=== PATIENT | female | born 1945 | race Caucasian/White ===

== ENCOUNTER → 2018-02-03 09:50 | Outpatient (CLI) | payer MEDICARE, SELFPAY ==
--- NOTE | 2018-02-04 16:28 | UEAS_ITS ---
Arterial Study - Arterial Study Arterial Study: This is a 72-year-old female with a history of hyperlipidemia and prediabetes. Suspecting an arterial occlusive process in the upper extremity, the patient was brought to the noninvasive vascular laboratory at this time for the purpose of bilateral noninvasive upper extremity arterial assessment. Doppler signal assessment was used to evaluate the pulses at the wrist level bilaterally. The radial and ulnar pulses were triphasic bilaterally. Segmental limb pressures were obtained in the upper extremities bilaterally. The right brachial pressure was measured at 169 mmHg. The right wrist pressure , as determined by radial artery pulse, was measured at 215 mmHg. The right wrist pressure, as determined by ulnar artery pulse, was measured at 270 mmHg. The left brachial pressure was measured at 168 mmHg. The left wrist pressure, as determined by radial artery pulse, was measured at 182 mmHg. The left wrist pressure, as determined by ulnar artery pulse, was measured at 208 mmHg. Pulse-volume recordings were obtained bilaterally and segmentally. Waveform amplitudes appeared to be satisfactory at all levels bilaterally, including upper arm, forearm, wrist, and digital levels bilaterally. Wrist-brachial indices were calculated bilaterally. The right wrist-brachial index was calculated to be 1.27. The left wrist-brachial index was calculated to be 1.23. Impression: Based upon the findings of this noninvasive upper extremity arterial study, there is no evidence of significant arterial occlusive disease in the upper extremities bilaterally. Triphasic waveforms were noted at wrist level bilaterally. Arterial pressures appear to be relatively unremarkable at all levels in the upper extremities bilaterally, with no suggestion of an occlusive process in the arterial tree of the upper extremities bilaterally.
--- NOTE | 2018-02-04 16:31 | LEAS ---
Arterial Study - Arterial Study Arterial Study: This is a 72-year-old female with a history of hyperlipidemia and prediabetes. Suspecting the presence of atherosclerotic peripheral arterial occlusive disease, the patient was brought to the noninvasive vascular laboratory at this time for the purpose of bilateral noninvasive lower extremity arterial assessment. Doppler signal assessment was used to evaluate the pulses at ankle level bilaterally. The posterior tibial and dorsalis pedis pulses were triphasic bilaterally. Segmental limb pressures were obtained bilaterally. The right ankle pressure, as determined by posterior tibial pulse, was measured at 221 mmHg. The right ankle pressure, as determined by dorsalis pedis pulse, was measured at 210 mmHg. The right digital pressure was measured at 167 mmHg. The left ankle pressure, as determined by posterior tibial pulse, was measured at 233 mmHg. The left ankle pressure, as determined by dorsalis pedis pulse, was measured at 209 mmHg. The left digital pressure was measured at 166 mmHg. Pulse-volume recordings were obtained bilaterally and segmentally. Waveform amplitudes appeared to be satisfactory at all levels bilaterally, including low thigh, calf, ankle, and digital levels. Resting ankle-brachial indices were calculated bilaterally. The resting right ankle-brachial index was calculated to be 1.31. The resting left ankle-brachial index was calculated to be 1.38. Digital-brachial indices were calculated bilaterally. The right digital-brachial index was calculated to be 0.99. The left digital-brachial index was calculated to be 0.98. Impression: Based upon the findings of this resting noninvasive lower extremity arterial study, there is no evidence of significant atherosclerotic peripheral arterial occlusive disease in the lower extremities bilaterally. Triphasic waveforms were noted at ankle level bilaterally. Resting ankle-brachial indices were bilaterally normal. Digital-brachial indices were also normal bilaterally. In summary, this represents a normal resting noninvasive lower extremity arterial study bilaterally.
--- NOTE | 2018-02-04 16:37 | LEAS_ITS ---
Arterial Study - Arterial Study Arterial Study: This is a 72-year-old female with a history of hyperlipidemia and prediabetes. Suspecting the presence of atherosclerotic peripheral arterial occlusive disease , the patient was brought to the noninvasive vascular laboratory at this time for the purpose of bilateral noninvasive lower extremity arterial assessment. Doppler signal assessment was used to evaluate the pulses at ankle level bilaterally. The posterior tibial and dorsalis pedis pulses were triphasic bilaterally. Segmental limb pressures were obtained bilaterally. The right ankle pressure, as determined by posterior tibial pulse, was measured at 221 mmHg. The right ankle pressure, as determined by dorsalis pedis pulse, was measured at 210 mmHg. The right digital pressure was measured at 167 mmHg. The left ankle pressure, as determined by posterior tibial pulse, was measured at 233 mmHg. The left ankle pressure, as determined by dorsalis pedis pulse, was measured at 209 mmHg. The left digital pressure was measured at 166 mmHg. Pulse-volume recordings were obtained bilaterally and segmentally. Waveform amplitudes appeared to be satisfactory at all levels bilaterally, including low thigh, calf, ankle, and digital levels. Resting ankle-brachial indices were calculated bilaterally. The resting right ankle-brachial index was calculated to be 1.31. The resting left ankle- brachial index was calculated to be 1.38. Digital-brachial indices were calculated bilaterally. The right digital- brachial index was calculated to be 0.99. The left digital-brachial index was calculated to be 0.98. Impression: Based upon the findings of this resting noninvasive lower extremity arterial study, there is no evidence of significant atherosclerotic peripheral arterial occlusive disease in the lower extremities bilaterally. Triphasic waveforms were noted at ankle level bilaterally. Resting ankle-brachial indices were bilaterally normal. Digital-brachial indices were also normal bilaterally. In summary, this represents a normal resting noninvasive lower extremity arterial study bilaterally.
== END ==
PROVIDERS: Family Provider Family Medicine; PCP Family Medicine; Visit Provider Orthopaedic Surgery
DX: I73.9 Peripheral vascular disease, unspecified (principal); M17.12 Unilateral primary osteoarthritis, left knee
CPT/HCPCS: 93923

== ENCOUNTER → 2019-07-13 14:22 | Outpatient (CLI) | payer MEDICARE, SELFPAY ==
--- NOTE | 2019-07-13 14:28 | BI_ITS ---
MAMMOGRAPHY - BILATERAL SCREENING REASON FOR EXAM: Female, 74 years old. Routine annual screening examination. PERTINENT HISTORY: Non-contributory. TECHNIQUE: Digital bilateral breast loraine (3D mammographic acquisition) in the CC and MLO projections. 2-D mediolateral oblique (MLO) and craniocaudad (CC) views of both breasts were obtained. CAD: Full Field Digital Mammography with Computer Added Detection was performed. COMPARISON: Comparison is made with prior examination dated May 04, 2017. FINDINGS: Breast Composition: There are scattered areas of fibroglandular density. There are no dominant masses or suspicious calcifications. Stable benign-appearing fat-containing axillary lymph nodes. No other significant abnormalities are identified. There has been no significant change since the prior study. BI/SCREEN MAMM (CAD) W/LORAINE BILAT IMPRESSION: Stable bilateral screening mammogram. Yearly follow-up mammogram recommended. (A) ASSESSMENT CATEGORY: BIRADS Category 2: Benign. A letter regarding these results will be sent to the patient by the facility within 30 days. Approximately 10% of breast cancers are not detected by mammography. A normal mammogram should not delay biopsy of a clinically suspicious abnormality. [id number] Electronically Signed: Hipolito Diego, at 13:37 EST , Service support ,
== END ==
PROVIDERS: Family Provider Family Medicine; PCP Family Medicine
DX: Z12.31 Encounter for screening mammogram for malignant neoplasm of breast (principal)
CPT/HCPCS: 77063; 77067

== ENCOUNTER 2020-10-11 15:46 | Outpatient (RCR) | payer MEDICARE, SELFPAY ==
[2020-10-11] MEDS: COVID-19 VACC, MRNA(PFIZER)/PF 30 MCG/0.3 ML SYRINGE IM (10:49)
[2020-11-01] MEDS: COVID-19 VACC, MRNA(PFIZER)/PF 30 MCG/0.3 ML SYRINGE IM (10:26)
== END 2020-10-11 23:59 ==
LOC: IMMUN 15:46
PROVIDERS: PCP Family Medicine; Visit Provider Family Medicine
DX: Z23 Encounter for immunization (principal)
CPT/HCPCS: 0001A; 0002A

== ENCOUNTER 2021-10-15 14:05 | Outpatient (CLI) | payer MEDICARE, SELFPAY ==
--- NOTE | 2021-10-15 14:09 | BI_ITS ---
MAMMOGRAPHY - BILATERAL SCREENING REASON FOR EXAM: Female, 76 years old. Routine annual screening examination. PERTINENT HISTORY: Non-contributory. TECHNIQUE: Digital bilateral breast loraine (3D mammographic acquisition) in the CC and MLO projections. 2-D mediolateral oblique (MLO) and craniocaudad (CC) views of both breasts were obtained. CAD: Full Field Digital Mammography with Computer Added Detection was performed. COMPARISON: Comparison is made with prior study dated 07/13/2019. FINDINGS: Breast Composition: There are scattered areas of fibroglandular density. There are no dominant masses or suspicious calcifications. Stable benign-appearing fat-containing bilateral axillary lymph. No other significant abnormalities are identified. There has been no significant change since the prior study. BI/SCRN MAMM (CAD)W/LORAINE BILAT IMPRESSION: Stable bilateral screening mammogram. Yearly follow-up mammogram recommended. (A) ASSESSMENT CATEGORY: BIRADS Category 2: Benign. A letter regarding these results will be sent to the patient by the facility within 30 days. Approximately 10% of breast cancers are not detected by mammography. A normal mammogram should not delay biopsy of a clinically suspicious abnormality. [id number] Electronically Signed: Hipolito Diego MD at 14:58 EST ,
== END 2021-10-15 23:59 | disposition home or self-care (01) ==
LOC: OPBI 14:06
PROVIDERS: PCP Family Medicine; Visit Provider Family Medicine
DX: Z12.31 Encounter for screening mammogram for malignant neoplasm of breast (principal)
CPT/HCPCS: 77063; 77067

== ENCOUNTER → 2025-02-06 | Outpatient (CLI) | payer MEDICARE, SELFPAY ==
[2025-02-06 11:13] LABS: Hematocrit 42.9 % (37-47); Hemoglobin 13.8 g/dL (12.0-15.0)
--- OUTSIDE RECORDS SUMMARY | 2025-02-06 22:51 | XMS RPT_ITS | CCD ---
Author Organization [facility] Care Team Providers Care [employer] Manager Name Role Phone BHANU SHRESTHA MD Primary Care Physician DR KASEY GARCIA MD Attending Unavailable BHANU SHRESTHA MD Primary Care Unavailable BHANU SHRESTHA MD Attending Unavailable BHANU SHRESTHA MD Primary Care Unavailable BHANU SHRESTHA MD Attending Unavailable BHANU SHRESTHA MD Primary Care Unavailable BHANU SHRESTHA MD Primary Care Unavailable TAVO VAZQUEZ MD Attending Unavailable TAVO VAZQUEZ MD Attending Unavailable BHANU SHRESTHA MD Primary Care Unavailable BHANU SHRESTHA MD Primary Care Unavailable TAVO VAZQUEZ MD Attending Unavailable BHANU SHRESTHA MD Primary Care Unavailable BHANU SHRESTHA MD Attending Unavailable BHANU SHRESTHA MD Primary Care Unavailable BHANU SHRESTHA MD Attending Unavailable BHANU SHRESTHA MD Primary Care Unavailable BHANU SHRESTHA MD Attending Unavailable TAVO VAZQUEZ MD Attending Unavailable BHANU SHRESTHA MD Primary Care Unavailable BHANU SHRESTHA MD Primary Care Unavailable BHANU SHRESTHA MD Attending Unavailable HBANU SHRESTHA MD Attending Unavailable BHANU SHRESTHA MD Primary Care Unavailable BHANU SHRESTHA MD Attending Unavailable BHANU SHRESTHA MD Primary Care Unavailable Dr. Bhanu Shrestha MD Primary Care Provider Dr. Bhanu Shrestha MD Referring Provider Graciela Jacobson Attending Provider Graciela Zuleta Attending Unavailable Bhanu Shrestha Referring Unavailable Bhanu Shrestha Primary Care Unavailable Allergies Allergy Classification Reported Allergen(s) Allergy Type Date of Onset Reaction(s) Facility (11 sources) Adhesive bandage Allergy to substance Unknown (qualifier value) [facility] (11 sources) bacitracin / neomycin / polymyxin b; Translations: [bacitracin/conor mycin/polymyxin B topical] Drug Allergy Unknown (qualifier value) [facility] (11 sources) nabumetone; Translations: [nabumetone] Drug Allergy headache [facility] (11 sources) Penicillin; Translations: [penicillin] Drug Allergy Unknown (qualifier value) [facility] (1 source) Bacitracin Drug Allergy 5 NEEDS FOLLOW-UP [facility] (1 source) Neomycin Drug Allergy 5 NEEDS FOLLOW-UP [facility] (1 source) Penicillins Allergy to substance 5 NEEDS FOLLOW-UP [facility] (1 source) Polymyxin B Drug Allergy 5 NEEDS FOLLOW-UP [facility] (1 source) Bacitracin Drug Allergy 5 [facility] (1 source) Neomycin Drug Allergy 5 [facility] (1 source) Penicillins Drug allergy (disorder) 5 [facility] (1 source) polymyxin B Drug allergy (disorder) 5 [facility] Medications Current Medications Medication Drug Class(es) Dates Sig (Normalized) Sig (Original) 8 hr acetaminophen 650 mg extended release oral tablet (5 sources) Start: 06-07-2024 Tylenol 8 HR Arthritis Pain 650 mg oral tablet, extended release Dose : 1,300 mg = 2 tab(s), Oral, q8h, PRN as needed for pain, # 24 tab(s), 0 Refill(s) Start Date: 06/07/24 Status: Ordered Quantity: 24.0 Unit: tab(s) Repeat number: 1 Albuterol (Eqv-ProAir HFA) 90 mcg/inh inhalation aerosol (3 sources) Start: 12-20-2024 take 1 dose by inhalation every four hours as needed for wheezing Albuterol (Eqv-ProAir HFA) 90 mcg/inh inhalation aerosol Dose = 1 puff(s), Inhalation, q4h, PRN as needed for shortness of breath or wheezing, # 6.7 gram(s), 0 Refill(s) Start Date: 12/20/24 Status: Ordered Quantity: 6.7 Unit: g Repeat number: 1 amLODIPine 5 mg oral tablet (3 sources) Dihydropyridine Calcium Channel Anais Start: 12-20-2024 amLODIPine 5 mg oral tablet Dose : 5 mg = 1 tab(s), Oral, qDay, # 90 tab(s), 3 Refill(s), Pharmacy: [facility], 180, cm, 12/20/24 15:35:00 EDT, Height, kg, 12/20/24 15:35:00 EDT, Dosing Weight Start Date: 12/20/24 Status: Ordered Quantity: 90.0 Unit: tab(s) Repeat number: 4 azithromycin 500 mg oral tablet (3 sources) Macrolide Antimicrobial Start: 12-20-2024 azithromycin 500 mg oral tablet take 1 tablet by mouth 1 hour before PROCEDURE Start Date: 12/20/24 Status: Ordered Repeat number: 1 Calcium, Magnesium and Zinc oral tablet (4 sources) Start: 01-31-2020 take 1 tablet by mouth once daily Calcium, Magnesium and Zinc oral tablet tab(s), Oral, qDay, 0 Refill(s) Start Date: 01/31/20 Status: Ordered diclofenac sodium 0.01 mg/mg topical gel (6 sources) Nonsteroidal Anti-inflammatory Drug Start: 12-20-2024 diclofenac 1% topical gel 2 = gram(s), Topical, QID, volteran gel, # 1 EA, 0 Refill(s), Gel, 166 Start Date: 12/20/24 Status: Ordered Quantity: 1.0 Unit: EA Repeat number: 1 Start: 01-31-2020 diclofenac sod ium 75 mg oral delayed release tablet Dose : 75 mg = 1 tab(s), Oral, BID, # 60 tab(s), 0 Refill(s) Start Date: 01/31/20 Status: Ordered diclofenac sodium 75 mg oral delayed release tablet (1 source) Start: 01-31-2020 diclofenac sod ium 75 mg oral delayed release tablet Dose : 75 mg = 1 tab(s), Oral, BID, # 60 tab(s), 0 Refill(s) Start Date: 01/31/20 Status: Ordered DME MISCellaneous (3 sources) Start: 06-23-2024 DME MISCellane ous See Instructions, Home Blood pressure monitor and cuff Check bp once daily as directed. Dx: Elevated bp, # 1 EA, 0 Refill(s), Pharmacy: [facility] #[facility], Elevated blood pressure reading, 180, cm, 06/07/24 13:23:00 EDT, Height, 106.8, kg, 06/07/24 13:23:00 EDT, Dosing Weight Start Date: 06/23/24 Status: Ordered Quantity: 1.0 Unit: EA Repeat number: 1 Indications: Elevated blood-pressure reading, without diagnosis of hypertension; Fluocinonide (10 sources) Corticosteroid Start: 06-07-2024 fluocinonide 0 .05% topical cream See Instructions, to affected area daily, # 30 gram(s), 1 Refill(s), Pharmacy: [facility], Cream, 180, cm, 06/07/24 13:23:00 EDT, Height, 106.8, kg, 06/07/24 13:23:00 EDT, Dosing Weight Start Date: 06/07/24 Status: Ordered Quantity: 30.0 Unit: g Repeat number: 2 Start: 06-07-2024 fluocinonide 0 .05% topical cream See Instructions, to affected area daily, # 30 gram(s), 1 Refill(s), Pharmacy: [facility], Cream, 180, cm, 06/07/24 13:23:00 EDT, Height, 106.8, kg, 06/07/24 13:23:00 EDT, Dosing Weight Start Date: 06/07/24 Status: Ordered Start: 02-05-2024 fluocinonide 0 .05% topical cream See Instructions, to affected area daily, # 30 gram(s), 1 Refill(s), Pharmacy: [facility], Cream, 180, cm, 05/13/23 13:26:00 EDT, Height, 105.8, kg, 05/13/23 13:26:00 EDT, Dosing Weight Start Date: 02/05/24 Status: Ordered Start: 03-11-2022 fluocinonide 0 .05% topical cream See Instructions, to affected area daily, # 60 gram(s), 0 Refill(s), Pharmacy: [facility] #[id number], Cream, 177, cm, 06/03/21 10:25:00 EDT, Height, 103 Start Date: 03/11/22 Status: Ordered fluticasone propionate 0.05 mg/actuat metered dose nasal spray (9 sources) Corticosteroid Start: 06-07-2024 take 50 ug nasal route once daily in the morning Flonase 50 mcg/inh nasal spray 50 mcg Dose = 1 spray(s), Nostril, each, qAM, 0 Refill(s) Start Date: 06/07/24 Status: Ordered Repeat number: 1 Start: 03-17-2022 take 1 dose nasal ro [place] twice daily Flonase 50 mcg/inh nasal spray Dose = 1 spray(s), Nostril, each, BID, 0 Refill(s) Start Date: 03/17/22 Status: Ordered ketotifen 0.25 mg/ml ophthalmic solution (5 sources) Histamine-1 Receptor Inhibitor Start: 06-07-2024 take 1 drop(s) into the eye(s) every eight hours ketotifen 0.025% ophthalmic solution See Instructions, drop(s) q8h, 0 Refill(s) Start Date: 06/07/24 Status: Ordered Repeat number: 1 levothyroxine sodium 0.088 mg oral tablet (11 sources) l-Thyroxine Start: 06-07-2024 End: 06-02-2025 Synthroid 88 mcg (0.088 mg) oral tablet Dose : 88 mcg = 1 tab(s), Oral, qDay, # 90 tab(s), 3 Refill(s), Pharmacy: [facility], 180, cm, 06/07/24 13:23:00 EDT, Height, kg, 06/07/24 13:23:00 EDT, Dosing Weight Start Date: 06/07/24 Stop Date: 06/02/25 Status: Ordered Quantity: 90.0 Unit: tab(s) Repeat number: 4 Start: 05-13-2023 End: 05-07-2024 Synthroid 88 mcg (0.088 mg) oral tablet Dose : 88 mcg = 1 tab(s), Oral, qDay, # 90 tab(s), 3 Refill(s), Pharmacy: [facility], 180, cm, 05/13/23 13:26:00 EDT, Height, kg, 05/13/23 13:26:00 EDT, Dosing Weight Start Date: 05/13/23 Stop Date: 05/07/24 Status: Ordered Start: 06-03-2021 End: 05-01-2023 Synthroid 88 mcg (0.088 mg) oral tablet Dose : 88 mcg = 1 tab(s), Oral, qDay, # 90 tab(s), 3 Refill(s), Pharmacy: [facility], 177, cm, 04/25/22 10:10:00 EDT, Height, kg, 04/25/22 10:10:00 EDT, Dosing Weight Start Date: 05/06/22 Stop Date: 05/01/23 Status: Ordered meloxicam 15 mg oral tablet (4 sources) Nonsteroidal Anti-inflammatory Drug Start: 04-17-2022 take 1 tablet by mouth once daily at mealtime for pain meloxicam 15 mg oral tablet take 1 tablet by mouth once daily WITH MEALS FOR PAIN. DO NOT JOHN... (REFER TO PRESCRIPTION NOTES). Start Date: 04/17/22 Status: Ordered Multivitamin preparation (11 sources) Start: 01-31-2020 take 1 tablet by mouth once daily Multivitamin Dose = 1 tab(s), Oral, Daily, 0 Refill(s) Start Date: 01/31/20 Status: Ordered Repeat number: 1 Start: 01-31-2020 take 1 tablet by becki th once daily Multivitamin Dose = 1 tab(s), Oral, Daily, 0 Refill(s) Start Date: 01/31/20 Status: Ordered mupirocin 0.02 mg/mg topical ointment (6 sources) RNA Synthetase Inhibitor Antibacterial Start: 05-13-2023 mupirocin 2% topical ointment Topical, TID, 0 Refill(s), 103.9 Start Date: 05/13/23 Status: Ordered Repeat number: 1 omega-3 polyunsaturated fatty acids 200 mg oral capsule (4 sources) Start: 01-31-2020 omega-3 polyunsaturated fatty acids 200 mg oral capsule Dose : 200 mg = 1 cap(s), Oral, qDay, # 30 cap(s), 0 Refill(s) Start Date: 01/31/20 Status: Ordered potassium bitartrate (1 source) Start: 01-31-2020 potassium bitartrate 0 Refill(s) Start Date: 01/31/20 Status: Ordered sulfamethoxazole 800 mg / trimethoprim 160 mg oral tablet (2 sources) Dihydrofolate Reductase Inhibitor Antibacterial, Sulfonamide Antimicrobial Start: 01-06-2025 End: 01-16-2025 take 1 tablet by mouth twice daily Bactrim DS 800 mg-160 mg oral tablet Dose = 1 tab(s), Oral, BID, X 10 day(s), # 20 tab(s), 0 Refill(s), Pharmacy: [facility] #[id number], 180, cm, 01/03/25 14:57:00 EDT, Height, 108.2, kg, 01/03/25 14:57:00 EDT, Dosing Weight Start Date: 01/06/25 Stop Date: 01/16/25 Status: Ordered Quantity: 20.0 Unit: tab(s) Repeat number: 1 24 hr tolterodine tartrate 4 mg extended release oral capsule (11 sources) Cholinergic Muscarinic Antagonist Start: 12-06-2024 tolterodine 4 mg oral capsule, extended release Dose : 4 mg = 1 cap(s), Oral, Daily, # 90 cap(s), 3 Refill(s), Pharmacy: [facility], 180, cm, 06/28/24 14:52:00 EST, Height, kg, 06/28/24 14:52:00 EST, Dosing Weight Start Date: 12/06/24 Status: Ordered Quantity: 90.0 Unit: cap(s) Repeat number: 4 Start: 06-07-2024 tolterodine 4 mg oral capsule, extended release Dose : 4 mg = 1 cap(s), Oral, Daily, 0 Refill(s) Start Date: 06/07/24 Status: Ordered Start: 05-13-2023 Detrol LA 4 mg oral capsule, extended release Dose : 4 mg = 1 cap(s), Oral, Daily, # 90 cap(s), 3 Refill(s), Pharmacy: [facility], 180, cm, 05/13/23 13:26:00 EDT, Height, kg, 05/13/23 13:26:00 EDT, Dosing Weight Start Date: 05/13/23 Status: Ordered Start: 10-31-2022 Detrol LA 4 mg oral capsule, extended release Dose : 4 mg = 1 cap(s), Oral, Daily, # 90 cap(s), 1 Refill(s), Pharmacy: [facility], 177, cm, 04/25/22 10:10:00 EDT, Height, kg, 04/25/22 10:10:00 EDT, Dosing Weight Start Date: 10/31/22 Status: Ordered Start: 10-08-2021 Detrol LA 4 mg oral capsule, extended release Dose : 4 mg = 1 cap(s), Oral, Daily, # 90 cap(s), 3 Refill(s), Pharmacy: [facility], 177, cm, 06/03/21 10:25:00 EDT, Height, kg, 06/03/21 10:25:00 EDT, Dosing Weight Start Date: 10/08/21 Status: Ordered Start: 04-05-2021 End: 07-04-2021 Detrol LA 4 mg oral capsule, extended release Dose : 4 mg = 1 cap(s), Oral, Daily, # 90 cap(s), 0 Refill(s), Pharmacy: [facility], 177, cm, 02/14/20 9:03:00 EDT, Height, kg, 02/14/20 9:06:00 EDT, Dosing Weight Start Date: 04/05/21 Stop Date: 07/04/21 Status: Ordered triamcinolone acetonide 1 mg/ml topical lotion (6 sources) Corticosteroid Start: 06-07-2024 triamcinolone 0.1% topical lotion See Instructions, Topical qDay, # 60 mL, 5 Refill(s), Pharmacy: [facility], 180, cm, 06/07/24 13:23:00 EDT, Height, 106.8, kg, 06/07/24 13:23:00 EDT, Dosing Weight Start Date: 06/07/24 Status: Ordered Quantity: 60.0 Unit: mL Repeat number: 6 Indications: Dermatitis, unspecified; Start: 05-13-2023 triamcinolone 0.1% topical lotion See Instructions, Topical qDay, # 60 mL, 5 Refill(s), Pharmacy: [facility], 180, cm, 05/13/23 13:26:00 EDT, Height, 105.8, kg, 05/13/23 13:26:00 EDT, Dosing Weight Start Date: 05/13/23 Status: Ordered Vitamin D3 (1 source) Start: 01-31-2020 Vitamin D3 qDa y, 0 Refill(s) Start Date: 01/31/20 Status: Ordered Completed/Discontinued Medications Medication Drug Class(es) Dates Sig (Normalized) Sig (Original) silver sulfADIAZINE 10 mg/ml topical cream (5 sources) Sulfonamide Antibacterial Start: 12-20-2024 End: 01-03-2025 SSD 1% topical cream Apply 1 deondre, Topical, BID, # 50 gram(s), 0 Refill(s), Pharmacy: [facility], Cream, 180, cm, 12/20/24 15:35:00 EDT, Height, 108, kg, 12/20/24 15:35:00 EDT, Dosing Weight Start Date: 12/20/24 Stop Date: 01/03/25 Status: Ordered Quantity: 50.0 Unit: g Repeat number: 1 Start: 06-07-2024 End: 06-21-2024 SSD 1% topical cream Apply 1 deondre, Topical, BID, # 50 gram(s), 0 Refill(s), Pharmacy: [facility], Cream, 180, cm, 06/07/24 13:23:00 EDT, Height, 106.8, kg, 06/07/24 13:23:00 EDT, Dosing Weight Start Date: 06/07/24 Stop Date: 06/21/24 Status: Ordered Problems Problem Classification Problem Date Documented Da te Episodic/Chronic Acute bronchitis (1 source) Acute bronchitis 11-26-2022 Episodic Allergic reactions (6 sources) Chronic dermatitis 05-13-2023 Episodic Coma; stupor; and brain damage (5 sources) Daytime somnolence 06-07-2024 Episodic Disorders of lipid metabolism (15 sources) Mixed hyperlipidemia; Translations: [Mixed hyperlipidemia] Onset: 3 02-14-2020 Chronic Esophageal disorders (5 sources) Gastroesophageal reflux disease 06-07-2024 Chronic Essential hypertension (16 sources) Benign essential hypertension; Translations: [Essential (primary) hypertension] Onset: 3 02-14-2020 Chronic Gastrointestinal hemorrhage (4 sources) Rectal hemorrhage; Translations: [Hemorrhage of anus and rectum] Onset: 5 01-31-2025 Episodic Nutritional deficiencies (8 sources) Vitamin D deficiency; Translations: [Vitamin D deficiency, unspecified] Onset: 5 05-13-2023 Chronic Osteoarthritis (5 sources) Bilateral osteoarthritis of knees 02-14-2020 Chronic Other connective tissue disease (1 source) Presence of left artificial knee joint; Translations: [Presence of left artificial knee joint] Onset: 5 Chronic Other diseases of bladder and urethra (11 sources) 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 Other diseases of bladder and urethra (2 sources) Overactive bladder; Translations: [Overactive bladder] Onset: 3 Chronic Other inflammatory condition of skin (5 sources) Seborrheic dermatitis of scalp 06-07-2024 Episodic Other non-traumatic joint disorders (6 sources) Knee pain 05-13-2023 Episodic Other non-traumatic joint disorders (2 sources) Pain in right knee; Translations: [Pain in right knee] Onset: 4 Episodic Other skin disorders (5 sources) Excessive sweating 06-07-2024 Episodic Other upper respiratory disease (3 sources) Lesion of nose 01-03-2025 Episodic Other upper respiratory infections (5 sources) Chronic sinusitis; Translations: [Chronic sinusitis, unspecified] Onset: 5 12-20-2024 Chronic Thyroid disorders (15 sources) Hypothyroidism; Translations: [Hypothyroidism, unspecified] Onset: 3 02-14-2020 Chronic Unclassified (5 sources) Pain of knee region 06-07-2024 Unclassified (1 source) Low back pain, unspecified; Translations: [Low back pain, unspecified] Onset: 5 Unclassified (1 source) Juvenal-Danlos syndrome, unspecified; 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, unspecified] Onset: 5 Results Test Name Value Interpretation Reference Range Facility Gastroenterology Visit Repor ton 01-31-2025 Gastroenterology Visit Report [facility] [address] [place] [address] OFFICE VISIT Date of Service: 01/31/25 MR#: [id number] Acct: [id number] Name: CLEVE CHANDLER Rep #: [id number] : 1945 Provider: SALOMÓN ortega Age/Sex: 79/F Location: [facility] Status: Signed Intake Vital Signs 01/31/25 14:23 Height 5 ft 9.5 in Weight: 234 lb BMI 34.0 BP 170/81 H Position Sitting Pulse 72 Pulse Source Monitor Pulse Oximetry (%) 91 Oxygen Delivery Method room air Intake Visit Reasons: Rectal bleeding Allergies bacitracin (From Neosporin ([id number])) Allergy (Verified 01/31/25 14:49) NEEDS FOLLOW-UP neomycin (From Neosporin ([id number])) Allergy (Verified 01/31/25 14:49) NEEDS FOLLOW-UP Penicillins Allergy (Verified 01/31/25 14:49) NEEDS FOLLOW-UP polymyxin B (From Neosporin ([id number])) Allergy (Verified 01/31/25 14:49) NEEDS FOLLOW-UP Have you fallen in the past year?: Yes Nurse's Note: OV 01/31/25 Pt here to establish care with [facility]. Pt reports abdominal pain, blood in stools and change in bowel habits. Pt says she had a round of ATB and has had rectal bleeding since. HPI HPI Details: CLEVE CHANDLER, is a 79 F who presents to the office today for establishment with [facility] regarding concerns for blood from her rectum. She reports that she had recently completed back to back therapies for a sinus infection I never had and then all of a sudden I noticed blood wrapped around my stools with mucus one day. She denies ever having a colonoscopy, and states I'd rather not start now. She reports a history of constipation, but has a complete BM daily now and she is not seeing any more blood. She states presence of mild abdominal cramping prior to a BM and has noted increased belching 1hr after meals. Her stool is formed and drops to the toilet, she will have shreds of mucus but no more bleeding. She denies knowing what a hemorrhoid feels like, but denies difficulty sitting, pruritus around anus, and rectal pressure. She denies family history of colon cancer but states that her daughter recently had a benign poly removed from her colon. Blood drawn 6.2.25 by PCP: W-5.9, hgb-14.1, hct-42.6, plt-288. ROS Const Constitutional: Positive for fatigue and weight change; No chills or fever(s) Eyes Eyes: No change in vision ENT ENT: No abnormal hearing or difficulty swallowing Resp Respiratory: No cough Cardio Cardiology: Positive for leg pain with exertion; No chest pain at rest or chest pain with exertion Gastro GI: Positive for abdominal pain, change in bowel habits and Blood in stool; No belching, bloating, change in stool character, coffee ground emesis, constipation, cramping, diarrhea, heartburn, difficulty swallowing, feeling full early, excessive flatus, incontinent of stools, Vomiting blood/hematemesis, loose stools, Black,tarry stools, nausea/dyspepsia, pain with swallowing, vomiting or other Musc Musculoskeletal: Positive for joint pain, back pain, Arthritis, restless legs, leg pain at night and leg pain with exertion Skin Skin: Positive for dry skin and itchy eyes; No yellowing of the eye Neuro Neurology: Positive for restless legs; No abnormal hearing Psych Psychiatric: Positive for anxiety Endo Endocrine: Positive for fatigue and weight change Aller/Imm Allergy/Immunologic: Positive for itchy eyes Efe/Lymp Hematologic/Lymphati c: Positive for easy bleeding and easy bruising Exam Const General: cooperative, healthy appearing, comfortable, no acute distress and well groomed Nutritional Appearance: overweight Orientation: alert and oriented x3 HENMT Head: normal to inspection Ears: hearing grossly normal bilaterally Eyes General: appearance normal, both eyes and all related structures Sclera: sclerae normal Neck Neck: normal visual inspection and full ROM Chest Chest palpation inspection: normal inspection of the chest Resp Effort Inspection: normal respiratory effort, able to speak in complete sentences and symmetric chest movement GI Inspection: normal to inspection Rectal Exam: deferred Skin General: no rashes or lesions noted Neuro General: patient alert, patient oriented x3 and moves all extremities Cognition: normal cognition Speech: speech normal Gait: normal gait Extrem General: full ROM Psych Appearance: well kempt Mental Status: mental status grossly normal Mood: congruent mood Judgment: judgment good Assessment and Plan Assessment and Plan (1) Bleeding per rectum: Status: Acute Orders: Orders HH, Hemoglobin Hematocrit 01/31/25 K62.5 - Hemorrhage of anus and rectum Plan KATYA CHANDLER, is a 79 F who presents to the office today for establishment with I regarding concerns for blood from her rectum. Despite strong encouragement (more content not included)... Normal [facility] .Auto Diffon 01-09-2025 Basophil, Absolute 0.1 10 3/mcL Normal 0.0-0.3 [facility] Comment on above: Performed By: #### F T4, GFR, CMP, ANEU, TSH, VIDH, FERR, ADIFF, LIPID, CBC #### [address] [id number] Basophils/100 WBC (Bld) 1.0 % Normal 0.0-2.5 [facility] Comment on above: Performed By: #### F T4, GFR, CMP, ANEU, TSH, VIDH, FERR, ADIFF, LIPID, CBC #### [address] [address] Eosinophil, Absolute 0.3 10 3/mcL Normal 0.0-0.7 [facility] Comment on above: Performed By: #### F T4, GFR, CMP, ANEU, TSH, VIDH, FERR, ADIFF, LIPID, CBC #### [address] [address] Eosinophils/100 WBC (Bld) 4.7 % Normal 0.0-6.0 [facility] Comment on above: Performed By: #### F T4, GFR, CMP, ANEU, TSH, VIDH, FERR, ADIFF, LIPID, CBC #### [address] [address] Lymphocyte, Absolute 1.5 10 3/mcL Normal 0.9-4.3 [facility] Comment on above: Performed By: #### F T4, GFR, CMP, ANEU, TSH, VIDH, FERR, ADIFF, LIPID, CBC #### [address] [address] Lymphocytes/100 WBC (Bld) 26.0 % Normal 20.0-40.0 [facility] Comment on above: Performed By: #### F T4, GFR, CMP, ANEU, TSH, VIDH, FERR, ADIFF, LIPID, CBC #### [address] [address] Monocyte, Absolute 0.6 10 3/mcL Normal 0.1-1.4 [facility] Comment on above: Performed By: #### F T4, GFR, CMP, ANEU, TSH, VIDH, FERR, ADIFF, LIPID, CBC #### [address] [address] Monocytes/100 WBC (Bld) 10.0 % Normal 2.0-13.0 [facility] Comment on above: Performed By: #### F T4, GFR, CMP, ANEU, TSH, VIDH, FERR, ADIFF, LIPID, CBC #### [address] [address] Neutrophils/100 WBC (Bld) 58.3 % Normal 50.0-75.0 [facility] Comment on above: Performed By: #### F T4, GFR, CMP, ANEU, TSH, VIDH, FERR, ADIFF, LIPID, CBC #### [address] [address] .GFRon 01-09-2025 Estimated Glomerular Filtration Rate 66 ml/min/1.73sqm Normal [facility] Comment on above: Result Comment: Stages of Chronic Kidney Disease (CKD) Stage Description eGFR(ml/min/1.73 sq.m.) CKD 1 Normal kidney function or >=90 normal kindney function with possible kidney damage (ex. Proteinuria) CKD 2 Kidney damage with mild loss 60-89 of kidney function CKD 3a Mild to moderate loss of kidney 45-59 function CKD 3b Moderate to severe loss of 30-44 of kindey function CKD 4 Severe loss of kidney function 15-29 CKD 5 Kidney failure <15 Note: (go live 2024) the eGFR calculation was updated to the 2020 CKD-EPI creatinine equation without a race factor to calculate the eGFR results. Performed By: #### F T4, GFR, CMP, ANEU, TSH, VIDH, FERR, ADIFF, LIPID, CBC #### [place] [address] .NEUABSon 01-09-2025 Neutrophil, Absolute 3.4 10 3/mcL Normal 2.3-8.1 [facility] Comment on above: Performed By: #### F T4, GFR, CMP, ANEU, TSH, VIDH, FERR, ADIFF, LIPID, CBC #### [place] [address] CBCon 01-09-2025 Erythrocyte distribution width (RBC) [Ratio] 13.6 % Normal 11.5-15.5 [facility] Comment on above: Performed By: #### F T4, GFR, CMP, ANEU, TSH, VIDH, FERR, ADIFF, LIPID, CBC #### [place] [address] Hematocrit (Bld) [Volume fraction] 42.6 % Normal 34.0-46.0 [facility] Comment on above: Performed By: #### F T4, GFR, CMP, ANEU, TSH, VIDH, FERR, ADIFF, LIPID, CBC #### [place] [address] Hgb 14.1 G/dL Normal 12.0-16.0 [facility] Comment on above: Performed By: #### F T4, GFR, CMP, ANEU, TSH, VIDH, FERR, ADIFF, LIPID, CBC #### [place] [address] MCH (RBC) [Entitic mass] 29.5 pg Normal 27.0-33.0 [facility] Comment on above: Performed By: #### F T4, GFR, CMP, ANEU, TSH, VIDH, FERR, ADIFF, LIPID, CBC #### [place] [address] MCHC 33.2 G/dL Normal 32.0-36.0 [facility] Comment on above: Performed By: #### F T4, GFR, CMP, ANEU, TSH, VIDH, FERR, ADIFF, LIPID, CBC #### [address] [address] MCV (RBC) [Entitic vol] 88.8 fL Normal 80.0-99.0 [facility] Comment on above: Performed By: #### F T4, GFR, CMP, ANEU, TSH, VIDH, FERR, ADIFF, LIPID, CBC #### [address] [address] Platelet 288 10 3/mcL Normal 150-450 [facility] Comment on above: Performed By: #### F T4, GFR, CMP, ANEU, TSH, VIDH, FERR, ADIFF, LIPID, CBC #### [address] [address] Platelet mean volume (Bld) [Entitic vol] 9.0 fL Normal 6.6-10.5 [facility] Comment on above: Performed By: #### F T4, GFR, CMP, ANEU, TSH, VIDH, FERR, ADIFF, LIPID, CBC #### [address] [address] RBC 4.79 10 6/mcL Normal 4.10-5.30 [facility] Comment on above: Performed By: #### F T4, GFR, CMP, ANEU, TSH, VIDH, FERR, ADIFF, LIPID, CBC #### [address] [address] WBC 5.9 10 3/mcL Normal 4.5-10.8 [facility] Comment on above: Performed By: #### F T4, GFR, CMP, ANEU, TSH, VIDH, FERR, ADIFF, LIPID, CBC #### [address] [address] CMPon 01-09-2025 Albumin Level 3.6 G/dL Normal 3.4-4.8 [facility] Comment on above: Performed By: #### F T4, GFR, CMP, ANEU, TSH, VIDH, FERR, ADIFF, LIPID, CBC #### [address] [address] Albumin/Globulin [Mass ratio] 1.0 {ratio} Low 1.1-2.5 [facility] Comment on above: Performed By: #### F T4, GFR, CMP, ANEU, TSH, VIDH, FERR, ADIFF, LIPID, CBC #### [address] [address] ALP [Catalytic activity/Vol] 91 U/L Normal 40-135 [facility] Comment on above: Performed By: #### F T4, GFR, CMP, ANEU, TSH, VIDH, FERR, ADIFF, LIPID, CBC #### [address] [address] ALT [Catalytic activity/Vol] 28 U/L Normal 14-59 [facility] Comment on above: Performed By: #### F T4, GFR, CMP, ANEU, TSH, VIDH, FERR, ADIFF, LIPID, CBC #### [address] [address] AST [Catalytic activity/Vol] 22 U/L Normal 10-40 [facility] Comment on above: Performed By: #### F T4, GFR, CMP, ANEU, TSH, VIDH, FERR, ADIFF, LIPID, CBC #### [address] [address] Bili Total 0.4 mg/dL Normal 0.2-1.0 [facility] Comment on above: Result Comment: Use of this assay is not recommended for patients undergoing treatment with eltrombopag due to the potential for falsely elevated results. Performed By: #### F T4, GFR, CMP, ANEU, TSH, VIDH, FERR, ADIFF, LIPID, CBC #### [address] [address] BUN/Creatinine Ratio 16 ratio Normal 7-27 [facility] Comment on above: Performed By: #### F T4, GFR, CMP, ANEU, TSH, VIDH, FERR, ADIFF, LIPID, CBC #### [address] [address] Calcium [Mass/Vol] 9.4 mg/dL Normal 8.4-10.2 [facility] Comment on above: Performed By: #### F T4, GFR, CMP, ANEU, TSH, VIDH, FERR, ADIFF, LIPID, CBC #### [address] [address] Chloride [Moles/Vol] 105 mmol/L Normal 98-107 [facility] Comment on above: Performed By: #### F T4, GFR, CMP, ANEU, TSH, VIDH, FERR, ADIFF, LIPID, CBC #### [place] [id number] CO2 [Moles/Vol] 27 mmol/L Normal 23-31 [facility] Comment on above: Performed By: #### F T4, GFR, CMP, ANEU, TSH, VIDH, FERR, ADIFF, LIPID, CBC #### [place] [address] Creatinine [Mass/Vol] 0.90 mg/dL Normal 0.51-0.95 [facility] Comment on above: Performed By: #### F T4, GFR, CMP, ANEU, TSH, VIDH, FERR, ADIFF, LIPID, CBC #### [address] [address] Electrolyte Balance 6.0 mEq/L Normal 4.0-15.0 [facility] Comment on above: Performed By: #### F T4, GFR, CMP, ANEU, TSH, VIDH, FERR, ADIFF, LIPID, CBC #### [place] [address] Globulin 3.5 G/dL Normal 2.7-4.4 [facility] Comment on above: Performed By: #### F T4, GFR, CMP, ANEU, TSH, VIDH, FERR, ADIFF, LIPID, CBC #### [place] [address] Glucose [Mass/Vol] 96 mg/dL Normal 83-110 [facility] Comment on above: Performed By: #### F T4, GFR, CMP, ANEU, TSH, VIDH, FERR, ADIFF, LIPID, CBC #### [place] [id number] Potassium [Moles/Vol] 4.3 mmol/L Normal 3.5-5.1 [facility] Comment on above: Performed By: #### F T4, GFR, CMP, ANEU, TSH, VIDH, FERR, ADIFF, LIPID, CBC #### [address] [address] Sodium [Moles/Vol] 138 mmol/L Normal 136-145 [facility] Comment on above: Performed By: #### F T4, GFR, CMP, ANEU, TSH, VIDH, FERR, ADIFF, LIPID, CBC #### [place] [address] Total Protein 7.1 G/dL Normal 6.4-8.2 [facility] Comment on above: Performed By: #### F T4, GFR, CMP, ANEU, TSH, VIDH, FERR, ADIFF, LIPID, CBC #### [place] [address] Urea nitrogen [Mass/Vol] 14 mg/dL Normal 7-18 [facility] Comment on above: Performed By: #### F T4, GFR, CMP, ANEU, TSH, VIDH, FERR, ADIFF, LIPID, CBC #### [address] [address] FT3on 01-09-2025 Free T3 [Mass/Vol] 2.20 pg/mL Low 2.30-4.00 [facility] Comment on above: Performed By: #### F T4, GFR, CMP, ANEU, TSH, VIDH, FERR, ADIFF, LIPID, CBC #### [address] [address] FT4on 01-09-2025 Free T4 [Mass/Vol] 1.05 ng/dL Normal 0.76-1.46 [facility] Comment on above: Performed By: #### F T4, GFR, CMP, ANEU, TSH, VIDH, FERR, ADIFF, LIPID, CBC #### [place] [id number] LABORATORYOrdered By: SYSTEM SYSTEM on 01-09-2025 25-hydroxyvitamin D3 [Mass/Vol] 26.1 ng/mL Invalid Interpretation Code AO ADM SS Comment on above: Interpretive Data: I nterpretive Values Based on Total 25(OH) Vitamin D: Deficient <20 ng/mL Insufficient 20 - <30 ng/mL Sufficient 30-100 ng/mL Albumin BCP dye [Mass/Vol] 3.6 G/dL Normal 3.4 - 4.8 G/dL AO ADM SS Albumin/Globulin [Mass ratio] 1.0 {ratio} Low 1.1 - 2.5 ratio AO ADM SS ALP [Catalytic activity/Vol] 91 U/L Normal 40 - 135 U/L AO ADM SS ALT With P-5'-P [Catalytic activity/Vol] 28 U/L Normal 14 - 59 U/L AO ADM SS AST With P-5'-P [Catalytic activity/Vol] 22 U/L Normal 10 - 40 U/L AO ADM SS Basophils (Bld) [#/Vol] 0.1 103/mcL Normal 0.0 - 0.3 10^3/mcL AO Workflow SS Basophils/100 WBC (Bld) 1.0 % Normal 0.0 - 2.5 % AO Workflow SS Bilirubin [Mass/Vol] 0.4 mg/dL Normal 0.2 - 1 .0 mg/dL AO ADM SS Comment on above: Interpretive Data: U se of this assay is not recommended for patients undergoing treatment with eltrombopag due to the potential for falsely elevated results. Calcium [Mass/Vol] 9.4 mg/dL Normal 8.4 - 10. 2 mg/dL AO ADM SS Chloride [Moles/Vol] 105 mmol/L Normal 98 - 10 7 mmol/L AO ADM SS CO2 [Moles/Vol] 27 mmol/L Normal 23 - 31 mmol/L AO ADM SS Creatinine [Mass/Vol] 0.90 mg/dL Normal 0.51 - 0.95 mg/dL AO ADM SS Electrolyte Balance 6.0 mEq/L Normal 4.0 - 15 .0 mEq/L AO ADM SS Eosinophil, Absolute 0.3 103/mcL Normal 0.0 - 0 .7 10^3/mcL AO Workflow SS Eosinophils/100 WBC (Bld) 4.7 % Normal 0.0 - 6.0 % AO Workflow SS Erythrocyte distribution width (RBC) [Ratio] 13.6 % Normal 11.5 - 15.5 % AO Workflow SS Estimated Glomerular Filtration Rate 66 ml/min/1.73sqm Invalid Interpretation Code AO Chemistry S Comment on above: Interpretive Data: Stages of Chronic Kidney Disease (CKD) Stage Description eGFR(ml/min/1.73 sq.m.) CKD 1 Normal kidney function or >=90 normal kindney function with possible kidney damage (ex. Proteinuria) CKD 2 Kidney damage with mild loss 60-89 of kidney function CKD 3a Mild to moderate loss of kidney 45-59 function CKD 3b Moderate to severe loss of 30-44 of kindey function CKD 4 Severe loss of kidney function 15-29 CKD 5 Kidney failure <15 Note: (go live 2024) the eGFR calculation was updated to the 2020 CKD-EPI creatinine equation without a race factor to calculate the eGFR results. Free T3 [Mass/Vol] 2.20 pg/mL Low 2.30 - 4. 00 pg/mL AO ADM SS Free T4 [Mass/Vol] 1.05 ng/dL Normal 0.76 - 1. 46 ng/dL AO ADM SS Globulin 3.5 G/dL Normal 2.7 - 4.4 G/dL AO ADM SS Glucose [Mass/Vol] 96 mg/dL Normal 83 - 110 mg/dL AO ADM SS Hematocrit (Bld) [Volume fraction] 42.6 % Normal 34.0 - 46.0 % AO Workflow SS Hemoglobin (Bld) [Mass/Vol] 14.1 G/dL Normal 12.0 - 16.0 G/dL AO Workflow SS Lymphocytes (Bld) [#/Vol] 1.5 103/mcL Normal 0.9 - 4.3 10^3/mcL AO Workflow SS Lymphocytes/100 WBC (Bld) 26.0 % Normal 20.0 - 40.0 % AO Workflow SS MCH (RBC) [Entitic mass] 29.5 pg Normal 27.0 - 33.0 pg AO Workflow SS MCHC 33.2 G/dL Normal 32.0 - 36.0 G/dL AO Workflow SS MCV (RBC) [Entitic vol] 88.8 fL Normal 80.0 - 99.0 fL AO Workflow SS Monocytes (Bld) [#/Vol] 0.6 103/mcL Normal 0.1 - 1.4 10^3/mcL AO Workflow SS Monocytes/100 WBC (Bld) 10.0 % Normal 2.0 - 13.0 % AO Workflow SS Natriuretic peptide.B prohormone N-Terminal [Mass/Vol] 246 pg/mL Normal 0 - 450 pg/mL AO ADM SS Comment on above: Interpretive Data: N T-proBNP results of less than 300 pg/mL effectively rules out acute congestive heart failure with 99% negative predictive value. Neutrophils (Bld) [#/Vol] 3.4 103/mcL Normal 2.3 - 8.1 10^3/mcL AO Workflow SS Neutrophils/100 WBC (Bld) 58.3 % Normal 50.0 - 75.0 % AO Workflow SS Platelet mean volume (Bld) [Entitic vol] 9.0 fL Normal 6.6 - 10.5 fL AO Workflow SS Platelets (Bld) [#/Vol] 288 103/mcL Normal 150 - 450 10^3/mcL AO Workflow SS Potassium [Moles/Vol] 4.3 mmol/L Normal 3.5 - 5.1 mmol/L AO ADM SS Protein [Mass/Vol] 7.1 G/dL Normal 6.4 - 8.2 G/dL AO ADM SS RBC (Bld) [#/Vol] 4.79 106/mcL Normal 4.10 - 5.3 0 10^6/mcL AO Workflow SS Sodium [Moles/Vol] 138 mmol/L Normal 136 - 145 mmol/L AO ADM SS TSH Qn 2.84 m[IU]/L Normal 0.36 - 3.74 mcIU/mL AO ADM SS Urea nitrogen [Mass/Vol] 14 mg/dL Normal 7 - 18 mg/dL AO ADM SS Urea nitrogen/Creatinine [Mass ratio] 16 ratio Normal 7 - 27 ratio AO ADM SS WBC (Bld) [#/Vol] 5.9 103/mcL Normal 4.5 - 10.8 10^3/mcL AO Workflow SS LABORATORYOrdered By: Zenaida De La Cruz on 01-09-2025 Cholesterol [Mass/Vol] 194 mg/dL Normal 0 - 2 00 mg/dL AO ADM SS Comment on above: Interpretive Data: C holesterol Reference Interval: Less than 200 Desirable 200-239 Borderline high risk 240 and above High risk Cholesterol in HDL [Mass/Vol] 38 mg/dL Low 40 - 60 mg/dL AO ADM SS Cholesterol in LDL [Mass/Vol] 126 mg/dL Normal 0 - 130 mg/dL AO ADM SS Triglyceride [Mass/Vol] 149 mg/dL Normal 0 - 150 mg/dL AO ADM SS Comment on above: Interpretive Data: T riglyceride Reference Interval: Less than 150 Normal 150-199 Borderline high risk 200-499 High risk 500 or higher Very high risk LIPIDon 01-09-2025 Cholesterol [Mass/Vol] 194 mg/dL Normal 0-200 [facility] Comment on above: Result Comment: Chol esterol Reference Interval: Less than 200 Desirable 200-239 Borderline high risk 240 and above High risk Performed By: #### F T4, GFR, CMP, ANEU, TSH, VIDH, FERR, ADIFF, LIPID, CBC #### [address] [address] Cholesterol in HDL [Mass/Vol] 38 mg/dL Low 40-60 [facility] Comment on above: Performed By: #### F T4, GFR, CMP, ANEU, TSH, VIDH, FERR, ADIFF, LIPID, CBC #### [address] [address] Cholesterol in LDL [Mass/Vol] 126 mg/dL Normal 0-130 [facility] Comment on above: Performed By: #### F T4, GFR, CMP, ANEU, TSH, VIDH, FERR, ADIFF, LIPID, CBC #### [address] [address] Triglyceride [Mass/Vol] 149 mg/dL Normal 0-150 [facility] Comment on above: Result Comment: Trig lyceride Reference Interval: Less than 150 Normal 150-199 Borderline high risk 200-499 High risk 500 or higher Very high risk Performed By: #### F T4, GFR, CMP, ANEU, TSH, VIDH, FERR, ADIFF, LIPID, CBC #### [address] [address] PBNPon 01-09-2025 Natriuretic peptide B (Bld) [Mass/Vol] 246 pg/mL Normal 0-450 [facility] Comment on above: Result Comment: NT-p roBNP results of less than 300 pg/mL effectively rules out acute congestive heart failure with 99% negative predictive value. Performed By: #### F T4, GFR, CMP, ANEU, TSH, VIDH, FERR, ADIFF, LIPID, CBC #### [place] [address] [place], [place] [address] TSHon 01-09-2025 TSH Qn 2.84 m[IU]/L Normal 0.36-3.74 [facility] Comment on above: Performed By: #### F T4, GFR, CMP, ANEU, TSH, VIDH, FERR, ADIFF, LIPID, CBC #### [place] [address] [place], [place] [address] VIDHon 01-09-2025 Vit. D 25-Hydroxy 26.1 ng/mL Normal [facility] Comment on above: Result Comment: Inte rpretive Values Based on Total 25(OH) Vitamin D: Deficient <20 ng/mL Insufficient 20 - <30 ng/mL Sufficient 30-100 ng/mL Performed By: #### F T4, GFR, CMP, ANEU, TSH, VIDH, FERR, ADIFF, LIPID, CBC #### [address] [address] No Panel Informationon 01-03 Culture Wound Aerobe Rare normal skin amy present. Sensitivity testing not indicated. [facility] No organisms seen. [facility] SYNCTon 07-21-2024 Cells Counted (synovial) 100 Normal [facility] Comment on above: Result Comment: Cell differential is approximate due to debris, degenerated cells, and/or cell clumps seen. Performed By: #### S YMARYT #### [address] [address] Lymphocytes/100 WBC (Bld) 19 % Normal [facility] Comment on above: Performed By: #### S AmyNCT #### [address] [address] Mononuclear Cell % (synovial) 32 % Normal [facility] Comment on above: Performed By: #### S SELVINT #### [address] [address] Synovial Lining Cell (synovial) 49 % Normal [facility] Comment on above: Performed By: #### S YNCT #### [facility] [address] [place] [address] Clarity (U) Cloudy Normal [facility] Comment on above: Performed By: #### S YNCT #### [facility] [address] [place] [phone] Color (U) Sl. [place] Normal [facility] Comment on above: Performed By: #### S YNCT #### [facility] [address] [place] [address] White Blood Cells (synovial) 120 /mm3 Normal 0-199 [facility] Comment on above: Result Comment: Cell count and differential are approximate due to debris and/or cell clumps seen, as well as cellular degeneration. Performed By: #### S YNCT #### [facility] [address] [place] [address] NM BONE THREE PHASE STUDY SC AN 06-14-2024 NM BONE THREE PHASE STUDY SCAN 1 ORIGINAL EXAMINATION: THREE PHASE BONE SCAN WITH SPECT 06/13/2024 2:32 pm TECHNIQUE: The patient was injected intravenously with 25.2 mCi of 99 mTc MDP. Initial blood flow and pool images of the knees were acquired. After 3 hours, delayed bone images were acquired. COMPARISON: Patient did not have previous imaging studies for comparison. HISTORY: Reason for Exam: Pain in RT KNEE pain rt knee post knee replacement FINDINGS: Flow and blood pool images demonstrate no hyperemia. Delayed images show photopenia at the right knee arthroplasty. Mild focal uptake is present at the right patella. There is also significant arthritic uptake at the left knee. No significant periprosthetic uptake is identified. IMPRESSION: No scintigraphic evidence of hardware loosening. Interpreted by: Janina Mulligan MD Preliminary Report By: Janina Mulligan MD Electronically signed By Janina Mulligan MD Dictated Date: 06/14/2024 4:09:05 PM Prelim Date: 06/14/2024 4:16:11 PM Sign Date: 06/14/2024 4:16:11 PM Ordering Provider: TAVO VAZQUEZ [facility] .Auto Diffon 06-01-2024 Basophil, Absolute 0.0 10 3/mcL Normal 0.0-0.2 [facility] Comment on above: Performed By: #### F T4, GFR, CMP, ANEU, TSH, VIDH, FERR, ADIFF, LIPID, CBC #### [address] [address] Basophils/100 WBC (Bld) 0.8 % Normal 0.0-2.5 [facility] Comment on above: Performed By: #### F T4, GFR, CMP, ANEU, TSH, VIDH, FERR, ADIFF, LIPID, CBC #### [address] [address] Eosinophil, Absolute 0.1 10 3/mcL Normal 0.0-0.7 [facility] Comment on above: Performed By: #### F T4, GFR, CMP, ANEU, TSH, VIDH, FERR, ADIFF, LIPID, CBC #### [address] [address] Eosinophils/100 WBC (Bld) 2.3 % Normal 0.0-7.0 [facility] Comment on above: Performed By: #### F T4, GFR, CMP, ANEU, TSH, VIDH, FERR, ADIFF, LIPID, CBC #### [address] [address] Lymphocyte, Absolute 1.8 10 3/mcL Normal 0.9-4.3 [facility] Comment on above: Performed By: #### F T4, GFR, CMP, ANEU, TSH, VIDH, FERR, ADIFF, LIPID, CBC #### [address] [address] Lymphocytes/100 WBC (Bld) 29.4 % Normal 20.0-40.0 [facility] Comment on above: Performed By: #### F T4, GFR, CMP, ANEU, TSH, VIDH, FERR, ADIFF, LIPID, CBC #### [address] [address] Monocyte, Absolute 0.6 10 3/mcL Normal 0.1-1.4 [facility] Comment on above: Performed By: #### F T4, GFR, CMP, ANEU, TSH, VIDH, FERR, ADIFF, LIPID, CBC #### [address] [address] Monocytes/100 WBC (Bld) 10.1 % Normal 2.0-13.0 [facility] Comment on above: Performed By: #### F T4, GFR, CMP, ANEU, TSH, VIDH, FERR, ADIFF, LIPID, CBC #### [address] [address] Neutrophils/100 WBC (Bld) 57.4 % Normal 50.0-75.0 [facility] Comment on above: Performed By: #### F T4, GFR, CMP, ANEU, TSH, VIDH, FERR, ADIFF, LIPID, CBC #### [address] [address] .GFRon 06-01-2024 GFR 86 ml/min/1.73sqm [facility] Comment on above: Result Comment: GFR Population mean for , Non- Americans Ages 20-29 = 116 mL/min/1.73 sq.m. Ages 30-39 = 107 mL/min/1.73 sq.m. Ages 40-49 = 99 mL/min/1.73 sq.m. Ages 50-59 = 93 mL/min/1.73 sq.m. Ages 60-69 = 85 mL/min/1.73 sq.m. Ages 70+ = 75 mL/min/1.73 sq.m. Chronic Kidney Disease: Less than 60 mL/min/1.73 square meters End Stage Renal Disease: Less than 15 mL/min/1.73 square meters Performed By: #### F T4, GFR, CMP, ANEU, TSH, VIDH, FERR, ADIFF, LIPID, CBC #### [address] [address] GFR Non- 71 ml/min/1.73sqm Normal [facility] Comment on above: Result Comment: GFR Population mean for , Non- Americans Ages 20-29 = 116 mL/min/1.73 sq.m. Ages 30-39 = 107 mL/min/1.73 sq.m. Ages 40-49 = 99 mL/min/1.73 sq.m. Ages 50-59 = 93 mL/min/1.73 sq.m. Ages 60-69 = 85 mL/min/1.73 sq.m. Ages 70+ = 75 mL/min/1.73 sq.m. Chronic Kidney Disease: Less than 60 mL/min/1.73 square meters End Stage Renal Disease: Less than 15 mL/min/1.73 square meters Performed By: #### F T4, GFR, CMP, ANEU, TSH, VIDH, FERR, ADIFF, LIPID, CBC #### [place] [id number] .NEUABSon 06-01-2024 Neutrophil, Absolute 3.5 10 3/mcL Normal 2.3-8.1 [facility] Comment on above: Performed By: #### F T4, GFR, CMP, ANEU, TSH, VIDH, FERR, ADIFF, LIPID, CBC #### [place] [phone] CBCon 06-01-2024 Erythrocyte distribution width (RBC) [Ratio] 14.0 % Normal 11.5-15.5 [facility] Comment on above: Performed By: #### F T4, GFR, CMP, ANEU, TSH, VIDH, FERR, ADIFF, LIPID, CBC #### [place] [id number] Hematocrit (Bld) [Volume fraction] 43.4 % Normal 34.0-46.0 [facility] Comment on above: Performed By: #### F T4, GFR, CMP, ANEU, TSH, VIDH, FERR, ADIFF, LIPID, CBC #### [place] [id number] Hgb 14.4 G/dL Normal 12.0-16.0 [facility] Comment on above: Performed By: #### F T4, GFR, CMP, ANEU, TSH, VIDH, FERR, ADIFF, LIPID, CBC #### [place] [id number] MCH (RBC) [Entitic mass] 29.9 pg Normal 27.0-33.0 [facility] Comment on above: Performed By: #### F T4, GFR, CMP, ANEU, TSH, VIDH, FERR, ADIFF, LIPID, CBC #### [address] [address] MCHC 33.1 G/dL Normal 32.0-36.0 [facility] Comment on above: Performed By: #### F T4, GFR, CMP, ANEU, TSH, VIDH, FERR, ADIFF, LIPID, CBC #### [address] [address] MCV (RBC) [Entitic vol] 90.5 fL Normal 80.0-99.0 [facility] Comment on above: Performed By: #### F T4, GFR, CMP, ANEU, TSH, VIDH, FERR, ADIFF, LIPID, CBC #### [place] [address] Platelet 248 10 3/mcL Normal 150-450 [facility] Comment on above: Performed By: #### F T4, GFR, CMP, ANEU, TSH, VIDH, FERR, ADIFF, LIPID, CBC #### [address] [address] Platelet mean volume (Bld) [Entitic vol] 9.3 fL Normal 6.6-10.5 [facility] Comment on above: Performed By: #### F T4, GFR, CMP, ANEU, TSH, VIDH, FERR, ADIFF, LIPID, CBC #### [address] [address] RBC 4.80 10 6/mcL Normal 4.10-5.30 [facility] Comment on above: Performed By: #### F T4, GFR, CMP, ANEU, TSH, VIDH, FERR, ADIFF, LIPID, CBC #### [address] [address] WBC 6.0 10 3/mcL Normal 4.5-10.8 [facility] Comment on above: Performed By: #### F T4, GFR, CMP, ANEU, TSH, VIDH, FERR, ADIFF, LIPID, CBC #### [address] [address] CMPon 06-01-2024 Albumin Level 3.6 G/dL Normal 3.4-4.8 [facility] Comment on above: Performed By: #### F T4, GFR, CMP, ANEU, TSH, VIDH, FERR, ADIFF, LIPID, CBC #### [address] [id number] Albumin/Globulin [Mass ratio] 1.2 {ratio} Normal 1.1-2.5 [facility] Comment on above: Performed By: #### F T4, GFR, CMP, ANEU, TSH, VIDH, FERR, ADIFF, LIPID, CBC #### [address] [address] ALP [Catalytic activity/Vol] 84 U/L Normal 40-135 [facility] Comment on above: Performed By: #### F T4, GFR, CMP, ANEU, TSH, VIDH, FERR, ADIFF, LIPID, CBC #### [address] [address] ALT [Catalytic activity/Vol] 29 U/L Normal 14-59 [facility] Comment on above: Performed By: #### F T4, GFR, CMP, ANEU, TSH, VIDH, FERR, ADIFF, LIPID, CBC #### [address] [address] AST [Catalytic activity/Vol] 16 U/L Normal 10-40 [facility] Comment on above: Performed By: #### F T4, GFR, CMP, ANEU, TSH, VIDH, FERR, ADIFF, LIPID, CBC #### [address] [address] Bili Total 0.4 mg/dL Normal 0.2-1.0 [facility] Comment on above: Result Comment: Use of this assay is not recommended for patients undergoing treatment with eltrombopag due to the potential for falsely elevated results. Performed By: #### F T4, GFR, CMP, ANEU, TSH, VIDH, FERR, ADIFF, LIPID, CBC #### [address] [address] BUN/Creatinine Ratio 24 ratio Normal 7-27 [facility] Comment on above: Performed By: #### F T4, GFR, CMP, ANEU, TSH, VIDH, FERR, ADIFF, LIPID, CBC #### [address] [address] Calcium [Mass/Vol] 9.6 mg/dL Normal 8.4-10.2 [facility] Comment on above: Performed By: #### F T4, GFR, CMP, ANEU, TSH, VIDH, FERR, ADIFF, LIPID, CBC #### [address] [address] Chloride [Moles/Vol] 104 mmol/L Normal 98-107 [facility] Comment on above: Performed By: #### F T4, GFR, CMP, ANEU, TSH, VIDH, FERR, ADIFF, LIPID, CBC #### [address] [address] CO2 [Moles/Vol] 29 mmol/L Normal 23-31 [facility] [facility] Comment on above: Performed By: #### F T4, GFR, CMP, ANEU, TSH, VIDH, FERR, ADIFF, LIPID, CBC #### [address] [address] Creatinine [Mass/Vol] 0.79 mg/dL Normal 0.55-1.02 [facility] Comment on above: Result Comment: Test ing performed on Siemens Dimension EXL analyzer using a modified kinetic Antonio technique. Performed By: #### F T4, GFR, CMP, ANEU, TSH, VIDH, FERR, ADIFF, LIPID, CBC #### [address] [address] Electrolyte Balance 6.0 mEq/L Normal 4.0-15.0 [facility] Comment on above: Performed By: #### F T4, GFR, CMP, ANEU, TSH, VIDH, FERR, ADIFF, LIPID, CBC #### [address] [address] Globulin 2.9 G/dL Normal [facility] Comment on above: Performed By: #### F T4, GFR, CMP, ANEU, TSH, VIDH, FERR, ADIFF, LIPID, CBC #### [address] [address] Glucose [Mass/Vol] 95 mg/dL Normal 83-110 [facility] Comment on above: Performed By: #### F T4, GFR, CMP, ANEU, TSH, VIDH, FERR, ADIFF, LIPID, CBC #### [address] [address] Potassium [Moles/Vol] 4.3 mmol/L Normal 3.5-5.1 [facility] Comment on above: Performed By: #### F T4, GFR, CMP, ANEU, TSH, VIDH, FERR, ADIFF, LIPID, CBC #### [address] [address] Sodium [Moles/Vol] 139 mmol/L Normal 136-145 [facility] Comment on above: Performed By: #### F T4, GFR, CMP, ANEU, TSH, VIDH, FERR, ADIFF, LIPID, CBC #### [address] [address] Total Protein 6.5 G/dL Normal 6.4-8.2 [facility] Comment on above: Performed By: #### F T4, GFR, CMP, ANEU, TSH, VIDH, FERR, ADIFF, LIPID, CBC #### [address] [address] Urea nitrogen [Mass/Vol] 19 mg/dL High 7-18 [facility] Comment on above: Performed By: #### F T4, GFR, CMP, ANEU, TSH, VIDH, FERR, ADIFF, LIPID, CBC #### [address] [address] Nik 06-01-2024 Ferritin [Mass/Vol] 308.0 ng/mL High 8.0-252.0 [facility] Comment on above: Performed By: #### F T4, GFR, CMP, ANEU, TSH, VIDH, FERR, ADIFF, LIPID, CBC #### [address] [place], [place] [address] FT4on 06-01-2024 Free T4 [Mass/Vol] 0.82 ng/dL Normal 0.76-1.46 [facility] Comment on above: Performed By: #### F T4, GFR, CMP, ANEU, TSH, VIDH, FERR, ADIFF, LIPID, CBC #### [address] [place], [place] [address] LABORATORYOrdered By: SYSTEM SYSTEM on 06-01-2024 25-hydroxyvitamin D3 [Mass/Vol] 27.4 ng/mL Invalid Interpretation Code AO ADM SS Comment on above: Interpretive Data: I nterpretive Values Based on Total 25(OH) Vitamin D: Deficient <20 ng/mL Insufficient 20 - <30 ng/mL Sufficient 30-100 ng/mL Albumin BCP dye [Mass/Vol] 3.6 G/dL Normal 3.4 - 4.8 G/dL AO ADM SS Albumin/Globulin [Mass ratio] 1.2 {ratio} Normal 1.1 - 2.5 ratio AO ADM SS ALP [Catalytic activity/Vol] 84 U/L Normal 40 - 135 U/L AO ADM SS ALT With P-5'-P [Catalytic activity/Vol] 29 U/L Normal 14 - 59 U/L AO ADM SS AST With P-5'-P [Catalytic activity/Vol] 16 U/L Normal 10 - 40 U/L AO ADM SS Basophils (Bld) [#/Vol] 0.0 103/mcL Normal 0.0 - 0.2 10^3/mcL AO Workflow SS Basophils/100 WBC (Bld) 0.8 % Normal 0.0 - 2.5 % AO Workflow SS Bilirubin [Mass/Vol] 0.4 mg/dL Normal 0.2 - 1 .0 mg/dL AO ADM SS Comment on above: Interpretive Data: U se of this assay is not recommended for patients undergoing treatment with eltrombopag due to the potential for falsely elevated results. Calcium [Mass/Vol] 9.6 mg/dL Normal 8.4 - 10. 2 mg/dL AO ADM SS Chloride [Moles/Vol] 104 mmol/L Normal 98 - 10 7 mmol/L AO ADM SS CO2 [Moles/Vol] 29 mmol/L Normal 23 - 31 mmol/L AO ADM SS Creatinine [Mass/Vol] 0.79 mg/dL Normal 0.55 - 1.02 mg/dL AO ADM SS Comment on above: Interpretive Data: T esting performed on Siemens Dimension EXL analyzer using a modified kinetic Antonio technique. Electrolyte Balance 6.0 mEq/L Normal 4.0 - 15 .0 mEq/L AO ADM SS Eosinophil, Absolute 0.1 103/mcL Normal 0.0 - 0 .7 10^3/mcL AO Workflow SS Eosinophils/100 WBC (Bld) 2.3 % Normal 0.0 - 7.0 % AO Workflow SS Erythrocyte distribution width (RBC) [Ratio] 14.0 % Normal 11.5 - 15.5 % AO Workflow SS Ferritin [Mass/Vol] 308.0 ng/mL High 8.0 - 25 2.0 ng/mL AO ADM SS Free T4 [Mass/Vol] 0.82 ng/dL Normal 0.76 - 1. 46 ng/dL AO ADM SS GFR/1.73 sq M.predicted among blacks MDRD (S/P/Bld) [Vol rate/Area] 86 ml/min/1.73sqm Invalid Interpretation Code AO Chemistry S Comment on above: Interpretive Data: GFR Population mean for , Non- Americans Ages 20-29 = 116 mL/min/1.73 sq.m. Ages 30-39 = 107 mL/min/1.73 sq.m. Ages 40-49 = 99 mL/min/1.73 sq.m. Ages 50-59 = 93 mL/min/1.73 sq.m. Ages 60-69 = 85 mL/min/1.73 sq.m. Ages 70+ = 75 mL/min/1.73 sq.m. Chronic Kidney Disease: Less than 60 mL/min/1.73 square meters End Stage Renal Disease: Less than 15 mL/min/1.73 square meters GFR/1.73 sq M.predicted among non-blacks MDRD (S/P/Bld) [Vol rate/Area] 71 ml/min/1.73sqm Invalid Interpretation Code AO Chemistry S Comment on above: Interpretive Data: GFR Population mean for , Non- Americans Ages 20-29 = 116 mL/min/1.73 sq.m. Ages 30-39 = 107 mL/min/1.73 sq.m. Ages 40-49 = 99 mL/min/1.73 sq.m. Ages 50-59 = 93 mL/min/1.73 sq.m. Ages 60-69 = 85 mL/min/1.73 sq.m. Ages 70+ = 75 mL/min/1.73 sq.m. Chronic Kidney Disease: Less than 60 mL/min/1.73 square meters End Stage Renal Disease: Less than 15 mL/min/1.73 square meters Globulin 2.9 G/dL Invalid Interpretation Code AO ADM SS Glucose [Mass/Vol] 95 mg/dL Normal 83 - 110 mg/dL AO ADM SS Hematocrit (Bld) [Volume fraction] 43.4 % Normal 34.0 - 46.0 % AO Workflow SS Hemoglobin (Bld) [Mass/Vol] 14.4 G/dL Normal 12.0 - 16.0 G/dL AO Workflow SS Lymphocytes (Bld) [#/Vol] 1.8 103/mcL Normal 0.9 - 4.3 10^3/mcL AO Workflow SS Lymphocytes/100 WBC (Bld) 29.4 % Normal 20.0 - 40.0 % AO Workflow SS MCH (RBC) [Entitic mass] 29.9 pg Normal 27.0 - 33.0 pg AO Workflow SS MCHC 33.1 G/dL Normal 32.0 - 36.0 G/dL AO Workflow SS MCV (RBC) [Entitic vol] 90.5 fL Normal 80.0 - 99.0 fL AO Workflow SS Monocytes (Bld) [#/Vol] 0.6 103/mcL Normal 0.1 - 1.4 10^3/mcL AO Workflow SS Monocytes/100 WBC (Bld) 10.1 % Normal 2.0 - 13.0 % AO Workflow SS Neutrophils (Bld) [#/Vol] 3.5 103/mcL Normal 2.3 - 8.1 10^3/mcL AO Workflow SS Neutrophils/100 WBC (Bld) 57.4 % Normal 50.0 - 75.0 % AO Workflow SS Platelet mean volume (Bld) [Entitic vol] 9.3 fL Normal 6.6 - 10.5 fL AO Workflow SS Platelets (Bld) [#/Vol] 248 103/mcL Normal 150 - 450 10^3/mcL AO Workflow SS Potassium [Moles/Vol] 4.3 mmol/L Normal 3.5 - 5.1 mmol/L AO ADM SS Protein [Mass/Vol] 6.5 G/dL Normal 6.4 - 8.2 G/dL AO ADM SS RBC (Bld) [#/Vol] 4.80 106/mcL Normal 4.10 - 5.3 0 10^6/mcL AO Workflow SS Sodium [Moles/Vol] 139 mmol/L Normal 136 - 145 mmol/L AO ADM SS TSH Qn 2.06 m[IU]/L Normal 0.36 - 3.74 mcIU/mL AO ADM SS Urea nitrogen [Mass/Vol] 19 mg/dL High 7 - 18 mg/dL AO ADM SS Urea nitrogen/Creatinine [Mass ratio] 24 ratio Normal 7 - 27 ratio AO ADM SS WBC (Bld) [#/Vol] 6.0 103/mcL Normal 4.5 - 10.8 10^3/mcL AO Workflow SS LABORATORYOrdered By: Zenaida De La Cruz on 06-01-2024 Cholesterol [Mass/Vol] 219 mg/dL High 0 - 2 00 mg/dL AO ADM SS Comment on above: Interpretive Data: C holesterol Reference Interval: Less than 200 Desirable 200-239 Borderline high risk 240 and above High risk Cholesterol in HDL [Mass/Vol] 45 mg/dL Normal 40 - 60 mg/dL AO ADM SS Cholesterol in LDL [Mass/Vol] 141 mg/dL High 0 - 130 mg/dL AO ADM SS Triglyceride [Mass/Vol] 165 mg/dL High 0 - 150 mg/dL AO ADM SS Comment on above: Interpretive Data: T riglyceride Reference Interval: Less than 150 Normal 150-199 Borderline high risk 200-499 High risk 500 or higher Very high risk LIPIDon 06-01-2024 Cholesterol [Mass/Vol] 219 mg/dL High 0-200 [facility] Comment on above: Result Comment: Chol esterol Reference Interval: Less than 200 Desirable 200-239 Borderline high risk 240 and above High risk Performed By: #### F T4, GFR, CMP, ANEU, TSH, VIDH, FERR, ADIFF, LIPID, CBC #### [address] [address] Cholesterol in HDL [Mass/Vol] 45 mg/dL Normal 40-60 [facility] Comment on above: Performed By: #### F T4, GFR, CMP, ANEU, TSH, VIDH, FERR, ADIFF, LIPID, CBC #### [address] [address] Cholesterol in LDL [Mass/Vol] 141 mg/dL High 0-130 [facility] Comment on above: Performed By: #### F T4, GFR, CMP, ANEU, TSH, VIDH, FERR, ADIFF, LIPID, CBC #### [address] [address] Triglyceride [Mass/Vol] 165 mg/dL High 0-150 [facility] Comment on above: Result Comment: Trig lyceride Reference Interval: Less than 150 Normal 150-199 Borderline high risk 200-499 High risk 500 or higher Very high risk Performed By: #### F T4, GFR, CMP, ANEU, TSH, VIDH, FERR, ADIFF, LIPID, CBC #### [address] [address] TSHon 06-01-2024 TSH Qn 2.06 m[IU]/L Normal 0.36-3.74 [facility] Comment on above: Performed By: #### F T4, GFR, CMP, ANEU, TSH, VIDH, FERR, ADIFF, LIPID, CBC #### [address] [address] VIDHon 06-01-2024 Vit. D 25-Hydroxy 27.4 ng/mL Normal [facility] Comment on above: Result Comment: Inte rpretive Values Based on Total 25(OH) Vitamin D: Deficient <20 ng/mL Insufficient 20 - <30 ng/mL Sufficient 30-100 ng/mL Performed By: #### F T4, GFR, CMP, ANEU, TSH, VIDH, FERR, ADIFF, LIPID, CBC #### [address] [address] CRPon 05-16-2024 CRP [Mass/Vol] mg/L Normal 0.0-1.0 [facility] Comment on above: Result Comment: No te - New Reference Range in effect 20 Performed By: #### E SR, CRP #### [address] [address] ESRon 05-16-2024 Erythrocyte Sed Rate 3 mm/hr Normal 0-30 [facility] Comment on above: Performed By: #### E SR, CRP #### [address] [address] .GFRon 05-06-2023 GFR 95 ml/min/1.73sqm Normal [facility] ([place]) Comment on above: Result Comment: GFR Population mean for , Non- Americans Ages 20-29 = 116 mL/min/1.73 sq.m. Ages 30-39 = 107 mL/min/1.73 sq.m. Ages 40-49 = 99 mL/min/1.73 sq.m. Ages 50-59 = 93 mL/min/1.73 sq.m. Ages 60-69 = 85 mL/min/1.73 sq.m. Ages 70+ = 75 mL/min/1.73 sq.m. Chronic Kidney Disease: Less than 60 mL/min/1.73 square meters End Stage Renal Disease: Less than 15 mL/min/1.73 square meters Performed By: #### L IPID, VIDH, TSH, FT4, CMP, GFR #### [address] [address] GFR Non- 79 ml/min/1.73sqm Normal [facility] ([place]) Comment on above: Result Comment: GFR Population mean for , Non- Americans Ages 20-29 = 116 mL/min/1.73 sq.m. Ages 30-39 = 107 mL/min/1.73 sq.m. Ages 40-49 = 99 mL/min/1.73 sq.m. Ages 50-59 = 93 mL/min/1.73 sq.m. Ages 60-69 = 85 mL/min/1.73 sq.m. Ages 70+ = 75 mL/min/1.73 sq.m. Chronic Kidney Disease: Less than 60 mL/min/1.73 square meters End Stage Renal Disease: Less than 15 mL/min/1.73 square meters Performed By: #### L IPID, VIDH, TSH, FT4, CMP, GFR #### [address] [address] CMPon 05-06-2023 Albumin Level 3.8 G/dL Normal 3.4-4.8 [facility] ([place]) Comment on above: Performed By: #### L IPID, VIDH, TSH, FT4, CMP, GFR #### [address] [address] Albumin/Globulin [Mass ratio] 1.2 {ratio} Normal 1.1-2.5 [facility] ([place]) Comment on above: Performed By: #### L IPID, VIDH, TSH, FT4, CMP, GFR #### [address] [address] ALP [Catalytic activity/Vol] 72 U/L Normal 40-135 [facility] ([place]) Comment on above: Performed By: #### L IPID, VIDH, TSH, FT4, CMP, GFR #### [address] [address] ALT [Catalytic activity/Vol] 25 U/L Normal 14-59 [facility] ([place]) Comment on above: Performed By: #### L IPID, VIDH, TSH, FT4, CMP, GFR #### [address] [address] AST [Catalytic activity/Vol] 20 U/L Normal 10-40 [facility] ([place]) Comment on above: Performed By: #### L IPID, VIDH, TSH, FT4, CMP, GFR #### [address] [address] Bili Total 0.5 mg/dL Normal 0.2-1.0 [facility] ([place]) Comment on above: Result Comment: Use of this assay is not recommended for patients undergoing treatment with eltrombopag due to the potential for falsely elevated results. Performed By: #### L IPID, VIDH, TSH, FT4, CMP, GFR #### [address] [address] BUN/Creatinine Ratio 22 ratio Normal 7-27 [facility] ([place]) Comment on above: Performed By: #### L IPID, VIDH, TSH, FT4, CMP, GFR #### [address] [address] Calcium [Mass/Vol] 9.3 mg/dL Normal 8.4-10.2 [facility] ([place]) Comment on above: Performed By: #### L IPID, VIDH, TSH, FT4, CMP, GFR #### [address] [address] Chloride [Moles/Vol] 103 mmol/L Normal 98-107 [facility] ([place]) Comment on above: Performed By: #### L IPID, VIDH, TSH, FT4, CMP, GFR #### [place] [address] CO2 [Moles/Vol] 28 mmol/L Normal 23-31 [facility] ([place]) Comment on above: Performed By: #### L IPID, VIDH, TSH, FT4, CMP, GFR #### [address] [address] Creatinine [Mass/Vol] 0.72 mg/dL Normal 0.55-1.02 [facility] ([place]) Comment on above: Performed By: #### L IPID, VIDH, TSH, FT4, CMP, GFR #### [address] [address] Electrolyte Balance 7.0 mEq/L Normal 4.0-15.0 [facility] ([place]) Comment on above: Performed By: #### L IPID, VIDH, TSH, FT4, CMP, GFR #### [address] [address] Globulin 3.1 G/dL Normal [facility] ([place]) Comment on above: Performed By: #### L IPID, VIDH, TSH, FT4, CMP, GFR #### [address] [address] Glucose [Mass/Vol] 95 mg/dL Normal 83-110 [facility] ([place]) Comment on above: Performed By: #### L IPID, VIDH, TSH, FT4, CMP, GFR #### [address] [address] Potassium [Moles/Vol] 4.5 mmol/L Normal 3.5-5.1 [facility] ([place]) Comment on above: Performed By: #### L IPID, VIDH, TSH, FT4, CMP, GFR #### [address] [address] Sodium [Moles/Vol] 138 mmol/L Normal 136-145 [facility] ([place]) Comment on above: Performed By: #### L IPID, VIDH, TSH, FT4, CMP, GFR #### [address] [address] Total Protein 6.9 G/dL Normal 6.4-8.2 [facility] ([place]) Comment on above: Performed By: #### L IPID, VIDH, TSH, FT4, CMP, GFR #### [address] [address] Urea nitrogen [Mass/Vol] 16 mg/dL Normal 7-18 [facility] ([place]) Comment on above: Performed By: #### L IPID, VIDH, TSH, FT4, CMP, GFR #### [address] [address] FT4on 05-06-2023 Free T4 [Mass/Vol] 0.99 ng/dL Normal 0.76-1.46 [facility] ([place]) Comment on above: Performed By: #### L IPID, VIDH, TSH, FT4, CMP, GFR #### [address] [address] LABORATORYOrdered By: SYSTEM SYSTEM on 05-06-2023 25-hydroxyvitamin D3 [Mass/Vol] 25.6 ng/mL Invalid Interpretation Code AO ADM SS Comment on above: Interpretive Data: I nterpretive Values Based on Total 25(OH) Vitamin D: Deficient <20 ng/mL Insufficient 20 - <30 ng/mL Sufficient 30-100 ng/mL Albumin BCP dye [Mass/Vol] 3.8 G/dL Invalid Interpretation Code 3.4 - 4.8 G/dL AO ADM SS Albumin/Globulin [Mass ratio] 1.2 {ratio} Invalid Interpretation Code 1.1 - 2.5 ratio AO ADM SS ALP [Catalytic activity/Vol] 72 U/L Invalid Interpretation Code 40 - 135 U/L AO ADM SS ALT With P-5'-P [Catalytic activity/Vol] 25 U/L Invalid Interpretation Code 14 - 59 U/L AO ADM SS AST With P-5'-P [Catalytic activity/Vol] 20 U/L Invalid Interpretation Code 10 - 40 U/L AO ADM SS Bilirubin [Mass/Vol] 0.5 mg/dL Invalid Interpretation Code 0.2 - 1.0 mg/dL AO ADM SS Comment on above: Interpretive Data: U se of this assay is not recommended for patients undergoing treatment with eltrombopag due to the potential for falsely elevated results. Calcium [Mass/Vol] 9.3 mg/dL Invalid Interpretation Code 8.4 - 10.2 mg/dL AO ADM SS Chloride [Moles/Vol] 103 mmol/L Invalid Interpretation Code 98 - 107 mmol/L AO ADM SS CO2 [Moles/Vol] 28 mmol/L Invalid Interpretation Code 23 - 31 mmol/L AO ADM SS Creatinine [Mass/Vol] 0.72 mg/dL Invalid Interpretation Code 0.55 - 1.02 mg/dL AO ADM SS Electrolyte Balance 7.0 mEq/L Invalid Interpretation Code 4.0 - 15.0 mEq/L AO ADM SS Free T4 [Mass/Vol] 0.99 ng/dL Invalid Interpretation Code 0.76 - 1.46 ng/dL AO ADM SS GFR/1.73 sq M.predicted among blacks MDRD (S/P/Bld) [Vol rate/Area] 95 ml/min/1.73sqm Invalid Interpretation Code AO Chemistry S Comment on above: Interpretive Data: GFR Population mean for , Non- Americans Ages 20-29 = 116 mL/min/1.73 sq.m. Ages 30-39 = 107 mL/min/1.73 sq.m. Ages 40-49 = 99 mL/min/1.73 sq.m. Ages 50-59 = 93 mL/min/1.73 sq.m. Ages 60-69 = 85 mL/min/1.73 sq.m. Ages 70+ = 75 mL/min/1.73 sq.m. Chronic Kidney Disease: Less than 60 mL/min/1.73 square meters End Stage Renal Disease: Less than 15 mL/min/1.73 square meters GFR/1.73 sq M.predicted among non-blacks MDRD (S/P/Bld) [Vol rate/Area] 79 ml/min/1.73sqm Invalid Interpretation Code AO Chemistry S Comment on above: Interpretive Data: GFR Population mean for , Non- Americans Ages 20-29 = 116 mL/min/1.73 sq.m. Ages 30-39 = 107 mL/min/1.73 sq.m. Ages 40-49 = 99 mL/min/1.73 sq.m. Ages 50-59 = 93 mL/min/1.73 sq.m. Ages 60-69 = 85 mL/min/1.73 sq.m. Ages 70+ = 75 mL/min/1.73 sq.m. Chronic Kidney Disease: Less than 60 mL/min/1.73 square meters End Stage Renal Disease: Less than 15 mL/min/1.73 square meters Globulin 3.1 G/dL Invalid Interpretation Code AO ADM SS Glucose [Mass/Vol] 95 mg/dL Invalid Interpretation Code 83 - 110 mg/dL AO ADM SS Potassium [Moles/Vol] 4.5 mmol/L Invalid Interpretation Code 3.5 - 5.1 mmol/L AO ADM SS Protein [Mass/Vol] 6.9 G/dL Invalid Interpretation Code 6.4 - 8.2 G/dL AO ADM SS Sodium [Moles/Vol] 138 mmol/L Invalid Interpretation Code 136 - 145 mmol/L AO ADM SS TSH Qn 1.44 m[IU]/L Invalid Interpretation Code 0.36 - 3.74 mcIU/mL AO ADM SS Urea nitrogen [Mass/Vol] 16 mg/dL Invalid Interpretation Code 7 - 18 mg/dL AO ADM SS Urea nitrogen/Creatinine [Mass ratio] 22 ratio Invalid Interpretation Code ratio AO ADM SS LABORATORYOrdered By: Trinidad Hardy on 05-06-2023 Cholesterol [Mass/Vol] 232 mg/dL Invalid Interpretation Code 0 - 200 mg/dL AO ADM SS Comment on above: Interpretive Data: C holesterol Reference Interval: Less than 200 Desirable 200-239 Borderline high risk 240 and above High risk Cholesterol in HDL [Mass/Vol] 38 mg/dL Invalid Interpretation Code 40 - 60 mg/dL AO ADM SS Cholesterol in LDL [Mass/Vol] 148 mg/dL Invalid Interpretation Code 0 - 130 mg/dL AO ADM SS Triglyceride [Mass/Vol] 231 mg/dL Invalid Interpretation Code 0 - 150 mg/dL AO ADM SS Comment on above: Interpretive Data: T riglyceride Reference Interval: Less than 150 Normal 150-199 Borderline high risk 200-499 High risk 500 or higher Very high risk LIPIDon 05-06-2023 Cholesterol [Mass/Vol] 232 mg/dL High 0-200 [facility] ([place]) Comment on above: Result Comment: Chol esterol Reference Interval: Less than 200 Desirable 200-239 Borderline high risk 240 and above High risk Performed By: #### L IPID, VIDH, TSH, FT4, CMP, GFR #### [address] [address] Cholesterol in HDL [Mass/Vol] 38 mg/dL Low 40-60 [facility] ([place]) Comment on above: Performed By: #### L IPID, VIDH, TSH, FT4, CMP, GFR #### [address] [address] Cholesterol in LDL [Mass/Vol] 148 mg/dL High 0-130 [facility] ([place]) Comment on above: Performed By: #### L IPID, VIDH, TSH, FT4, CMP, GFR #### [address] [address] Triglyceride [Mass/Vol] 231 mg/dL High 0-150 [facility] ([place]) Comment on above: Result Comment: Trig lyceride Reference Interval: Less than 150 Normal 150-199 Borderline high risk 200-499 High risk 500 or higher Very high risk Performed By: #### L IPID, VIDH, TSH, FT4, CMP, GFR #### Daryl [address] [address] TSHon 05-06-2023 TSH Qn 1.44 m[IU]/L Normal 0.36-3.74 [facility] ([place]) Comment on above: Performed By: #### L IPID, VIDH, TSH, FT4, CMP, GFR #### [address] [address] VIDHon 05-06-2023 Vit. D 25-Hydroxy 25.6 ng/mL Normal [facility] ([place]) Comment on above: Result Comment: Inte rpretive Values Based on Total 25(OH) Vitamin D: Deficient <20 ng/mL Insufficient 20 - <30 ng/mL Sufficient 30-100 ng/mL Performed By: #### L IPID, VIDH, TSH, FT4, CMP, GFR #### [address] [address] LABORATORYOrdered By: Irina Nation on 04-23-2022 HbA1c (Bld) [Mass fraction] 5.6 % Invalid Interpretation Code 4.3 - 6.4 % AO ADM SS Basophil, Absolute 0.0 103/mcL Invalid Interpretation Code 0.0 - 0.2 10^3/mcL AO Workflow SS Basophils/100 WBC (Bld) 0.5 % Invalid Interpretation Code 0.0 - 2.5 % AO Workflow SS Bili Indirect Unable to Calculate Invalid Interpretation Code AO Chemistry S Comment on above: Result Comment: Unab le to calculate this test result accurately. Results used to calculate this test are outside the reportable range. Bilirubin.direct [Mass/Vol] mg/dL Invalid Interpretation Code 0.0 - 0.2 mg/dL AO ADM SS Calcium [Mass/Vol] 9.5 mg/dL Invalid Interpretation Code 8.4 - 10.2 mg/dL AO ADM SS Chloride [Moles/Vol] 105 mmol/L Invalid Interpretation Code 98 - 107 mmol/L AO ADM SS Cholesterol [Mass/Vol] 234 mg/dL Invalid Interpretation Code 0 - 200 mg/dL AO ADM SS Cholesterol in HDL [Mass/Vol] 40 mg/dL Invalid Interpretation Code 40 - 60 mg/dL AO ADM SS Cholesterol in LDL [Mass/Vol] 161 mg/dL Invalid Interpretation Code 0 - 130 mg/dL AO ADM SS CO2 [Moles/Vol] 26 mmol/L Invalid Interpretation Code 23 - 31 mmol/L AO ADM SS Creatinine [Mass/Vol] 0.69 mg/dL Invalid Interpretation Code 0.55 - 1.02 mg/dL AO ADM SS CRP [Mass/Vol] mg/dL Invalid Interpretation Code 0.0 - 0.9 mg/dL AO ADM SS Electrolyte Balance 10.0 mEq/L Invalid Interpretation Code 4.0 - 15.0 mEq/L AO ADM SS Eosinophil, Absolute 0.1 103/mcL Invalid Interpretation Code 0.0 - 0.4 10^3/mcL AO Workflow SS Eosinophils/100 WBC (Bld) 1.4 % Invalid Interpretation Code 0.0 - 7.0 % AO Workflow SS Erythrocyte distribution width (RBC) [Ratio] 13.8 % Invalid Interpretation Code 11.5 - 14.5 % AO Workflow SS ESR 15 minute reading (Bld) [Velocity] 6 mm/hr Invalid Interpretation Code 0 - 30 mm/hr AO Man Heme SS Free T4 [Mass/Vol] 1.19 ng/dL Invalid Interpretation Code 0.76 - 1.46 ng/dL AO ADM SS Glucose [Mass/Vol] 97 mg/dL Invalid Interpretation Code 83 - 110 mg/dL AO ADM SS Hematocrit (Bld) [Volume fraction] 41.4 % Invalid Interpretation Code 37.0 - 47.0 % AO Workflow SS Hemoglobin (Bld) [Mass/Vol] 14.0 G/dL Invalid Interpretation Code 12.0 - 16.0 G/dL AO Workflow SS Lymphocyte, Absolute 1.3 103/mcL Invalid Interpretation Code 0.8 - 3.9 10^3/mcL AO Workflow SS Lymphocytes/100 WBC (Bld) 19.4 % Invalid Interpretation Code 10.0 - 50.0 % AO Workflow SS MCH (RBC) [Entitic mass] 29.4 pg Invalid Interpretation Code 27.0 - 31.2 pg AO Workflow SS MCHC 33.8 G/dL Invalid Interpretation Code 33.0 - 37.0 G/dL AO Workflow SS MCV (RBC) [Entitic vol] 87.1 fL Invalid Interpretation Code 80.0 - 94.0 fL AO Workflow SS Monocyte, Absolute 0.8 103/mcL Invalid Interpretation Code 0.2 - 1.0 10^3/mcL AO Workflow SS Monocytes/100 WBC (Bld) 11.5 % Invalid Interpretation Code 1.7 - 13.0 % AO Workflow SS Neutrophil, Absolute 4.4 103/mcL Invalid Interpretation Code 2.9 - 6.2 10^3/mcL AO Workflow SS Neutrophils/100 WBC (Bld) 67.2 % Invalid Interpretation Code 37.0 - 80.0 % AO Workflow SS Platelet mean volume (Bld) [Entitic vol] 8.5 fL Invalid Interpretation Code 7.4 - 10.4 fL AO Workflow SS Platelets (Bld) [#/Vol] 269 103/mcL Invalid Interpretation Code 130 - 400 10^3/mcL AO Workflow SS Potassium [Moles/Vol] 4.6 mmol/L Invalid Interpretation Code 3.5 - 5.1 mmol/L AO ADM SS RBC (Bld) [#/Vol] 4.75 106/mcL Invalid Interpretation Code 4.20 - 5.40 10^6/mcL AO Workflow SS Sodium [Moles/Vol] 141 mmol/L Invalid Interpretation Code 136 - 145 mmol/L AO ADM SS Triglyceride [Mass/Vol] 166 mg/dL Invalid Interpretation Code 0 - 150 mg/dL AO ADM SS TSH Qn 0.88 m[IU]/L Invalid Interpretation Code 0.36 - 3.74 mcIU/mL AO ADM SS Urea nitrogen [Mass/Vol] 19 mg/dL Invalid Interpretation Code 7 - 18 mg/dL AO ADM SS Urea nitrogen/Creatinine [Mass ratio] 28 ratio Invalid Interpretation Code 7 - 27 ratio AO ADM SS WBC (Bld) [#/Vol] 6.6 103/mcL Invalid Interpretation Code 4.6 - 10.8 10^3/mcL AO Workflow SS LABORATORYOrdered By: SYSTEM SYSTEM on 04-23-2022 Cobalamin (Vitamin B12) [Mass/Vol] 495 pg/mL Invalid Interpretation Code 211 - 911 pg/mL AH ADM SS GFR 101 ml/min/1.73sqm Invalid Interpretation Code AO Chemistry S GFR Non- 83 ml/min/1.73sqm Invalid Interpretation Code AO Chemistry S Laboratory - Chemistry and C hemistry - challengeOrdered By: Elenita Nation on 04-23-2022 Albumin BCP dye [Mass/Vol] 3.7 G/dL Invalid Interpretation Code 3.4 - 4.8 G/dL AO ADM SS Albumin/Globulin [Mass ratio] 1.2 {ratio} Invalid Interpretation Code 1.1 - 2.5 ratio AO ADM SS ALP [Catalytic activity/Vol] 66 U/L Invalid Interpretation Code 40 - 135 U/L AO ADM SS ALT With P-5'-P [Catalytic activity/Vol] 30 U/L Invalid Interpretation Code 14 - 59 U/L AO ADM SS AST With P-5'-P [Catalytic activity/Vol] 18 U/L Invalid Interpretation Code 10 - 40 U/L AO ADM SS Bilirubin [Mass/Vol] 0.5 mg/dL Invalid Interpretation Code 0.2 - 1.0 mg/dL AO ADM SS Protein [Mass/Vol] 6.7 G/dL Invalid Interpretation Code 6.4 - 8.2 G/dL AO ADM SS No Panel InformationOrdered By: Elenita Nation on 04-23-2022 Globulin 3.0 G/dL Invalid Interpretation Code AO ADM SS LABORATORYOrdered By: Riana Ya on 05-30-2021 Albumin BCP dye [Mass/Vol] 3.9 G/dL Invalid Interpretation Code 3.4 - 4.8 G/dL AO ADM SS Albumin/Globulin [Mass ratio] 1.3 {ratio} Invalid Interpretation Code 1.1 - 2.5 ratio AO ADM SS ALP [Catalytic activity/Vol] 83 U/L Invalid Interpretation Code 40 - 135 U/L AO ADM SS ALT With P-5'-P [Catalytic activity/Vol] 47 U/L Invalid Interpretation Code 14 - 59 U/L AO ADM SS AST With P-5'-P [Catalytic activity/Vol] 24 U/L Invalid Interpretation Code 10 - 40 U/L AO ADM SS Bilirubin [Mass/Vol] 0.4 mg/dL Invalid Interpretation Code 0.2 - 1.0 mg/dL AO ADM SS Calcium [Mass/Vol] 9.4 mg/dL Invalid Interpretation Code 8.4 - 10.2 mg/dL AO ADM SS Chloride [Moles/Vol] 105 mmol/L Invalid Interpretation Code 98 - 107 mmol/L AO ADM SS Cholesterol [Mass/Vol] 250 mg/dL Invalid Interpretation Code 0 - 200 mg/dL AO ADM SS Cholesterol in HDL [Mass/Vol] 37 mg/dL Invalid Interpretation Code 40 - 60 mg/dL AO ADM SS Cholesterol in LDL [Mass/Vol] 169 mg/dL Invalid Interpretation Code 0 - 130 mg/dL AO ADM SS CO2 [Moles/Vol] 27 mmol/L Invalid Interpretation Code 23 - 31 mmol/L AO ADM SS Creatinine [Mass/Vol] 0.76 mg/dL Invalid Interpretation Code 0.55 - 1.02 mg/dL AO ADM SS Electrolyte Balance 9.0 mEq/L Invalid Interpretation Code AO ADM SS Free T4 [Mass/Vol] 1.15 ng/dL Invalid Interpretation Code 0.76 - 1.46 ng/dL AO ADM SS Globulin 3.1 G/dL Invalid Interpretation Code AO ADM SS Glucose [Mass/Vol] 97 mg/dL Invalid Interpretation Code 83 - 110 mg/dL AO ADM SS HbA1c (Bld) [Mass fraction] 5.7 % Invalid Interpretation Code 4.3 - 6.4 % AO ADM SS Potassium [Moles/Vol] 4.9 mmol/L Invalid Interpretation Code 3.5 - 5.1 mmol/L AO ADM SS Protein [Mass/Vol] 7.0 G/dL Invalid Interpretation Code 6.4 - 8.2 G/dL AO ADM SS Sodium [Moles/Vol] 141 mmol/L Invalid Interpretation Code 136 - 145 mmol/L AO ADM SS Triglyceride [Mass/Vol] 220 mg/dL Invalid Interpretation Code 0 - 150 mg/dL AO ADM SS TSH Qn 1.62 m[IU]/L Invalid Interpretation Code 0.36 - 3.74 mcIU/mL AO ADM SS Urea nitrogen [Mass/Vol] 16 mg/dL Invalid Interpretation Code 7 - 18 mg/dL AO ADM SS Urea nitrogen/Creatinine [Mass ratio] 21 ratio Invalid Interpretation Code 7 - 27 ratio AO ADM SS LABORATORYOrdered By: Mayra Billingsley on 05-30-2021 Basophil, Absolute 0.00 103/mcL Invalid Interpretation Code 0.00 - 0.19 10^3/mcL AO Auto Heme SS Basophils/100 WBC (Bld) 0.7 % Invalid Interpretation Code 0.0 - 2.5 % AO Auto Heme SS Eosinophil, Absolute 0.20 103/mcL Invalid Interpretation Code 0.00 - 0.40 10^3/mcL AO Auto Heme SS Eosinophils/100 WBC (Bld) 2.5 % Invalid Interpretation Code 0.0 - 7.0 % AO Auto Heme SS Erythrocyte distribution width (RBC) [Ratio] 13.6 % Invalid Interpretation Code 11.5 - 14.5 % AO Auto Heme SS Hematocrit (Bld) [Volume fraction] 44.5 % Invalid Interpretation Code 37.0 - 47.0 % AO Auto Heme SS Hemoglobin (Bld) [Mass/Vol] 14.5 G/dL Invalid Interpretation Code 12.0 - 16.0 G/dL AO Auto Heme SS Lymphocyte, Absolute 2.10 103/mcL Invalid Interpretation Code 0.77 - 3.85 10^3/mcL AO Auto Heme SS Lymphocytes/100 WBC (Bld) 30.8 % Invalid Interpretation Code 10.0 - 50.0 % AO Auto Heme SS MCH (RBC) [Entitic mass] 29.8 pg Invalid Interpretation Code 27.0 - 31.2 pg AO Auto Heme SS MCHC (RBC) [Mass/Vol] 32.6 G/dL Invalid Interpretation Code 33.0 - 37.0 G/dL AO Auto Heme SS MCV (RBC) [Entitic vol] 91.7 fL Invalid Interpretation Code 80.0 - 94.0 fL AO Auto Heme SS Monocyte, Absolute 0.70 103/mcL Invalid Interpretation Code 0.15 - 1.00 10^3/mcL AO Auto Heme SS Monocytes/100 WBC (Bld) 9.6 % Invalid Interpretation Code 1.7 - 13.0 % AO Auto Heme SS Neutrophil, Absolute 3.80 103/mcL Invalid Interpretation Code 2.85 - 6.16 10^3/mcL AO Auto Heme SS Neutrophils/100 WBC (Bld) 56.4 % Invalid Interpretation Code 37.0 - 80.0 % AO Auto Heme SS Platelet mean volume (Bld) [Entitic vol] 9.6 fL Invalid Interpretation Code 7.4 - 10.4 fL AO Auto Heme SS Platelets (Bld) [#/Vol] 287 103/mcL Invalid Interpretation Code 130 - 400 10^3/mcL AO Auto Heme SS RBC (Bld) [#/Vol] 4.85 106/mcL Invalid Interpretation Code 4.20 - 5.40 10^6/mcL AO Auto Heme SS WBC (Bld) [#/Vol] 6.80 103/mcL Invalid Interpretation Code 4.60 - 10.80 10^3/mcL AO Auto Heme SS LABORATORYOrdered By: SYSTEM SYSTEM on 05-30-2021 GFR 90 ml/min/1.73sqm Invalid Interpretation Code AO Chemistry S GFR Non- 74 ml/min/1.73sqm Invalid Interpretation Code AO Chemistry S Vital Signs Date Time Vital Sign Value Performing Clinician Faci [facility] 01-31-2025 14:23-0400 Body height 176.[address] Bhanu Shrestha MD Work Phone: [facility] 01-31-2025 14:23-0400 Body mass index (BMI) [Ratio] 34 kg/m2 Dr. Bhanu Shrestha MD Work Phone: [facility] 01-31-2025 14:23-0400 Body weight 106.[address] Bhanu Shrestha MD Work Phone: [facility] 01-31-2025 14:23-0400 Diastolic blood pressure 81 mm[Hg] Dr. Bhanu Shrestha MD Work Phone: [facility] 01-31-2025 14:23-0400 Heart rate 72 /min Dr. Bhanu Shrestha MD Work Phone: [facility] 01-31-2025 14:23-0400 SaO2% (BldA) [Mass fraction] 91 % Dr. Bhanu Shrestha MD Work Phone: [facility] 01-31-2025 14:23-0400 Systolic blood pressure 170 mm[Hg] Dr. Bhanu Shrestha MD Work Phone: [facility] Encounters Encounter Date Encounter Type Care Provider Facility Start: 01-31-2025 End: 01-31-2025 Patient encounter procedure Graciela LORENZANA -[facility] Work Phone: Start: 01-31-2025 End: 01-31-[address] Bhanu Shrestha MD Work Phone: [facility] Work Phone: Start: 01-18-2025 End: 01-18-2025 ambulatory BHANU SHRESTHA MD Facility:[facility] Start: 01-18-2025 End: 01-18-2025 Patient encounter procedure BHANU SHRESTHA MD [facility] Start: 01-09-2025 End: 01-13-2025 ambulatory BHANU SHRESTHA MD Facility:[facility] Start: 01-09-2025 End: 01-13-2025 Outreach Lab BHANU SHRESTHA MD [facility] Start: 01-03-2025 End: 01-07-2025 ambulatory BHANU SHRESTHA MD Facility[facility] Start: 01-03-2025 End: 01-07-2025 Outreach Lab BHANU SHRESTHA MD [facility] Start: 10-19-2024 End: 11-17-2024 ambulatory BHANU SHRESTHA MD Facility:A Start: 08-16-2024 ambulatory BHANU SHRESTHA MD [facility]i [facility]ity[facility] Start: 07-21-2024 End: 07-25-2024 ambulatory BHANU SHRESTHA MD Facility:A Start: 06-22-2024 End: 06-22-2024 ambulatory BHANU SHRESTHA MD Facility[facility] Start: 06-22-2024 End: 06-22-2024 Patient encounter procedure BHANU SHRESTHA MD [facility] Start: 06-13-2024 End: 06-13-2024 ambulatory TAVO VAZQUEZ MD Facility:[facility] Start: 06-13-2024 End: 06-13-2024 Patient encounter procedure TAVO VAZQUEZ MD [facility] Start: 06-01-2024 End: 06-05-2024 ambulatory BHANU SHRESTHA MD Facility[facility] Start: 06-01-2024 End: 06-05-2024 Encounter for general adult medical examination without abnormal findings BHANU SHRESTHA MD Facility:[facility] Start: 06-01-2024 End: 06-05-2024 Outreach Lab BHANU SHRESTHA MD [facility] Start: 05-16-2024 End: 05-16-2024 ambulatory TAVO VAZQUEZ MD Facility:A Start: 05-06-2023 End: 05-11-2023 ambulatory BHANU SHRESTHA MD Facility:[facility] Start: 05-06-2023 End: 05-10-2023 Outreach Lab BHANU SHRESTHA MD [facility] Start: 05-21-2022 End: 07-02-[address] KASEY GARCIA MD Facility:A Start: 04-24-2022 End: 04-24-[address] KASEY GARCIA MD [facility] Start: 04-23-2022 End: 04-23-2022 Patient encounter procedure BHANU SHRESTHA MD [facility] Start: 05-30-2021 End: 06-03-2021 Outreach Lab BHANU SHRESTHA MD [facility] Procedures Date Procedure Procedure Detail Performing Clinician Start: 12-06-2020 Lipoma (disorder) CHAPARRITA SHRESTHA MD Comment on above: removed from back Plan of Treatment Date Care Activity Detail Author [facility] Immunizations Immunization Date Immunization Notes Care Provider [facility] 05-25-2024 influenza virus vacc ine, unspecified formulation BHANU SHRESTHA MD [facility] 06-23-2023 SARS-CoV-2 (COVID-19 ) [id number] BHANU SHRESTHA MD [facility] 06-15-2023 influenza virus vacc ine, unspecified formulation BHANU SHRESTHA MD [facility] 06-18-2022 influenza virus vacc ine, unspecified formulation BHANU SHRESTHA MD [facility] 12-19-2021 SARS-CoV-2 mRNA (ksnnchkvwmf-bmmm-ncrife e) vaccine [facility] 06-24-2021 influenza virus vacc ine, unspecified formulation BHANU SHRESTHA MD [facility] 05-23-2021 SARS-CoV-2 mRNA (tozinameran) vaccine BHANU SHRESTHA MD [facility] 11-01-2020 SARS-CoV-2 mRNA (tozinameran) vaccine BHANU SHRESTHA MD [facility] 10-11-2020 SARS-CoV-2 mRNA (tozinameran) vaccine BHANU SHRESTHA MD [facility] Comment on above: Result Comment: 2020: [id number] 05-23-2020 influenza virus vacc ine, unspecified formulation BHANU SHRESTHA MD [facility] 05-11-2019 influenza virus vacc ine, unspecified formulation BHANU SHRESTHA MD [facility] 05-31-2018 influenza virus vacc ine, unspecified formulation BHANU SHRESTHA MD [facility] 05-25-2017 influenza virus vacc ine, unspecified formulation BHANU SHRESTHA MD [facility] 05-12-2016 influenza virus vacc ine, unspecified formulation BHANU SHRESTHA MD [facility] 05-15-2015 influenza virus vacc ine, unspecified formulation BHANU SHRESTHA MD [facility] 05-20-2013 influenza virus vacc ine, unspecified formulation BHANU SHRESTHA MD [facility] 05-15-2012 influenza virus vacc ine, unspecified formulation BHANU SHRESTHA MD [facility] 12-29-2011 pneumococcal polysaccharide vaccine, 23 valent BHANU SHRESTHA MD [facility] 12-10-2011 tetanus toxoid, redu china diphtheria toxoid, and acellular pertussis vaccine, adsorbed BHANU SHRESTHA MD [facility] Payers Date Payer Category Payer Self-pay 2023 Private Health Insurance [id number] 2022 Private Health Insurance [id number] 1945 Unknown [id number] 1945 Unknown [id number] 1945 Unknown [id number] ..[id number] 1945 Unknown [id number] ..[id number] 1945 Unknown [id number] 2..[id number] 1945 Unknown [id number] ..[id number] 1945 Unknown [id number] [id number] 1945 Unknown [id number] [id number] 1945 Unknown [id number] [id number] 1945 Unknown [id number] 1945 Unknown [id number] [id number] 1945 Unknown [id number] 1945 Unknown [id number] Medicare MEDICARE PART A B [id number] Unknown [id number] Social History Date Type Detail Facility Start: 01-31-2020 End: 01-03-2025 Never smoked tobacco (finding) [facility] Start: 1945 Sex Assigned At Female A [facility] Sexual Orientation [facility] Start: 02-02-2019 Sex Female (finding) [facility] Tobacco smoking stat [facility] Unknown if ever smoked [facility] Work Phone: Clinical Notes 05-28-2021 to 01-06-2025 LaboratoryRadiologyLaboratoryRadiologyLaboratoryRadiologyLaboratory Note Date & Type Note Facility 01-06-2025 Note . MICRO - Microbiology PROCEDURE: Culture Wound Aerobic with Gram Stain [*1] SOURCE: Drainage BODY SITE: Nares COLLECTED DATE/TIME: 01/03/2025 15:42 EDT RECEIVED DATE/TIME: 01/04/2025 18:47 EDT START DATE/TIME: 01/04/2025 18:47 EDT FREE TEXT SOURCE: FINAL REPORTS Final Report [] Verified Date/Time/Personnel: 01/06/2025 09:45 EDT Rare normal skin amy present. Sensitivity testing not indicated. PRELIMINARY REPORTS Preliminary Report [] Verified Date/Time/Personnel: 01/05/2025 10:22 EDT Culture results pending. STAINS GS [] Verified Date/Time/Personnel: 01/04/2025 19:21 EDT No organisms seen. Performing Locations *1: This test was performed at: [address], [facility]- , [facility] 07-28-2024 Note . MICRO - Microbiology PROCEDURE: Culture Body Fluid with Gram Stain [*1] SOURCE: Body Fluid, BODY SITE: Knee L Miscellaneous COLLECTED DATE/TIME: 07/21/2024 16:50 EST RECEIVED DATE/TIME: 07/21/2024 20:55 EST START DATE/TIME: 07/21/2024 21:03 EST FREE TEXT SOURCE: Left Knee Synovial FINAL REPORTS Final Report [] Verified Date/Time/Personnel: 07/28/2024 07:16 EST No aerobes or anaerobes isolated at 7 days. PRELIMINARY REPORTS Preliminary Report [] Verified Date/Time/Personnel: 07/22/2024 12:12 EST No growth to date Preliminary Report [] Verified Date/Time/Personnel: 07/21/2024 21:59 EST Culture has been received in lab and is no growth to date. Routine cultures are held for 5 days. STAINS GS [] Verified Date/Time/Personnel: 07/21/2024 22:11 EST Unsedimented No organisms seen. Performing Locations *1: This test was performed at: [address], [facility] , [facility] 04-24-2022 Note ORIGINAL EXAMINATION: CT OF THE RIGHT KNEE WITHOUT CONTRAST 04/24/2022 1:30 pm TECHNIQUE: CT of the right knee was performed without the administration of intravenous contrast. Multiplanar reformatted images are provided for review. Automated exposure control, iterative reconstruction, and/or weight based adjustment of the mA/kV was utilized to reduce the radiation dose to as low as reasonably achievable. COMPARISON: None. HISTORY ORDERING SYSTEM PROVIDED HISTORY: Reason for Exam: Pain in right knee FINDINGS: No acute fracture or dislocation is evident. Osseous mineralization is mildly decreased. No visible aggressive osseous lesion. There is moderate medial femorotibial and mild to moderate lateral femorotibial compartment joint space narrowing. Marginal osteophytes are demonstrated in addition. Mild patellofemoral compartment joint space narrowing with marginal osteophytes. Small volume effusion. Infrapatellar intracapsular osteochondral bodies are noted measuring up to 1.3 cm AP dimension. Trace volume Barnes's cyst. Visible tendons appear grossly intact given CT modality limitations. Ligaments are poorly evaluated on this exam. No severe muscle atrophy. Provided images of the right hip and right hemipelvis exhibit no acute osseous abnormalities or aggressive osseous lesions. Colonic diverticulosis is present without evidence of acute diverticulitis. Provided images of the ankle exhibit no acute osseous abnormalities or aggressive osseous lesions. IMPRESSION: 1. No acute osseous abnormalities or aggressive osseous lesions. 2. 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 Small volume effusion. Multiple intracapsular osteochondral bodies of infrapatellar recess. Interpreted by: Moustapha Harper DO Preliminary Report By: Moustapha Harper DO Electronically signed By Moustapha Harper DO Dictated Date: 04/24/2022 1:52:36 PM Prelim Date: 04/24/2022 1:57:00 PM Sign Date: 04/24/2022 1:57:00 PM Ordering Provider: KASEY GARCIA [facility] 04-24-2022 Note ORIGINAL EXAMINATION: CT OF THE RIGHT KNEE WITHOUT CONTRAST 04/24/2022 1:30 pm TECHNIQUE: CT of the right knee was performed without the administration of intravenous contrast. Multiplanar reformatted images are provided for review. Automated exposure control, iterative reconstruction, and/or weight based adjustment of the mA/kV was utilized to reduce the radiation dose to as low as reasonably achievable. COMPARISON: None. HISTORY ORDERING SYSTEM PROVIDED HISTORY: Reason for Exam: Pain in right knee FINDINGS: No acute fracture or dislocation is evident. Osseous mineralization is mildly decreased. No visible aggressive osseous lesion. There is moderate medial femorotibial and mild to moderate lateral femorotibial compartment joint space narrowing. Marginal osteophytes are demonstrated in addition. Mild patellofemoral compartment joint space narrowing with marginal osteophytes. Small volume effusion. Infrapatellar intracapsular osteochondral bodies are noted measuring up to 1.3 cm AP dimension. Trace volume Barnes's cyst. Visible tendons appear grossly intact given CT modality limitations. Ligaments are poorly evaluated on this exam. No severe muscle atrophy. Provided images of the right hip and right hemipelvis exhibit no acute osseous abnormalities or aggressive osseous lesions. Colonic diverticulosis is present without evidence of acute diverticulitis. Provided images of the ankle exhibit no acute osseous abnormalities or aggressive osseous lesions. IMPRESSION: 1. No acute osseous abnormalities or aggressive osseous lesions. 2. 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 Small volume effusion. Multiple intracapsular osteochondral bodies of infrapatellar recess. Interpreted by: Moustapha Harper DO Preliminary Report By: Moustapha Harper DO Electronically signed By Moustapha Harper DO Dictated Date: 04/24/2022 1:52:36 PM Prelim Date: 04/24/2022 1:57:00 PM Sign Date: 04/24/2022 1:57:00 PM Ordering Provider: KASEY GARCIA [facility] 05-28-2021 Evaluation + Plan note Future Scheduled TestsComplete Metabolic Panel 05/28/21MA Mammo Screening Bilateral w/ Torey 06/03/21 [facility] Evaluation + Plan note Future Appointments Appointment Date:04/24/2022 01:15:00 PM Scheduled Provider: Location:[facility] Appointment Type:CT Knee w/o Contrast Right Appointment Date:04/25/2022 10:00:00 AM Scheduled Provider:BHANU SHRESTHA MD Location:[facility] Appointment Type:PC OV Appointment Date:04/30/2022 11:30:00 AM Scheduled Provider: Location:[facility] Appointment Type:PT [facility] Appointment Date:05/02/2022 03:15:00 PM Scheduled Provider: Location:[facility] Appointment Type:PT [facility] Appointment Date:05/05/2022 03:15:00 PM Scheduled Provider: Location:[facility] Appointment Type:PT [facility] Appointment Date:05/07/2022 03:45:00 PM Scheduled Provider: Location:[facility] Appointment Type:[facility] Future Scheduled TestsComplete Metabolic Panel 05/28/21CT Knee w/o Contrast Right 04/24/22 [facility] Evaluation + Plan note Future Appointments Appointment Date:04/25/2022 10:00:00 AM Scheduled Provider:BHANU SHRESTHA MD Location:[facility] Appointment Type:PC OV Appointment Date:04/30/2022 11:30:00 AM Scheduled Provider: Location:[facility] Appointment Type:PT Treatment - [place] Appointment Date:05/02/2022 03:15:00 PM Scheduled Provider: Location:[facility] Appointment Type:PT Treatment - [place] Appointment Date:05/05/2022 03:15:00 PM Scheduled Provider: Location:[facility] Appointment Type:PT Treatment - [place] Appointment Date:05/07/2022 03:45:00 PM Scheduled Provider: Location:[facility] Appointment Type:PT Treatment - [place] Appointment Date:10/15/2022 09:45:00 AM Scheduled Provider: Location:[facility] Appointment Type:PC Nurse Lab Appointment Date:10/24/2022 10:15:00 AM Scheduled Provider:BHANU SHRESTHA MD Location:[facility] Appointment Type:PC OV Future Scheduled TestsComplete Metabolic Panel 05/28/21 [facility] Evaluation + Plan note Future Appointments Appointment Date:05/13/2023 01:30:00 PM Scheduled Provider:BHANU SHRESTHA MD Location:[facility] Appointment Type:PC OV [facility] Evaluation + Plan note Future Appointments Appointment Date:06/07/2024 01:30:00 PM Scheduled Provider:BHANU SHRESTHA MD Location:[facility] Appointment Type:PC OV Appointment Date:06/13/2024 10:00:00 AM Scheduled Provider: Location:[facility] Appointment Type:yyNM Inj Bone Three Phase Study Scan Appointment Date:06/13/2024 01:00:00 PM Scheduled Provider: Location:[facility] Appointment Type:yyNM Bone Three Phase Study Scan 2 Future Scheduled TestsNM Bone Three Phase Study (Scan 1) 06/13/24 [facility] Evaluation + Plan note Future Appointments Appointment Date:06/22/2024 07:00:00 PM Scheduled Provider: Location:[facility] Appointment Type: Home Studies Appointment Date:06/28/2024 03:00:00 PM Scheduled Provider:BHANU SHRESTHA MD Location:[facility] Appointment Type:PC OV Follow Up [facility] Evaluation + Plan note Future Appointments Appointment Date:06/28/2024 03:00:00 PM Scheduled Provider:BHANU SHRESTHA MD Location:[facility] Appointment Type:PC OV Follow Up [facility] Evaluation + Plan note Future Appointments Appointment Date:01/09/2025 09:00:00 AM Scheduled Provider: Location:[facility] Appointment Type:PC Nurse Lab Appointment Date:01/18/2025 07:00:00 PM Scheduled Provider: Location:[facility] Appointment Type: Home Studies Future Scheduled TestsThyroid Stimulating Hormone 01/03/25Fr T4 01/03/25Complete Blood Count 01/03/25Free T3 01/03/25Lipid Profile 01/03/25Vitamin D Level 01/03/25Complete Metabolic Panel 01/03/25N-Terminal proBNP 01/03/25 [facility] Evaluation + Plan note Future Appointments Appointment Date:01/18/2025 07:00:00 PM Scheduled Provider: Location:[facility] Appointment Type:[facility] Studies [facility] Evaluation note Diagnosis Onset Date Resolution Bleeding per rectum acute January 31, 2025 2:01pm Rectal hemorrhage noneactive January 312024 2:01pm [facility] Work Phone: Hospital course Narrative No data available for this section [facility] Discharge instructions No data available for this section [facility] Progress note No data available for this section [facility] Reason for referral (narrative)No reason for referral information [facility] Work Phone: Summary Purpose Family History No Family History Records Found Advance Directives No Advanced Directives Records FoundNo Advanced Directives Records FoundNo Advanced Directives Records FoundNo Advanced Directives Records FoundNo Advanced Directives Records Found Chief Complaint and Reason for Visit Chief Complaint Admit Date Rectal bleeding January 31, 2025 2:01 pm Reason for Visit Admit Date Bleeding per rectum January 31, 2025 2:01 pm Rectal hemorrhage January 31, 2025 2:01 pm Additional Source Comments Care Team (unrecognized sect ion and content) Care Team Personnel Name: BHANU SHRESTHA MD Position: P4 Physician - Primary Care Med Service: Active Provider Member Role: Primary Care Physician Address: Address: [address] [place] [address] Care Team Related Persons Name: PATITO CHANDLER Address: [address] Care Team Personnel Name: BHANU SHRESTHA MD Position: P4 Physician - Primary Care Med Service: Active Provider Member Role: Primary Care Physician Address: Address: [address] [place] [address] Care Team Related Persons Name: PATITO CHANDLER Address: Home [id number] [place], [place] [id number] [place] [address] Care Team Personnel Name: BHANU SHRESTHA MD Position: P4 Physician - Primary Care Med Service: Active Provider Member Role: Primary Care Physician Address: Address: [address] [place] [address] Care Team Related Persons Name: PATITO CHANDLER Address: Home [address] [place], [place] [id number] [place] [address] Patient Care team informatio n (unrecognized section and content) Team Status: Active Member Role Status Dates Dr. Bhanu Shrestha MD Family Provider Active Dr. Bhanu Shrestha MD Primary Care Provider Active Team Status: Inactive Member Role Status Dates Dr. Bhanu Shrestha MD Primary Care Provider Active Start: January 31, 2025 End: January 31, 2025 Dr. Bhanu Shrestha MD Referring Provider Active Start: January 31, 2025 End: January 31, 2025 Graciela Zuleta , [employer]-C Attending Provider Active S tart: January 31, 2025 End: January 31, 2025 INFORMATION SOURCE (unrecogn ized section and content) DATE CREATED AUTHOR 05/15/2023 [facility] ([place]) DATE CREATED AUTHOR AUTHOR'S ORGANIZ ATION 08/04/2024 [facility] DATE CREATED AUTHOR AUTHOR'S ORGANIZ ATION 11/19/2024 [facility] DATE CREATED AUTHOR AUTHOR'S ORGANIZ ATION 01/29/2025 [facility] DATE CREATED AUTHOR AUTHOR'S ORGANIZ ATION 02/02/2025 [facility] Goals (unrecognized section and content) Goals may be documented in a n alternate section FOR RECORDS PERTAINING TO PATIENTS WHO ARE OR HAVE BEEN ENROLLED IN A CHEMICAL DEPENDENCY/SUBSTANCEABUSE PROGRAM, SOME INFORMATION MAY BE OMITTED. This clinical summary was aggregated from multiple sources. Caution should be exercised in using it in the provision of clinical care. This summary normalizes information from multiple sources, and as a consequence, information in this document may materially change the coding, format and clinical context of patient data. In addition, data may be omitted in some cases. CLINICAL DECISIONS SHOULD BE BASED ON THE PRIMARY CLINICAL RECORDS. [facility]. provides no warranty or guarantee of the accuracy or completeness of information in this document.
== END | disposition home or self-care (01) ==
LOC: LAB 10:58
PROVIDERS: PCP Family Medicine
DX: K62.5 Hemorrhage of anus and rectum (principal)
CPT/HCPCS: 36415; 85014; 85018

== ENCOUNTER → 2025-02-09 | Outpatient (CLI) | payer MEDICARE, SELFPAY | END | disposition home or self-care (01) | LOC: RAD 14:46 | PROVIDERS: PCP Family Medicine | DX: K62.5 Hemorrhage of anus and rectum (principal); R10.9 Unspecified abdominal pain; R14.3 Flatulence | CPT/HCPCS: 74018 ==

== ENCOUNTER → 2025-02-11 | Outpatient (CLI) | payer MEDICARE, SELFPAY ==
[2025-02-15 08:08] LABS: Calprotectin, Stool 487 ug/g (0-120)
== END | disposition home or self-care (01) ==
LOC: LAB 11:23
PROVIDERS: PCP Family Medicine
DX: K62.5 Hemorrhage of anus and rectum (principal); R14.3 Flatulence; R10.84 Generalized abdominal pain
CPT/HCPCS: 82274; 83993

== ENCOUNTER 2025-03-09 08:02 | Day surgery (SDC) | payer MEDICARE, SELFPAY ==
[2025-03-09] VITALS (8 sets, daily range): BP systolic 86–147; BP diastolic 62–90; PULSE 64–74; RESP 16–18; TEMP 36.4–36.8; O2SAT 94–97; BMI 33.6
--- NOTE | 2025-03-09 08:23 | PCM.HP.STD ---
[facility] - General General Date of Admission: 03/09/25 Date of Service: 03/09/25 Chief Complaint: GI bleed HPI Narrative CLEVE CHANDLER, is a 80 F who presents regarding concerns for blood from her rectum. She reports that she had recently completed back to back therapies for a sinus infection I never had and then all of a sudden I noticed blood wrapped around my stools with mucus one day. She denies ever having a colonoscopy, and states I'd rather not start now. She reports a history of constipation, but has a complete BM daily now and she is not seeing any more blood. She states presence of mild abdominal cramping prior to a BM and has noted increased belching 1hr after meals. Her stool is formed and drops to the toilet, she will have shreds of mucus but no more bleeding. She denies knowing what a hemorrhoid feels like, but denies difficulty sitting, pruritus around anus, and rectal pressure. She denies family history of colon cancer but states that her daughter recently had a benign poly removed from her colon. Blood drawn 6.2.25 by PCP: W-5.9, hgb-14.1, hct-42.6, plt-288. [facility] Medical History Wears glasses Post-menopausal Anxiety Open wound History of steroid therapy Thyroid disease Arthritis Excessive bleeding Back pain Difficulty swallowing History of GI bleed Non-smoker Leg cramps History of pain when walking History of edema Hypertension Hx of lipoma Home Medications ?Medication ?Instructions ?Recorded ?Last Taken ?Type albuterol 90 mcg/actuation aerosol 90 mcg inhalation PRN PRN SOB 02/09/25 Unknown History inhaler albuterol sulfate 2.5 mg/3 mL 2.5 mg inhalation Q4-6H PRN 02/09/25 Unknown History (0.083 %) solution for nebulization shortness of breath or wheezing amlodipine 5 mg tablet (Norvasc) 5 mg PO QDAY 02/09/25 Unknown History cephalexin 500 mg capsule 500 mg PO .2xyr for teeth 02/09/25 Unknown History fluticasone propionate 50 1 spray intranasal QDAY PRN 02/09/25 Unknown History mcg/actuation nasal allergy symptoms spray,suspension ketotifin eye solution 1 drp EACH EYE PRN PRN EYE 02/09/25 Unknown History ITCHYNESS levothyroxine 88 mcg tablet 88 mcg PO QDAY 02/09/25 Unknown History multivitamin with minerals 1 cap PO QDAY 02/09/25 03/02/25 History mupirocin 2 % topical ointment 1 applic topical TID 02/09/25 Unknown History (Centany) tolterodine 4 mg capsule,extended 4 mg PO QDAY 02/09/25 Unknown History release 24 hr (Detrol LA) triamcinolone acetonide 0.1 % 1 applic topical QDAY PRN 02/09/25 Unknown History lotion DERMATITIS acetaminophen 650 mg 1,300 mg PO Q12H PRN pain 03/07/25 Unknown History tablet,extended release (8 Hour Pain Reliever) diclofenac sodium 1 % topical gel 1 ea topical PRN 03/07/25 Unknown History (Arthritis Pain (diclofenac)) fluocinonide 0.05 % topical cream 1 applic topical DAILY PRN CRACKED 03/07/25 Unknown History FINGERS Allergy/AdvReac Type Severity Reaction Status Date / Time sulfamethoxazole (From Allergy Severe Other Verified 03/07/25 10:33 Bactrim) trimethoprim (From Bactrim) Allergy Severe Other Verified 03/07/25 10:33 bacitracin (From Neosporin Allergy NEEDS Verified 03/07/25 10:33 ([id number])) FOLLOW-UP neomycin (From Neosporin Allergy NEEDS Verified 03/07/25 10:33 ([id number])) FOLLOW-UP Penicillins Allergy NEEDS Verified 03/07/25 10:33 FOLLOW-UP polymyxin B (From Neosporin Allergy NEEDS Verified 03/07/25 10:33 ([id number])) FOLLOW-UP adhesive (adhesives) AdvReac Intermediate Rash Verified 03/07/25 10:33 nabumetone (From Relafen) AdvReac Intermediate unknown Verified 03/07/25 10:33 Surgical History History of total knee replacement (TKR) History of carpal tunnel surgery of left wrist Hx of toe surgery Hx of hysterectomy Social History Smoking Status: Never smoker ROS Constitutional Constitutional: Denies fatigue, fever(s), poor appetite, weight gain or weight loss Gastrointestinal Gastrointestinal: Denies belching, bloating, change in bowel habits, change in stool character, chewing difficulty, coffee ground emesis, constipation, cramping, diarrhea, dyspepsia, dysphagia, early satiety, excessive flatus, fecal incontinence, heartburn, hematemesis, hematochezia, hemorrhoids, loose stools, melena, nausea, odynophagia, rectal bleeding, tenesmus, vomiting or weight changes Physical Exam Const alert, oriented x3, no apparent distress and healthy appearing General Appearance: cooperative GI normal to inspection, nondistended, normoactive bowel sounds, soft to palpation, non-tender and non-distended Percussion: normal to percussion Rectal Exam: deferred Assessment & Plan Assessment/Plan (1) Abdominal pain: QUALIFIERS: Abdominal location: generalized Qualified Code(s): R10.84 - Generalized abdominal pain (2) Bleeding per rectum: PLAN: Assessment and Plan Assessment and Plan (1) Bleeding per rectum: Status: Acute Orders: Orders HH, Hemoglobin & Hematocrit 01/31/25 K62.5 - Hemorrhage of anus and rectum Plan KATYA CHANDLER, is a 79 F who presents to the office today for establishment with [facility] regarding concerns for blood from her rectum. Despite strong encouragement to have a colonoscopy, she is adamant to wait because there's no more blood or bleeding. She is agreeable to having her hgb checked here at [facility] to verify no further blood loss. blood for H/H increased dietary fiber, reviewed good sources increased fluids discouraged prolonged sitting, including limiting time on toilet to reduce rectal pressure office FU
[2025-03-09] MEDS: Lactated Ringers 1,000 ML 15 ML IV (09:10)
--- NOTE | 2025-03-09 09:15 | COLBX_PTH ---
PATIENT: CLEVE CHANDLER LOC: EN U#:[id number] AGE/SX: 80/F ROOM: RE03/09/[address]: Dr. Arsalan Orellana DO : 1945 BED: DIS: 03/09/2025 SPEC #: [id number] RECD: 03/09/25 10:19 STATUS: [place] RE[place] #: [id number] FERDIN[place]: 03/09/25 09:[address]: Arsalan Orellana DEPT: SURGICAL PATHOLOGY RECD BY: Steve Mitchell ENTERED: 03/09/25 11:44 SP TYPE: COLON BX OT DR: Dr. Bhanu Bates MD Tissues: A - COLON BIOPSY B - Rectum, NOS Procedures: Surgery Specimen Level IV HEADER OPERATION: Colonoscopy PRE-OP DIAGNOSIS: Bleeding per rectum TISSUE SUBMITTED: A- Left sided colon biopsy, B- Rectal biopsy MICROSCOPIC DIAGNOSIS A. Colon, left side, biopsy: - Acute colitis with crypt architectural distortion - see Comment. - No granulomas or dysplasia seen. B. Rectum, biopsy: - Acute inflammation with basal lymphoplasmacytosis - see Comment. - No granulomas or dysplasia seen. COMMENT: The histologic differential diagnosis includes infection, medication injury, diverticular disease-associated colitis and inflammatory bowel disease. Recommend correlation with clinical, endoscopic, and imaging findings. MICROSCOPIC DESCRIPTION Slides are reviewed. GROSS DESCRIPTION A. Received in fixative is one container labeled with the patient's name and designated Left sided colon biopsy. The specimen consists of four irregular fragments of light oneill soft tissue that in aggregate measure 0.1 to 0.6 cm. The specimen is totally submitted in one cassette. B. Received in fixative is one container labeled with the patient's name and designated Rectal biopsy. The specimen consists of two irregular fragments of light oneill soft tissue, each measuring 0.2 cm. The specimen is totally submitted in one cassette. ID 03/09/2025 CPT:[id number]
--- NOTE | 2025-03-09 09:26 | PCM.PRE.AN2 ---
ASA Classification* ASA Classification ASA Classification: 2 Assessment & Plan Anesthesia* Anesthesia Assessment Anesthesia Assessment: Discussed sedation and/or anesthesia options, risks, benefits, and alternatives with patient/parents/legal guardian/POA. Questions invited. The patient/parents/legal guardian/POA seems to understand and agrees to proceed with anesthesia plan. Reviewed the physical assessment, medical history, allergy history and patient home medications list prior to surgery/procedure/anesthetic and documented any changes. Performed airway and anesthesia risk assessments. Anesthesia Type Anesthesia Type: MAC History Source History Obtained from:: Patient and Chart Anesthesia Focused Assessment* Temperature: 97.8 F Pulse Rate: 74 Blood Pressure: 147/73 Respiratory Rate: 16 Pulse Ox: 94 Oxygen Delivery Method: Room Air Airway Assessment Mouth opens: >3 cm Mallampati Score: II Teeth Condition: Intact Neck Range of motion (ROM): Full ROM Labs Anesthesia Preop lab: CBC Hgb 13.8 g/dL (12.0-15.0) 02/06/25 11:02 02/06/25 Hct 42.9 % (37-47) 02/06/25 11:02 02/06/25 CHEMISTRY COAG Pre-Assessment Diagnosis/Proposed Procedure Planned Operative Procedure(s): COLONOSCOPY Anesthesia History Anesthesia History - food counter attendant: Anesthesia History - food counter attendant Hx Hospitalization No 03/07/25 10:53 Any Problems With Anesthesia Yes: N&V 03/07/25 10:53 Cholinesterase deficiency No 03/07/25 10:53 You/Your Family Experience No 03/07/25 10:53 fever (hyperthermia) with Relationship Recent Exposure to Contagious No 03/09/25 08:36 Disease Does patient have nerve No 03/07/25 10:53 stimulator Patient instructed to have device shut off --Does patient have Pacemaker No 03/09/25 08:36 or ICD? When Was Last Pacemaker Check QUESTION #4 FULL TEXT: You/Your Family Experience fever (hyperthermia) with Anesthesia Last Oral Intake Last Oral intake: Last Oral Intake NPO since 05:00 03/09/25 08:36 Meds taken in AM with sips of Yes 03/09/25 08:36 water? Meds patient instructed to norvasc 03/09/25 08:36 take am of surgery synthroid PONV PONV - food counter attendant: PONV - food counter attendant Female Yes 03/07/25 10:53 HX of Motion Sickness No 03/07/25 10:53 HX of N/V After Surgery No 03/07/25 10:53 Non-Smoker Yes 03/07/25 10:53 Duration of Surgery greater No 03/07/25 10:53 than 60 minutes Number of Risk Factors 2 03/07/25 10:53 PONV Score Moderate Risk 03/07/25 10:53 Height & Weight Height & Weight: Anesthesia: Height & Weight Height 5 ft 9.5 in 03/09/25 08:36 Weight: 104.8 kg 03/09/25 08:36 Body Mass Index (BMI) 33.6 03/09/25 08:36 Respiratory Assessment Respiratory Assessment - food counter attendant: Respiratory Tract Infection Hx - food counter attendant Hx Respiratory Tract Infection No 03/07/25 10:53 STOP Sleep Apnea STOP Sleep Apnea - food counter attendant: STOP Sleep Apnea - food counter attendant Hx Hypertension Yes: CONTROLLED ON MED 03/07/25 10:53 Hx Sleep Apnea No 03/07/25 10:53 CPAP BIPAP Do you snore loudly (louder No 03/07/25 10:53 than talking or can be heard Do you often feel tired/ No 03/07/25 10:53 fatigued/ sleepy during daytime? Has anyone observed you stop No 03/07/25 10:53 breathing during sleep? STOP Results Negative 03/07/25 10:53 QUESTION #5 FULL TEXT : Do you snore loudly (louder than talking or can be heard through closed doors)? 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 Specify any problems Hx of Preganancy in last 3 No 03/07/25 10:53 Months Nurse Filling Out Transfusion VCHRISTIN 03/07/25 10:53 & Questions: Date: 03/07/25 03/07/25 10:53 Time: 10:54 03/07/25 10:53 Patient unable to answer at this time (ie. confused, unrespo /Reproduction History /Reproductive History - food counter attendant: /Reproductive Hx- food counter attendant Hx Now No 03/07/25 10:53 Gestational Age (in weeks): EDC: Hx Hx Para Hx Section SAB No 03/07/25 10:53 Active Medications Active Medications: Current Medications Generic Name Dose Route Start Last Admin Trade Name Freq PRN Reason Stop Dose Admin Lactated Ringer's 1,000 mls @ 15 mls/hr 03/09/25 08:15 03/09/25 09:10 IV 15 mls/hr .Q48H TEODORA Administration PFSH Medical History Wears glasses Post-menopausal Anxiety Open wound History of steroid therapy Thyroid disease Arthritis Excessive bleeding Back pain Difficulty swallowing History of GI bleed Non-smoker Leg cramps History of pain when walking History of edema Hypertension Hx of lipoma Home Medications ?Medication ?Instructions ?Recorded ?Last Taken ?Type albuterol 90 mcg/actuation aerosol 90 mcg inhalation PRN PRN SOB 02/09/25 Unknown History inhaler albuterol sulfate 2.5 mg/3 mL 2.5 mg inhalation Q4-6H PRN 02/09/25 Unknown History (0.083 %) solution for nebulization shortness of breath or wheezing amlodipine 5 mg tablet (Norvasc) 5 mg PO QDAY 02/09/25 03/09/25 06:30 History cephalexin 500 mg capsule 500 mg PO .2xyr for teeth 02/09/25 Unknown History fluticasone propionate 50 1 spray intranasal QDAY PRN 02/09/25 Unknown History mcg/actuation nasal allergy symptoms spray,suspension ketotifin eye solution 1 drp EACH EYE PRN PRN EYE 02/09/25 Unknown History ITCHYNESS levothyroxine 88 mcg tablet 88 mcg PO QDAY 02/09/25 03/09/25 05:00 History multivitamin with minerals 1 cap PO QDAY 02/09/25 03/02/25 History mupirocin 2 % topical ointment 1 applic topical TID 02/09/25 Unknown History (Centany) tolterodine 4 mg capsule,extended 4 mg PO QDAY 02/09/25 Unknown History release 24 hr (Detrol LA) triamcinolone acetonide 0.1 % 1 applic topical QDAY PRN 02/09/25 Unknown History lotion DERMATITIS acetaminophen 650 mg 1,300 mg PO Q12H PRN pain 03/07/25 Unknown History tablet,extended release (8 Hour Pain Reliever) diclofenac sodium 1 % topical gel 1 ea topical PRN 03/07/25 Unknown History (Arthritis Pain (diclofenac)) fluocinonide 0.05 % topical cream 1 applic topical DAILY PRN CRACKED 03/07/25 Unknown History FINGERS Allergy/AdvReac Type Severity Reaction Status Date / Time sulfamethoxazole (From Allergy Severe Other Verified 03/07/25 10:33 Bactrim) trimethoprim (From Bactrim) Allergy Severe Other Verified 03/07/25 10:33 bacitracin (From Neosporin Allergy NEEDS Verified 03/07/25 10:33 ([id number])) FOLLOW-UP neomycin (From Neosporin Allergy NEEDS Verified 03/07/25 10:33 ([id number])) FOLLOW-UP Penicillins Allergy NEEDS Verified 03/07/25 10:33 FOLLOW-UP polymyxin B (From Neosporin Allergy NEEDS Verified 03/07/25 10:33 ([id number])) FOLLOW-UP adhesive (adhesives) AdvReac Intermediate Rash Verified 03/07/25 10:33 nabumetone (From Relafen) AdvReac Intermediate unknown Verified 03/07/25 10:33 Surgical History History of total knee replacement (TKR) History of carpal tunnel surgery of left wrist Hx of toe surgery Hx of hysterectomy Social History Smoking Status: Never smoker Review of Systems (Anesthesia) ROS Narrative System reviewed and no additional complaints, except as documented.
--- NOTE | 2025-03-09 10:15 | OP.PROVAT_ITS ---
03/09/2025 Bhanu Bates Re : Colonoscopy procedure for Nta Cahrlesr Paulo This procedure was performed on February. My impressions and recommendations are as follows: Impressions : - Preparation of the colon was fair. - Left-sided ulcerative colitis and left-sided colitis. Inflammation was found from the anus to the splenic flexure. This was graded as Boykin Score 3 (severe disease), new compared to previous examinations. Biopsied. - Stool in the recto-sigmoid colon, in the descending colon, in the transverse colon, at the hepatic flexure, in the ascending colon and in the cecum. Fluid aspiration performed. Recommendations : - Discharge patient to home. - Resume previous diet. - Continue present medications. - Await pathology results. -Mesalamine 3 times a day . *Await stool culture - No repeat colonoscopy due to age. My findings are described in the full procedure note, which is enclosed. If I can be of further assistance, please feel free to contact me at . Sincerely, Arsalan Orellana, 03/09/2025 10:14:21 AM This report has been signed electronically.
--- NOTE | 2025-03-09 10:15 | OP.COLON_ITS ---
Patient Name: Nat Fox Procedure Date: 03/09/2025 9:24 AM Date of : 1945 Age: 80 Procedure: Colonoscopy Indications: Abdominal pain in the left lower quadrant, Clinically significant diarrhea of unexplained origin, Hematochezia Providers: Arsalan Orellana DO Referring MD: Bhanu Bates Medicines: Monitored Anesthesia Care Patient Profile: This is a 80 year old female. Refer to note in patient chart for documentation of history and physical. Last Colonoscopy: several years ago. Complications: No immediate complications. Procedure: Pre-Anesthesia Assessment: - Prior to the procedure, a History and Physical was performed, and patient medications and allergies were reviewed. The patient is competent. The risks and benefits of the procedure and the sedation options and risks were discussed with the patient. All questions were answered and informed consent was obtained. Patient identification and proposed procedure were verified by the physician in the pre-procedure area. Mental Status Examination: alert and oriented. Airway Examination: normal oropharyngeal airway and neck mobility. Respiratory Examination: clear to auscultation. CV Examination: normal. Prophylactic Antibiotics: The patient does not require prophylactic antibiotics. Prior Anticoagulants: The patient has taken no anticoagulant or antiplatelet agents except for NSAID medication. ASA Grade Assessment: II - A patient with mild systemic disease. After reviewing the risks and benefits, the patient was deemed in satisfactory condition to undergo the procedure. The anesthesia plan was to use monitored anesthesia care (MAC). Immediately prior to administration of medications, the patient was re-assessed for adequacy to receive sedatives. The heart rate, respiratory rate, oxygen saturations, blood pressure, adequacy of pulmonary ventilation, and response to care were monitored throughout the procedure. The physical status of the patient was re-assessed after the procedure. After I obtained informed consent, the scope was passed under direct vision. Throughout the procedure, the patient's blood pressure, pulse, and oxygen saturations were monitored continuously. The pediatric colonoscope was introduced through the anus and advanced to the cecum, identified by appendiceal orifice and ileocecal valve. The colonoscopy was performed without difficulty. The patient tolerated the procedure well. The quality of the bowel preparation was fair. The ileocecal valve, appendiceal orifice, and rectum were photographed. Moderate Sedation: Moderate (conscious) sedation was personally administered by an anesthesia professional. The following parameters were monitored: oxygen saturation, heart rate, blood pressure, respiratory rate, EKG, adequacy of pulmonary ventilation, and response to care. Scope In: 9:46:47 AM Scope Withdrawal Time 0 hours 12 minutes 13 seconds Scope Out: 10:03:55 AM Total Procedure Duration Time 0 hours 17 minutes 8 seconds Findings: The perianal and digital rectal examinations were normal. Inflammation characterized by congestion (edema), erosions, erythema, friability and granularity was found in a continuous and circumferential pattern from the anus to the splenic flexure. The transverse colon, the hepatic flexure, the ascending colon and the cecum were spared. The inflammation was graded as Boykin Score 3 (severe, with spontaneous bleeding, ulcerations), and when compared to previous examinations, the findings are new. Biopsies were taken with a cold forceps for histology. Verification of patient identification for the specimen was done. Estimated blood loss was minimal. Stool was found in the recto-sigmoid colon, in the descending colon, in the transverse colon, at the hepatic flexure, in the ascending colon and in the cecum. Fluid aspiration for bacterial cultures and Clostridium difficile was performed. Verification of patient identification for the specimen was done. Estimated blood loss was minimal. Multiple small and large-mouthed diverticula were found in the recto-sigmoid colon, sigmoid colon and descending colon. Impression: - Preparation of the colon was fair. - Left-sided ulcerative colitis and left-sided colitis. Inflammation was found from the anus to the splenic flexure. This was graded as Boykin Score 3 (severe disease), new compared to previous examinations. Biopsied. - Stool in the recto-sigmoid colon, in the descending colon, in the transverse colon, at the hepatic flexure, in the ascending colon and in the cecum. Fluid aspiration performed. Recommendation: - Discharge patient to home. - Resume previous diet. - Continue present medications. - Await pathology results. -Mesalamine 3 times a day . *Await stool culture - No repeat colonoscopy due to age. Procedure Code(s): --- Professional --- 73479, Colonoscopy, flexible; with biopsy, single or multiple CPT copyright 2021 [employer] [place] [employer]. All rights reserved. The codes documented in this report are preliminary and upon engineering scientist review may be revised to meet current compliance requirements. Arsalan Orellana DO 03/09/2025 10:14:21 AM This report has been signed electronically. Number of Addenda: 0 Note Initiated On: 03/09/2025 9:24 AM
--- NOTE | 2025-03-09 10:16 | PCM.POST.ANE ---
Anesthesia: Postop Eval I Current Vital Signs Temperature: 98.2 F Pulse Rate: 65 Blood Pressure: 103/62 Respiratory Rate: 18 Pulse Ox: 94 Assessment Airway patent: Yes Spontaneous unlabored respirations: Yes nausea: No Vomiting: No Anesthesia Complication: No Fluid Hydration Crystalloid volume administer (ml): 600 Total IV fluid infused: 600 Progress Note Anesthesia document: Postop Eval 1 completed: Yes
--- NOTE | 2025-03-09 12:41 | POSTOPAN2_ITS ---
Anesthesia Postop Eval I Sum Postop Eval Completion status Anesthesia document: Postop Eval 1 completed: Yes Anesthesia Postop Eval I Summary Anesthesia Postop Eval I Summary: Anesthesia Postop Eval I: Assessment Summary Airway patent Yes 03/09/25 10:16 [email or web address] Spontaneous unlabored Yes 03/09/25 10:16 [email or web address] [email or web address] respirations Mental status nausea No 03/09/25 10:16 [email or web address] [email or web address] Vomiting No 03/09/25 10:16 [email or web address] Anesthesia Postop Eval I: Fluid Summary Crystalloid volume administer 600 03/09/25 10:16 [email or web address] (ml) Colloids volume administered ( ml) Blood Product volume administered (ml) Total IV fluid infused 600 03/09/25 10:16 [email or web address] Anesthesia Postop Eval I: Summary Notes Anesthesia Complication No 03/09/25 10:16 [email or web address] Anesthesia Complication Comment: Post-operative progress note Anesthesia: Postop Eval II Evaluation Mental status: Awake and Calm Pain Level: 1 nausea: No Vomiting: No Complications Anesthesia Complication: No
--- NOTE | 2025-03-09 12:41 | PCM.POSTANE2 ---
Anesthesia Postop Eval I Sum Postop Eval Completion status Anesthesia document: Postop Eval 1 completed: Yes Anesthesia Postop Eval I Summary Anesthesia Postop Eval I Summary: Anesthesia Postop Eval I: Assessment Summary Airway patent Yes 03/09/25 10:16 [email or web address] Spontaneous unlabored Yes 03/09/25 10:16 [email or web address] respirations Mental status nausea No 03/09/25 10:16 [email or web address] Vomiting No 03/09/25 10:16 [email or web address] Anesthesia Postop Eval I: Fluid Summary Crystalloid volume administer 600 03/09/25 10:16 [email or web address] (ml) Colloids volume administered ( ml) Blood Product volume administered (ml) Total IV fluid infused 600 03/09/25 10:16 [email or web address] Anesthesia Postop Eval I: Summary Notes Anesthesia Complication No 03/09/25 10:16 [email or web address] Anesthesia Complication Comment: Post-operative progress note Anesthesia: Postop Eval II Evaluation Mental status: Awake and Calm Pain Level: 1 nausea: No Vomiting: No Complications Anesthesia Complication: No
== END 2025-03-09 11:03 | disposition home or self-care (01) ==
LOC: EN 08:02 → AC 08:03
PROVIDERS: PCP Family Medicine; Referring Provider Family Medicine; Visit Provider Internal Medicine Gastroenterology
PROC: 0DJD8ZZ Inspection of Lower Intestinal Tract, Via Natural or Artificial Opening Endoscopic (ICD-10-PCS; CPT 45378; principal; 2025-03-09 09:10)
DX: K51.511 Left sided colitis with rectal bleeding (principal); K62.5 Hemorrhage of anus and rectum; K57.30 Diverticulosis of large intestine without perforation or abscess without bleeding; I10 Essential (primary) hypertension; Z79.899 Other long term (current) drug therapy
CPT/HCPCS: 45380; 87493; 87506; 88305

== ENCOUNTER → 2025-03-23 | Outpatient (CLI) | payer MEDICARE, SELFPAY ==
[2025-03-23 15:14] LABS: Hematocrit 42.7 % (37-47); Hemoglobin 13.8 g/dL (12.0-15.0); Immature Granulocytes Count 0.020 X10^3/uL (0.0-0.0); Mean Corp Hgb Conc 32.3 g/dL (32-36); Mean Corpuscular Volume 89.5 fL (81-99); Mean Platelet Vol. 10.5 fl (6.2-12.0); NRBC Flagged by Analyzer 0 % (0-5); Platelet Count 301 K/mm3 (150-450); RBC Distribution Width CV 13.4 % (11.6-14.6); RBC Distribution Width SD 43.9 fl (35.1-43.9); Red Blood Count 4.77 M/mm3 (4.2-5.4); White Blood Count 7.0 K/mm3 (4.4-11.0)
[2025-03-23 15:57] LABS: AST(SGOT) 20 U/L (<=31); Alanine Aminotransfer ALT/SGPT 15 U/L (<=34); Albumin, Serum 4.1 g/dL (3.4-4.8); Alkaline Phosphatase 83 U/L (35-104); Anion Gap 10 (5-15); BUN 18 mg/dL (4-19); BUN/Creat Ratio 22.7 RATIO (10-20); Calcium,Total 10.1 mg/dL (7.6-11.0); Carbon Dioxide 24.8 mmol/L (21.0-32.0); Chloride 104 mmol/L (98-108); Globulin 2.9 g/dL (2.2-4.2); Glucose 100 mg/dL (70-99); Potassium 4.8 mmol/L (3.3-5.1)
[2025-03-23 16:38] LABS: CRP 4.00 mg/L (0.0-3.0); LDH 170 U/L (84-246)
[2025-03-25 12:08] LABS: QNTFERON TB Mitogen Value > 10.00 IU/mL (.); QNTFERON TB Nil Value 0.02 IU/mL (.); QNTFERON TB1+ Ag Value 0.02 IU/mL (.); QNTFERON TB2+ Ag Value 0.01 IU/mL (.); QNTIFERON TB Positive Criteria Negative (Negative)
== END | disposition home or self-care (01) ==
LOC: LAB 14:39
PROVIDERS: PCP Family Medicine
DX: K51.911 Ulcerative colitis, unspecified with rectal bleeding (principal); R10.84 Generalized abdominal pain; K62.5 Hemorrhage of anus and rectum
CPT/HCPCS: 36415; 80053; 83615; 85025; 85652; 86140; 86480

== ENCOUNTER → 2025-04-04 | Outpatient (CLI) | payer MEDICARE, SELFPAY ==
--- NOTE | 2025-04-04 12:29 | EKG12_ITS ---
Test Reason : PREOP Blood Pressure : */* mmHG Vent. Rate : 69 BPM Atrial Rate : 69 BPM P-R Int : 182 ms QRS Dur : 80 ms QT Int : 406 ms P-R-T Axes : 24 9 113 degrees QTcB Int : 435 ms Normal sinus rhythm Left ventricular hypertrophy with repolarization abnormality Abnormal ECG Confirmed by DENIS DOYLE, ELYSIA ([id number]), production editor CHERI JORGE ([id number]) on 04/05/2025 6:17:41 AM Referred By: Graciela Zuleta Confirmed By: ELYSIA BARRIOS MD
== END | disposition home or self-care (01) ==
LOC: PSN 12:26
PROVIDERS: PCP Family Medicine
DX: K51.911 Ulcerative colitis, unspecified with rectal bleeding (principal)
CPT/HCPCS: 93005

== ENCOUNTER → 2025-06-06 | Outpatient (CLI) | payer MEDICARE, SELFPAY ==
[2025-06-06 13:52] LABS: Hematocrit 42.1 % (37-47); Hemoglobin 13.8 g/dL (12.0-15.0); Immature Granulocytes Count 0.020 X10^3/uL (0.0-0.0); Mean Corp Hgb Conc 32.8 g/dL (32-36); Mean Corpuscular Volume 88.6 fL (81-99); Mean Platelet Vol. 10.0 fl (6.2-12.0); NRBC Flagged by Analyzer 0 % (0-5); Platelet Count 243 K/mm3 (150-450); RBC Distribution Width CV 12.9 % (11.6-14.6); RBC Distribution Width SD 41.8 fl (35.1-43.9); Red Blood Count 4.75 M/mm3 (4.2-5.4); White Blood Count 6.0 K/mm3 (4.4-11.0)
[2025-06-06 14:23] LABS: AST(SGOT) 24 U/L (<=31); Alanine Aminotransfer ALT/SGPT 17 U/L (<=34); Albumin, Serum 4.0 g/dL (3.4-4.8); Alkaline Phosphatase 70 U/L (35-104); Anion Gap 8 (5-15); BUN 15 mg/dL (4-19); BUN/Creat Ratio 21.5 RATIO (10-20); CRP 5.51 mg/L (0.0-3.0); Calcium,Total 10.1 mg/dL (7.6-11.0); Carbon Dioxide 26.0 mmol/L (21.0-32.0); Chloride 103 mmol/L (98-108); Globulin 2.9 g/dL (2.2-4.2); Glucose 102 mg/dL (70-99); Potassium 4.3 mmol/L (3.3-5.1)
[2025-06-10 02:07] LABS: Calprotectin, Stool 68 ug/g (0-120)
== END | disposition home or self-care (01) ==
LOC: LAB 13:28
PROVIDERS: PCP Family Medicine; Referring Provider Internal Medicine Cardiovascular Disease; Visit Provider Nurse Practitioner Acute Care
DX: K51.911 Ulcerative colitis, unspecified with rectal bleeding (principal); K51.311 Ulcerative (chronic) rectosigmoiditis with rectal bleeding
CPT/HCPCS: 36415; 80053; 83993; 85025; 86140

== ENCOUNTER → 2025-06-19 | Outpatient (CLI) | payer MEDICARE, SELFPAY ==
--- NOTE | 2025-06-19 13:51 | ECHOD_ITS ---
Reason For Study Reason For Study: HYPERTENSION Procedure This was a 2D Doppler, Color Flow transthoracic echocardiogram. Exam performed in department. Left Ventricle Normal LV size. Mild concentric left ventricular hypertrophy. The left ventricular ejection fraction is 65 %. Stage 1 diastolic dysfunction. Right Ventricle Normal right ventricle. Atria The left and right atria are normal. Bubble contrast study is negative for PFO/ASD. Mitral Valve Mild mitral annular calcification. Trivial mitral valve insufficiency. Tricuspid Valve Trivial tricuspid valve insufficiency. Normal pulmonary artery pressure. Aortic Valve Aortic sclerosis, no stenosis. Mild (1+) aortic valve insufficiency. Pulmonic Valve The pulmonic valve is not well visualized. Trivial pulmonic valve insufficiency. Great Vessels Normal sized aortic root. Pericardium/Pleural No pericardial effusion. Medication 22 gauge I.V. with prn adaptor inserted into right arm. Performed a rapid injection of agitated mix of 9 cc saline and 1cc air to assess for atrial septal defect. MMode/2D Measurements & Calculations LVIDd: 4.6 cm IVSd: 1.2 cm Ao root diam: 3.1 cm LVIDs: 2.8 cm LVPWd: 1.1 cm RVDd: 4.0 cm FS: 39.6 % LAV(MOD-bp): 65.5 ml LVAd ap4: 30.0 cm2 LVAd ap2: 25.3 cm2 LAV(MOD-bp) Indexed: 29.7 ml/m2 LVLd ap4: 8.3 cm LVLd ap2: 8.3 cm LAV(MOD-sp2): 61.7 ml EDV(MOD-sp4): 88.8 ml EDV(MOD-sp2): 66.1 ml LAV(MOD-sp4): 61.7 ml EDV(sp4-el): 91.8 ml EDV(sp2-el): 65.8 ml LVAs ap4: 16.1 cm2 LVAs ap2: 13.0 cm2 LVLs ap4: 7.1 cm LVLs ap2: 6.5 cm ESV(MOD-sp4): 33.0 ml ESV(MOD-sp2): 23.5 ml ESV(sp4-el): 31.0 ml ESV(sp2-el): 21.9 ml EF(MOD-sp4): 62.8 % EF(MOD-sp2): 64.5 % EF(sp4-el): 66.3 % SV(MOD-sp4): 55.8 ml SV(MOD-sp2): 42.7 ml SV(sp4-el): 60.9 ml SI(MOD-sp4): 25.3 ml/m2 SI(MOD-sp2): 19.4 ml/m2 LA A4 area: 20.7 cm2 LA dimension(2D): 4.0 cm RA A4 area: 13.3 cm2 TAPSE: 1.9 cm Time Measurements MV dec time: 0.33 sec Doppler Measurements & Calculations MV E max joshua: 47.2 cm/sec Lat Peak E' Joshua: 6.5 cm/sec Med Peak E' Joshua: 4.2 cm/sec MV A max joshua: 81.0 cm/sec E/E' lat: 7.2 E/E' med: 11.3 MV E/A: 0.58 MV dec slope: 142.6 cm/sec2 Ao V2 max: 134.0 cm/sec LV V1 max: 108.4 cm/sec Ao max P.2 mmHg LV V1 max P.7 mmHg Ao V2 mean: 92.5 cm/sec LV V1 mean P.4 mmHg Ao mean P.8 mmHg LV V1 mean: 74.4 cm/sec Ao V2 VTI: 25.6 cm LV V1 VTI: 20.2 cm AV (velocity ratio): 0.79 PA V2 max: 84.3 cm/sec TR max joshua: 268.1 cm/sec TR max P.8 mmHg ECHO/Echo Complete Interpretation Summary Mild concentric left ventricular hypertrophy. The left ventricular ejection fraction is 65 %. Stage 1 diastolic dysfunction. Bubble contrast study is negative for PFO/ASD. Mild mitral annular calcification. Aortic sclerosis, no stenosis. Mild (1+) aortic valve insufficiency. Ordering Physician: Samuel Wheat Referring Physician: Bhanu Bates Performed By: Patricia Cesar RDCS
== END | disposition home or self-care (01) ==
LOC: CVS 13:50
PROVIDERS: PCP Family Medicine; Referring Provider Internal Medicine Cardiovascular Disease; Visit Provider Internal Medicine Cardiovascular Disease
DX: R94.31 Abnormal electrocardiogram [ECG] [EKG] (principal); I10 Essential (primary) hypertension
CPT/HCPCS: 93306; A4216

== ENCOUNTER → 2025-06-28 | Outpatient (CLI) | payer MEDICARE, SELFPAY ==
[2025-06-28 16:39] LABS: Free T3 2.5 pg/mL (2.18-3.98)
--- OUTSIDE RECORDS SUMMARY | 2025-06-28 17:12 | XMS RPT_ITS | CCD ---
Author Organization [facility] Care Team Providers Care Water Resources Program Director Name Role Phone JIMMY SHRESTHA MD Primary Care Physician DR KASEY GARCIA MD Attending Unavailable JIMMY SHRESTHA MD Primary Care Unavailable JIMMY SHRESTHA MD Attending Unavailable JIMMY SHRESTHA MD Primary Care Unavailable JIMMY SHRESTHA MD Attending Unavailable JIMMY SHRESTHA MD Primary Care Unavailable JIMMY SHRESTHA MD Primary Care Unavailable TAVO VAZQUEZ MD Attending Unavailable TAVO VAZQUEZ MD Attending Unavailable JIMMY SHRESTHA MD Primary Care Unavailable JIMMY SHRESTHA MD Primary Care Unavailable TAVO VAZQUEZ MD Attending Unavailable JIMMY SHRESTHA MD Primary Care Unavailable JIMMY SHRESTHA MD Attending Unavailable JIMMY SHRESTHA MD Primary Care Unavailable JIMMY SHRESTHA MD Attending Unavailable JIMMY SHRESTHA MD Primary Care Unavailable JIMMY SHRESTHA MD Attending Unavailable TAVO VAZQUEZ MD Attending Unavailable JIMMY SHRESTHA MD Primary Care Unavailable JIMMY SHRESTHA MD Primary Care Unavailable JIMMY SHRESTHA MD Attending Unavailable JIMMY SHRESTHA MD Attending Unavailable JIMMY SHRESTHA MD Primary Care Unavailable JIMMY SHRESTHA MD Attending Unavailable JIMMY SHRESTHA MD Primary Care Unavailable Dr. Jimmy Shrestha MD Primary Care Provider Dr. Jimmy Shrestha MD Referring Provider Graciela Jacobson Attending Provider [phone] Graciela Jacobson Referring Provider Dr. Arsalan Orellana DO Attending Provider Dr. Arsalan Orellana DO Other Provider Malissa Pitts Attending Provider Dr. Jimmy Shrestha MD Primary Care Physician Song MANAGER SIGN-CGraciela Attending Physician Paulo DOYLE, Dr. Drummond Referring Provider Esteban ERAZO, Dr. Arriaza Attending Physician Dr. Arsalan Orellana DO Nurse Practitioner Moise DOYLE, Dr. Govea Attending Physician Malissa Pitts Attending Physician Dr. Mendoza Wheat MD Attending Physician Malissa De La Paz Attending Unavailable Shrestha, Jimmy Primary Care Unavailable Mendoza Wheat Referring Unavailable Shrestha, Jimmy Primary Care Unavailable Song, Graciela Attending Unavailable Zuleta, Graciela Referring Unavailable Shrestha, Jimmy Primary Care Unavailable Riki Benavides Attending Unavailable Shrestha, Jimmy Primary Care Unavailable Zuleta, Graciela Referring Unavailable Jeferson Phipps Attending Unavailable Shrestha, Jimmy Primary Care Unavailable Shrestha, Jimmy Referring Unavailable Arsalan Orellana Attending Unavailable Arsalan Orellana Consulting Unavailable Shrestha, Jimmy Primary Care Unavailable Shrestha, Jimmy Referring Unavailable FriendArsalan Attending Unavailable Shrestha, Jimmy Primary Care Unavailable Shrestha, Jimmy Referring Unavailable Zuleta, Graciela Attending Unavailable Shrestha, Jimmy Primary Care Unavailable Shrestha, Jimmy Referring Unavailable Zuleta, Graciela Attending Unavailable Shrestha, Jimmy Primary Care Unavailable Shrestha, Jimmy Referring Unavailable Zuleta, Graciela Attending Unavailable Malissa De La Paz Attending Unavailable Shrestha, Jimmy Primary Care Unavailable Shrestha, Jimmy Referring Unavailable Shrestha, Jimmy Referring Unavailable Shrestha, Jimmy Primary Care Unavailable Mendoza Wheat Attending Unavailable Shrestha, Jimmy Primary Care Unavailable Zuleta, Graciela Attending Unavailable Zuleta, Graciela Referring Unavailable Shrestha, Jimmy Primary Care Unavailable Zuleta, Graciela Attending Unavailable Zuleta, Graciela Referring Unavailable Shrestha, Jimmy Primary Care Unavailable Mendoza Wheat Referring Unavailable Mendoza Wheat Attending Unavailable Shrestha, Jimmy Primary Care Unavailable Zuleta, Graciela Attending Unavailable Zuleta, Graciela Referring Unavailable Shrestha, Jimmy Primary Care Unavailable Zuleta, Graciela Attending Unavailable Zuleta, Graciela Referring Unavailable Shrestha, Jimmy Primary Care Unavailable Shrestha, Jimmy Referring Unavailable FriendArsalan Attending Unavailable Allergies Allergy Classification Reported Allergen(s) Allergy Type Date of Onset Reaction(s) Facility (11 sources) Adhesive bandage Allergy to substance Unknown (qualifier value) [facility] (11 sources) bacitracin / neomycin / polymyxin b; Translations: [bacitracin/neomyci n/polymyxin B topical] Drug Allergy Unknown (qualifier value) [facility] (20 sources) nabumetone; Translations: [nabumetone] Drug Allergy 02-10-20 headache, unknown [facility] (11 sources) Penicillin; Translations: [penicillin] Drug Allergy Unknown (qualifier value) [facility] (11 sources) Bacitracin Drug Allergy 02-01-20 NEEDS FOLLOW-UP [facility] (11 sources) Neomycin Drug Allergy 02-01-20 NEEDS FOLLOW-UP [facility] (11 sources) Penicillins Allergy to substance 02-01-20 NEEDS FOLLOW-UP [facility] (11 sources) Polymyxin B Drug Allergy 02-01-20 NEEDS FOLLOW-UP [facility] (10 sources) Adhesive agent; Translations: [adhesive] Propensity to adverse reactions 02-10-20 Rash [facility] (6 sources) Sulfamethoxazole Drug Allergy 03-07-20 Other [facility] (6 sources) Trimethoprim Drug Allergy 03-07-20 Other [facility] (1 source) Bacitracin Drug Allergy 06-12-20 [facility] (1 source) nabumetone Drug Allergy 06-12-20 [facility] (1 source) Neomycin Drug Allergy 06-12-20 [facility] (1 source) Penicillins Drug allergy (disorder) 06-12-20 [facility] (1 source) Sulfamethoxazole Drug Allergy 06-12-20 [facility] (1 source) Trimethoprim Drug Allergy 06-12-20 [facility] (1 source) polymyxin B Drug allergy (disorder) 06-12-20 [facility] Medications Current Medications Medication Drug Class(es) Dates Sig (Normalized) Sig (Original) 8 hr acetaminophen 650 mg extended release oral tablet (20 sources) Start: 03-07-2025 Start: 02-09-2025 End: 03-07-2025 take 2 tablets by mouth at bedtime Acetaminophen 500 mg tablet Discontinued 1000 mg PO AT BEDTIME February 09, 2025 12:00am March 07, 2025 10:38am Start: 06-07-2024 Tylenol 8 HR A rthritis Pain 650 mg oral tablet, extended release Dose : 1,300 mg = 2 tab(s), Oral, q8h, PRN as needed for pain, # 24 tab(s), 0 Refill(s) Start Date: 06/07/24 Status: Ordered Quantity: 24.0 Unit: tab(s) Repeat number: 1 albuterol 0.83 mg/ml inhalation solution (9 sources) beta2-Adrenergic Agonist Start: 02-09-2025 take 2.5 mg by inhalation every four to six hours as needed for wheezing Albuterol (Eqv-ProAir [...] Quantity: 6.7 Unit: g Repeat number: 1 Albuterol 90 mcg/actuation aerosol (9 sources) Start: 02-09-2025 Start: 02-09-2025 Albuterol 90 m cg/actuation aerosol Active 90 ug INHALATION NEEDED as needed for SOB February 09, 2025 12:00am Start: 02-09-2025 Albuterol 90 m cg/actuation aerosol Active ug INHALATION as needed February 09, 2025 12:00am amLODIPine 5 mg oral tablet (12 sources) Dihydropyridine Calcium Channel Anais Start: 02-09-2025 take 1 tablet by mouth once daily Start: 12-20-2024 amLODIPine 5 m g oral tablet Dose : 5 mg = 1 tab(s), Oral, qDay, # 90 tab(s), 3 Refill(s), Pharmacy: [facility], 180, cm, 05/13/25 15:35:00 EDT, Height, kg, 12/20/24 15:35:00 EDT, Dosing Weight Start Date: 12/20/24 Status: Ordered Quantity: 90.0 Unit: tab(s) Repeat number: 4 azithromycin 500 mg oral tab let (4 sources) Macrolide Antimicrobial Start: 05-24-2025 Start: 12-20-2024 azithromycin 5 00 mg oral tablet take 1 tablet by mouth 1 hour before PROCEDURE Start Date: 12/20/24 Status: Ordered Repeat number: 1 Calcium, Magnesium and Zinc oral tablet (4 sources) Start: 01-31-2020 take 1 tablet by mouth once daily Calcium, Magnesium and Zinc oral tablet tab(s), Oral, qDay, 0 Refill(s) Start Date: 01/31/20 Status: Ordered diclofenac sodium 0.01 mg/mg topical gel (20 sources) Nonsteroidal Anti-inflammatory Drug Start: 03-07-2025 Start: 02-09-2025 End: 03-07-2025 apply 2 g topically once Diclofenac Sodium 1 % gel Di scontinued 2 g TOPICAL ONCE February 09, 2025 12:00am March 07, 2025 10:37am apply to single elbow, wrist or hand; for hand includes palm/fingers/back of hand Start: 12-20-2024 diclofenac 1% topical gel 2 [...] bp, # 1 EA, 0 Refill(s), Pharmacy: [id number], Elevated blood pressure reading, 180, cm, 06/07/24 13:23:00 EDT, Height, 106.8, kg, 06/07/24 13:23:00 EDT, Dosing Weight Start Date: 06/23/24 Status: Ordered Quantity: 1.0 Unit: EA Repeat number: 1 Indications: Elevated blood-pressure reading, without diagnosis of hypertension; [place] 6-Kvr-Eht-Fish Oil (1 source) Start: 05-24-2025 fluocinonide 0.5 mg/ml topical cream (16 sources) Corticosteroid Start: 03-07-2025 Start: 06-07-2024 fluocinonide 0 .05% topical cream See Instructions, to affected area daily, # 30 gram(s), 1 Refill(s), Pharmacy: [facility], Cream, 180, cm, 06/07/24 13:23:00 EDT, Height, 106.8, kg, 06/07/24 13:23:00 EDT, Dosing Weight Start Date: 06/07/24 Status: Ordered Quantity: 30.0 Unit: g Repeat number: 2 Start: 06-07-2024 fluocinonide 0 .05% topical cream See Instructions, to affected area daily, # 30 gram(s), 1 Refill(s), Pharmacy: [facility], Cream, 180, cm, 06/07/24 13:23:00 EDT, Height, 106.8, kg, 06/07/24 13:23:00 EDT, Dosing Weight Start Date: 06/07/24 Status: Ordered Start: 02-05-2024 fluocinonide 0 .05% topical cream See Instructions, to affected area daily, # 30 gram(s), 1 Refill(s), Pharmacy: [facility], Cream, 180, cm, 05/13/23 13:26:00 EDT, Height, 105.8, kg, 05/13/23 13:26:00 EDT, Dosing Weight Start Date: 02/05/24 Status: Ordered Start: 03-11-2022 fluocinonide 0 .05% topical cream See Instructions, to affected area daily, # 60 gram(s), 0 Refill(s), Pharmacy: [facility] #[id number], Cream, 177, cm, 06/03/21 10:25:00 EDT, Height, 103 Start Date: 03/11/22 Status: Ordered fluticasone propionate 0.05 mg/actuat metered dose nasal spray (18 sources) Corticosteroid Start: 02-09-2025 Start: 06-07-2024 take 50 ug nasal rou te once daily in the morning Flonase 50 mcg/inh nasal spray 50 mcg Dose = 1 spray(s), Nostril, each, qAM, 0 Refill(s) Start Date: 06/07/24 Status: Ordered Repeat number: 1 Start: 03-17-2022 take 1 dose nasal ro kelly twice daily Flonase 50 mcg/inh nasal spray Dose = 1 spray(s), Nostril, each, BID, 0 Refill(s) Start Date: 03/17/22 Status: Ordered hydroCHLOROthiazide 25 mg oral tablet (1 source) Thiazide Diuretic Start: 05-24-2025 take 1 tablet by mouth once daily in the morning ketotifen 0.25 mg/ml ophthalmic solution (5 sources) Histamine-1 Receptor Inhibitor Start: 06-07-2024 take 1 drop(s) into the eye(s) every eight hours ketotifen 0.025% ophthalmic solution See Instructions, drop(s) q8h, 0 Refill(s) Start Date: 06/07/24 Status: Ordered Repeat number: 1 ketotifin eye solution (9 sources) Start: 02-09-2025 Start: 02-09-2025 ketotifin eye solution Active 1 NMA EACH EYE NEEDED as needed for EYE ITCHYNESS February 09, 2025 12:00am Start: 02-09-2025 ketotifin eye solution Active EACH EYE as needed February 09, 2025 12:00am Lactobacillus Combination No.9 (Adult 50 Plus Probiotic) 4 billion cell capsule (1 source) Start: 05-24-2025 take 4 capsules by m outh once daily levothyroxine sodium 0.088 m g oral tablet (20 sources) l-Thyroxine Start: 02-09-2025 take 1 tablet by becki th once daily Start: 06-07-2024 End: 06-02-2025 Synthroid 88 mcg (0.088 mg) oral tablet Dose : 88 mcg = 1 tab(s), Oral, qDay, # 90 tab(s), 3 Refill(s), Pharmacy: [facility], 180, cm, 06/07/24 13:23:00 EDT, Height, kg, 06/07/24 13:23:00 EDT, Dosing Weight Start Date: 06/07/24 Stop Date: 06/02/25 Status: Ordered Quantity: 90.0 Unit: tab(s) Repeat number: 4 Start: 05-13-2023 End: 05-07-2024 Synthroid 88 mcg (0.088 mg) oral tablet Dose : 88 mcg = 1 tab(s), Oral, qDay, # 90 tab(s), 3 Refill(s), Pharmacy: [facility], 180, cm, 05/13/23 13:26:00 EDT, Height, kg, 05/13/23 13:26:00 EDT, Dosing Weight Start Date: 05/13/23 Stop Date: 05/07/24 Status: Ordered Start: 06-03-2021 End: 05-01-2023 Synthroid 88 mcg (0.088 mg) oral tablet Dose : 88 mcg = 1 tab(s), Oral, qDay, # 90 tab(s), 3 Refill(s), Pharmacy: [facility], 177, cm, 04/25/22 10:10:00 EDT, [...] PRESCRIPTION NOTES). Start Date: 04/17/22 Status: Ordered mesalamine 800 mg delayed release oral tablet (9 sources) Aminosalicylate Start: 03-09-2025 End: 05-04-2025 take 1 tablet by mouth three times daily Multivitamin preparation (11 sources) Start: 01-31-2020 take 1 tablet by mouth once daily Multivitamin Dose = 1 tab(s), Oral, Daily, 0 Refill(s) Start Date: 01/31/20 Status: Ordered Repeat number: 1 Start: 01-31-2020 take 1 tablet by becki th once daily Multivitamin Dose = 1 tab(s), Oral, Daily, 0 Refill(s) Start Date: 01/31/20 Status: Ordered Multivitamin With Minerals c apsule (9 sources) Start: 02-09-2025 Start: 02-09-2025 Multivitamin W ith Minerals capsule Active 1 NMA PO daily February 09, 2025 12:00am mupirocin 0.02 mg/mg topical ointment (15 sources) RNA Synthetase Inhibitor Antibacterial Start: 02-09-2025 Start: 05-13-2023 mupirocin 2% t opical ointment Topical, TID, 0 Refill(s), 103.9 Start [...] 0 Refill(s) Start Date: 01/31/20 Status: Ordered psyllium 3400 mg powder for oral suspension (1 source) Start: 05-24-2025 sulfamethoxazole 800 mg / trimethoprim 160 mg oral tablet (2 sources) Dihydrofolate Reductase Inhibitor Antibacterial, Sulfonamide Antimicrobial Start: 01-06-2025 End: 01-16-2025 take 1 tablet by mouth twice daily Bactrim DS 800 mg-160 mg oral tablet Dose = 1 tab(s), Oral, BID, X 10 day(s), # 20 tab(s), 0 Refill(s), Pharmacy: [facility] #[id number], 180, cm, 01/03/25 14:57:00 EDT, Height, 108.2, kg, 01/03/25 14:57:00 EDT, Dosing Weight Start Date: 01/06/25 Stop Date: 01/16/25 Status: Ordered Quantity: 20.0 Unit: tab(s) Repeat number: 1 24 hr tolterodine tartrate 4 mg extended release oral capsule (20 sources) Cholinergic Muscarinic Antagonist Start: 02-09-2025 take 1 capsule by mouth once daily Start: 12-06-2024 tolterodine 4 mg oral capsule, extended release Dose : 4 mg = 1 cap(s), Oral, Daily, # 90 cap(s), 3 Refill(s), Pharmacy: [facility], 180, cm, 06/28/24 14:52:00 EST, Height, [...] Daily, # 90 cap(s), 3 Refill(s), Pharmacy: [facility], 180, cm, 05/13/23 13:26:00 EDT, Height, kg, 05/13/23 13:26:00 EDT, Dosing Weight Start Date: 05/13/23 Status: Ordered Start: 10-31-2022 Detrol LA 4 mg oral capsule, extended release Dose : 4 mg = 1 cap(s), Oral, Daily, # 90 cap(s), 1 Refill(s), Pharmacy: [facility], 177, cm, 04/25/22 10:10:00 EDT, Height, kg, 04/25/22 10:10:00 EDT, Dosing Weight Start Date: 10/31/22 Status: Ordered Start: 10-08-2021 Detrol LA 4 mg oral capsule, extended release Dose : 4 mg = 1 cap(s), Oral, Daily, # 90 cap(s), 3 Refill(s), Pharmacy: [facility], 177, cm, 06/03/21 10:25:00 EDT, Height, kg, 06/03/21 10:25:00 EDT, Dosing Weight Start Date: 10/08/21 Status: Ordered Start: 04-05-2021 End: 07-04-2021 Detrol LA 4 mg oral capsule, extended release Dose : 4 mg = 1 cap(s), Oral, Daily, # 90 cap(s), 0 Refill(s), Pharmacy: [facility], 177, cm, 02/14/20 9:03:00 EDT, Height, kg, 02/14/20 9:06:00 EDT, Dosing Weight Start Date: 04/05/21 Stop Date: 07/04/21 Status: Ordered triamcinolone acetonide 1 mg /ml topical lotion (15 sources) Corticosteroid Start: 02-09-2025 Start: 06-07-2024 triamcinolone 0.1% topical lotion See Instructions, Topical qDay, # 60 mL, 5 Refill(s), Pharmacy: [facility], 180, cm, 06/07/24 13:23:00 EDT, Height, 106.8, kg, 06/07/24 13:23:00 EDT, Dosing Weight Start Date: 06/07/24 Status: Ordered Quantity: 60.0 Unit: mL Repeat number: 6 Indications: Dermatitis, unspecified; Start: 05-13-2023 triamcinolone 0.1% topical lotion See Instructions, Topical qDay, # 60 mL, 5 Refill(s), Pharmacy: [facility], 180, cm, 05/13/23 13:26:00 EDT, Height, 105.8, kg, 05/13/23 13:26:00 EDT, Dosing Weight Start Date: 05/13/23 Status: Ordered Vitamin D3 (1 source) Start: 01-31-2020 Vitamin D3 qDa y, 0 Refill(s) Start Date: 01/31/20 Status: Ordered Completed/Discontinued Medications Medication Drug Class(es) Dates Sig (Normalized) Sig (Original) cephalexin 500 mg oral capsule (9 sources) Cephalosporin Antibacterial Start: 02-09-2025 End: 04-17-2025 Cephalexin 500 mg capsule Discontinued 500 mg PO .2xyr February 09, 2025 12:00am April 17, 2025 1:36pm for teeth silver sulfADIAZINE 10 mg/ml topical cream (14 sources) Sulfonamide Antibacterial Start: 02-09-2025 End: 03-07-2025 Silver Sulfadiazine 1 % cream Discontinued 1 NMA TOPICAL ONCE as needed February 09, 2025 12:00am March 07, 2025 10:40am apply a 1.5 mm thickness Start: 12-20-2024 End: 01-03-2025 SSD 1% topical cream Apply 1 kenton, Topical, BID, # 50 gram(s), 0 Refill(s), Pharmacy: [facility], Cream, 180, cm, 12/20/24 15:35:00 EDT, Height, 108, kg, 12/20/24 15:35:00 EDT, Dosing Weight Start Date: 12/20/24 Stop Date: 01/03/25 Status: Ordered Quantity: 50.0 Unit: g Repeat number: 1 Start: 06-07-2024 End: 06-21-2024 SSD 1% topical cream Apply 1 kenton, Topical, BID, # 50 gram(s), 0 Refill(s), Pharmacy: [facility], Cream, 180, cm, 06/07/24 13:23:00 EDT, Height, 106.8, kg, 06/07/24 13:23:00 EDT, Dosing Weight Start Date: 06/07/24 Stop Date: 06/21/24 Status: Ordered Problems Active Problems Problem Classification Problem Date Documented Da te Episodic/Chronic Abdominal pain (20 sources) Abdominal pain; Translations: [Unspecified abdominal pain] Onset: 5 02-09-2025 Episodic Acute bronchitis (1 source) Acute bronchitis 11-26-2022 Episodic Allergic reactions (6 sources) Chronic dermatitis 05-13-2023 Episodic Coma; stupor; and brain damage (5 sources) Daytime somnolence 06-07-2024 Episodic Disorders of lipid metabolism (18 sources) Mixed hyperlipidemia; Translations: [Mixed hyperlipidemia] Onset: 3 02-14-2020 Chronic Esophageal disorders (5 sources) Gastroesophageal reflux disease 06-07-2024 Chronic Essential hypertension (20 sources) Benign essential hypertension; Translations: [Essential (primary) hypertension] Onset: 3 02-14-2020 Chronic Gastrointestinal hemorrhage (20 sources) Rectal hemorrhage; Translations: [Hemorrhage of anus [...] Translations: [Overactive bladder] Onset: 3 Chronic Other gastrointestinal disorders (18 sources) Excessive flatus; Translations: [Flatulence] 02-09-2025 Episodic Other inflammatory condition of skin (5 sources) Seborrheic dermatitis of scalp 06-07-2024 Episodic Other non-traumatic joint disorders (6 sources) Knee pain 05-13-2023 Episodic Other non-traumatic joint disorders (2 sources) Pain in right knee; Translations: [Pain in right knee] Onset: 4 Episodic Other screening for suspected conditions (not mental disorders or infectious disease) (4 sources) Electrocardiogram abnormal; Translations: [Abnormal electrocardiogram [ECG] [EKG]] Onset: 5 05-24-2025 Episodic Other skin disorders (5 sources) Excessive sweating 06-07-2024 Episodic Other upper respiratory disease (3 sources) Lesion of nose 01-03-2025 Episodic Other upper respiratory infections (5 sources) Chronic sinusitis; Translations: [Chronic sinusitis, unspecified] Onset: 5 12-20-2024 Chronic Regional enteritis and ulcerative colitis (16 sources) Ulcerative colitis; Translations: [Ulcerative colitis, unspecified with rectal bleeding] Onset: 5 03-23-2025 Chronic Residual codes; unclassified (1 source) Obstructive sleep apnea syndrome; Translations: [Obstructive sleep apnea (adult) (pediatric)] 05-03-2025 Chronic Thyroid disorders (16 sources) Hypothyroidism; Translations: [Hypothyroidism, unspecified] Onset: 3 02-14-2020 Chronic Unclassified (5 sources) Pain of knee region 06-07-2024 Unclassified (1 source) Low back pain, unspecified; Translations: [Low back pain, unspecified] Onset: 5 Unclassified (1 source) Juvenal-Danlos syndrome, unspecified; 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 [address] Echo Complete 06/19/25 1356 MR#: [id number] Acct: [id number] Name: NAT FOX Rep #: [id number] : 1945 80 From: Riki Benavides MD Attending Dr: Dr. Mendoza Wheat MD Status: G CLI Ordering Dr: Mendoza Wheat MD Date: 06/19/25 Location: [facility] Sex: F C Admitted: Reason For Study Reason For Study: HYPERTENSION Procedure This was a 2D Doppler, Color Flow transthoracic echocardiogram. Exam performed in department. Left Ventricle Normal LV size. Mild concentric left ventricular hypertrophy. The left ventricular ejection fraction is 65 %. Stage 1 diastolic dysfunction. Right Ventricle Normal right ventricle. Atria The left and right atria are normal. Bubble contrast study is negative for PFO/ASD. Mitral Valve Mild mitral annular calcification. Trivial mitral valve insufficiency. Tricuspid Valve Trivial tricuspid valve insufficiency. Normal pulmonary artery pressure. Aortic Valve Aortic sclerosis, no stenosis. Mild (1+) aortic valve insufficiency. Pulmonic Valve The pulmonic valve is not well visualized. Trivial pulmonic valve insufficiency. Great Vessels Normal sized aortic root. Pericardium/Pleural No pericardial effusion. Medication 22 gauge I.V. with prn adaptor inserted into right arm. Performed a rapid injection of agitated mix of 9 cc saline and 1cc air to assess for atrial septal defect. MMode/2D Measurements Calculations LVIDd: 4.6 cm IVSd: 1.2 cm Ao root diam: 3.1 cm LVIDs: 2.8 cm LVPWd: 1.1 cm RVDd: 4.0 cm FS: 39.6 % LAV(MOD-bp): 65.5 ml LVAd ap4: 30.0 cm2 LVAd ap2: 25.3 cm2 LAV(MOD-bp) Indexed: 29.7 ml/m2 LVLd ap4: 8.3 cm LVLd ap2: 8.3 cm LAV(MOD-sp2): 61.7 ml EDV(MOD-sp4): 88.8 ml EDV(MOD-sp2): 66.1 ml LAV(MOD-sp4): 61.7 ml EDV(sp4-el): 91.8 ml EDV(sp2-el): 65.8 ml LVAs ap4: 16.1 cm2 LVAs ap2: 13.0 cm2 LVLs ap4: 7.1 cm LVLs ap2: 6.5 cm ESV(MOD-sp4): 33.0 ml ESV(MOD-sp2): 23.5 ml ESV(sp4-el): 31.0 ml ESV(sp2-el): 21.9 ml EF(MOD-sp4): 62.8 % EF(MOD-sp2): 64.5 % EF(sp4-el): 66.3 % SV(MOD-sp4): 55.8 ml SV(MOD-sp2): 42.7 ml SV(sp4-el): 60.9 ml SI(MOD-sp4): 25.3 ml/m2 SI(MOD-sp2): 19.4 ml/m2 LA A4 area: 20.7 cm2 LA dimension(2D): 4.0 cm RA A4 area: 13.3 cm2 TAPSE: 1.9 cm Time Measurements MV dec time: 0.33 sec Doppler Measurements Calculations MV E max vasile: 47.2 cm/sec Lat Peak E' Vasile: 6.5 cm/sec Med Peak E' Vasile: 4.2 cm/sec MV A max vasile: 81.0 cm/sec E/E' lat: 7.2 E/E' med: 11.3 MV E/A: 0.58 MV dec slope: 142.6 cm/sec2 Ao V2 max: 134.0 cm/sec LV V1 max: 108.4 cm/sec Ao max P.2 mmHg LV V1 max P.7 mmHg Ao V2 mean: 92.5 cm/sec LV V1 mean P.4 mmHg Ao mean P.8 mmHg LV V1 mean: 74.4 cm/sec Ao V2 VTI: 25.6 cm LV V1 VTI: 20.2 cm AV (velocity ratio): 0.79 PA V2 max: 84.3 cm/sec TR max vasile: 268.1 cm/sec TR max P.8 mmHg ECHO/Echo Complete Interpretation Summary Mild concentric left ventricular hypertrophy. The left ventricular ejection fraction is 65 %. Stage 1 diastolic dysfunction. Bubble contrast study is negative for PFO/ASD. Mild mitral annular calcification. Aortic sclerosis, no stenosis. Mild (1+) aortic valve insufficiency. Ordering Physician: Mendoza Wheat Referring Physician: Jimmy Shrestha Performed By: Patricia Cesar RDCS 06/20/25937 Date Riki Benavides MD CC: Dr. Mendoza Wheat MD; Dr. Jimmy Shrestha MD Date Dictated: 06/19/25 1356 Date Transcribed: 06/20/25937 Regulatory Intern: Signed Normal [facility] Gastroenterology Visit Repor ton 06-12-2025 Gastroenterology Visit Report [facility] [address] [place] [address] OFFICE VISIT Date of Service: 06/12/25 MR#: [id number] Acct: [id number] Name: NAT FOX Rep #: [id number] : 1945 Provider: Arsalan Orellana DO Age/Sex: 80/F Location: [facility] [facility] Status: Signed Intake Vital Signs 03/09/25 08:36 04/07/25 10:34 05/24/25 14:00 Height 5 ft 9.5 in 5 ft 9.5 in 5 ft 9.5 in Intake Visit Reasons: FU Chief Complaint: follow-up Allergies sulfamethoxazole (From Bactrim) Allergy (Severe, Verified 06/12/25 14:29) Other trimethoprim (From Bactrim) Allergy (Severe, Verified 06/12/25 14:29) Other bacitracin (From Neosporin (kwm-nqj-gfsgv)) Allergy (Verified 06/12/25 14:29) NEEDS FOLLOW-UP neomycin (From Neosporin (dur-mst-zqheg)) Allergy (Verified 06/12/25 14:29) NEEDS FOLLOW-UP Penicillins Allergy (Verified 06/12/25 14:29) NEEDS FOLLOW-UP polymyxin B (From Neosporin (elm-ajx-rlrkz)) Allergy (Verified 06/12/25 14:29) NEEDS FOLLOW-UP adhesive (adhesives) Adverse Reaction (Intermediate, Verified 06/12/25 14:29) Rash nabumetone (From Relafen) Adverse Reaction (Intermediate, Verified 06/12/25 14:29) unknown Medications ???Medication ???Instructions ???Recorded ???Confirmed ???Type albuterol 90 mcg/actuation aerosol 90 mcg inhalation PRN PRN SOB 06/12/25 History inhaler albuterol sulfate 2.5 mg/3 mL 2.5 mg inhalation Q4-6H PRN 06/12/25 History (0.083 %) solution for nebulization shortness of breath or wheezing fluticasone propionate 50 1 spray intranasal QDAY PRN 06/12/25 History mcg/actuation nasal allergy symptoms spray,suspension ketotifin eye solution 1 drp EACH EYE PRN PRN EYE 5 06/12/25 History ITCHYNESS levothyroxine 88 mcg tablet 88 mcg PO QDAY 02/09/25 06/12/25 H istory multivitamin with minerals 1 cap PO QDAY 02/09/25 06/12/25 Hi story mupirocin 2 % topical ointment 1 applic topical TID 02/09/25 11/11/01 History (Centany) tolterodine 4 mg capsule,extended 4 mg PO QDAY 02/09/25 06/12/25 Hi story release 24 hr (Detrol LA) triamcinolone acetonide 0.1 % 1 applic topical QDAY PRN 02/09/25 06/12/25 History lotion DERMATITIS acetaminophen 650 mg 1,300 mg PO Q12H PRN pain 03/07/25 06/12/25 History tablet,extended release (8 Hour Pain Reliever) diclofenac sodium 1 % topical gel 1 ea topical PRN 03/07/25 5 History (Arthritis Pain (diclofenac)) fluocinonide 0.05 % topical cream 1 applic topical DAILY PRN CRACKE D 03/07/25 06/12/25 History FINGERS mesalamine 800 mg tablet,delayed 1,600 mg (2 x 800 mg) PO TID 3 06/12/25 Rx release months #540 tabs azithromycin 500 mg tablet 500 mg PO 05/24/25 06/12/25 Histor y hydrochlorothiazide 25 mg tablet 25 mg PO QAM #30 tabs 05/24/2511/01 Rx lactobacillus combination no.9 4 4,000 mmu cells PO QDAY 05/24/25 1 08/12/24 History billion cell capsule (Adult 50 Plus Probiotic) omega 2-ovn-zxk-fish oil 300 1 cap PO QWEEK 05/24/25 06/12/25 H istory mg-1,000 mg capsule (Fish Oil) psyllium husk 3.4 gram/5.4 gram 1 tbsp PO QDAY 05/24/25 06/12/25 H istory oral powder (Metamucil) amlodipine 10 mg tablet 10 mg PO QDAY #90 tabs 06/08/25 Rx Lactobac no.2-Bifidobac no.1-S. 1 cap PO BID #60 caps 06/12/2511/01 Rx thermo 112.5 billion cell capsule (VSL#3) Have you fallen in the past year?: No PFSH Medical History ANN (obstructive sleep apnea) Hyperlipidemia Hypothyroidism Ulcerative colitis with rectal bleeding Wears glasses Post-menopausal Anxiety Open wound History of steroid therapy Thyroid disease Arthritis Excessive bleeding Back pain Difficulty swallowing History of GI bleed Non-smoker Leg cramps History of pain when walking History of edema Hypertension Hx of lipoma Surgical History History of total knee replacement (TKR) History of carpal tunnel surgery of left wrist Hx of toe surgery Hx of hysterectomy Social History Smoking Status: Never smoker HPI HPI Chief Complaint: follow-up Details: NAT FOX, is a 80 F who presents to the office today for follow up. BGI established 6.25.25 for BRBPR, mucus, abdominal pain OV 7.3.25- 7OV hgb 13.8 at recheck. She has only been taking 1tsp Metamucil, carton direction advises 1tbsp daily. She's feeling really full of gas, can't pass gas without leaking mucus. She feels like she's having diarrhea instead of being constipated. Reports that she's been seeing blood while wiping. Denies blood on stool or in toilet water. Colon 7.31.25- Left sided- ulcerative (more content not included)... Normal [facility] Calprotectin, Stoolon [address] 68 ug/g Normal 0-120 [facility] Comment on above: Result Comment: Conc entration Interpretation Follow-Up < 5 - 50 ug/g Normal None >50 -120 ug/g Borderline Re-evaluate in 4-6 weeks >120 ug/g Abnormal Repeat as clinically indicated Performed at: - [facility] [address] [id number] Manual Qa Tester: Karina Diaz MD, Phone: [phone] Performed By: #### L 0546.2120 #### [facility] [address] [place], [address] Basic Metabolic Profile (BMP )on 06-06-2025 BUN Normal 4-19 [facility] Comment on above: Result Comment: DUPL ICATE ORDER Performed By: #### L 500.2500 #### [facility] [address] [place], [address] BUN/CRE Normal 10-20 [facility] Comment on above: Result Comment: DUPL ICATE ORDER Performed By: #### L 500.2500 #### [facility] [address] [place], [address] Calcium Normal 7.6-11.0 [facility] Comment on above: Result Comment: DUPL ICATE ORDER Performed By: #### L 500.2500 #### [facility] [address] [place], [address] CL Normal 98-108 [facility] Comment on above: Result Comment: DUPL ICATE ORDER Performed By: #### L 500.2500 #### [facility] [address] [place], [address] CO2 Normal 21.0-32.0 [facility] Comment on above: Result Comment: DUPL ICATE ORDER Performed By: #### L 500.2500 #### [facility] [address] [place], [address] CREAT,SERUM Normal 0.70-1.20 [facility] Comment on above: Result Comment: DUPL ICATE ORDER Performed By: #### L 500.2500 #### [facility] [address] [place], [address] eGFR Normal >60 [facility] Comment on above: Result Comment: DUPL ICATE ORDER Performed By: #### L 500.2500 #### [facility] [address] [place], [address] GAP Normal 5-15 [facility] Comment on above: Result Comment: DUPL ICATE ORDER Performed By: #### L 500.2500 #### [facility] [address] [place], [address] GLU Normal 70-99 [facility] Comment on above: Result Comment: DUPL ICATE ORDER Performed By: #### L 500.2500 #### [facility] [address] [place], [address] Potassium Normal 3.3-5.1 [facility] Comment on above: Result Comment: DUPL ICATE ORDER Performed By: #### L 500.2500 #### [facility] [address] [place], [address] Basic Metabolic Profile (BMP) Normal 133-145 [facility] Comment on above: Result Comment: DUPL ICATE ORDER Performed By: #### L 500.2500 #### [facility] [address] [place], [address] CBC W/Diff, Automatedon 10-2 8-2024 Absolute Lymph 1.08 X10 3/uL Normal 0.83-4.51 [facility] Comment on above: Performed By: #### L 100.0100, L501.6710, L500.4050 #### [facility] [address] [place], [address] Absolute Neut 3.9 X10 3/uL Normal 2.0-7.7 [facility] Comment on above: Performed By: #### L 100.0100, L501.6710, L500.4050 #### [facility] [address] [place], [address] Basophils/100 WBC (Bld) 1.0 % Normal 0-1 [facility] Comment on above: Performed By: #### L 100.0100, L501.6710, L500.4050 #### [facility] [address] [place], [address] Eosinophils/100 WBC (Bld) 3.2 % Normal 0-5 [facility] Comment on above: Performed By: #### L 100.0100, L501.6710, L500.4050 #### [facility] [address] [place], [address] Erythrocyte distribution width (RBC) [Ratio] 12.9 % Normal 11.6-14.6 [facility] Comment on above: Performed By: #### L 100.0100, L501.6710, L500.4050 #### [facility] [address] [place], [address] Hematocrit (Bld) [Volume fraction] 42.1 % Normal 37-47 [facility] Comment on above: Performed By: #### L 100.0100, L501.6710, L500.4050 #### [facility] [address] [place], [address] Hemoglobin (Bld) [Mass/Vol] 13.8 g/dL Normal 12.0-15.0 [facility] Comment on above: Performed By: #### L 100.0100, L501.6710, L500.4050 #### [facility] [address] [place], [address] IG% 0.300 Normal 0.0-0.9 [facility] Comment on above: Result Comment: IG% - Immature Granulocytes (promyelocytes, myelocytes and metamyelocytes) > 1% indicates that a LEFT SHIFT is Present. Performed By: #### L 100.0100, L501.6710, L500.4050 #### [facility] [address] [place], [address] Lymphocytes/100 WBC (Bld) 18.2 % Low 19-41 [facility] Comment on above: Performed By: #### L 100.0100, L501.6710, L500.4050 #### [facility] [address] [place], [address] MCH (RBC) [Entitic mass] 29.1 pg Normal 27.0-32.0 [facility] Comment on above: Performed By: #### L 100.0100, L501.6710, L500.4050 #### [facility] [address] [place], [address] MCHC (RBC) [Mass/Vol] 32.8 g/dL Normal 32-[address] [facility] Comment on above: Performed By: #### L 100.0100, L501.6710, L500.4050 #### [facility] [address] [place], [address] MCV (RBC) [Entitic vol] 88.6 fL Normal 81-99 [facility] Comment on above: Performed By: #### L 100.0100, L501.6710, L500.4050 #### [facility] [address] [place], [address] Monocytes/100 WBC (Bld) 12.4 % High 0-10 [facility] Comment on above: Performed By: #### L 100.0100, L501.6710, L500.4050 #### [facility] [address] [place], [address] Neutrophils/100 WBC (Bld) 64.9 % Normal 47-70 [facility] Comment on above: Performed By: #### L 100.0100, L501.6710, L500.4050 #### [facility] [address] [place], [address] Nucleated RBC (Bld) [#/Vol] 0 10*3/uL Normal 0-5 [facility] Comment on above: Performed By: #### L 100.0100, L501.6710, L500.4050 #### [facility] [address] [place], [address] Platelet mean volume (Bld) [Entitic vol] 10.0 fL Normal 6.2-12.0 [facility] Comment on above: Performed By: #### L 100.0100, L501.6710, L500.4050 #### [facility] [address] [place], [address] Platelets (Bld) [#/Vol] 243 10*3/uL Normal 150-450 [facility] Comment on above: Performed By: #### L 100.0100, L501.6710, L500.4050 #### [facility] [address] [place], [address] RBC (Bld) [#/Vol] 4.75 10*6/uL Normal 4.2-5.4 [facility] Comment on above: Performed By: #### L 100.0100, L501.6710, L500.4050 #### [facility] [address] [place], [address] RDW SD 41.8 fl Normal 35.1-43.9 [facility] Comment on above: Performed By: #### L 100.0100, L501.6710, L500.4050 #### [facility] [address] [place], [address] WBC (Bld) [#/Vol] 6.0 10*3/uL Normal 4.4-11.[address] [facility] Comment on above: Performed By: #### L 100.0100, L501.6710, L500.4050 #### [facility] [address] [place], [address] CRPon 06-06-2025 C-REACTIVE PROT 5.51 mg/L High 0.0-3.0 [facility] Comment on above: Order Comment: SHARE CMP RESULTS WITH DOCTOR MENDOZA WHEAT Performed By: #### L 100.0100, L501.6710, L500.4050 ####[facility] [id number] [place], [address] Comprehensive Metabolic Prof ilon 06-06-2025 Albumin [Mass/Vol] 4.0 g/dL Normal 3.4-4.[address] [facility] Comment on above: Order Comment: SHARE CMP RESULTS WITH DOCTOR MENDOZA WHEAT Performed By: #### L 100.0100, L501.6710, L500.4050 #### [facility] [address] [place], [address] Albumin/Globulin [Mass ratio] 1.4 {ratio} Normal 0.9-2.4 [facility] Comment on above: Order Comment: SHARE CMP RESULTS WITH DOCTOR MENDOZA WHEAT Performed By: #### L 100.0100, L501.6710, L500.4050 #### [facility] [address] [place], [address] ALK PHOS 70 U/L Normal 35-104 [facility] Comment on above: Order Comment: SHARE CMP RESULTS WITH DOCTOR MENDOZA WHEAT Performed By: #### L 100.0100, L501.6710, L500.4050 #### [facility] [address] [place], [address] ALT [Catalytic activity/Vol] 17 U/L Normal <=34 [facility] Comment on above: Order Comment: SHARE CMP RESULTS WITH DOCTOR MENDOZA WHEAT Performed By: #### L 100.0100, L501.6710, L500.4050 #### [facility] [address] [place], [address] AST [Catalytic activity/Vol] 24 U/L Normal <=31 [facility] Comment on above: Order Comment: SHARE CMP RESULTS WITH DOCTOR MENDOZA WHEAT Performed By: #### L 100.0100, L501.6710, L500.4050 #### [facility] [address] [place], [address] Bilirubin [Mass/Vol] 0.28 mg/dL Normal 0.00-1.30 [facility] Comment on above: Order Comment: SHARE CMP RESULTS WITH DOCTOR MENDOZA WHEAT Performed By: #### L 100.0100, L501.6710, L500.4050 #### [facility] [address] [place], [address] BUN/CRE 21.5 RATIO High 10-20 [facility] Comment on above: Order Comment: SHARE CMP RESULTS WITH DOCTOR MENDOZA WHEAT Performed By: #### L 100.0100, L501.6710, L500.4050 #### [facility] [address] [place], [address] Calcium [Mass/Vol] 10.1 mg/dL Normal 7.6-11.[address] [facility] Comment on above: Order Comment: SHARE CMP RESULTS WITH DOCTOR MENDOZA WHEAT Performed By: #### L 100.0100, L501.6710, L500.4050 #### [facility] [address] [place], [address] Chloride [Moles/Vol] 103 mmol/L Normal 98-108 [facility] Comment on above: Order Comment: SHARE CMP RESULTS WITH DOCTOR MENDOZA WHEAT Performed By: #### L 100.0100, L501.6710, L500.4050 #### [facility] [address] [place], [address] CO2 [Moles/Vol] 26.0 mmol/L Normal 21.0-32.0 [facility] Comment on above: Order Comment: SHARE CMP RESULTS WITH DOCTOR MENDOZA WHEAT Performed By: #### L 100.0100, L501.6710, L500.4050 #### [facility] [address] [place], [address] Creatinine [Mass/Vol] 0.68 mg/dL Low 0.70-1.[address] [facility] Comment on above: Order Comment: SHARE CMP RESULTS WITH DOCTOR MENDOZA WHEAT Performed By: #### L 100.0100, L501.6710, L500.4050 #### [facility] [address] [place], [address] GAP 8 Normal 5-15 [facility] Comment on above: Order Comment: SHARE CMP RESULTS WITH DOCTOR MENDOZA WHAET Performed By: #### L 100.0100, L501.6710, L500.4050 #### [facility] [address] [place], [address] GFR/1.73 sq M.predicted among non-blacks MDRD (S/P/Bld) [Vol rate/Area] 89 mL/min/{1.73_m2} Normal >60 [facility] Comment on above: Order Comment: SHARE CMP RESULTS WITH DOCTOR MENDOZA WHEAT Result Comment: mL/m in/1.73m2 CKD-EPI Creatinine Equation (2020) Performed By: #### L 100.0100, L501.6710, L500.4050 #### [facility] [address] [place], [address] Globulin (S) [Mass/Vol] 2.9 g/dL Normal 2.2-4.2 [facility] Comment on above: Order Comment: SHARE CMP RESULTS WITH DOCTOR MENDOZA WHEAT Performed By: #### L 100.0100, L501.6710, L500.4050 #### [facility] [address] [place], [address] Glucose [Mass/Vol] 102 mg/dL High 70-[address] [facility] Comment on above: Order Comment: SHARE CMP RESULTS WITH DOCTOR MENDOZA WHEAT Performed By: #### L 100.0100, L501.6710, L500.4050 #### [facility] [address] [place], [address] Potassium [Moles/Vol] 4.3 mmol/L Normal 3.3-5.[address] [facility] Comment on above: Order Comment: SHARE CMP RESULTS WITH DOCTOR MENDOZA WHEAT Performed By: #### L 100.0100, L501.6710, L500.4050 #### [facility] [address] [place], [address] Sodium [Moles/Vol] 137 mmol/L Normal 133-[address] [facility] Comment on above: Order Comment: SHARE CMP RESULTS WITH DOCTOR MENDOZA WHEAT Performed By: #### L 100.0100, L501.6710, L500.4050 #### [facility] [address] [place], [address] T PROT 6.9 g/dL Normal 5.9-8.4 [facility] Comment on above: Order Comment: SHARE CMP RESULTS WITH DOCTOR MENDOZA WHEAT Performed By: #### L 100.0100, L501.6710, L500.4050 #### [facility] [address] [place], [address] Urea nitrogen [Mass/Vol] 15 mg/dL Normal 4-19 [facility] Comment on above: Order Comment: SHARE CMP RESULTS WITH DOCTOR MENDOZA WHEAT Performed By: #### L 100.0100, L501.6710, L500.4050 #### [facility] [address] [place], [address] Cardiology Visit Reporton Cardiology Visit Report [facility] [address] [place] [address] OFFICE VISIT Date of Service: 05/24/25 MR#: [id number] Acct: [id number] Name: NAT FOX Rep #: [id number] : 1945 Provider: Dr. Mendoza srivastava MD Age/Sex: 80/F Location: [facility] Status: Signed HPI HPI History of Present Illness Details: Patient is a pleasant 80-year-old white female referred from Dr. Orellana for abnormal ECG. She is here with her for a new patient visit. Patient reports that she was being evaluated for special type of medication for ulcerative colitis and required an ECG to be done. On April 04, 2025 her ECG was read as normal sinus rhythm with LVH with repolarization abnormality and abnormal. The patient has significant voltage criteria with ST- T wave changes consistent with LVH in leads I, aVL and V4 through V6. Patient has no prior cardiac history that she is aware of. She does have a fairly longstanding history of hypertension blood pressure in office today is 160/74 when she was in the GI office recently it was 179/73 when she was saw orthopedics it was 170/90. She is on amlodipine 5 mg daily she had been on 10 mg a day but this had to be dropped back to 5 mg due to side effects she believes it was lower extremity edema. She has been on no other antihypertensive. The patient does not have a history of chest pain she denies any PND orthopnea denies any significant lower extremity edema. She does have some edema in trace distal to her knee replacements. She is limited wearing a knee brace on her right knee. She is not very active. The patient does not have a family history of coronary disease she does have a longstanding history of hypertension he is hyperlipidemic LDL cholesterol 126 in January 2025 she does not have known atherosclerotic disease she is not diabetic and she does not smoke. Patient does have a history of hypothyroidism on replacement she has a history of GI bleeding related to her ulcerative colitis and she was evaluated for obstructive sleep apnea and did not meet criteria by her report. Intake Vital Signs 04/07/25 10:34 04/17/25 13:43 05/24/25 14:00 Height 5 ft 9.5 in 5 ft 9.5 in 5 ft 9.5 in Weight: 232 lb 4 oz 230 lb BMI 33.7 33.5 BP 139/73 H 160/74 H Blood Pressure Location Lt brachial Position Sitting Respiration 16 18 Pulse 66 79 Pulse Source Monitor Temp 97.3 F L Pulse Oximetry (%) 91 91 Oxygen Delivery Method room air room air Intake Visit Reasons: ABN EKG (FRIEND) Crop And Soil Technician Required: No Accompanied by: Self Is patient in pain?: No Allergies sulfamethoxazole (From Bactrim) Allergy (Severe, Verified 05/24/25 14:01) Other trimethoprim (From Bactrim) Allergy (Severe, Verified 05/24/25 14:01) Other bacitracin (From Neosporin (hem-spl-deufn)) Allergy (Verified 05/24/25 14:01) NEEDS FOLLOW-UP neomycin (From Neosporin (dwz-urt-lntza)) Allergy (Verified 05/24/25 14:01) NEEDS FOLLOW-UP Penicillins Allergy (Verified 05/24/25 14:01) NEEDS FOLLOW-UP polymyxin B (From Neosporin ([id number]-gzr-ddrju)) Allergy (Verified 05/24/25 14:01) NEEDS FOLLOW-UP adhesive (adhesives) Adverse Reaction (Intermediate, Verified 05/24/25 14:01) Rash nabumetone (From Relafen) Adverse Reaction (Intermediate, Verified 05/24/25 14:01) unknown Medications ???Medication ???Instructions ???Recorded ???Confirmed ???Type albuterol 90 mcg/actuation aerosol 90 mcg inhalation PRN PRN SOB 05/24/25 History inhaler albuterol sulfate 2.5 mg/3 mL 2.5 mg inhalation Q4-6H PRN 05/24/25 History (0.083 %) solution for nebulization shortness of breath or wheezing amlodipine 5 mg tablet (Norvasc) 5 mg PO QDAY 02/09/25 05/24/25 His tory fluticasone propionate 50 1 spray intranasal QDAY PRN 05/24/25 History mcg/actuation nasal allergy symptoms spray,suspension ketotifin eye solution 1 drp EACH EYE PRN PRN EYE 5 05/24/25 History ITCHYNESS levothyroxine 88 mcg tablet 88 mcg PO QDAY 02/09/25 05/24/25 H istory multivitamin with minerals 1 cap PO QDAY 02/09/25 05/24/25 Hi story mupirocin 2 % topical ointment 1 applic topical TID 02/09/2505/10 History (Centany) tolterodine 4 mg capsule,extended 4 mg PO QDAY 02/09/25 05/24/25 Hi story release 24 hr (Detrol LA) triamcinolone acetonide 0.1 % 1 applic topical QDAY PRN 02/09/25 05/24/25 History lotion DERMATITIS acetaminophen 650 mg 1,300 mg PO Q12H PRN pain 03/07/25 05/24/25 History tablet,extended release (8 Hour Pain Reliever) diclofenac sodium 1 % topical gel 1 ea topical PRN 03/07/25 5 History (Arthritis Pain (diclofenac)) fluocinonide 0.05 % topical cream 1 applic topical DAILY PRN CRACKE D 03/07/25 05/24/25 History FINGERS mesalamine 800 (more content not included)... Normal [facility] Gastroenterology Visit Repor ton 04-17-2025 Gastroenterology Visit Report [facility] [address] [place] [address] OFFICE VISIT Date of Service: 04/17/25 MR#: [id number] Acct: [id number] Name: NAT FOX Rep #: [id number] : 1945 Provider: SALOMÓN ballard Age/Sex: 80/F Location: [facility] Status: Signed Intake Vital Signs 03/09/25 08:36 04/07/25 10:34 04/17/25 13:43 Height 5 ft 9.5 in 5 ft 9.5 in 5 ft 9.5 in Weight: 232 lb 4 oz BMI 33.7 BP 139/73 H Respiration 16 Pulse 66 Temp 97.3 F L Temp Source Temporal Pulse Oximetry (%) 91 Oxygen Delivery Method room air Intake Visit Reasons: BLOODY MUCUS Chief Complaint: follow-up Crop And Soil Technician Required: No Accompanied by: Is patient in pain?: No Allergies sulfamethoxazole (From Bactrim) Allergy (Severe, Verified 04/17/25 13:41) Other trimethoprim (From Bactrim) Allergy (Severe, Verified 04/17/25 13:41) Other bacitracin (From Neosporin (tpm-xrt-wvfsq)) Allergy (Verified 04/17/25 13:41) NEEDS FOLLOW-UP neomycin (From Neosporin (khp-unt-noitj)) Allergy (Verified 04/17/25 13:41) NEEDS FOLLOW-UP Penicillins Allergy (Verified 04/17/25 13:41) NEEDS FOLLOW-UP polymyxin B (From Neosporin (lft-pqd-dlhns)) Allergy (Verified 04/17/25 13:41) NEEDS FOLLOW-UP adhesive (adhesives) Adverse Reaction (Intermediate, Verified 04/17/25 13:41) Rash nabumetone (From Relafen) Adverse Reaction (Intermediate, Verified 04/17/25 13:41) unknown Medications ???Medication ???Instructions ???Recorded ???Confirmed ???Type albuterol 90 mcg/actuation aerosol 90 mcg inhalation PRN PRN SOB 04/17/25 History inhaler albuterol sulfate 2.5 mg/3 mL 2.5 mg inhalation Q4-6H PRN 04/17/25 History (0.083 %) solution for nebulization shortness of breath or wheezing amlodipine 5 mg tablet (Norvasc) 5 mg PO QDAY 02/09/25 04/17/25 His tory fluticasone propionate 50 1 spray intranasal QDAY PRN 04/17/25 History mcg/actuation nasal allergy symptoms spray,suspension ketotifin eye solution 1 drp EACH EYE PRN PRN EYE 5 04/17/25 History ITCHYNESS levothyroxine 88 mcg tablet 88 mcg PO QDAY 02/09/25 04/17/25 H istory multivitamin with minerals 1 cap PO QDAY 02/09/25 04/17/25 Hi story mupirocin 2 % topical ointment 1 applic topical TID 02/09/2504/03 History (Centany) tolterodine 4 mg capsule,extended 4 mg PO QDAY 02/09/25 04/17/25 Hi story release 24 hr (Detrol LA) triamcinolone acetonide 0.1 % 1 applic topical QDAY PRN 02/09/25 04/17/25 History lotion DERMATITIS acetaminophen 650 mg 1,300 mg PO Q12H PRN pain 03/07/25 04/17/25 History tablet,extended release (8 Hour Pain Reliever) diclofenac sodium 1 % topical gel 1 ea topical PRN 03/07/25 5 History (Arthritis Pain (diclofenac)) fluocinonide 0.05 % topical cream 1 applic topical DAILY PRN CRACKE D 03/07/25 04/17/25 History FINGERS mesalamine 800 mg tablet,delayed 1,600 mg (2 x 800 mg) PO TID 3 04/0304/17/25 Rx release months #540 tabs Have you fallen in the past year?: Yes PFSH Medical History Wears glasses Post-menopausal Anxiety Open wound History of steroid therapy Thyroid disease Arthritis Excessive bleeding Back pain Difficulty swallowing History of GI bleed Non-smoker Leg cramps History of pain when walking History of edema Hypertension Hx of lipoma Surgical History History of total knee replacement (TKR) History of carpal tunnel surgery of left wrist Hx of toe surgery Hx of hysterectomy Social History Smoking Status: Never smoker HPI HPI Chief Complaint: follow-up Details: MICHELLE hale/ Graciela Zuleta 03/23/2025 GERALDINE, is a 80 F who presents to the office today for FU. Discussed care plan with her and her present for exam. Discussed diagnosis of ulcerative colitis at length, including pharmacological management with immune modulating medications. With opportunity for questioning she was insistent about the duration of pharmacological treatment of ulcerative colitis. She was especially unhappy with receiving recommendation for repeating colonoscopy to verify healing of ulcerative areas in her colon. Her attempted to provide emotional support, but she became very irritable and wanted to end the appointment. Made aware of required lab work and testing to have baseline information prior to use of a biologic medication. * CBC, CMP, CRP, ESR, LDH, Quantiferon TB, hepatitis B core ab total, hepatitis B surface ag, hepatitis B surface ab * Baseline 12-lead EKG * Consider Entyvio with IV induction and subcu maintenance * Consider Vasile (more content not included)... Normal [facility] Electrocardiogram reportOrde red By: Jeferson Phipps on 04-05-2025 EKG study [facility] Cardi[facility] Services [address] [place] [address] 12 Lead EKG 04/04/25 1238 MR#: [id number] Acct: [id number] Name: NAT FOX Rep #:[id number] : 1945 80 From: Jeferson Phipps MD Attending Dr: SUMMER PadgettC S tatus: REG CLI Ordering Dr: Graciela ZuletaC Date: 04/04/25 Location: PSN Sex: F C Admitted: Test Reason : PREOP Blood Pressure : */* mmHG Vent. Rate : 69 BPM Atrial Rate : 69 BPM P-R Int : 182 ms QRS Dur : 80 ms QT Int : 406 ms P-R-T Axes : 24 9 113 degrees QTcB Int : 435 ms Normal sinus rhythm Left ventricular hypertrophy with repolarization abnormality Abnormal ECG Confirmed by JEFERSON PHIPPS MD ([id number]), news editor CHERI JORGE ([id number]) on 56:17:41 AM Referred By: Graciela Zuleta Confirmed By: JEFERSON PHIPPS MD 04/05/25 0617 Date _ Jeferson Phipps MD CC: MANAGER SIGN-C Graciela Zuleta; Dr. Jimmy Shrestha MD ~ Signed [facility] Other Phone: 12 Lead EKGon 04-04-2025 12 Lead EKG [facility] Cardiovascular Services [address] [place] [address] 12 Lead EKG 04/04/25 1238 MR#: [id number] Acct: [id number] Name: NAT FOX Rep #: [id number] : 1945 80 From: Jeferson Phipps MD Attending Dr: SALOMÓN Padgett Status: REG C LI Ordering Dr: Graciela Zuleta MANAGER SIGNAmandeepC Date: 04/04/25 Location: N Sex: F C Admitted: Test Reason : PREOP Blood Pressure : */* mmHG Vent. Rate : 69 BPM Atrial Rate : 69 BPM P-R Int : 182 ms QRS Dur : 80 ms QT Int : 406 ms P-R-T Axes : 24 9 113 degrees QTcB Int : 435 ms Normal sinus rhythm Left ventricular hypertrophy with repolarization abnormality Abnormal ECG Confirmed by JEFERSON PHIPPS MD ([id number]), news editor CHERI JORGE ([id number]) on 04/05/2025 6:17:41 AM Referred By: Graciela Zuleta Confirmed By: JEFERSON PHIPPS MD 04/05/25 0617 Date Jeferson Phipps MD CC: SALOMÓN Zuleta; Dr. Jimmy Shrestha MD Signed Normal [facility] Quantiferon TB-Gold+on 03-25 QFT MITOGEN JENNIFER > 10.00 Normal . [facility] Comment on above: Performed By: #### L 501.6710, L504.2610, L101.9900, L100.0100, L500.4050, L3400.8000 ####[facility] [address] [place], [address] QFT NIL VALUE 0.02 IU/mL Normal . [facility] Comment on above: Performed By: #### L 501.6710, L504.2610, L101.9900, L100.0100, L500.4050, L3400.8000 ####[facility] [address] [place], [address] QFT TB GOLD+ Comment Normal . [facility] Comment on above: Result Comment: Harry tiFERON-TB Gold Plus is a qualitative indirect test for M tuberculosis infection (including disease) and is intended for use in conjunction with risk assessment, radiography, and other medical and diagnostic evaluations. The QuantiFERON-TB Gold Plus result is determined by subtracting the Nil value from either TB antigen (Ag) value. The Mitogen tube serves as a control for the test. Performed By: #### L 501.6710, L504.2610, L101.9900, L100.0100, L500.4050, L3400.8000 ####[facility] [address] [place], [address] QFT TB POS CRIT Negative Normal Negative [facility] Comment on above: Result Comment: No r esponse to M tuberculosis antigens detected. Infection with M tuberculosis is unlikely, but high risk individuals should be considered for additional testing (ATS/IDSA/CDC Clinical Practice Guidelines, 2017). The reference range is an Antigen minus Nil result of <0.35 IU/mL. The specimen received for QuantiFERON testing was incubated by the ordering institution. Specific procedures outlined in our Directory of Services and in the package insert for the QuantiFERON Gold (In Tube) test must be followed to enable for proper stimulation of cells for the production of interferon gamma. Chemiluminescence immunoassay methodology Performed at: [address] [id number] Manual Qa Tester: Joni Pimentel PhD, Phone: [phone] Performed By: #### L 501.6710, L504.2610, L101.9900, L100.0100, L500.4050, L3400.8000 ####[facility] [address] [facility] [place], [place], [id number]) QFT TB1+ AG JENNIFER 0.02 IU/mL Normal . [facility] Comment on above: Performed By: #### L 501.6710, L504.2610, L101.9900, L100.0100, L500.4050, L3400.8000 ####[facility] [address] [place], [place], [id number] QFT TB2+ AG JENNIFER 0.01 IU/mL Normal . [facility] Comment on above: Performed By: #### L 501.6710, L504.2610, L101.9900, L100.0100, L500.4050, L3400.8000 ####[facility] [address] [place], [place], [address] Absolute lymphocyte countOrd ered By: Graciela Zuleta on 03-23-2025 Lymphocytes Auto (Unsp spec) [#/Vol] 1.49 10*3/uL 0.83-4.51 [facility] Absolute neutrophil countOrd ered By: Graciela Zuleta on 03-23-2025 Neutrophils (Bld) [#/Vol] 4.2 10*3/uL 2.0-7.7 [facility] Anion gap in Serum or Plasma Ordered By: Graciela Zuleta on 03-23-2025 Anion gap [Moles/Vol] 10 mmol/L 5-[address] [facility] Automated lymphocyte count a s percentage of total leukocytesOrdered By: Graciela Zuleta on 03-23-2025 Lymphocytes/100 WBC Auto (Unsp spec) 21.2 % 19- [facility] BUN/creatinine ratioOrdered By: Graciela Zuleta on 03-23-2025 Urea nitrogen/Creatinine [Mass ratio] 22.7 mg/mg High 10-20 [facility] Basophil percentageOrdered B y: Graciela Zuleta on 03-23-2025 Basophils/100 WBC (Bld) 1.0 % 0-1 [facility] Bilirubin, totalOrdered By: Graciela Zuleta on 03-23-2025 Bilirubin [Mass/Vol] 0.28 mg/dL 0.00-1.30 [facility] CBC W/Diff, Automatedon 03-10 Absolute Lymph 1.49 X10 3/uL Normal 0.83-4.51 [facility] Comment on above: Performed By: #### L 501.6710, L504.2610, L101.9900, L100.0100, L500.4050, L3400.8000 ####[facility] [address] [place], [address] Absolute Neut 4.2 X10 3/uL Normal 2.0-7.7 [facility] Comment on above: Performed By: #### L 501.6710, L504.2610, L101.9900, L100.0100, L500.4050, L3400.8000 ####[facility] [address] [place], [address] Basophils/100 WBC (Bld) 1.0 % Normal 0-1 [facility] Comment on above: Performed By: #### L 501.6710, L504.2610, L101.9900, L100.0100, L500.4050, L3400.8000 ####[facility] [address] [place], [address] Eosinophils/100 WBC (Bld) 4.8 % Normal 0-5 [facility] Comment on above: Performed By: #### L 501.6710, L504.2610, L101.9900, L100.0100, L500.4050, L3400.8000 ####[facility] [address] [place], [address] Erythrocyte distribution width (RBC) [Ratio] 13.4 % Normal 11.6-14.6 [facility] Comment on above: Performed By: #### L 501.6710, L504.2610, L101.9900, L100.0100, L500.4050, L3400.8000 ####[facility] [address] [place], [address] Hematocrit (Bld) [Volume fraction] 42.7 % Normal 37-47 [facility] Comment on above: Performed By: #### L 501.6710, L504.2610, L101.9900, L100.0100, L500.4050, L3400.8000 ####[facility] [address] [place], [address] Hemoglobin (Bld) [Mass/Vol] 13.8 g/dL Normal 12.0-15.0 [facility] Comment on above: Performed By: #### L 501.6710, L504.2610, L101.9900, L100.0100, L500.4050, L3400.8000 ####[facility] [address] [place], [address] IG% 0.300 Normal 0.0-0.9 [facility] Comment on above: Result Comment: IG% - Immature Granulocytes (promyelocytes, myelocytes and metamyelocytes) > 1% indicates that a LEFT SHIFT is Present. Performed By: #### L 501.6710, L504.2610, L101.9900, L100.0100, L500.4050, L3400.8000 ####[facility] [address] [place], [address] Lymphocytes/100 WBC (Bld) 21.2 % Normal 19-41 [facility] Comment on above: Performed By: #### L 501.6710, L504.2610, L101.9900, L100.0100, L500.4050, L3400.8000 ####[facility] [address] [place], [address] MCH (RBC) [Entitic mass] 28.9 pg Normal 27.0-32.0 [facility] Comment on above: Performed By: #### L 501.6710, L504.2610, L101.9900, L100.0100, L500.4050, L3400.8000 ####[facility] [address] [place], [address] MCHC (RBC) [Mass/Vol] 32.3 g/dL Normal 32-[address] [facility] Comment on above: Performed By: #### L 501.6710, L504.2610, L101.9900, L100.0100, L500.4050, L3400.8000 ####[facility] [address] [place], [address] MCV (RBC) [Entitic vol] 89.5 fL Normal 81-99 [facility] Comment on above: Performed By: #### L 501.6710, L504.2610, L101.9900, L100.0100, L500.4050, L3400.8000 ####[facility] [address] [place], [address] Monocytes/100 WBC (Bld) 13.0 % High 0-10 [facility] Comment on above: Performed By: #### L 501.6710, L504.2610, L101.9900, L100.0100, L500.4050, L3400.8000 ####[facility] [address] [place], [address] Neutrophils/100 WBC (Bld) 59.7 % Normal 47-70 [facility] Comment on above: Performed By: #### L 501.6710, L504.2610, L101.9900, L100.0100, L500.4050, L3400.8000 ####[facility] [address] [place], [address] Nucleated RBC (Bld) [#/Vol] 0 10*3/uL Normal 0-5 [facility] Comment on above: Performed By: #### L 501.6710, L504.2610, L101.9900, L100.0100, L500.4050, L3400.8000 ####[facility] [address] [place], [address] Platelet mean volume (Bld) [Entitic vol] 10.5 fL Normal 6.2-12.0 [facility] Comment on above: Performed By: #### L 501.6710, L504.2610, L101.9900, L100.0100, L500.4050, L3400.8000 ####[facility] [address] [place], [address] Platelets (Bld) [#/Vol] 301 10*3/uL Normal 150-450 [facility] Comment on above: Performed By: #### L 501.6710, L504.2610, L101.9900, L100.0100, L500.4050, L3400.8000 ####[facility] [address] [place], [address] RBC (Bld) [#/Vol] 4.77 10*6/uL Normal 4.2-5.4 [facility] Comment on above: Performed By: #### L 501.6710, L504.2610, L101.9900, L100.0100, L500.4050, L3400.8000 ####[facility] [address] [place], [address] RDW SD 43.9 fl Normal 35.1-43.9 [facility] Comment on above: Performed By: #### L 501.6710, L504.2610, L101.9900, L100.0100, L500.4050, L3400.8000 ####[facility] [address] [place], [address] WBC (Bld) [#/Vol] 7.0 10*3/uL Normal 4.4-11.[address] [facility] Comment on above: Performed By: #### L 501.6710, L504.2610, L101.9900, L100.0100, L500.4050, L3400.8000 ####[facility] [address] [place], [address] CRPon 03-23-2025 C-REACTIVE PROT 4.00 mg/L High 0.0-3.0 [facility] Comment on above: Performed By: #### L 501.6710, L504.2610, L101.9900, L100.0100, L500.4050, L3400.8000 ####[facility] [address] [place], [address] Carbon dioxide, total [Moles /volume] in Central venous bloodOrdered By: Graciela Zuleta on 03-23-2025 CO2 [Moles/Vol] 24.8 mmol/L 21.0-32.0 [facility] Chloride assayOrdered By: Brad Zuleta on 03-23-2025 Chloride [Moles/Vol] 104 mmol/L 98-108 [facility] Comprehensive Metabolic Prof ilon 03-23-2025 Albumin [Mass/Vol] 4.1 g/dL Normal 3.4-4.[address] [facility] Comment on above: Performed By: #### L 501.6710, L504.2610, L101.9900, L100.0100, L500.4050, L3400.8000 ####[facility] [address] [place], [address] Albumin/Globulin [Mass ratio] 1.4 {ratio} Normal 0.9-2.4 [facility] Comment on above: Performed By: #### L 501.6710, L504.2610, L101.9900, L100.0100, L500.4050, L3400.8000 ####[facility] [address] [place], [address] ALK PHOS 83 U/L Normal 35-104 [facility] Comment on above: Performed By: #### L 501.6710, L504.2610, L101.9900, L100.0100, L500.4050, L3400.8000 ####[facility] [address] [place], [address] ALT [Catalytic activity/Vol] 15 U/L Normal <=34 [facility] Comment on above: Performed By: #### L 501.6710, L504.2610, L101.9900, L100.0100, L500.4050, L3400.8000 ####[facility] [address] [place], [address] AST [Catalytic activity/Vol] 20 U/L Normal <=31 [facility] Comment on above: Performed By: #### L 501.6710, L504.2610, L101.9900, L100.0100, L500.4050, L3400.8000 ####[facility] [address] [place], [address] Bilirubin [Mass/Vol] 0.28 mg/dL Normal 0.00-1.30 [facility] Comment on above: Performed By: #### L 501.6710, L504.2610, L101.9900, L100.0100, L500.4050, L3400.8000 ####[facility] [address] [place], [address] BUN/CRE 22.7 RATIO High 10-20 [facility] Comment on above: Performed By: #### L 501.6710, L504.2610, L101.9900, L100.0100, L500.4050, L3400.8000 ####[facility] [address] [place], [address] Calcium [Mass/Vol] 10.1 mg/dL Normal 7.6-11.[address] [facility] Comment on above: Performed By: #### L 501.6710, L504.2610, L101.9900, L100.0100, L500.4050, L3400.8000 ####[facility] [address] [place], [address] Chloride [Moles/Vol] 104 mmol/L Normal 98-108 [facility] Comment on above: Performed By: #### L 501.6710, L504.2610, L101.9900, L100.0100, L500.4050, L3400.8000 ####[facility] [address] [place], [address] CO2 [Moles/Vol] 24.8 mmol/L Normal 21.0-32.0 [facility] Comment on above: Performed By: #### L 501.6710, L504.2610, L101.9900, L100.0100, L500.4050, L3400.8000 ####[facility] [address] [place], [address] Creatinine [Mass/Vol] 0.78 mg/dL Normal 0.70-1.[address] [facility] Comment on above: Performed By: #### L 501.6710, L504.2610, L101.9900, L100.0100, L500.4050, L3400.8000 ####[facility] [address] [place], [address] GAP 10 Normal 5-15 [facility] Comment on above: Performed By: #### L 501.6710, L504.2610, L101.9900, L100.0100, L500.4050, L3400.8000 ####[facility] [address] [place], [address] GFR/1.73 sq M.predicted among non-blacks MDRD (S/P/Bld) [Vol rate/Area] 77 mL/min/{1.73_m2} Normal >60 [facility] Comment on above: Result Comment: mL/m in/1.73m2 CKD-EPI Creatinine Equation (2020) Performed By: #### L 501.6710, L504.2610, L101.9900, L100.0100, L500.4050, L3400.8000 ####[facility] [address] [place], [address] Globulin (S) [Mass/Vol] 2.9 g/dL Normal 2.2-4.2 [facility] Comment on above: Performed By: #### L 501.6710, L504.2610, L101.9900, L100.0100, L500.4050, L3400.8000 ####[facility] [address] [place], [address] Glucose [Mass/Vol] 100 mg/dL High 70-[address] [facility] Comment on above: Performed By: #### L 501.6710, L504.2610, L101.9900, L100.0100, L500.4050, L3400.8000 ####[facility] [address] [place], [address] Potassium [Moles/Vol] 4.8 mmol/L Normal 3.3-5.[address] [facility] Comment on above: Performed By: #### L 501.6710, L504.2610, L101.9900, L100.0100, L500.4050, L3400.8000 ####[facility] [address] [place], [address] Sodium [Moles/Vol] 139 mmol/L Normal 133-[address] [facility] Comment on above: Performed By: #### L 501.6710, L504.2610, L101.9900, L100.0100, L500.4050, L3400.8000 ####[facility] [address] [place], [address] T PROT 7.0 g/dL Normal 5.9-8.4 [facility] Comment on above: Performed By: #### L 501.6710, L504.2610, L101.9900, L100.0100, L500.4050, L3400.8000 ####[facility] [address] [place], [place], [address] Urea nitrogen [Mass/Vol] 18 mg/dL Normal 4-19 [facility] Comment on above: Performed By: #### L 501.6710, L504.2610, L101.9900, L100.0100, L500.4050, L3400.8000 ####[facility] [address] [place], [address] Eosinophil percentageOrdered By: Graciela Zuleta on 03-23-2025 Eosinophils/100 WBC (Bld) 4.8 % 0-5 [facility] Erythrocyte Sed Rateon 03-23 SED RATE 11 mm/hr Normal 0-30 [facility] Comment on above: Performed By: #### L 501.6710, L504.2610, L101.9900, L100.0100, L500.4050, L3400.8000 ####[facility] [address] [place], [address] Erythrocyte distribution wid th ratioOrdered By: Graciela Zuleta on 03-23-2025 Erythrocyte distribution width (RBC) [Ratio] 13.4 % 11.6-14.6 [facility] Erythrocyte distribution wid th standard deviationOrdered By: Graciela Zuleta on 03-23-2025 Erythrocyte distribution width (RBC) [Ratio] 43.9 fl 35.1-43.9 [facility] Erythrocyte sedimentation ra teOrdered By: Graciela Zuleta on 03-23-2025 ESR (Bld) [Velocity] 11 mm/h 0-30 [facility] Gastroenterology Visit Repor ton 03-23-2025 Gastroenterology Visit Report [facility] [address] [place] [address] OFFICE VISIT Date of Service: 03/23/25 MR#: [id number] Acct: [id number] Name: NAT FOX Rep #: [id number] : 1945 Provider: SALOMÓN ortega Age/Sex: 80/F Location: [facility] Status: Signed Intake Vital Signs 01/31/25 14:23 03/09/25 08:36 Height 5 ft 9.5 in 5 ft 9.5 in Intake Visit Reasons: Test Result Allergies sulfamethoxazole (From Bactrim) Allergy (Severe, Verified 03/23/25 13:50) Other trimethoprim (From Bactrim) Allergy (Severe, Verified 03/23/25 13:50) Other bacitracin (From Neosporin (yog-yje-ujwfe)) Allergy (Verified 03/23/25 13:50) NEEDS FOLLOW-UP neomycin (From Neosporin (oxa-qnc-ghhvr)) Allergy (Verified 03/23/25 13:50) NEEDS FOLLOW-UP Penicillins Allergy (Verified 03/23/25 13:50) NEEDS FOLLOW-UP polymyxin B (From Neosporin (cnc-wen-uzegp)) Allergy (Verified 03/23/25 13:50) NEEDS FOLLOW-UP adhesive (adhesives) Adverse Reaction (Intermediate, Verified 03/23/25 13:50) Rash nabumetone (From Relafen) Adverse Reaction (Intermediate, Verified 03/23/25 13:50) unknown Medications ???Medication ???Instructions ???Recorded ???Confirmed ???Type albuterol 90 mcg/actuation aerosol 90 mcg inhalation PRN PRN SOB 03/23/25 History inhaler albuterol sulfate 2.5 mg/3 mL 2.5 mg inhalation Q4-6H PRN 03/23/25 History (0.083 %) solution for nebulization shortness of breath or wheezing amlodipine 5 mg tablet (Norvasc) 5 mg PO QDAY 02/09/25 03/23/25 His tory cephalexin 500 mg capsule 500 mg PO .2xyr for teeth 02/09/25 03/23/25 History fluticasone propionate 50 1 spray intranasal QDAY PRN 03/23/25 History mcg/actuation nasal allergy symptoms spray,suspension ketotifin eye solution 1 drp EACH EYE PRN PRN EYE 5 03/23/25 History ITCHYNESS levothyroxine 88 mcg tablet 88 mcg PO QDAY 02/09/25 03/23/25 H istory multivitamin with minerals 1 cap PO QDAY 02/09/25 03/23/25 Hi story mupirocin 2 % topical ointment 1 applic topical TID 02/09/2503/10 History (Centany) tolterodine 4 mg capsule,extended 4 mg PO QDAY 02/09/25 03/23/25 Hi story release 24 hr (Detrol LA) triamcinolone acetonide 0.1 % 1 applic topical QDAY PRN 02/09/25 03/23/25 History lotion DERMATITIS acetaminophen 650 mg 1,300 mg PO Q12H PRN pain 03/07/25 03/23/25 History tablet,extended release (8 Hour Pain Reliever) diclofenac sodium 1 % topical gel 1 ea topical PRN 03/07/25 5 History (Arthritis Pain (diclofenac)) fluocinonide 0.05 % topical cream 1 applic topical DAILY PRN CRACKE D 03/07/25 03/23/25 History FINGERS mesalamine 800 mg tablet,delayed 1,600 mg (2 x 800 mg) PO TID 1 03/23/25 Rx release month #180 tabs Have you fallen in the past year?: No PFSH Medical History Wears glasses Post-menopausal Anxiety Open wound History of steroid therapy Thyroid disease Arthritis Excessive bleeding Back pain Difficulty swallowing History of GI bleed Non-smoker Leg cramps History of pain when walking History of edema Hypertension Hx of lipoma Surgical History History of total knee replacement (TKR) History of carpal tunnel surgery of left wrist Hx of toe surgery Hx of hysterectomy Social History Smoking Status: Never smoker HPI HPI Details: NAT FOX, is a 80 F who presents to the office today for FU. 02.01.25 OV establishment with [facility] regarding concerns for blood from her rectum. [...] poly removed from her colon. Blood drawn .25 by PCP: W-5.9, hgb-14.1, hct-42.6, plt-288. 7.3.25 OV hgb 13.8 at recheck. She has only been taking 1tsp Metamucil, carton direction advises 1tbsp daily. She's feeling really full of gas, can't pass gas without leaking mucus. She feels like she's having diarrhea (more content not included)... Normal [facility] Glomerular filtration rate ( GFR) estimation/1.73 sq m using serum, plasma, or whole bOrdered By: Graciela Zuleta on 03-23-2025 GFR/1.73 sq M.predicted among non-blacks MDRD (S/P/Bld) [Vol rate/Area] 77 mL/min/{1.73_m2} >60 [facility] Comment on above: mL/min/1.73m2 CKD-EP I Creatinine Equation (2020) Hematocrit Auto (Bld) [Volum e fraction]Ordered By: Graciela Zuleta on 03-23-2025 Hematocrit (Bld) [Volume fraction] 42.7 % 37-47 [facility] Hemoglobin measurementOrdere d By: Graciela Zuleta on 03-23-2025 Hemoglobin (Bld) [Mass/Vol] 13.8 g/dL 12.0-15.0 [facility] Immature granulocytes/100 WB C Auto (Bld)Ordered By: Graciela Zuleta on 03-23-2025 Immature granulocytes/100 WBC (Bld) 0.300 % 0.0-0.9 [facility] Comment on above: IG% - Immature Granu locytes (promyelocytes, myelocytes and metamyelocytes) > 1% indicates that a LEFT SHIFT is Present. LDHon 03-23-2025 LDH 170 U/L Normal 84-246 [facility] Comment on above: Order Comment: 1 Performed By: #### L 501.6710, L504.2610, L101.9900, L100.0100, L500.4050, L3400.8000 ####[facility] [id number] [place], [place], [id number] Laboratory - Chemistry and C hemistry - challengeOrdered By: Graciela Zuleta on 03-23-2025 AST [Catalytic activity/Vol] 20 U/L <32 [facility] Lactate dehydrogenase (LDH) measurementOrdered By: Graicela Zuleta on 03-23-2025 LDH [Catalytic activity/Vol] 170 U/L 84-246 [facility] MCV (mean corpuscular volume ) determinationOrdered By: Graciela Zuleta on 03-23-2025 MCV (RBC) [Entitic vol] 89.5 fL 81-99 [facility] Mean corpuscular hemoglobin (MCH) determinationOrdered By: Graciela Zuleta on 03-23-2025 MCH (RBC) [Entitic mass] 28.9 pg 27.0-32.0 [facility] Mean corpuscular hemoglobin concentration (MCHC) determinationOrdered By: Graciela Zuleta on 03-23-2025 MCHC (RBC) [Mass/Vol] 32.3 g/dL 32-[address] [facility] Mean platelet volume determi nationOrdered By: Graciela Zuleta on 03-23-2025 Platelet mean volume (Bld) [Entitic vol] 10.5 fL 6.2-12.0 [facility] Monocyte percentageOrdered B y: Graciela Zuleta on 03-23-2025 Monocytes/100 WBC (Bld) 13.0 % High 0-10 [facility] Neutrophil percentageOrdered By: Graciela Zuleta on 03-23-2025 Neutrophils/100 WBC (Bld) 59.7 % 47-70 [facility] Nucleated red blood cell per centageOrdered By: Graciela Zuleta on 03-23-2025 Nucleated RBC/100 WBC (Bld) [Ratio] 0 % 0-5 [facility] Platelet countOrdered By: Brad Zuleta on 03-23-2025 Platelets (Bld) [#/Vol] 301 10*3/uL 150-450 [facility] Potassium measurement (mass/ volume)Ordered By: Graciela Zuleta on 03-23-2025 Potassium (Unsp spec) [Mass/Vol] 4.8 mmol/L 3.3-5.1 [facility] Qualitative QuantiFERON-TB g old in tube testOrdered By: Graciela Zuleta on 03-23-2025 M. tuberculosis tuberculin stim IFN-g Ql (Bld) 0.02 IU/mL . [facility] RBC Auto (Bld) [#/Vol]Ordere d By: Graciela Zuleta on 03-23-2025 RBC (Bld) [#/Vol] 4.77 10*6/uL 4.2-5.4 [facility] Serum creatinine measurement (mass/volume)Ordered By: Graciela Zuleta on 03-23-2025 Creatinine [Mass/Vol] 0.78 mg/dL 0.70-1.[address] [facility] Serum globulin measurementOr dered By: Graciela Zuleta on 03-23-2025 Globulin (S) [Mass/Vol] 2.9 g/dL 2.2-4.2 [facility] Serum glucose measurement (m ass/volume)Ordered By: Graciela Zuleta on 03-23-2025 Glucose [Mass/Vol] 100 mg/dL High 70-[address] [facility] Serum or plasma C reactive p rotein measurement (mass/volume)Ordered By: Graciela Zuleta on 03-23-2025 CRP [Mass/Vol] 4.00 mg/L High 0.0-3.0 [facility] Serum or plasma alanine loya otransferase (ALT) measurementOrdered By: Graciela Zuleta on 03-23-2025 ALT [Catalytic activity/Vol] 15 U/L <35 [facility] Serum or plasma albumin elliot urement (mass/volume)Ordered By: Graciela Zuleta on 03-23-2025 Albumin [Mass/Vol] 4.1 g/dL 3.4-4.[address] [facility] Serum or plasma albumin/glob ulin mass ratioOrdered By: Graciela Zuleta on 03-23-2025 Albumin/Globulin [Mass ratio] 1.4 {ratio} 0.9-2.4 [facility] Serum or plasma alkaline roberta sphatase measurementOrdered By: Graciela Zuleta on 03-23-2025 ALP [Catalytic activity/Vol] 83 U/L 35-104 [facility] Serum or plasma calcium elliot urement (mass/volume)Ordered By: Graciela Zuleta on 03-23-2025 Calcium [Mass/Vol] 10.1 mg/dL 7.6-11.[address] [facility] Serum or plasma urea nitroge n measurement (mass/volume)Ordered By: Graciela Zuleta on 03-23-2025 Urea nitrogen [Mass/Vol] 18 mg/dL 4-19 [facility] Sodium levelOrdered By: Enrique Zuleta on 03-23-2025 Sodium [Moles/Vol] 139 mmol/L 133-[address] [facility] Total proteinOrdered By: Jesi Zuleta on 03-23-2025 Protein [Mass/Vol] 7.0 g/dL 5.9-8.[address] [facility] White blood cell (WBC) count Ordered By: Graciela Zuleta on 03-23-2025 WBC (Bld) [#/Vol] 7.0 10*3/uL 4.4-11.[address] [facility] CDIFF (PCR)on 03-09-2025 CDIFF Is the patient receiving laxatives? N Above criteria not met but test indicated Y New/unexplained onset of 3 or more stools in past 24 hrs? N STOOL FOR CULTURE AND C-DIFF FROM COLONOSCOPY Pending 027 027 NAP1-B1 Presumptive Negative *for epidemiolologic???use C. Diff PCR Negative- No toxigenic C. Diff Detected Normal [facility] Comment on above: Performed By: #### M 100.6796 #### [facility] Laboratory [address] [place], [address] Clostridium difficile detect ion by polymerase chain reactionOrdered By: Arsalan Orellana on 03-09-2025 C. difficile DNA MARK+probe Ql (Unsp spec) [facility] Colonoscopy Reporton 025 Colonoscopy Report [facility] Medical Records Department [address] [place] [address] Colonoscopy Report MR#: [id number] Acct: [id number] Name: NAT FOX Rep #: [id number] : 1945 80 From: Arsalan Orellana DO PCP: Dr. Jimmy Shrestha MD Status:[facility] Patient Name: Nat Fox Procedure Date: 03/09/2025 9:24 AM Date of : 1945 Age: 80 Procedure: Colonoscopy Indications: Abdominal pain in the left lower quadrant, Clinically significant diarrhea of unexplained origin, Hematochezia Providers: Arsalan Orellana DO Referring MD: Jimmy Shrestha Medicines: Monitored Anesthesia Care Patient Profile: This is a 80 year old female. Refer to note in patient chart for documentation of history and physical. Last Colonoscopy: several years ago. Complications: No immediate complications. Procedure: Pre-Anesthesia Assessment: - Prior to the procedure, a History and Physical was performed, and patient medications and allergies were reviewed. The patient is competent. The risks and benefits of the procedure and the sedation options and risks were discussed with the patient. All questions were answered and informed consent was obtained. Patient identification and proposed procedure were verified by the physician in the pre-procedure area. Mental Status Examination: alert and oriented. Airway Examination: normal oropharyngeal airway and neck mobility. Respiratory Examination: clear to auscultation. CV Examination: normal. Prophylactic Antibiotics: The patient does not require prophylactic antibiotics. Prior Anticoagulants: The patient has taken no anticoagulant or antiplatelet agents except for NSAID medication. ASA Grade Assessment: II - A patient with mild systemic disease. After reviewing the risks and benefits, the patient was deemed in satisfactory condition to undergo the procedure. The anesthesia plan was to use monitored anesthesia care (MAC). Immediately prior to administration of medications, the patient was re-assessed for adequacy to receive sedatives. The heart rate, respiratory rate, oxygen saturations, blood pressure, adequacy of pulmonary ventilation, and response to care were monitored throughout the procedure. The physical status of the patient was re-assessed after the procedure. After I obtained informed consent, the scope was passed under direct vision. Throughout the procedure, the patient's blood pressure, pulse, and oxygen saturations were monitored continuously. The pediatric colonoscope was introduced through the anus and advanced to the cecum, identified by appendiceal orifice and ileocecal valve. The colonoscopy was performed without difficulty. The patient tolerated the procedure well. The quality of the bowel preparation was fair. The ileocecal valve, appendiceal orifice, and rectum were photographed. Moderate Sedation: Moderate (conscious) sedation was personally administered by an anesthesia professional. The following parameters were monitored: oxygen saturation, heart rate, blood pressure, respiratory rate, EKG, adequacy of pulmonary ventilation, and response to care. Scope In: 9:46:47 AM Scope Withdrawal Time 0 hours 12 minutes 13 seconds Scope Out: 10:03:55 AM Total Procedure Duration Time 0 hours 17 minutes 8 seconds Findings: The perianal and digital rectal examinations were normal. Inflammation characterized by congestion (edema), erosions, erythema, friability and granularity was found in a continuous and circumferential pattern from the anus to the splenic flexure. The transverse colon, the hepatic flexure, the ascending colon and the cecum were spared. The inflammation was graded as Boykin Score 3 (severe, with spontaneous bleeding, ulcerations), and when compared to previous examinations, the findings are new. Biopsies were taken with a cold forceps for histology. Verification of patient identification for the specimen was done. Estimated blood loss was minimal. Stool was found in the recto-sigmoid colon, in the descending colon, in the transverse colon, at the hepatic flexure, in the ascending colon and in the cecum. Fluid aspiration for bacterial cultures and Clostridium difficile was performed. Verification of patient identification for the specimen was done. Estimated blood loss was minimal. Multiple small and large-mouthed diverticula were found in the recto-sigmoid colon, sigmoid colon and descending colon. Impression: - Preparation of the colon was fair. - Left-sided ulcerative colitis and left-sided colitis. Inflammation was found from the anus to the splenic flexure. This was graded as Boykin Score 3 (severe disease), new compared to previous examinations. Biopsied. - Stool in the recto-sigmoid colon, in the descending colon, in the transverse colon, at the hepatic flexure, in the ascendin (more content not included)... Normal [facility] ENTERIC PATHOGEN PANEL STOOL on 03-09-2025 EP PANEL Comments: STOOL FOR CULTURE AND C-DIFF Normal Reference Range = Not Detected Nucleic acid amplification test method Not detected for Campylobacter group, Salmonella species, Shigella species, Vibrio Group, Yersinia enterocolitica, EHEC (Shiga Toxin 1, Shiga Toxin 2), Norovirus Gl/Gll, and Rotavirus A. Other common stool pathogens are not detected on this panel include: Aeromonas/Plesiomonas or parasites. Order testing for these organisms separately if suspected. This is an amplified DNA test which makes it both specific and sensitive. CAMPYLOBACTER Not Detected Norovirus Not Detected Rotavirus Not Detected Salmonella Not Detected Shiga Toxin Not Detected Shigella sp. Not Detected VIBRIO Not Detected Yersinia Not Detected Normal [facility] Comment on above: Performed By: #### M 100.637 #### [facility] Laboratory [address] [facility] [place], [place], [address] MR/OP.PROVATon 03-09-2025 MR/OP.[facility] Medical Records Department [address] [place] [address] Provation Physician Letter MR#: [id number] Acct: [id number] Name: NAT FOX Rep #: [id number] : 1945 80 From: Arsalan Friend DO PCP: Dr. Jimmy Shrestha MD Status:[facility] 03/09/2025 Jimmy Shrestha Re : Colonoscopy procedure for Nat Fox Dear Paulo This procedure was performed on February. My impressions and recommendations are as follows: Impressions : - Preparation of the colon was fair. - Left-sided ulcerative colitis and left-sided colitis. Inflammation was found from the anus to the splenic flexure. This was graded as Boykin Score 3 (severe disease), new compared to previous examinations. Biopsied. - Stool in the recto-sigmoid colon, in the descending colon, in the transverse colon, at the hepatic flexure, in the ascending colon and in the cecum. Fluid aspiration performed. Recommendations : - Discharge patient to home. - Resume previous diet. - Continue present medications. - Await pathology results. -Mesalamine 3 times a day . *Await stool culture - No repeat colonoscopy due to age. My findings are described in the full procedure note, which is enclosed. If I can be of further assistance, please feel free to contact me at . Sincerely, Arsalan Orellana DO 03/09/2025 10:14:21 AM This report has been signed electronically. 03/09/25 1014 Date Arsalan Orellana DO Cosigner Signature: Date (if indicated) CC: Dr. Jimmy Shrestha MD; Arsalan Orellana DO Date Dictated: 03/09/25 0924 Date Transcribed: Regulatory Intern: SABIHA Signed [facility] MR/POSTOP.[facility] 03-09-2025 MR/POSTOP.[facility] Medical Records Department [address] [place] [address] Anesthesia Postop Eval I 03/09/25 1016 MR#: [id number] Acct: [id number] Name: NAT FOX Rep #: [id number] : 1945 80 From: Tai Brown CRNA PCP: Dr. Jimmy Shrestha MD Status:REG SDC Y Race: C Location: [place] [address] Anesthesia: Postop Eval I Current Vital Signs Temperature: 98.2 F Pulse Rate: 65 Blood Pressure: 103/62 Respiratory Rate: 18 Pulse Ox: 94 Assessment Airway patent: Yes Spontaneous unlabored respirations: Yes nausea: No Vomiting: No Anesthesia Complication: No Fluid Hydration Crystalloid volume administer (ml): 600 Total IV fluid infused: 600 Progress Note Anesthesia document: Postop Eval 1 completed: Yes 03/09/25 1016 Date Taitomeka BurgosKevin PROFESSIONAL SECURITY OFFICER Cosigner Signature: Date CC: Signed Normal [facility] MR/[id number] 03-09-2025 [facility] Medical Records Department [address] [place] [address] Anesthesia Postop Eval II 03/09/25 1241 MR#: [id number] Acct: [id number] Name: NAT FOX Rep #: [id number] : 1945 80 From: Ryley Gutierrez MD PCP: Dr. Jimmy Shrestha MD Status:[facility] Y Race: C Location: [place] Anesthesia Postop Eval I Sum Postop Eval Completion status Anesthesia document: Postop Eval 1 completed: Yes Anesthesia Postop Eval I Summary Anesthesia Postop Eval I Summary: Anesthesia Postop Eval I: Assessment Summary Airway patent Yes 03/09/25 10:16 PROFESSIONAL SECURITY OFFICER.TNES Spontaneous unlabored Yes 03/09/25 10:16 PROFESSIONAL SECURITY OFFICER.TNES respirations Mental status nausea No 03/09/25 10:16 PROFESSIONAL SECURITY OFFICER.TNES Vomiting No 03/09/25 10:16 PROFESSIONAL SECURITY OFFICER.TNES Anesthesia Postop Eval I: Fluid Summary Crystalloid volume administer 600 03/09/25 10:16 PROFESSIONAL SECURITY OFFICER.TNES (ml) Colloids volume administered ( ml) Blood Product volume administered (ml) Total IV fluid infused 600 03/09/25 10:16 PROFESSIONAL SECURITY OFFICER.TNES Anesthesia Postop Eval I: Summary Notes Anesthesia Complication No 03/09/25 10:16 PROFESSIONAL SECURITY OFFICER.TNES Anesthesia Complication Comment: Post-operative progress note Anesthesia: Postop Eval II Evaluation Mental status: Awake and Calm Pain Level: 1 nausea: No Vomiting: No Complications Anesthesia Complication: No 03/09/25 1241 Date Ryley Gutierrez MD [facility] Signature: Date CC: Signed Normal [facility] Surgery Specimen Level Mati 03-09-2025 Surgery Specimen Level IV ---- Patient Age/Sex Location Account Attending Physician ---- NAT FOX 80/F EN [id number] Arsalan Orellana, DO ---- Specimen: [id number] Received: 03/09/25-1019 Status: [facility] Pinedo Num: [id number] Spec Type: COLON BX Subm Dr: Arsalan Orellana DO HEADER OPERATION: Colonoscopy PRE-OP DIAGNOSIS: Bleeding per rectum TISSUE SUBMITTED: A- Left sided colon biopsy, B- Rectal biopsy ---- MICROSCOPIC DIAGNOSIS A. Colon, left side, biopsy: - Acute colitis with crypt architectural distortion - see Comment. - No granulomas or dysplasia seen. B. Rectum, biopsy: - Acute inflammation with basal lymphoplasmacytosis - see Comment. - No granulomas or dysplasia seen. COMMENT: The histologic differential diagnosis includes infection, medication injury, diverticular disease-associated colitis and inflammatory bowel disease. Recommend correlation with clinical, endoscopic, and imaging findings. MICROSCOPIC DESCRIPTION Slides are reviewed. GROSS DESCRIPTION A. Received in fixative is one container labeled with the patient's name and designated Left sided colon biopsy. The specimen consists of four irregular fragments of light oneill soft tissue that in aggregate measure 0.1 to 0.6 cm. The specimen is totally submitted in one cassette. B. Received in fixative is one container labeled with the patient's name and designated Rectal biopsy. The specimen consists of two irregular fragments of light oneill soft tissue, each measuring 0.2 cm. The specimen is totally submitted in one cassette. MS 03/09/2025 CPT:39531s4 ---- Patient Age/Sex Location Account Attending Physician ---- GERALDINENAT SOUSAAN 80/F EN [id number] Arsalan DO Esteban ---- Signed (signature on file) Dr. Tamika Sheriff MD 03/13/25 0953 ---- Normal [facility] Comment on above: Performed By: #### Son CARLTON ####[facility] [id number] [place], [address] Calprotectin, Stoolon [address] 487 ug/g Abnormal 0-120 [facility] Comment on above: Result Comment: Conc entration Interpretation Follow-Up < 5 - 50 ug/g Normal None >50 -120 ug/g Borderline Re-evaluate in 4-6 weeks >120 ug/g Abnormal Repeat as clinically indicated Performed at: [address] [id number] Manual Qa Tester: Karina Diaz MD, Phone: [phone] Performed By: #### M 100.7984, L7000.0700 ####[facility] [id number] [place], [address] Calprotectin stoolOrdered By : Graciela Zuleta on 02-11-2025 Calprotectin stool 487 ug/g High 0-[address] [facility] Comment on above: Concentration Interp retation Follow-Up< 5 - 50 ug/g Normal None>50 -120 ug/g Borderline Re-evaluate in 4-6 weeks >120 ug/g Abnormal Repeat as clinically indicatedPerformed at: - [facility] [id number] Director: Karina Diaz MD, Phone: [phone] Stool Occult Blood iFOBon STOB Normal Reference Ran ge = Negative Immunochemical Fecal Occult Blood (iFOBT) method. Hemoccult Stl Ql IA Limitation: Menstrual bleeding, constipation bleeding, bleeding hemorrhoids, and urinary bleeding conditions may interfere with test. Occult Blood A Positive A OCCULT BLOOD POSITIVE Normal [facility] Comment on above: Performed By: #### M 100.7900, L7000.0700 ####[facility] [id number] [facility] [place], [place], [id number] Stool gastrointestinal hemog lobin detection by immunologic methodOrdered By: Graciela Zuleta on 02-11-2025 Lower GI hemoglobin IA Ql (Stl) Positive Abnormal [facility] Abdomen Single Viewon 2024 Abdomen Single View [facility] Imaging Services [address] [place], [place] [address] Abdomen Single View MR#: [id number] Acct: [id number] Name: NAT FOX Rep #: [id number] : 1945 F 79 From: Barrington Lr MD PCP: Dr. Jimmy Shrestha MD Status: REG CLI Study: Abdomen Single View Date of Exam: 02/09/25 Exam# [id number] Ordering Dr: Graciela Zuleta MANAGER SIGN-C PROCEDURE: ABDOMEN SINGLE VIEW 02/09/2025 REASON FOR EXAM: ABDOMINAL PAIN, TENESMUS, BOWEL INCONTINENCE. Right lower quadrant pain TECHNIQUE: ABDOMEN SINGLE VIEW COMPARISON: No FINDINGS: Clear lung bases. No free air. Moderate stool. Nondistended bowel. No concerning calcifications. RAD/Abdomen Single View IMPRESSION: Moderate stool. If there is clinical concern for appendicitis, recommend CT. Reading Location: [place] [address] CC: SALOMÓN Zuleta; Dr. Jimmy Shrestha MD Regulatory Intern: Signed Normal [facility] Gastroenterology Visit Repor ton 02-09-2025 Gastroenterology Visit Report [facility] Gastroenterology [address] [place] [address] OFFICE VISIT Date of Service: 02/09/25 MR#: [id number] Acct: [id number] Name: NAT FOX Rep #: [id number] : 1945 Provider: SALOMÓN ortega Age/Sex: 79/F Location: [facility] Status: Signed Intake Vital Signs 01/31/25 14:23 Height 5 ft 9.5 in Weight: 234 lb BMI 34.0 BP 170/81 H Position Sitting Pulse 72 Pulse Source Monitor Pulse Oximetry (%) 91 Oxygen Delivery Method room air Intake Visit Reasons: Sx getting worse Crop And Soil Technician Required: No Accompanied by: Self Is patient in pain?: Yes (IN KNEES) Allergies bacitracin (From Neosporin ([id number]-ztt-[id number])) Allergy (Verified 02/09/25 14:19) NEEDS FOLLOW-UP neomycin (From Neosporin (oiu-qgk-yrhvo)) Allergy (Verified 02/09/25 14:19) NEEDS FOLLOW-UP Penicillins Allergy (Verified 02/09/25 14:19) NEEDS FOLLOW-UP polymyxin B (From Neosporin (jiq-eju-lekoa)) Allergy (Verified 02/09/25 14:19) NEEDS FOLLOW-UP adhesive (adhesives) Adverse Reaction (Intermediate, Verified 02/09/25 14:19) Rash nabumetone (From Relafen) Adverse Reaction (Intermediate, Verified 02/09/25 14:19) unknown Medications ???Medication ???Instructions ???Recorded ???Confirmed ???Type acetaminophen 500 mg tablet 1,000 mg PO QHS 02/09/25 02/09/25 History albuterol 90 mcg/actuation aerosol mcg inhalation PRN 02/09/2511/01 History inhaler albuterol sulfate 2.5 mg/3 mL 2.5 mg inhalation Q4-6H PRN 02/09/25 History (0.083 %) solution for nebulization amlodipine 5 mg tablet (Norvasc) 5 mg PO QDAY 02/09/25 02/09/25 His tory cephalexin 500 mg capsule 500 mg PO .2xyr for teeth 02/09/25 02/09/25 History diclofenac sodium 1 % topical gel 2 g topical ONCE 02/09/25 5 History fluticasone propionate 50 1 spray intranasal QDAY PRN 02/09/25 History mcg/actuation nasal spray,suspension ketotifin eye solution EACH EYE PRN 02/09/25 History levothyroxine 88 mcg tablet 88 mcg PO QDAY 02/09/25 02/09/25 H istory multivitamin with minerals 1 cap PO QDAY 02/09/25 02/09/25 Hi story mupirocin 2 % topical ointment 1 applic topical TID 02/09/2511/01 History (Centany) silver sulfadiazine 1 % topical 1 applic topical ONCE PRN 02/09/25 02/09/25 History cream tolterodine 4 mg capsule,extended 4 mg PO QDAY 02/09/25 02/09/25 Hi story release 24 hr (Detrol LA) triamcinolone acetonide 0.1 % 1 applic topical QDAY PRN 02/09/25 02/09/25 History lotion Have you fallen in the past year?: Yes Nurse's Note: Burping and passing gas has gotten worse. When she passes gas mucus comes out with it. Stools have become more loose now. Has urgency with bowel movements. Has blood in her stool every time. [facility] Social History Smoking Status: Never smoker HPI HPI Details: NAT FOX, is a 79 F who presents to the office today for FU as all of her symptoms are getting worse. 02.01.25 OV establishment with [facility] regarding concerns for blood from her rectum. [...] poly removed from her colon. Blood drawn 6..25 by PCP: W-5.9, hgb-14.1, hct-42.6, plt-288. 7.3.25 OV hgb 13.8 at recheck. She has only been taking 1tsp Metamucil, carton direction advises 1tbsp daily. She's feeling really full of gas, can't pass gas without leaking mucus. She feels like she's having diarrhea instead of being constipated. Reports that she's been seeing blood while wiping. Denies blood on stool or in toilet water. ROS Const Constitutional: Positive for fatigue; No fever(s) or weight change ENT ENT: No difficulty swallowing Gastro GI: Positive for abdominal pain, change in bowel habits, diarrhea and Blood in stool; No belching, bloating, change in stool character, coffee ground emesis, constipation, cramping, heartburn, difficulty swallowing, feeling full early, excessive flatus, incontinent of stools, Vomiting blood/hematemesis, loose stools, Black,tarry st (more content not included)... Normal [facility] HH, Hemoglobin AND Hematocr iton 02-06-2025 Hematocrit (Bld) [Volume fraction] 42.9 % Normal 37-47 [facility] Comment on above: Performed By: #### L 100.0600 #### [facility] [address] [place], [address] Hemoglobin (Bld) [Mass/Vol] 13.8 g/dL Normal 12.0-15.0 [facility] Comment on above: Performed By: #### L 100.0600 #### [facility] [address] [place], [address] Hematocrit Auto (Bld) [Volum e fraction]Ordered By: Graciela Zuleta on 02-06-2025 Hematocrit (Bld) [Volume fraction] 42.9 % 37-47 [facility] Hemoglobin measurementOrdere d By: Graciela Zuleta on 02-06-2025 Hemoglobin (Bld) [Mass/Vol] 13.8 g/dL 12.0-15.0 [facility] Gastroenterology Visit Repor ton 01-31-2025 Gastroenterology Visit Report [facility] [address] [place] [address] OFFICE VISIT Date of Service: 01/31/25 MR#: [id number] Acct: [id number] Name: NAT FOX Rep #: [id number] : 1945 Provider: SALOMÓN ortega Age/Sex: 79/F Location[place] [facility] Status: Signed Intake Vital Signs 01/31/25 14:23 Height 5 ft 9.5 in Weight: 234 lb BMI 34.0 BP 170/81 H Position Sitting Pulse 72 Pulse Source Monitor Pulse Oximetry (%) 91 Oxygen Delivery Method room air Intake Visit Reasons: Rectal bleeding Allergies bacitracin (From Neosporin ([id number]-ahs-[id number])) Allergy (Verified 01/31/25 14:49) NEEDS FOLLOW-UP neomycin (From Neosporin ([id number]-aep-[id number])) Allergy (Verified 01/31/25 14:49) NEEDS FOLLOW-UP Penicillins Allergy (Verified 01/31/25 14:49) NEEDS FOLLOW-UP polymyxin B (From Neosporin (yss-mdr-eduxb)) Allergy (Verified 01/31/25 14:49) NEEDS FOLLOW-UP Have you fallen in the past year?: Yes Nurse's Note: OV 01/31/25 Pt here to establish care with [facility]. Pt reports abdominal pain, blood in stools and change in bowel habits. Pt says she had a round of ATB and has had rectal bleeding since. HPI HPI Details: NAT FOX, is a 79 F who presents to [...] poly removed from her colon. Blood drawn 01.09.25 by PCP: W-5.9, hgb-14.1, hct-42.6, plt-288. ROS [...] Aller/Imm Allergy/Immunologic: Positive for itchy eyes Efe/Lymp Hematologic/Lymphatic: Positive for easy bleeding and easy bruising [...] Hemorrhage of anus and rectum Plan KATYA FOX, is a 79 F who presents to the office today for establishment with I regarding concerns for blood from her rectum. Despite strong encouragement (more content not included)... Normal [facility] .Auto Diffon 01-09-2025 Basophil, Absolute 0.1 10 3/mcL Normal 0.0-0.3 [facility] Comment on above: Performed By: #### F T4, GFR, CMP, ANEU, TSH, VIDH, FERR, ADIFF, LIPID, CBC #### [address] [address] Basophils/100 WBC (Bld) 1.0 % Normal 0.0-2.5 [facility] Comment on above: Performed By: #### F T4, GFR, CMP, ANEU, TSH, VIDH, FERR, ADIFF, LIPID, CBC #### [address] [address] Eosinophil, Absolute 0.3 10 3/mcL Normal 0.0-0.7 [facility] Comment on above: Performed By: #### F T4, GFR, CMP, ANEU, TSH, VIDH, FERR, ADIFF, LIPID, CBC #### [address] [address] Eosinophils/100 WBC (Bld) 4.7 % Normal 0.0-6.0 [facility] Comment on above: Performed By: #### F T4, GFR, CMP, ANEU, TSH, VIDH, FERR, ADIFF, LIPID, CBC #### [address] [address] Lymphocyte, Absolute 1.5 10 3/mcL Normal 0.9-4.3 [facility] Comment on above: Performed By: #### F T4, GFR, CMP, ANEU, TSH, VIDH, FERR, ADIFF, LIPID, CBC #### [address] [address] Lymphocytes/100 WBC (Bld) 26.0 % Normal 20.0-40.0 [facility] Comment on above: Performed By: #### F T4, GFR, CMP, ANEU, TSH, VIDH, FERR, ADIFF, LIPID, CBC #### [address] [address] Monocyte, Absolute 0.6 10 3/mcL Normal 0.1-1.4 [facility] Comment on above: Performed By: #### F T4, GFR, CMP, ANEU, TSH, VIDH, FERR, ADIFF, LIPID, CBC #### [address] [address] Monocytes/100 WBC (Bld) 10.0 % Normal 2.0-13.0 [facility] Comment on above: Performed By: #### F T4, GFR, CMP, ANEU, TSH, VIDH, FERR, ADIFF, LIPID, CBC #### [address] [address] Neutrophils/100 WBC (Bld) 58.3 % Normal 50.0-75.0 [facility] Comment on above: Performed By: #### F T4, GFR, CMP, ANEU, TSH, VIDH, FERR, ADIFF, LIPID, CBC #### [address] [address] .GFRon 01-09-2025 Estimated Glomerular Filtration Rate 66 ml/min/1.73sqm Normal [facility] Comment on above: Result Comment: Stages of [...] VIDH, FERR, ADIFF, LIPID, CBC #### [address] [address] .NEUABSon 01-09-2025 Neutrophil, Absolute 3.4 10 3/mcL Normal 2.3-8.1 [facility] Comment on above: Performed By: #### F T4, GFR, CMP, ANEU, TSH, VIDH, FERR, ADIFF, LIPID, CBC #### [address] [address] CBCon 01-09-2025 Erythrocyte distribution width (RBC) [Ratio] 13.6 % Normal 11.5-15.5 [facility] Comment on above: Performed By: #### F T4, GFR, CMP, ANEU, TSH, VIDH, FERR, ADIFF, LIPID, CBC #### [place] [address] Hematocrit (Bld) [Volume fraction] 42.6 % Normal 34.0-46.0 [facility] Comment on above: Performed By: #### F T4, GFR, CMP, ANEU, TSH, VIDH, FERR, ADIFF, LIPID, CBC #### [place] [address] Hgb 14.1 G/dL Normal 12.0-16.0 [facility] Comment on above: Performed By: #### F T4, GFR, CMP, ANEU, TSH, VIDH, FERR, ADIFF, LIPID, CBC #### [address] [address] MCH (RBC) [Entitic mass] 29.5 pg Normal 27.0-33.0 [facility] Comment on above: Performed By: #### F T4, GFR, CMP, ANEU, TSH, VIDH, FERR, ADIFF, LIPID, CBC #### [address] [address] MCHC 33.2 G/dL Normal 32.0-36.0 [facility] Comment on above: Performed By: #### F T4, GFR, CMP, ANEU, TSH, VIDH, FERR, ADIFF, LIPID, CBC #### [address] [address] MCV (RBC) [Entitic vol] 88.8 fL Normal 80.0-99.0 [facility] Comment on above: Performed By: #### F T4, GFR, CMP, ANEU, TSH, VIDH, FERR, ADIFF, LIPID, CBC #### [address] [address] Platelet 288 10 3/mcL Normal 150-450 [facility] Comment on above: Performed By: #### F T4, GFR, CMP, ANEU, TSH, VIDH, FERR, ADIFF, LIPID, CBC #### [address] [address] Platelet mean volume (Bld) [Entitic vol] 9.0 fL Normal 6.6-10.5 [facility] Comment on above: Performed By: #### F T4, GFR, CMP, ANEU, TSH, VIDH, FERR, ADIFF, LIPID, CBC #### [address] [address] RBC 4.79 10 6/mcL Normal 4.10-5.30 [facility] Comment on above: Performed By: #### F T4, GFR, CMP, ANEU, TSH, VIDH, FERR, ADIFF, LIPID, CBC #### [address] [address] WBC 5.9 10 3/mcL Normal 4.5-10.8 [facility] Comment on above: Performed By: #### F T4, GFR, CMP, ANEU, TSH, VIDH, FERR, ADIFF, LIPID, CBC #### [address] [address] CMPon 01-09-2025 Albumin Level 3.6 G/dL Normal 3.4-4.8 [facility] Comment on above: Performed By: #### F T4, GFR, CMP, ANEU, TSH, VIDH, FERR, ADIFF, LIPID, CBC #### [address] [address] Albumin/Globulin [Mass ratio] 1.0 {ratio} Low 1.1-2.5 [facility] Comment on above: Performed By: #### F T4, GFR, CMP, ANEU, TSH, VIDH, FERR, ADIFF, LIPID, CBC #### [address] [address] ALP [Catalytic activity/Vol] 91 U/L Normal 40-135 [facility] Comment on above: Performed By: #### F T4, GFR, CMP, ANEU, TSH, VIDH, FERR, ADIFF, LIPID, CBC #### [address] [address] ALT [Catalytic activity/Vol] 28 U/L Normal 14-59 [facility] Comment on above: Performed By: #### F T4, GFR, CMP, ANEU, TSH, VIDH, FERR, ADIFF, LIPID, CBC #### [address] [address] AST [Catalytic activity/Vol] 22 U/L Normal 10-40 [facility] Comment on above: Performed By: #### F T4, GFR, CMP, ANEU, TSH, VIDH, FERR, ADIFF, LIPID, CBC #### [address] [address] Bili Total 0.4 mg/dL Normal 0.2-1.0 [facility] Comment on above: Result Comment: Use of this assay is not recommended for patients undergoing treatment with eltrombopag due to the potential for falsely elevated results. Performed By: #### F T4, GFR, CMP, ANEU, TSH, VIDH, FERR, ADIFF, LIPID, CBC #### [address] [address] BUN/Creatinine Ratio 16 ratio Normal 7-27 [facility] Comment on above: Performed By: #### F T4, GFR, CMP, ANEU, TSH, VIDH, FERR, ADIFF, LIPID, CBC #### [address] [address] Calcium [Mass/Vol] 9.4 mg/dL Normal 8.4-10.2 [facility] Comment on above: Performed By: #### F T4, GFR, CMP, ANEU, TSH, VIDH, FERR, ADIFF, LIPID, CBC #### [address] [address] Chloride [Moles/Vol] 105 mmol/L Normal 98-107 [facility] Comment on above: Performed By: #### F T4, GFR, CMP, ANEU, TSH, VIDH, FERR, ADIFF, LIPID, CBC #### [address] [address] CO2 [Moles/Vol] 27 mmol/L Normal 23-31 [facility] Comment on above: Performed By: #### F T4, GFR, CMP, ANEU, TSH, VIDH, FERR, ADIFF, LIPID, CBC #### [address] [address] Creatinine [Mass/Vol] 0.90 mg/dL Normal 0.51-0.95 [facility] Comment on above: Performed By: #### F T4, GFR, CMP, ANEU, TSH, VIDH, FERR, ADIFF, LIPID, CBC #### [address] [address] Electrolyte Balance 6.0 mEq/L Normal 4.0-15.0 [facility] Comment on above: Performed By: #### F T4, GFR, CMP, ANEU, TSH, VIDH, FERR, ADIFF, LIPID, CBC #### [address] [address] Globulin 3.5 G/dL Normal 2.7-4.4 [facility] Comment on above: Performed By: #### F T4, GFR, CMP, ANEU, TSH, VIDH, FERR, ADIFF, LIPID, CBC #### [address] [address] Glucose [Mass/Vol] 96 mg/dL Normal 83-110 [facility] Comment on above: Performed By: #### F T4, GFR, CMP, ANEU, TSH, VIDH, FERR, ADIFF, LIPID, CBC #### [address] [address] Potassium [Moles/Vol] 4.3 mmol/L Normal 3.5-5.1 [facility] Comment on above: Performed By: #### F T4, GFR, CMP, ANEU, TSH, VIDH, FERR, ADIFF, LIPID, CBC #### [address] [address] Sodium [Moles/Vol] 138 mmol/L Normal 136-145 [facility] Comment on above: Performed By: #### F T4, GFR, CMP, ANEU, TSH, VIDH, FERR, ADIFF, LIPID, CBC #### [address] [address] Total Protein 7.1 G/dL Normal 6.4-8.2 [facility] Comment on above: Performed By: #### F T4, GFR, CMP, ANEU, TSH, VIDH, FERR, ADIFF, LIPID, CBC #### [address] [address] Urea nitrogen [Mass/Vol] 14 mg/dL Normal 7-18 [facility] Comment on above: Performed By: #### F T4, GFR, CMP, ANEU, TSH, VIDH, FERR, ADIFF, LIPID, CBC #### [address] [address] FT3on 01-09-2025 Free T3 [Mass/Vol] 2.20 pg/mL Low 2.30-4.00 [facility] Comment on above: Performed By: #### F T4, GFR, CMP, ANEU, TSH, VIDH, FERR, ADIFF, LIPID, CBC #### [place] [address] [place], [place] [address] FT4on 01-09-2025 Free T4 [Mass/Vol] 1.05 ng/dL Normal 0.76-1.46 [facility] Comment on above: Performed By: #### F T4, GFR, CMP, ANEU, TSH, VIDH, FERR, ADIFF, LIPID, CBC #### [place] [address] [place], [place] [address] LABORATORYOrdered By: SYSTEM SYSTEM on 01-09-2025 25-hydroxyvitamin [...] 01-09-2025 Cholesterol [Mass/Vol] 194 mg/dL Normal 0-200 [facility] Comment on above: Result Comment: Chol esterol Reference Interval: Less than 200 Desirable 200-239 Borderline high risk 240 and above High risk Performed By: #### F T4, GFR, CMP, ANEU, TSH, VIDH, FERR, ADIFF, LIPID, CBC #### [address] [address] Cholesterol in HDL [Mass/Vol] 38 mg/dL Low 40-60 [facility] Comment on above: Performed By: #### F T4, GFR, CMP, ANEU, TSH, VIDH, FERR, ADIFF, LIPID, CBC #### [address] [address] Cholesterol in LDL [Mass/Vol] 126 mg/dL Normal 0-130 [facility] Comment on above: Performed By: #### F T4, GFR, CMP, ANEU, TSH, VIDH, FERR, ADIFF, LIPID, CBC #### [address] [address] Triglyceride [Mass/Vol] 149 mg/dL Normal 0-150 [facility] Comment on above: Result Comment: Trig lyceride Reference Interval: Less than 150 Normal 150-199 Borderline high risk 200-499 High risk 500 or higher Very high risk Performed By: #### F T4, GFR, CMP, ANEU, TSH, VIDH, FERR, ADIFF, LIPID, CBC #### [place] [address] [place], [place] [address] PBNPon 01-09-2025 Natriuretic peptide B (Bld) [Mass/Vol] 246 pg/mL Normal 0-450 [facility] Comment on above: Result Comment: NT-p roBNP results of less than 300 pg/mL effectively rules out acute congestive heart failure with 99% negative predictive value. Performed By: #### F T4, GFR, CMP, ANEU, TSH, VIDH, FERR, ADIFF, LIPID, CBC #### [place] [address] [place], [place] [address] TSHon 01-09-2025 TSH Qn 2.84 m[IU]/L Normal 0.36-3.74 [facility] Comment on above: Performed By: #### F T4, GFR, CMP, ANEU, TSH, VIDH, FERR, ADIFF, LIPID, CBC #### [address] [address] VIDHon 01-09-2025 Vit. D 25-Hydroxy 26.1 ng/mL Normal [facility] Comment on above: Result Comment: Inte rpretive Values Based on Total 25(OH) Vitamin D: Deficient <20 ng/mL Insufficient 20 - <30 ng/mL Sufficient 30-100 ng/mL Performed By: #### F T4, GFR, CMP, ANEU, TSH, VIDH, FERR, ADIFF, LIPID, CBC #### [address] [address] No Panel Informationon 01-03 Culture Wound Aerobe Rare normal skin fl ora present. Sensitivity testing not indicated. [facility] Work Phone: GS No organisms seen. [facility] Work Phone: SYNCTon 12-12-2024 Cells Counted (synovial) 100 Normal [facility] Comment on above: Result Comment: Cell differential is approximate due to debris, degenerated cells, and/or cell clumps seen. Performed By: #### S YNCT #### [address] [address] Lymphocytes/100 WBC (Bld) 19 % [facility] Comment on above: Performed By: #### S YNCT #### [address] [address] Mononuclear Cell % (synovial) 32 % [facility] Comment on above: Performed By: #### S YNCT #### [place] [phone] Synovial Lining Cell (synovial) 49 % [facility] Comment on above: Performed By: #### S YNCT #### [address] [address] Clarity (U) Cloudy [facility] Comment on above: Performed By: #### S YNCT #### [place] [phone] Color (U) Sl. [place] [facility] Comment on above: Performed By: #### S YNCT #### [address] [address] White Blood Cells (synovial) 120 /mm3 Normal 0-199 [facility] Comment on above: Result Comment: Cell count and differential are approximate due to debris and/or cell clumps seen, as well as cellular degeneration. Performed By: #### S YNCT #### [place] [phone] NM BONE THREE PHASE STUDY SC AN [...] Date: 06/14/2024 4:16:11 PM Ordering Provider: TAVO Mo [facility] .Auto Diffon 06-01-2024 Basophil, Absolute 0.0 10 3/mcL Normal 0.0-0.2 [facility] Comment on above: Performed By: #### F T4, GFR, CMP, ANEU, TSH, VIDH, FERR, ADIFF, LIPID, CBC #### [address] [address] Basophils/100 WBC (Bld) 0.8 % Normal 0.0-2.5 [facility] Comment on above: Performed By: #### F T4, GFR, CMP, ANEU, TSH, VIDH, FERR, ADIFF, LIPID, CBC #### [address] [address] Eosinophil, Absolute 0.1 10 3/mcL Normal 0.0-0.7 [facility] Comment on above: Performed By: #### F T4, GFR, CMP, ANEU, TSH, VIDH, FERR, ADIFF, LIPID, CBC #### [address] [address] Eosinophils/100 WBC (Bld) 2.3 % Normal 0.0-7.0 [facility] Comment on above: Performed By: #### F T4, GFR, CMP, ANEU, TSH, VIDH, FERR, ADIFF, LIPID, CBC #### [address] [address] Lymphocyte, Absolute 1.8 10 3/mcL Normal 0.9-4.3 [facility] Comment on above: Performed By: #### F T4, GFR, CMP, ANEU, TSH, VIDH, FERR, ADIFF, LIPID, CBC #### [address] [address] Lymphocytes/100 WBC (Bld) 29.4 % Normal 20.0-40.0 [facility] Comment on above: Performed By: #### F T4, GFR, CMP, ANEU, TSH, VIDH, FERR, ADIFF, LIPID, CBC #### [address] [address] Monocyte, Absolute 0.6 10 3/mcL Normal 0.1-1.4 [facility] Comment on above: Performed By: #### F T4, GFR, CMP, ANEU, TSH, VIDH, FERR, ADIFF, LIPID, CBC #### [address] [address] Monocytes/100 WBC (Bld) 10.1 % Normal 2.0-13.0 [facility] Comment on above: Performed By: #### F T4, GFR, CMP, ANEU, TSH, VIDH, FERR, ADIFF, LIPID, CBC #### [address] [address] Neutrophils/100 WBC (Bld) 57.4 % Normal 50.0-75.0 [facility] Comment on above: Performed By: #### F T4, GFR, CMP, ANEU, TSH, VIDH, FERR, ADIFF, LIPID, CBC #### [address] [address] .GFRon 06-01-2024 GFR 86 ml/min/1.73sqm Normal [facility] Comment on above: Result Comment: GFR Population [...] VIDH, FERR, ADIFF, LIPID, CBC #### [address] [address] GFR Non- 71 ml/min/1.73sqm Normal [facility] Comment on above: Result Comment: GFR Population [...] VIDH, FERR, ADIFF, LIPID, CBC #### [address] [address] .NEUABSon 06-01-2024 Neutrophil, Absolute 3.5 10 3/mcL Normal 2.3-8.1 [facility] Comment on above: Performed By: #### F T4, GFR, CMP, ANEU, TSH, VIDH, FERR, ADIFF, LIPID, CBC #### [address] [address] CBCon 06-01-2024 Erythrocyte distribution width (RBC) [Ratio] 14.0 % Normal 11.5-15.5 [facility] Comment on above: Performed By: #### F T4, GFR, CMP, ANEU, TSH, VIDH, FERR, ADIFF, LIPID, CBC #### [address] [address] Hematocrit (Bld) [Volume fraction] 43.4 % Normal 34.0-46.0 [facility] Comment on above: Performed By: #### F T4, GFR, CMP, ANEU, TSH, VIDH, FERR, ADIFF, LIPID, CBC #### [address] [address] Hgb 14.4 G/dL Normal 12.0-16.0 [facility] Comment on above: Performed By: #### F T4, GFR, CMP, ANEU, TSH, VIDH, FERR, ADIFF, LIPID, CBC #### [address] [address] MCH (RBC) [Entitic mass] 29.9 pg Normal 27.0-33.0 [facility] Comment on above: Performed By: #### F T4, GFR, CMP, ANEU, TSH, VIDH, FERR, ADIFF, LIPID, CBC #### [address] [address] MCHC 33.1 G/dL Normal 32.0-36.0 [facility] Comment on above: Performed By: #### F T4, GFR, CMP, ANEU, TSH, VIDH, FERR, ADIFF, LIPID, CBC #### [address] [address] MCV (RBC) [Entitic vol] 90.5 fL Normal 80.0-99.0 [facility] Comment on above: Performed By: #### F T4, GFR, CMP, ANEU, TSH, VIDH, FERR, ADIFF, LIPID, CBC #### [address] [address] Platelet 248 10 3/mcL Normal 150-450 [facility] Comment on above: Performed By: #### F T4, GFR, CMP, ANEU, TSH, VIDH, FERR, ADIFF, LIPID, CBC #### [address] [address] Platelet mean volume (Bld) [Entitic vol] 9.3 fL Normal 6.6-10.5 [facility] Comment on above: Performed By: #### F T4, GFR, CMP, ANEU, TSH, VIDH, FERR, ADIFF, LIPID, CBC #### [address] [address] RBC 4.80 10 6/mcL Normal 4.10-5.30 [facility] Comment on above: Performed By: #### F T4, GFR, CMP, ANEU, TSH, VIDH, FERR, ADIFF, LIPID, CBC #### [address] [address] WBC 6.0 10 3/mcL Normal 4.5-10.8 [facility] Comment on above: Performed By: #### F T4, GFR, CMP, ANEU, TSH, VIDH, FERR, ADIFF, LIPID, CBC #### [address] [address] CMPon 06-01-2024 Albumin Level 3.6 G/dL Normal 3.4-4.8 [facility] Comment on above: Performed By: #### F T4, GFR, CMP, ANEU, TSH, VIDH, FERR, ADIFF, LIPID, CBC #### [address] [address] Albumin/Globulin [Mass ratio] 1.2 {ratio} Normal 1.1-2.5 [facility] Comment on above: Performed By: #### F T4, GFR, CMP, ANEU, TSH, VIDH, FERR, ADIFF, LIPID, CBC #### [address] [address] ALP [Catalytic activity/Vol] 84 U/L Normal 40-135 [facility] Comment on above: Performed By: #### F T4, GFR, CMP, ANEU, TSH, VIDH, FERR, ADIFF, LIPID, CBC #### [address] [address] ALT [Catalytic activity/Vol] 29 U/L Normal 14-59 [facility] Comment on above: Performed By: #### F T4, GFR, CMP, ANEU, TSH, VIDH, FERR, ADIFF, LIPID, CBC #### [address] [address] AST [Catalytic activity/Vol] 16 U/L Normal 10-40 [facility] Comment on above: Performed By: #### F T4, GFR, CMP, ANEU, TSH, VIDH, FERR, ADIFF, LIPID, CBC #### [address] [address] Bili Total 0.4 mg/dL Normal 0.2-1.0 [facility] Comment on above: Result Comment: Use of this assay is not recommended for patients undergoing treatment with eltrombopag due to the potential for falsely elevated results. Performed By: #### F T4, GFR, CMP, ANEU, TSH, VIDH, FERR, ADIFF, LIPID, CBC #### [address] [address] BUN/Creatinine Ratio 24 ratio Normal 7-27 [facility] Comment on above: Performed By: #### F T4, GFR, CMP, ANEU, TSH, VIDH, FERR, ADIFF, LIPID, CBC #### [address] [address] Calcium [Mass/Vol] 9.6 mg/dL Normal 8.4-10.2 [facility] Comment on above: Performed By: #### F T4, GFR, CMP, ANEU, TSH, VIDH, FERR, ADIFF, LIPID, CBC #### [address] [address] Chloride [Moles/Vol] 104 mmol/L Normal 98-107 [facility] Comment on above: Performed By: #### F T4, GFR, CMP, ANEU, TSH, VIDH, FERR, ADIFF, LIPID, CBC #### [address] [address] CO2 [Moles/Vol] 29 mmol/L Normal 23-31 [facility] Comment on above: Performed By: #### F T4, GFR, CMP, ANEU, TSH, VIDH, FERR, ADIFF, LIPID, CBC #### [address] [address] Creatinine [Mass/Vol] 0.79 mg/dL Normal 0.55-1.02 [facility] Comment on above: Result Comment: Test ing performed on Siemens Dimension EXL analyzer using a modified kinetic Antonio technique. Performed By: #### F T4, GFR, CMP, ANEU, TSH, VIDH, FERR, ADIFF, LIPID, CBC #### [address] [address] Electrolyte Balance 6.0 mEq/L Normal 4.0-15.0 [facility] Comment on above: Performed By: #### F T4, GFR, CMP, ANEU, TSH, VIDH, FERR, ADIFF, LIPID, CBC #### [address] [address] Globulin 2.9 G/dL Normal [facility] Comment on above: Performed By: #### F T4, GFR, CMP, ANEU, TSH, VIDH, FERR, ADIFF, LIPID, CBC #### [address] [address] Glucose [Mass/Vol] 95 mg/dL Normal 83-110 [facility] Comment on above: Performed By: #### F T4, GFR, CMP, ANEU, TSH, VIDH, FERR, ADIFF, LIPID, CBC #### [address] [address] Potassium [Moles/Vol] 4.3 mmol/L Normal 3.5-5.1 [facility] Comment on above: Performed By: #### F T4, GFR, CMP, ANEU, TSH, VIDH, FERR, ADIFF, LIPID, CBC #### [address] [address] Sodium [Moles/Vol] 139 mmol/L Normal 136-145 [facility] Comment on above: Performed By: #### F T4, GFR, CMP, ANEU, TSH, VIDH, FERR, ADIFF, LIPID, CBC #### [address] [address] Total Protein 6.5 G/dL Normal 6.4-8.2 [facility] Comment on above: Performed By: #### F T4, GFR, CMP, ANEU, TSH, VIDH, FERR, ADIFF, LIPID, CBC #### [address] [address] Urea nitrogen [Mass/Vol] 19 mg/dL High 7-18 [facility] Comment on above: Performed By: #### F T4, GFR, CMP, ANEU, TSH, VIDH, FERR, ADIFF, LIPID, CBC #### [id number] [place], [place] [address] Nik 06-01-2024 Ferritin [Mass/Vol] 308.0 ng/mL High 8.0-252.0 [facility] [facility] Comment on above: Performed By: #### F T4, GFR, CMP, ANEU, TSH, VIDH, FERR, ADIFF, LIPID, CBC #### [address] [address] FT4on 06-01-2024 Free T4 [Mass/Vol] 0.82 ng/dL Normal 0.76-1.46 [facility] Comment on above: Performed By: #### F T4, GFR, CMP, ANEU, TSH, VIDH, FERR, ADIFF, LIPID, CBC #### [address] [address] LABORATORYOrdered By: SYSTEM SYSTEM on 06-01-2024 25-hydroxyvitamin [...] [Vol rate/Area] 71 ml/min/1.73sqm Invalid Interpretation Code DAVID Chemistry S Comment on above: Interpretive Data: [...] 06-01-2024 Cholesterol [Mass/Vol] 219 mg/dL High 0-200 [facility] Comment on above: Result Comment: Chol esterol Reference Interval: Less than 200 Desirable 200-239 Borderline high risk 240 and above High risk Performed By: #### F T4, GFR, CMP, ANEU, TSH, VIDH, FERR, ADIFF, LIPID, CBC #### [address] [address] Cholesterol in HDL [Mass/Vol] 45 mg/dL Normal 40-60 [facility] Comment on above: Performed By: #### F T4, GFR, CMP, ANEU, TSH, VIDH, FERR, ADIFF, LIPID, CBC #### [address] [address] Cholesterol in LDL [Mass/Vol] 141 mg/dL High 0-130 [facility] Comment on above: Performed By: #### F T4, GFR, CMP, ANEU, TSH, VIDH, FERR, ADIFF, LIPID, CBC #### [address] [address] Triglyceride [Mass/Vol] 165 mg/dL High 0-150 [facility] Comment on above: Result Comment: Trig lyceride Reference Interval: Less than 150 Normal 150-199 Borderline high risk 200-499 High risk 500 or higher Very high risk Performed By: #### F T4, GFR, CMP, ANEU, TSH, VIDH, FERR, ADIFF, LIPID, CBC #### [address] [address] TSHon 06-01-2024 TSH Qn 2.06 m[IU]/L Normal 0.36-3.74 [facility] Comment on above: Performed By: #### F T4, GFR, CMP, ANEU, TSH, VIDH, FERR, ADIFF, LIPID, CBC #### [address] [address] VIDHon 06-01-2024 Vit. D 25-Hydroxy 27.4 ng/mL Normal [facility] Comment on above: Result Comment: Inte rpretive Values Based on Total 25(OH) Vitamin D: Deficient <20 ng/mL Insufficient 20 - <30 ng/mL Sufficient 30-100 ng/mL Performed By: #### F T4, GFR, CMP, ANEU, TSH, VIDH, FERR, ADIFF, LIPID, CBC #### [address] [place], [place] [address] CRPon 05-16-2024 CRP [Mass/Vol] mg/L Normal 0.0-1.0 [facility] Comment on above: Result Comment: No te - New Reference Range in effect 20 Performed By: #### E SR, CRP #### [address] [address] ESRon 05-16-2024 Erythrocyte Sed Rate 3 mm/hr Normal 0-30 [facility] Comment on above: Performed By: #### E SR, CRP #### [address] [address] .GFRon 05-06-2023 GFR 95 ml/min/1.73sqm Normal [facility] ([place]) Comment on above: Result Comment: GFR Population [...] VIDH, TSH, FT4, CMP, GFR #### [address] [address] GFR Non- 79 ml/min/1.73sqm Normal [facility] ([place]) Comment on above: Result Comment: GFR Population [...] VIDH, TSH, FT4, CMP, GFR #### [address] [address] CMPon 05-06-2023 Albumin Level 3.8 G/dL Normal 3.4-4.8 [facility] ([place]) Comment on above: Performed By: #### L IPID, VIDH, TSH, FT4, CMP, GFR #### [address] [address] Albumin/Globulin [Mass ratio] 1.2 {ratio} Normal 1.1-2.5 [facility] ([place]) Comment on above: Performed By: #### L IPID, VIDH, TSH, FT4, CMP, GFR #### [address] [address] ALP [Catalytic activity/Vol] 72 U/L Normal 40-135 [facility] ([place]) Comment on above: Performed By: #### L IPID, VIDH, TSH, FT4, CMP, GFR #### [address] [address] ALT [Catalytic activity/Vol] 25 U/L Normal 14-59 [facility] ([place]) Comment on above: Performed By: #### L IPID, VIDH, TSH, FT4, CMP, GFR #### [address] [address] AST [Catalytic activity/Vol] 20 U/L Normal 10-40 [facility] ([place]) Comment on above: Performed By: #### L IPID, VIDH, TSH, FT4, CMP, GFR #### [address] [address] Bili Total 0.5 mg/dL Normal 0.2-1.0 [facility] ([place]) Comment on above: Result Comment: Use of this assay is not recommended for patients undergoing treatment with eltrombopag due to the potential for falsely elevated results. Performed By: #### L IPID, VIDH, TSH, FT4, CMP, GFR #### [address] [address] BUN/Creatinine Ratio 22 ratio Normal 7-27 [facility] ([place]) Comment on above: Performed By: #### L IPID, VIDH, TSH, FT4, CMP, GFR #### [address] [address] Calcium [Mass/Vol] 9.3 mg/dL Normal 8.4-10.2 [facility] ([place]) Comment on above: Performed By: #### L IPID, VIDH, TSH, FT4, CMP, GFR #### [address] [address] Chloride [Moles/Vol] 103 mmol/L Normal 98-107 [facility] ([place]) Comment on above: Performed By: #### L IPID, VIDH, TSH, FT4, CMP, GFR #### [address] [address] CO2 [Moles/Vol] 28 mmol/L Normal 23-31 [facility] ([place]) Comment on above: Performed By: #### L IPID, VIDH, TSH, FT4, CMP, GFR #### [address] [address] Creatinine [Mass/Vol] 0.72 mg/dL Normal 0.55-1.02 [facility] ([place]) Comment on above: Performed By: #### L IPID, VIDH, TSH, FT4, CMP, GFR #### [address] [address] Electrolyte Balance 7.0 mEq/L Normal 4.0-15.0 [facility] ([place]) Comment on above: Performed By: #### L IPID, VIDH, TSH, FT4, CMP, GFR #### [address] [address] Globulin 3.1 G/dL Normal [facility] ([place]) Comment on above: Performed By: #### L IPID, VIDH, TSH, FT4, CMP, GFR #### [address] [address] Glucose [Mass/Vol] 95 mg/dL Normal 83-110 [facility] ([place]) Comment on above: Performed By: #### L IPID, VIDH, TSH, FT4, CMP, GFR #### [address] [address] Potassium [Moles/Vol] 4.5 mmol/L Normal 3.5-5.1 [facility] ([place]) Comment on above: Performed By: #### L IPID, VIDH, TSH, FT4, CMP, GFR #### [address] [address] Sodium [Moles/Vol] 138 mmol/L Normal 136-145 [facility] ([place]) Comment on above: Performed By: #### L IPID, VIDH, TSH, FT4, CMP, GFR #### [address] [address] Total Protein 6.9 G/dL Normal 6.4-8.2 [facility] ([place]) Comment on above: Performed By: #### L IPID, VIDH, TSH, FT4, CMP, GFR #### [address] [address] Urea nitrogen [Mass/Vol] 16 mg/dL Normal 7-18 [facility] ([place]) Comment on above: Performed By: #### L IPID, VIDH, TSH, FT4, CMP, GFR #### [address] [place], [place] [address] FT4on 05-06-2023 Free T4 [Mass/Vol] 0.99 ng/dL Normal 0.76-1.46 [facility] ([place]) Comment on above: Performed By: #### L IPID, VIDH, TSH, FT4, CMP, GFR #### [address] [place], [place] [address] LABORATORYOrdered By: SYSTEM SYSTEM on 05-06-2023 25-hydroxyvitamin [...] [Mass ratio] 22 ratio Invalid Interpretation Code 7 - 27 ratio AO ADM SS LABORATORYOrdered By: Trinidad [...] 05-06-2023 Cholesterol [Mass/Vol] 232 mg/dL High 0-200 [facility] ([place]) Comment on above: Result Comment: Chol esterol Reference Interval: Less than 200 Desirable 200-239 Borderline high risk 240 and above High risk Performed By: #### L IPID, VIDH, TSH, FT4, CMP, GFR #### [address] [place], [place] [address] Cholesterol in HDL [Mass/Vol] 38 mg/dL Low 40-60 [facility] ([place] Comment on above: Performed By: #### L IPID, VIDH, TSH, FT4, CMP, GFR #### [place] [address] Cholesterol in LDL [Mass/Vol] 148 mg/dL High 0-130 [facility] ([place]) Comment on above: Performed By: #### L IPID, VIDH, TSH, FT4, CMP, GFR #### [address] [address] Triglyceride [Mass/Vol] 231 mg/dL High 0-150 [facility] ([place]) Comment on above: Result Comment: Trig lyceride Reference Interval: Less than 150 Normal 150-199 Borderline high risk 200-499 High risk 500 or higher Very high risk Performed By: #### L IPID, VIDH, TSH, FT4, CMP, GFR #### [place] [address] TSHon 05-06-2023 TSH Qn 1.44 m[IU]/L Normal 0.36-3.74 [facility] ([place]) Comment on above: Performed By: #### L IPID, VIDH, TSH, FT4, CMP, GFR #### [place] [address] VIDHon 05-06-2023 Vit. D 25-Hydroxy 25.6 ng/mL Normal [facility] ([place]) Comment on above: Result Comment: Inte rpretive Values Based on Total 25(OH) Vitamin D: Deficient <20 ng/mL Insufficient 20 - <30 ng/mL Sufficient 30-100 ng/mL Performed By: #### L IPID, VIDH, TSH, FT4, CMP, GFR #### [place] [address] LABORATORYOrdered By: Irina Nation on 04-23-2022 HbA1c [...] Time Vital Sign Value Performing Clinician Faci lity 05-24-2025 14:00-0400 Body height 176.[address] Jimmy Shrestha MD Work Phone: [facility] 05-24-2025 14:00-0400 Body mass index (BMI) [Ratio] 33.5 kg/m2 Dr. Jimmy Shrestha MD Work Phone: [facility] 05-24-2025 14:00-0400 Body weight 104.[address] Jimmy Shrestha MD Work Phone: [facility] 05-24-2025 14:00-0400 Diastolic blood pressure 74 mm[Hg] Dr. Jimmy Shrestha MD Work Phone: [facility] 05-24-2025 14:00-0400 Heart rate 79 /min Dr. Jimmy Shrestha MD Work Phone: [facility] 05-24-2025 14:00-0400 Respiratory rate 18 /min Dr. Jimmy Shrestha MD Work Phone: [facility] 05-24-2025 14:00-0400 SaO2% (BldA) [Mass fraction] 91 % Dr. Jimmy Shrestha MD Work Phone: [facility] 05-24-2025 14:00-0400 Systolic blood pressure 160 mm[Hg] Dr. Jimmy Shrestha MD Work Phone: [facility] 04-17-2025 13:43-0400 Body height 176.[address] Jimmy Shrestha MD Work Phone: [facility] 04-17-2025 13:43-0400 Body mass index (BMI) [Ratio] 33.7 kg/m2 Dr. Jimmy Shrestha MD Work Phone: [facility] 04-17-2025 13:43-0400 Body temperature 97.3 [degF] Dr. Jimmy Shrestha MD Work Phone: [facility] 04-17-2025 13:43-0400 Body weight 105.[address] Jimmy Shrestha MD Work Phone: [facility] 04-17-2025 13:43-0400 Diastolic blood pressure 73 mm[Hg] Dr. Jimmy Shrestha MD Work Phone: [facility] 04-17-2025 13:43-0400 Heart rate 66 /min Dr. Jimmy Shrestha MD Work Phone: [facility] 04-17-2025 13:43-0400 Respiratory rate 16 /min Dr. Jimmy Shrestha MD Work Phone: [facility] 04-17-2025 13:43-0400 SaO2% (BldA) [Mass fraction] 91 % Dr. Jimmy Shrestha MD Work Phone: [facility] 04-17-2025 13:43-0400 Systolic blood pressure 139 mm[Hg] Dr. Jimmy Shrestha MD Work Phone: [facility] 03-09-2025 10:18-0400 Body temperature 97.9 [degF] Dr. Jimmy Shrestha MD Work Phone: [facility] 03-09-2025 10:18-0400 Diastolic blood pressure 90 mm[Hg] Dr. Jimmy Shrestha MD Work Phone: [facility] 03-09-2025 10:18-0400 Heart rate 64 /min Dr. Jimmy Shrestha MD Work Phone: [facility] 03-09-2025 10:18-0400 Respiratory rate 16 /min Dr. Jimmy Shrestha MD Work Phone: [facility] 03-09-2025 10:18-0400 SaO2% (BldA) [Mass fraction] 97 % Dr. Jimmy Shrestha MD Work Phone: [facility] 03-09-2025 10:18-0400 Systolic blood pressure 112 mm[Hg] Dr. Jimmy Shrestha MD Work Phone: [facility] 03-09-2025 08:36-0400 Body height 176.[address] Jimmy Shrestha MD Work Phone: [facility] 03-09-2025 08:36-0400 Body mass index (BMI) [Ratio] 33.6 kg/m2 Dr. Jimmy Shrestha MD Work Phone: [facility] 03-09-2025 08:36-0400 Body weight 104.[address] Jimmy Shrestha MD Work Phone: [facility] 01-31-2025 14:23-0400 Body height 176.[address] Jimmy Shrestha MD Work Phone: [facility] 01-31-2025 14:23-0400 Body mass index (BMI) [Ratio] 34 kg/m2 Dr. Jimmy Shrestha MD Work Phone: [facility] 01-31-2025 14:23-0400 Body weight 106.[address] Jimmy Shrestha MD Work Phone: [facility] 01-31-2025 14:23-0400 Diastolic blood pressure 81 mm[Hg] Dr. Jimmy Shrestha MD Work Phone: [facility] 01-31-2025 14:23-0400 Heart rate 72 /min Dr. Jimmy Shrestha MD Work Phone: [facility] 01-31-2025 14:23-0400 SaO2% (BldA) [Mass fraction] 91 % Dr. Jimmy Shrestha MD Work Phone: [facility] 01-31-2025 14:23-0400 Systolic blood pressure 170 mm[Hg] Dr. Jimmy Shrestha MD Work Phone: [facility] Encounters Encounter Date Encounter Type Care Provider Facility Start: 06-19-2025 ambulatory Jimmy Paulo Facility: [facility] Start: 06-12-2025 End: 06-12-2025 ambulatory Jimmy Shrestha Facility:[facility] Start: 06-06-2025 ambulatory Malissa Valentin ty:[facility] Start: 05-24-2025 End: 05-24-[address] Mendoza Wheat MD -[facility] Work Phone: Start: 05-24-2025 End: 05-24-[address] Jimmy Shrestha MD Work Phone: -[facility] Start: 04-17-2025 End: 04-17-2025 Patient encounter procedure Malissa LORENZANA -[facility] Work Phone: Start: 04-17-2025 End: 04-17-[address] Jimmy Shrestha MD Work Phone: -[facility] Start: 04-04-2025 Non-patient / Non-visit Dr. Jeferson Phipps MD -[facility] Work Phone: Start: 04-04-2025 End: 04-04-[address] Jimmy Shrestha MD Work Phone: -Pulmonary Services/Neurology Start: 04-04-2025 End: 04-04-2025 Patient encounter procedure Graciela LORENZANA -P[facility] Services/Neurology Work Phone: Start: 04-04-2025 End: 04-04-2025 ambulatory Jimmy Shrestha Facility:[facility] Start: 03-23-2025 End: 03-23-2025 Patient encounter procedure Graciela LORENZANA -[facility] Work Phone: Start: 03-23-2025 End: 03-23-[address] Jimmy Shrestha MD Work Phone: -[facility] Start: 03-23-2025 End: 03-23-2025 ambulatory Jimmy Shrestha Facility:[facility] Start: 03-09-2025 Non-patient / Non-visit Arsalan Orellana DO -[facility] Start: 03-09-2025 End: 03-09-2025 Admission to same day surgery center Arsalanjaymie Orellana DO -Endoscopy Work Phone: Start: 03-09-2025 End: 03-09-[address] Jimmy Shrestha MD Work Phone: -Endoscopy Start: 02-11-2025 End: 02-11-[address] Jimmy Shrestha MD Work Phone: -Laboratory Start: 02-11-2025 End: 02-11-2025 Patient encounter procedure Graciela Zuleta NP-C -Laboratory Work Phone: Start: 02-11-2025 End: 02-11-2025 ambulatory Jimmy Shrestha Facility:[facility] Start: 02-09-2025 End: 02-09-2025 Patient encounter procedure Graciela Zuleta NP-C -[facility] Work Phone: Start: 02-09-2025 End: 02-09-[address] Jimmy Shrestha MD Work Phone: -[facility] Start: 02-09-2025 End: 02-09-2025 ambulatory Jimmy Shrestha Facility:[facility] Start: 02-06-2025 End: 02-06-[address] Jimmy Shrestha MD Work Phone: -Laboratory Start: 02-06-2025 End: 02-06-2025 Patient encounter procedure Graciela Zuleta NP-C -Laboratory Work Phone: Start: 02-06-2025 End: 02-06-2025 ambulatory Jimmy Shrestha Facility:[facility] Start: 01-31-2025 End: 01-31-2025 Patient encounter procedure Graciela WHEELERC -[facility] Work Phone: Start: 01-31-2025 End: 01-31-[address] Jimmy Shrestha MD Work Phone: [facility] Work Phone: Start: 01-18-2025 End: 01-18-2025 ambulatory JIMMY SHRESTHA MD Facility[facility] Start: 01-18-2025 End: 01-18-2025 Patient encounter procedure JIMMY SHRESTHA MD [facility] Start: 01-09-2025 End: 01-13-2025 ambulatory JIMMY SHRESTHA MD Facility[facility] Start: 01-09-2025 End: 01-13-2025 Outreach Lab JIMMY SHRESTHA MD [facility] Start: 01-03-2025 End: 01-07-2025 ambulatory JIMMY SHRESTHA MD Facility:[facility] Start: 01-03-2025 End: 01-07-2025 Outreach Lab JIMMY SHRESTHA MD [facility] Start: 10-19-2024 End: 11-17-2024 ambulatory JIMMY SHRESTHA MD Facility:A Start: 08-16-2024 ambulatory JIMMY SHRESTHA MD Faci lity:[facility] Start: 07-21-2024 End: 07-25-2024 ambulatory JIMMY SHRESTHA MD Facility:A Start: 06-22-2024 End: 06-22-2024 ambulatory JIMMY SHRESTHA MD Facility:[facility] Start: 06-22-2024 End: 06-22-2024 Patient encounter procedure JIMMY SHRESTHA MD [facility] Start: 06-13-2024 End: 06-13-2024 ambulatory TAVO VAZQUEZ MD Facility:[facility] Start: 06-13-2024 End: 06-13-2024 Patient encounter procedure TAVO VAZQUEZ MD [facility] Start: 06-01-2024 End: 06-05-2024 ambulatory JIMMY SHRESTHA MD Facility:[facility] Start: 06-01-2024 End: 06-05-2024 Encounter for general adult medical examination without abnormal findings JIMMY SHRESTHA MD Facility:[facility] Start: 06-01-2024 End: 06-05-2024 Outreach Lab JIMMY SHRESTHA MD [facility] Start: 05-16-2024 End: 05-16-2024 ambulatory TAVO VAZQUEZ MD Facility:[facility] Start: 05-06-2023 End: 05-11-2023 ambulatory JIMMY SHRESTHA MD Facility:[facility] Start: 05-06-2023 End: 05-10-2023 Outreach Lab JIMMY SHRESTHA MD [facility] Start: 05-21-2022 End: 07-02-[address] KASEY GARCIA MD Facility:[facility] Start: 04-24-2022 End: 04-24-[address] KASEY GARCIA MD [facility] Start: 04-23-2022 End: 04-23-2022 Patient encounter procedure JIMMY SHRESTHA MD [facility] Start: 05-30-2021 End: 06-03-2021 Outreach Lab JIMMY SHRESTHA MD [facility] Procedures Date Procedure Procedure Detail Performing Clinician Start: 03-23-2025 In-vitro immunologic test Dr. Jimmy mahan MD Work Phone: Comment on above: QuantiFERON-TB Gold Plus is a qualitativ e indirect test forM tuberculosis infection (including disease) and isintended for use in conjunction with risk assessment,radiography, and other medical and diagnostic evaluations.The QuantiFERON-TB Gold Plus result is determined bysubtracting the Nil value from either TB antigen (Ag)value. The Mitogen tube serves as a control for the test. No response to M tub erculosis antigens detected.Infection with M tuberculosis is unlikely, but high riskindividuals should be considered for additional testing(ATS/IDSA/CDC Clinical Practice Guidelines, 2017). Thereference range is an Antigen minus Nil result of <0.35IU/mL.The specimen received for QuantiFERON testing was incubatedby the ordering institution. Specific procedures outlinedin our Directory of Services and in the package insert forthe QuantiFERON Gold (In Tube) test must be followed toenable for proper stimulation of cells for the productionof interferon gamma. Chemiluminescence immunoassaymethodologyPerformed at: [place] [id number] Director: Joni Pimentel PhD, Phone: [phone] Start: 03-09-[address] Conor Shrestha MD Work Phone: Start: 03-09-[address] Jimmy Shrestha MD Work Phone: Start: 03-09-2025 Iadna-dna/rna gi pthgn multiplex probe tq 6-11 Dr. Jimmy Shrestha MD Work Phone: Start: 03-09-[address] Jimmy Shrestha MD Work Phone: Start: 02-11-2025 Measurement of occult blood in stool specimen using immunoassay Dr. Jimmy Shrestha MD Work Phone: Start: 02-09-2025 Plain X-ray abdomen Dr. Jimmy Shrestha MD Work Phone: Start: 12-06-2020 Lipoma (disorder) JIMMY SHRESTHA MD Comment on above: removed from back Plan of Treatment Date Care Activity Detail Author Start: 06-05-2025 Protein measurement [facility] Start: 03-23-2025 [facility] Start: 03-09-2025 Clostridioides difficile (PCR) Clostridioides difficile (PCR) [facility] Start: 03-09-2025 Colonoscopy w/biopsy single/multiple COLONOSCOPY AND BIOPSY [facility] Start: 03-09-2025 Enteric Bacteriology Enteric Bacteriology [facility] Start: 03-09-2025 Patient discharge [facility] Basic metabolic 2008 panel with ionized calcium - Serum or Plasma [facility] C reactive protein [Mass/volume] in Serum or Plasma [facility] C reactive protein [Mass/volume] in Serum or Plasma [facility] CBC W Auto Different ial panel - Blood [facility] CBC W Auto Different ial panel - Blood [facility] Clostridioides diffi cile DNA [Presence] in Unspecified specimen by MARK with probe detection [facility] metabo lic 1999 panel - Serum or Plasma [facility] metabo lic 1999 panel - Serum or Plasma [facility] Electrocardiographic procedure [facility] Erythrocyte sedimentation rate [facility] Hepatitis B virus co re Ab [Presence] in Serum [facility] Hepatitis B virus [place] rface Ab [Presence] in Serum [facility] In-vitro immunologic test [facility] Lactate dehydrogenas e measurement [facility] Nucleic acid assay [facility] Protein measurement [facility] Protein measurement [facility] XR Abdomen Single view [facility] Immunizations Immunization Date Immunization Notes Care Provider Fa [facility] 05-25-2024 influenza virus vacc ine, unspecified formulation JIMMY SHRESTHA MD [facility] 06-23-2023 SARS-CoV-2 (COVID-19 ) [id number] JIMMY SHRESTHA MD [facility] 06-15-2023 influenza virus vacc ine, unspecified formulation JIMMY SHRESTHA MD [facility] 06-18-2022 influenza virus vacc ine, unspecified formulation JIMMY SHRESTHA MD [facility] 12-19-2021 SARS-CoV-2 mRNA (kzfeiswwprg-kzzz-icgnio e) vaccine JIMMY SHRESTHA MD [facility] 06-24-2021 influenza virus vacc ine, unspecified formulation JIMMY SHRESTHA MD [facility] 05-23-2021 SARS-CoV-2 mRNA (tozinameran) vaccine JIMMY SHRESTHA MD [facility] 11-01-2020 SARS-CoV-2 mRNA (tozinameran) vaccine JIMMY SHRESTHA MD [facility] 10-11-2020 SARS-CoV-2 mRNA (tozinameran) vaccine JIMMY SHRESTHA MD [facility] Comment on above: Result Comment: 2020: [id number] 05-23-2020 influenza virus vacc ine, unspecified formulation JIMMY SHRESTHA MD [facility] 05-11-2019 influenza virus vacc ine, unspecified formulation JIMMY SHRESTHA MD [facility] 05-31-2018 influenza virus vacc ine, unspecified formulation JIMMY SHRESTHA MD [facility] 05-25-2017 influenza virus vacc ine, unspecified formulation JIMMY SHRESTHA MD [facility] 05-12-2016 influenza virus vacc ine, unspecified formulation JIMMY SHRESTHA MD [facility] 05-15-2015 influenza virus vacc ine, unspecified formulation JIMMY SHRESTHA MD [facility] 05-20-2013 influenza virus vacc ine, unspecified formulation JIMMY SHRESTHA MD [facility] 05-15-2012 influenza virus vacc ine, unspecified formulation JIMMY SHRESTHA MD [facility] 12-29-2011 pneumococcal polysaccharide vaccine, 23 valent JIMMY SHRESTHA MD [facility] 12-10-2011 tetanus toxoid, redu china diphtheria toxoid, and acellular pertussis vaccine, adsorbed JIMMY SHRESTHA MD [facility] Payers Date Payer Category Payer Self-pay 2023 Private Health Insurance [id number] 2022 Private Health Insurance [id number] 1945 Unknown [id number] 2.16.8 [id number] 1947 Unknown [id number] 2.16.8 [id number] 1947 Unknown [id number] 2.16.8 [id number] 1947 Unknown [id number] 2.16.8 [id number] 1947 Unknown [id number] 2.16.8 [id number] 1947 Unknown [id number] 2.16.8 [id number] 1947 Unknown [id number] 2.16. [id number] 1947 Unknown [id number] 2.16. [id number] 1947 Unknown [id number] 2.16.8 [id number] 1947 Unknown [id number] 2.16.8 40.1.087906.3.579.2 1947 Unknown [id number] 2.16.8 [id number] 1947 Unknown [id number] 2.16.8 [id number] 1945 Unknown [id number] 2.16.8 [id number] Medicare [id number] Unknown [id number] 2.16.8 40.1.160213.3.579.2.462 Unknown [id number] 2.16.8 40.1.610645.3.579.2.462 Unknown [id number] 2.16.8 40.1.265878.3.579.2.462 Unknown [id number] 2.16.8 40.1.297610.3.579.2.462 Unknown [id number] 2.16.8 40.1.409659.3.579.2.462 Unknown [id number] 2.16.8 40.1.409700.3.579.2.462 Unknown [id number] 2.16.8 40.1.362528.3.579.2.462 Unknown [id number] 2.16.8 40.1.034479.3.579.2.462 Unknown [id number] 2.16.8 40.1.606752.3.579.2.462 Unknown [id number] 2.16.8 40.1.545921.3.579.2.462 Unknown [id number] 2.16.8 40.1.394697.3.579.2.462 Unknown [id number] 2.16.8 40.1.922023.3.579.2.462 Unknown [id number] 2.16.8 40.1.822167.3.579.2.462 Unknown [id number] 2.16.8 40.1.614075.3.579.2.462 Unknown [id number] 2.16.8 40.1.226943.3.579.2.462 Unknown [id number] 2.16.8 40.1.990573.3.579.2.462 Unknown [id number] 2.16.8 40.1.844276.3.579.2.462 Social History Date Type Detail Facility Start: 01-31-2020 End: 04-18-2025 Never smoked tobacco (finding) [facility] Start: 1945 Sex Assigned At Female A [facility] Sexual Orientation [facility] Start: 02-02-2019 Sex Female (finding) [facility] Tobacco smoking stat us MNIS Unknown if ever smoked [facility] Work Phone: Not [facility] Goals Date Patient Goal Desired Activity /State Mental Status Date Assessment Result Facility 03-09-2025 Cognitive function Level Of Cons ciousness Follows Commands;Drowsy [facility] Work Phone: 03-09-2025 Cognitive function Voice/Name [facility] Work Phone: Clinical Notes 05-28-2021 to 05-24-2025 Note Date & Type Note Facility 05-24-2025 Progress note [facility] 05-24-2025 Progress note Note Date/Time May 24, 2025 2:56pm [facility] [address] [place] [address] OFFICE VISIT Date of Service: 05/24/25 MR#: [id number] Acct: [id number] Name: NAT FOX Rep #: [id number] : 1945 Provider: Dr. Antony Wheat MD Age/Sex: 80/F Location: [facility] Status: Signed HPI HPI History of Present Illness Details: Patient is a pleasant 80-year-old white female referred from Dr. Orellana for abnormal ECG. She is here with her for a new patient visit. Patient reports that she was being evaluated for special type of medication for ulcerative colitis and required an ECG to be done. On April 04, 2025 her ECG was read as normal sinus rhythm with LVH with repolarization abnormality and abnormal. The patient has significant voltage criteria with ST-T wave changes consistent with LVH in leads I, aVL and V4 through V6. Patient has no prior cardiac history that she is aware of. She does have a fairly longstanding history of hypertension blood pressure in office today is 160/74 when she was in the GI office recently it was 179/73 when she was saw orthopedics it was 170/90. She is on amlodipine 5 mg daily she had been on 10 mg a day but this had to be dropped back to 5 mg due to side effects she believes it was lower extremity edema. She has been on no other antihypertensive. The patient does not have a history of chest pain she denies any PND orthopnea denies any significant lower extremity edema. She does have some edema in tracedistal to her knee replacements. She is limited wearing a knee brace on her right knee. She is not very active. The patient does not have a family history of coronary disease she does have a longstanding history of hypertension he is hyperlipidemic LDL cholesterol 126 inJune 2024 she does not have known atherosclerotic disease she is not diabetic and she does not smoke. Patient does have a history of hypothyroidism on replacement she has a history of GI bleeding related to her ulcerative colitis and she was evaluated for obstructive sleep apnea and did not meet criteria by her report. Intake Vital Signs 04/07/25 10:34 04/17/25 13:43 05/24/25 14:00 Height 5 ft 9.5 in 5 ft 9.5 in 5 ft 9.5 in Weight: 232 lb 4 oz 230 lb BMI 33.7 33.5 BP 139/73 H 160/74 H Blood Pressure Location Lt brachial Position Sitting Respiration 16 18 Pulse 66 79 Pulse Source Monitor Temp 97.3 F L Pulse Oximetry (%) 91 91 Oxygen Delivery Method room air room air Intake Visit Reasons: ABN EKG (FRIEND) [employer] Technician Required: No Accompanied by: Self Is patient in pain?: No Allergies sulfamethoxazole (From Bactrim) Allergy (Severe, Verified 05/24/25 14:01) Other trimethoprim (From Bactrim) Allergy (Severe, Verified 05/24/25 14:01) Other bacitracin (From Neosporin ([id number]-[id number]-[id number])) Allergy (Verified 05/24/25 14:01) NEEDS FOLLOW-UP neomycin (From Neosporin ([id number]-ryr-[id number])) Allergy (Verified 05/24/25 14:01) NEEDS FOLLOW-UP Penicillins Allergy (Verified 05/24/25 14:01) NEEDS FOLLOW-UP polymyxin B (From Neosporin (xqu-kay-ffrra)) Allergy (Verified 05/24/25 14:01) NEEDS FOLLOW-UP adhesive (adhesives) Adverse Reaction (Intermediate, Verified 05/24/25 14:01) Rash nabumetone (From Relafen) Adverse Reaction (Intermediate, Verified 05/24/25 14:01) unknown Medications ?Medication ?Instructions ?Recorded ?Confirmed ?Type albuterol 90 mcg/actuation aerosol 90 mcg inhalation P RN PRN SOB 02/09/25 05/24/25 History inhaler albuterol sulfate 2.5 mg/3 mL 2.5 mg inhalation Q4-6H PRN 02/09/25 05/24/25 History (0.083 %) solution for nebulization shortness of breat h or wheezing amlodipine 5 mg tablet (Norvasc) 5 mg PO QDAY 02/09/25 05/24/25 History fluticasone propionate 50 1 spray intranasal QDAY PRN 02/09/25 05/24/25 History mcg/actuation nasal allergy symptoms spray,suspension ketotifin eye solution 1 drp EACH EYE PRN PRN EYE 0 02/09/25 05/24/25 History ITCHYNESS levothyroxine 88 mcg tablet 88 mcg PO QDAY 02/09/25 History multivitamin with minerals 1 cap PO QDAY 02/09/2505/10 History mupirocin 2 % topical ointment 1 applic topical TID 05/24/25 History (Centany) tolterodine 4 mg capsule,extended 4 mg PO QDAY 5 05/24/25 History release 24 hr (Detrol LA) triamcinolone acetonide 0.1 % 1 applic topical QDAY MO N 02/09/25 05/24/25 History lotion DERMATITIS acetaminophen 650 mg 1,300 mg PO Q12H PRN pain 05/24/25 History tablet,extended release (8 Hour Pain Reliever) diclofenac sodium 1 % topical gel 1 ea topical PRN 05/24/25 History (Arthritis Pain (diclofenac)) fluocinonide 0.05 % topical cream 1 applic topical JAY LY PRN CRACKED 03/07/25 05/24/25 History FINGERS mesalamine 800 mg tablet,delayed 1,600 mg (2 x 800 mg) PO TID 3 05/04/25 05/24/25 Rx release months #540 tabs azithromycin 500 mg tablet 500 mg PO 05/24/25 05/24/25 History hydrochlorothiazide 25 mg tablet 25 mg PO QAM #30 tabs 05/24/25 05/24/25 Rx lactobacillus combination no.9 4 4,000 mmu cells PO QD AY 05/24/25 05/24/25 History billion cell capsule (Adult 50 Plus Probiotic) omega 7-zgk-tcp-fish oil 300 1 cap PO QWEEK 05/24/25 1 History mg-1,000 mg capsule (Fish Oil) psyllium husk 3.4 gram/5.4 gram 1 tbsp PO QDAY 5 05/24/25 History oral powder (Metamucil) Have you fallen in the past year?: Yes PFSH Medical History ANN (obstructive sleep apnea) Hyperlipidemia Hypothyroidism Ulcerative colitis with rectal bleeding Wears glasses Post-menopausal Anxiety Open wound History of steroid therapy Thyroid disease Arthritis Excessive bleeding Back pain Difficulty swallowing History of GI bleed Non-smoker Leg cramps History of pain when walking History of edema Hypertension Hx of lipoma Surgical History History of total knee replacement (TKR) History of carpal tunnel surgery of left wrist Hx of toe surgery Hx of hysterectomy Social History Smoking Status: Never smoker ROS Const Const: Negative for fatigue or weakness ENT ENT: Negative for dizziness or balance problems Cardio Chest Pain: No Palpitations: No Edema: Bilateral Muscle aches with walking: None Resp Respiratory: Negative for SOB with activity, SOB at rest or SOB orthopnea\SOB lying down GI GI: Positive for other (blood in stools); Negative nausea, vomiting or heartburn Musc Musc: Negative for muscle weakness or balance problems Neuro Neuro: Negative for dizziness, lightheadedness, near syncope, syncope or weakness Endo Endo: Negative for fatigue Cardiology Exam Const Appearance: cooperative, comfortable and no acute distress Nutritional Appearance: overweight Head Head: normal to inspection Eyes General: appearance normal, both eyes and all related structures Neck Neck: normal visual inspection and no JVD Carotids: Negative bruit Chest Chest inspection: normal inspection of the chest Auscultation: Bilateral: Clear to Auscultation Cardio Rate: regular rate Rhythm: regular rhythm Heart sounds: S1 normal and S2 normal; Negative rub, gallop or murmur Distant heart tones due to body habitus. Neuro General: patient alert and patient oriented x3 Extremities Lower Extremity Edema: Trace: Bilateral Psych Psychological: normal affect Supplemental Info Supplemental Information Diagnostics: Electrocardiogram Extremity Arterial Study Past Visits: Cardiology Visit Today Assessment and Plan Assessment and Plan (1) Hypertension: Status: Chronic Qualifiers: Hypertension type: primary hypertension Qualified Code(s): I10 - Essential (primary) hypertension Plan: Multiple blood pressure readings in recent office visits have been elevated in the 160?180 systolic range and ranging from 73?90 diastolic. The patient's ECG is consistent with LVH. I did not auscultate a significant murmur. She does have an increased AP diameter due to body habitus. I would recommend we perform a 2D echocardiogram to evaluate her structural heart to rule out significant LVH and or any valvular heart disease. (2) Hyperlipidemia: Status: Acute Qualifiers: Hyperlipidemia type: pure hypercholesterolemia Qualified Code(s): E78.00 - Pure hypercholesterolemia, unspecified Plan: Patient's last lipids from January 2025 total cholesterol 194 HDL 38 LDL 126 triglycerides 149. The patient is not on statin therapy. Ideally her LDL cholesterol should be less than 100. The patient is on omega-3 fatty acids. I will defer further treatment options to the primary service. This may not be anideal time to institute statin therapy given her GI issues. (3) Ulcerative colitis with rectal bleeding: Status: Acute Qualifiers: Ulcerative colitis location: ulcerative rectosigmoiditis Qualified Code(s): K51.311 - Ulcerative (chronic) rectosigmoiditis with rectal bleeding Plan: Dr. Orellana is managing her ulcerative colitis. (4) Abnormal ECG: Status: Acute Plan: Patient is ECG is consistent with left ventricular hypertrophy. This will be investigated with a 2D echocardiogram. The patient denies any significant dyspnea on exertion but she is severely limited by her orthopedic issues with her knees. She denies any PND orthopnea. Orders: Orders Echo Complete Today R94.31 - Abnormal electrocardiogram [ECG] [EKG] Basic Metabolic Profile (BMP) 2 Weeks I10 - Essential (primary) hypertension Medications: New hydrochlorothiazide 25 mg PO QAM 30 tabs 11RF Plan 1. Will add hydrochlorothiazide 25 mg every morning for antihypertensive effect. 2. Obtain basic metabolic panel in 2 weeks. 3. 2D echocardiogram to evaluate the patient's abnormal ECG and rule out structural heart disease. 4. Patient be reevaluated in our office in 1 month with KENTON for further titration of antihypertensive therapy. 5. Patient to call with blood pressure reports after 2 weeks. Plan Details Additional Comments: This note was generated with [employer] dictation software. It may contain incorrect words, spelling, and punctuation that were not noted in checking the note before signing. Follow Up: 1 Month (With Mateusz, KENTON and as needed) Coding Level of Care Code Off vis,new,level 4 Diagnoses Primary hypertension I10 Hypertension type: primary hypertension Pure hypercholesterolemia E78.00 Hyperlipidemia type: pure hypercholesterolemia Ulcerative rectosigmoiditis with rectal bleeding K51.311 Ulcerative colitis location: ulcerative rectosigmoiditis Abnormal ECG R94.31 Coding Level of Care Code Off vis,new,level 4 Diagnoses Primary hypertension I10 Hypertension type: primary hypertension Pure hypercholesterolemia E78.00 Hyperlipidemia type: pure hypercholesterolemia Ulcerative rectosigmoiditis with rectal bleeding K51.311 Ulcerative colitis location: ulcerative rectosigmoiditis Abnormal ECG R94.31 Clinical Quality Measures Falls Risk Screening/Assistive Devices Have you fallen in the past year?: Yes 05/24/25 9436 <Electronically signed by Mendoza crooks MD> Date _ Mendoza Wheat MD Cosigner Signature: Date (if applicable) CC: Dr. Jimmy Shrestha MD; DO Stuart Oh [facility] Work Phone: 1(608) 544-248907-31-2025 Consult note [facility] Medical Records Department [address] [place] [address] Anesthesia Postop Eval I 03/09/25 1016 MR#: [id number] Acct: [id number] Name: NAT FOX Rep #:[id number] : 1945 80 From: Tai MORENO PCP: Dr. Jimmy Shrestha MD Status:[facility] [place] Race: C Location: [place] [address] Anesthesia: Postop Eval I Current Vital Signs Temperature: 98.2 F Pulse Rate: 65 Blood Pressure: 103/62 Respiratory Rate: 18 Pulse Ox: 94 Assessment Airway patent: Yes Spontaneous unlabored respirations: Yes nausea: No Vomiting: No Anesthesia Complication: No Fluid Hydration Crystalloid volume administer (ml): 600 Total IV fluid infused: 600 Progress Note Anesthesia document: Postop Eval 1 completed: Yes 03/09/25 1016 PROFESSIONAL SECURITY OFFICER> Date _ Tai Burgosbitt PROFESSIONAL SECURITY OFFICER Cosigner Signature: Date CC: ~ Signed [facility]07-31-2025 History and physical note Author Arsalan Orellana [facility] Note Date/Time March 09, 2025 8:27 am [facility] Medical Records Department [address] [place] [address] History & Physical Exam 03/09/25 0823 MR#: [id number] Acct: [id number] Name: NAT FOX Rep #:[id number] : 1945 80 From: Arsalan Orellana DO PCP: Dr. Jimmy Shrestha MD Status:[facility] Location: AC16-1 HPI - General General Date of Admission: 03/09/25 Date of Service: 03/09/25 Chief Complaint: GI bleed HPI Narrative NAT FOX, is a 80 F who presents regarding concerns for blood from her rectum. She reports that she had recently completed back to back therapies for asinus infection I never had and then all [...] more bleeding. She denies knowing what a hemorrhoidfeels like, but denies difficulty sitting, pruritus around anus, and rectal pressure. She denies family history of colon cancer but states that her daughterrecently had a benign poly removed from her colon. Blood drawn 6.2.25 by PCP: W-5.9, hgb-14.1, hct-42.6, plt-288. PFSH Medical History Wears glasses Post-menopausal Anxiety Open wound History of steroid therapy Thyroid disease Arthritis Excessive bleeding Back pain Difficulty swallowing History of GI bleed Non-smoker Leg cramps History of pain when walking History of edema Hypertension Hx of lipoma Home Medications ?Medication ?Instructions ?Recorded ?Last Taken ?Type albuterol 90 mcg/actuation aerosol 90 mcg inhalation P RN PRN SOB 02/09/25 Unknown History inhaler albuterol sulfate 2.5 mg/3 mL 2.5 mg inhalation Q4-6H PRN 02/09/25 Unknown Histo ry (0.083 %) solution for nebulization shortness of breat h or wheezing amlodipine 5 mg tablet (Norvasc) 5 mg PO QDAY 02/09/25 Unknown History cephalexin 500 mg capsule 500 mg PO .2xyr for teeth Unknown History fluticasone propionate 50 1 spray intranasal QDAY PRN 02/09/25 Unknown History mcg/actuation nasal allergy symptoms spray,suspension ketotifin eye solution 1 drp EACH EYE PRN PRN EYE 0 02/09/25 Unknown History ITCHYNESS levothyroxine 88 mcg tablet 88 mcg PO QDAY 02/09/25 Un known History multivitamin with minerals 1 cap PO QDAY 02/09/252 12/02 History mupirocin 2 % topical ointment 1 applic topical TID Unknown History (Centany) tolterodine 4 mg capsule,extended 4 mg PO QDAY 5 Unknown History release 24 hr (Detrol LA) triamcinolone acetonide 0.1 % 1 applic topical QDAY MO N 02/09/25 Unknown History lotion DERMATITIS acetaminophen 650 mg 1,300 mg PO Q12H PRN pain Unknown History tablet,extended release (8 Hour Pain Reliever) diclofenac sodium 1 % topical gel 1 ea topical PRN Unknown History (Arthritis Pain (diclofenac)) fluocinonide 0.05 % topical cream 1 applic topical JAY LY PRN CRACKED 03/07/25 Unknown History FINGERS Allergy/AdvReac Type Severity Reaction Status Date / Time sulfamethoxazole (From Allergy Severe Other Verified 03/07/25 10:33 Bactrim) trimethoprim (From Bactrim) Allergy Severe Other Verified 03/07/25 10:33 bacitracin (From Neosporin Allergy NEEDS Verified 03/07/25 10:33 ([id number])) FOLLOW-UP neomycin (From Neosporin Allergy NEEDS Verified 03/07/25 10:33 ([id number])) FOLLOW-UP Penicillins Allergy NEEDS Verified 03/07/25 10:33 FOLLOW-UP polymyxin B (From Neosporin Allergy NEEDS Verified 03/07/25 10:33 ([id number])) FOLLOW-UP adhesive (adhesives) AdvReac Intermediate Rash Verified 03/07/25 10:33 nabumetone (From Relafen) AdvReac Intermediate unknown Verified 03/07/25 10:33 Surgical History History of total knee replacement (TKR) History of carpal tunnel surgery of left wrist Hx of toe surgery Hx of hysterectomy Social History Smoking Status: Never smoker ROS Constitutional Constitutional: Denies fatigue, fever(s), poor appetite, weight gain or weight loss Gastrointestinal Gastrointestinal: Denies belching, bloating, change in bowel habits, change in stool character, chewing difficulty, coffee ground emesis, constipation, cramping, diarrhea, dyspepsia, dysphagia, early satiety, excessive flatus, fecalincontinence, heartburn, hematemesis, hematochezia, hemorrhoids, loose stools, melena, nausea, odynophagia, rectal bleeding, tenesmus, vomiting or weight changes Physical Exam Const alert, oriented x3, no apparent distress and healthy appearing General Appearance: cooperative GI normal to inspection, nondistended, normoactive bowel sounds, soft to palpation,non-tender and non-distended Percussion: normal to percussion Rectal Exam: deferred Assessment & Plan Assessment/Plan (1) Abdominal pain: QUALIFIERS: Abdominal location: generalized Qualified Code(s): R10.84 - Generalized abdominal pain (2) Bleeding per rectum: PLAN: Assessment and Plan Assessment and Plan (1) Bleeding per rectum: Status: Acute Orders: Orders HH, Hemoglobin & Hematocrit 01/31/25 K62.5 - Hemorrhage of anus and rectum Plan KATYA FOX, is a 79 F who presents to the office today for establishment withI regarding concerns for blood from her rectum. Despite strong encouragement to have a colonoscopy, she is adamant to wait because there's no more blood or bleeding. She is agreeable to having her hgb checked here at [facility] to verify no further blood loss. * blood for H/H * increased dietary fiber, reviewed good sources * increased fluids * discouraged prolonged sitting, including limiting time on toilet to reduce rectal pressure * office FU 03/09/25 0888 <Electronically signed by Arsalan Orellana DO> Cosigner Signature (if applicable): CC: Dr. Jimmy Shrestha MD; Arsalan Orellana DO~ Signed [facility] Work Phone: 1(103) 432-688307-31-2025 Procedure note [facility] Medical Records Department [address] [place] [id number] Colonoscopy Report MR#: [id number] Acct: [id number] Name: NAT FOX Rep #:[id number] : 1945 80 From: Arsalan Orellana DO PCP: Dr. Jimmy Shrestha MD Status:[facility] Patient Name: Nat Fox Procedure Date: 03/09/2025 9:24 AM Date of : 1945 Age: 80 Procedure: Colonoscopy Indications: Abdominal pain in the left lower quadrant, Clinically significant diarrhea of unexplained origin, Hematochezia Providers: Arsalan Orellana DO Referring MD: Jimmy Shrestha Medicines: Monitored Anesthesia Care Patient Profile: This is a 80 year old female. Refer to note in patient chart for documentation of history and physical. Last Colonoscopy: several years ago. Complications: No immediate complications. Procedure: Pre-Anesthesia Assessment: - Prior to the procedure, a History and Physical was performed, and patient medications and allergies were reviewed. The patient is competent. The risks and benefits of the procedure and the sedation options and risks were discussed with the patient. All questions were answered and informed consent was obtained. Patient identification and proposed procedure were verified by the physician in the pre-procedure area. Mental Status Examination: alert and oriented. Airway Examination: normal oropharyngeal airway and neck mobility. Respiratory Examination: clear to auscultation. CV Examination: normal. Prophylactic Antibiotics: The patient does not require prophylactic antibiotics. Prior Anticoagulants: The patient has taken no anticoagulant or antiplatelet agents except for NSAID medication. ASA Grade Assessment: II - A patient with mild systemic disease. After reviewing the risks and benefits, the patient was deemed in satisfactory condition to undergo the procedure. The anesthesia plan was to use monitored anesthesia care (MAC). Immediately prior to administration of medications, the patient was re-assessed for adequacy to receive sedatives. The heart rate, respiratory rate, oxygen saturations, blood pressure, adequacy of pulmonary ventilation, and response to care were monitored throughout the procedure. The physical status of the patient was re-assessed after the procedure. After I obtained informed consent, the scope was passed under direct vision. Throughout the procedure, the patient's blood pressure, pulse, and oxygen saturations were monitored continuously. The pediatric colonoscope was introduced through the anus and advanced to the cecum, identified by appendiceal orifice and ileocecal valve. The colonoscopy was performed without difficulty. The patient tolerated the procedure well. The quality of the bowel preparation was fair. The ileocecal valve, appendiceal orifice, and rectum were photographed. Moderate Sedation: Moderate (conscious) sedation was personally administered by an anesthesia professional. The following parameters were monitored: oxygen saturation, heart rate, blood pressure, respiratory rate, EKG, adequacy of pulmonary ventilation, and response to care. Scope In: 9:46:47 AM Scope Withdrawal Time 0 hours 12 minutes 13 seconds Scope Out: 10:03:55 AM Total Procedure Duration Time 0 hours 17 minutes 8 seconds Findings: The perianal and digital rectal examinations were normal. Inflammation characterized by congestion (edema), erosions, erythema, friability and granularity was found in a continuous and circumferential pattern from the anus to the splenic flexure. The transverse colon, the hepatic flexure, the ascending colon and the cecum were spared. The inflammation was graded as Boykin Score 3 (severe, with spontaneous bleeding, ulcerations), and when compared to previous examinations, the findings are new. Biopsies were taken with a cold forceps for histology. Verification of patient identification for the specimen was done. Estimated blood loss was minimal. Stool was found in the recto-sigmoid colon, in the descending colon, in the transverse colon, at the hepatic flexure, in the ascending colon and in the cecum. Fluid aspiration for bacterial cultures and Clostridium difficile was performed. Verification of patient identification for the specimen was done. Estimated blood loss was minimal. Multiple small and large-mouthed diverticula were found in the recto-sigmoid colon, sigmoid colon and descending colon. Impression: - Preparation of the colon was fair. - Left-sided ulcerative colitis and left-sided colitis. Inflammation was found from the anus to the splenic flexure. This was graded as Boykin Score 3 (severe disease), new compared to previous examinations. Biopsied. - Stool in the recto-sigmoid colon, in the descending colon, in the transverse colon, at the hepatic flexure, in the ascending colon and in the cecum. Fluid aspiration performed. Recommendation: - Discharge patient to home. - Resume previous diet. - Continue present medications. - Await pathology results. -Mesalamine 3 times a day . *Await stool culture - No repeat colonoscopy due to age. Procedure Code(s): --- Professional --- 51909, Colonoscopy, flexible; with biopsy, single or multiple CPT copyright 2021 [employer]. All rights reserved. The codes documented in this report are preliminary and upon police chief review may be revised to meet current compliance requirements. Arsalan Orellana DO 03/09/2025 10:14:21 AM This report has been signed electronically. Number of Addenda: 0 Note Initiated On: 03/09/2025 9:24 AM 03/09/25 1014 Date _ Arsalan Orellana DO Cosigner Signature: Date (if indicated) CC: Dr. Jimmy Shrestha MD; Arsalan Orellana DO ~ Date Dictated: 03/09/25923 Date Transcribed: Regulatory Intern: RF Signed [facility]07-31-2025 Procedure note [facility] Medical Records Department [address] [place] [id number] Provation Physician Letter MR#: [id number] Acct: [id number] Name: NAT FOX Rep #:[id number] : 1945 80 From: Arsalan Orellana DO PCP: Dr. Jimmy Shrestha MD Status[place] 03/09/2025 Jimmy Shrestha Re : Colonoscopy procedure for Nat Fox Aracelir Paulo This procedure was performed on February. My impressions and recommendations are as follows: Impressions : - Preparation of the colon was fair. - Left-sided ulcerative colitis and left-sided colitis. Inflammation was found from the anus to the splenic flexure. This was graded as Boykin Score 3 (severe disease), new compared to previous examinations. Biopsied. - Stool in the recto-sigmoid colon, in the descending colon, in the transverse colon, at the hepatic flexure, in the ascending colon and in the cecum. Fluid aspiration performed. Recommendations : - Discharge patient to home. - Resume previous diet. - Continue present medications. - Await pathology results. -Mesalamine 3 times a day . *Await stool culture - No repeat colonoscopy due to age. My findings are described in the full procedure note, which is enclosed. If I can be of further assistance, please feel free to contact me at . Sincerely, Arsalan Orellana DO 03/09/2025 10:14:21 AM This report has been signed electronically. 03/09/25 1014 Date _ Arsalan Esteban Cosigner Signature: Date (if indicated) CC: Dr. Jimmy Shrestha MD; Arsalan Orellana DO ~ Date Dictated: 03/09/25923 Date Transcribed: Regulatory Intern: RF Signed [facility]07-31-2025 Consult note [facility] Medical Records Department [address] [place] [address] Pre-Anesthesia Evaluation 03/09/25925 MR#: [id number] Acct: [id number] Name: NAT FOX Rep #:[id number] : 1945 80 From: Ryley Abbasi PCP: Dr. Jimmy Shrestha MD Status:[facility] Y Race: C Location: [place] [address] ASA Classification* ASA Classification ASA Classification: 2 Assessment & Plan Anesthesia* Anesthesia Assessment Anesthesia Assessment: Discussed sedation and/or anesthesia options, risks, benefits, and alternatives with patient/parents/legal guardian/POA. Questions invited. The patient/parents/legal guardian/POA seems to understand and agrees to proceedwith anesthesia plan. Reviewed the physical assessment, medical history, allergy history and patient home medications list prior to surgery/procedure/anesthetic and documented any changes. Performed airway and anesthesia risk assessments. Anesthesia Type Anesthesia Type: MAC History Source History Obtained from:: Patient and Chart Anesthesia Focused Assessment* Temperature: 97.8 F Pulse Rate: 74 Blood Pressure: 147/73 Respiratory Rate: 16 Pulse Ox: 94 Oxygen Delivery Method: Room Air Airway Assessment Mouth opens: >3 cm Mallampati Score: II Teeth Condition: Intact Neck Range of motion (ROM): Full ROM Labs Anesthesia Preop lab: CBC Hgb 13.8 g/dL (12.0-15.0) 02/06/25 11:02 02/06/25 Hct 42.9 % (37-47) 02/06/25 11:02 02/06/25 CHEMISTRY COAG Pre-Assessment Diagnosis/Proposed Procedure Planned Operative Procedure(s): COLONOSCOPY Anesthesia History Anesthesia History - baller tender: Anesthesia History - baller tender Hx Hospitalization No 03/07/25 10:53 Any Problems With Anesthesia Yes: N&V 03/07/25 10:53 Cholinesterase deficiency No 03/07/25 10:53 You/Your Family Experience No 03/07/25 10:53 fever (hyperthermia) with Relationship Recent Exposure to Contagious No 03/09/25 08:36 Disease Does patient have nerve No 03/07/25 10:53 stimulator Patient instructed to have device shut off --Does patient have Pacemaker No 03/09/25 08:36 or ICD? When Was Last Pacemaker Check QUESTION #4 FULL TEXT: You/Your Family Experience fever (hyperthermia) with Anesthesia Last Oral Intake Last Oral intake: Last Oral Intake NPO since 05:00 03/09/25 08:36 Meds taken in AM with sips of Yes 03/09/25 08:36 water? Meds patient instructed to norvasc 03/09/25 08:36 take am of surgery synthroid PONV PONV - baller tender: PONV - baller tender Female Yes 03/07/25 10:53 HX of Motion Sickness No 03/07/25 10:53 HX of N/V After Surgery No 03/07/25 10:53 Non-Smoker Yes 03/07/25 10:53 Duration of Surgery greater No 03/07/25 10:53 than 60 minutes Number of Risk Factors 2 03/07/25 10:53 PONV Score Moderate Risk 03/07/25 10:53 Height & Weight Height & Weight: Anesthesia: Height & Weight Height 5 ft 9.5 in 03/09/25 08:36 Weight: 104.8 kg 03/09/25 08:36 Body Mass Index (BMI) 33.6 03/09/25 08:36 Respiratory Assessment Respiratory Assessment - baller tender: Respiratory Tract Infection Hx - baller tender Hx Respiratory Tract Infection No 03/07/25 10:53 STOP Sleep Apnea STOP Sleep Apnea - baller tender: STOP Sleep Apnea - baller tender Hx Hypertension Yes: CONTROLLED ON MED 03/07/25 10:53 Hx Sleep Apnea No 03/07/25 10:53 CPAP BIPAP Do you snore loudly (louder No 03/07/25 10:53 than talking or can be heard Do you often feel tired/ No 03/07/25 10:53 fatigued/ sleepy during daytime? Has anyone observed you stop No 03/07/25 10:53 breathing during sleep? STOP Results Negative 03/07/25 10:53 QUESTION #5 FULL TEXT : Do you snore loudly (louder than talking or can be heard through closeddoors)? Tobacco Use History Tobacco Use History - baller tender: Tobacco Use History - baller tender Tobacco Use Smoking Status Never smoker 03/07/25 10:53 Hx Tobacco Use No 03/07/25 10:53 Years Smoking Packs Smoked per Day Smoking Cessation Date was within the last 15 years Hx Smoking Cessation Date Hx Smoking Cessation Counseling Hematologic Medial History Hematologic Hx - baller tender: Hematologic Medical Hx - manager of community relations Hx of Blood Transfusion No 03/07/25 10:53 Hx of Transfusion in last 3 No 03/07/25 10:53 Months Date of Last Transfusion (if within last 3 months) Ever experience any problems No 03/07/25 10:53 with transfusion(s)? Specify any problems Hx of Preganancy in last 3 No 03/07/25 10:53 Months Nurse Filling Out Transfusion VCHRISTIN 03/07/25 10:53 & Questions: Date: 03/07/25 03/07/25 10:53 Time: 10:54 03/07/25 10:53 Patient unable to answer at this time (ie. confused, unrespo /Reproduction History /Reproductive History - baller tender: /Reproductive Hx- baller tender Hx Now No 03/07/25 10:53 Gestational Age (in weeks): EDC: Hx Hx Para Hx Section SAB No 03/07/25 10:53 Active Medications Active Medications: Current Medications Generic Name Dose Route Start Last Admin Trade Name Jose PRN Reason Stop Dose Admin Lactated Ringer's 1,000 mls @ 15 mls/hr 03/09/25 08:15 03/09/25 09:10 IV 15 mls/hr .Q48H TEODORA Administration [facility] Medical History Wears glasses Post-menopausal Anxiety Open wound History of steroid therapy Thyroid disease Arthritis Excessive bleeding Back pain Difficulty swallowing History of GI bleed Non-smoker Leg cramps History of pain when walking History of edema Hypertension Hx of lipoma Home Medications ?Medication ?Instructions ?Recorded ?Last Taken ?Type albuterol 90 mcg/actuation aerosol 90 mcg inhalation P RN PRN SOB 02/09/25 Unknown History inhaler albuterol sulfate 2.5 mg/3 mL 2.5 mg inhalation Q4-6H PRN 02/09/25 Unknown History (0.083 %) solution for nebulization shortness of breat h or wheezing amlodipine 5 mg tablet (Norvasc) 5 mg PO QDAY 02/09/25 03/09/25 06:30 History cephalexin 500 mg capsule 500 mg PO .2xyr for teeth Unknown History fluticasone propionate 50 1 spray intranasal QDAY PRN 02/09/25 Unknown History mcg/actuation nasal allergy symptoms spray,suspension ketotifin eye solution 1 drp EACH EYE PRN PRN EYE 0 02/09/25 Unknown History ITCHYNESS levothyroxine 88 mcg tablet 88 mcg PO QDAY 02/09/25 05:00 History multivitamin with minerals 1 cap PO QDAY 02/09/2502/08 History mupirocin 2 % topical ointment 1 applic topical TID Unknown History (Centany) tolterodine 4 mg capsule,extended 4 mg PO QDAY 5 Unknown History release 24 hr (Detrol LA) triamcinolone acetonide 0.1 % 1 applic topical QDAY MO N 02/09/25 Unknown History lotion DERMATITIS acetaminophen 650 mg 1,300 mg PO Q12H PRN pain Unknown History tablet,extended release (8 Hour Pain Reliever) diclofenac sodium 1 % topical gel 1 ea topical PRN Unknown History (Arthritis Pain (diclofenac)) fluocinonide 0.05 % topical cream 1 applic topical JAY LY PRN CRACKED 03/07/25 Unknown History FINGERS Allergy/AdvReac Type Severity Reaction Status Date / Time sulfamethoxazole (From Allergy Severe Other Verified 03/07/25 10:33 Bactrim) trimethoprim (From Bactrim) Allergy Severe Other Verified 03/07/25 10:33 bacitracin (From Neosporin Allergy NEEDS Verified 03/07/25 10:33 ([id number])) FOLLOW-UP neomycin (From Neosporin Allergy NEEDS Verified 03/07/25 10:33 ([id number])) FOLLOW-UP Penicillins Allergy NEEDS Verified 03/07/25 10:33 FOLLOW-UP polymyxin B (From Neosporin Allergy NEEDS Verified 03/07/25 10:33 ([id number])) FOLLOW-UP adhesive (adhesives) AdvReac Intermediate Rash Verified 03/07/25 10:33 nabumetone (From Relafen) AdvReac Intermediate unknown Verified 03/07/25 10:33 Surgical History History of total knee replacement (TKR) History of carpal tunnel surgery of left wrist Hx of toe surgery Hx of hysterectomy Social History Smoking Status: Never smoker Review of Systems (Anesthesia) ROS Narrative System reviewed and no additional complaints, except as documented. 03/09/25930 > Date _ Ryley Gutierrez MD Cosigner Signature: Date CC: ~ Signed [facility]07-31-2025 History and physical note [facility] Medical Records Department [address] [place] [address] History & Physical Exam 03/09/25822 MR#: [id number] Acct: [id number] Name: NAT FOX Rep #:[id number] : 1945 80 From: Arsalan Orellana DO PCP: Dr. Jimmy Shrestha MD Status:[facility] Location: [place] [address] HPI - General General Date of Admission: 03/09/25 Date of Service: 03/09/25 Chief Complaint: GI bleed HPI Narrative NAT FOX, is a 80 F who presents regarding concerns for blood from her rectum. She reports that she had recently completed back to back therapies for asinus infection I never had and then all [...] after meals. Her stool is formed and dropsto the toilet, she will have shreds of mucus but no more bleeding. She denies knowing what a hemorr hoidfeels like, but denies difficulty sitting, pruritus around anus, and rectal pressure. She denies family history of colon cancer but states that her daughterrecently had a benign poly removed from her colon. Blood drawn 6.2.25 by PCP: W-5.9, hgb-14.1, hct-42.6, plt-288. [facility] Medical History Wears glasses Post-menopausal Anxiety Open wound History of steroid therapy Thyroid disease Arthritis Excessive bleeding Back pain Difficulty swallowing History of GI bleed Non-smoker Leg cramps History of pain when walking History of edema Hypertension Hx of lipoma Home Medications ?Medication ?Instructions ?Recorded ?Last Taken ?Type albuterol 90 mcg/actuation aerosol 90 mcg inhalation P RN PRN SOB 02/09/25 Unknown History inhaler albuterol sulfate 2.5 mg/3 mL 2.5 mg inhalation Q4-6H PRN 02/09/25 Unknown Histo ry (0.083 %) solution for nebulization shortness of breat h or wheezing amlodipine 5 mg tablet (Norvasc) 5 mg PO QDAY 02/09/25 Unknown History cephalexin 500 mg capsule 500 mg PO .2xyr for teeth Unknown History fluticasone propionate 50 1 spray intranasal QDAY PRN 02/09/25 Unknown History mcg/actuation nasal allergy symptoms spray,suspension ketotifin eye solution 1 drp EACH EYE PRN PRN EYE 0 02/09/25 Unknown History ITCHYNESS levothyroxine 88 mcg tablet 88 mcg PO QDAY 02/09/25 Un known History multivitamin with minerals 1 cap PO QDAY 02/09/2502/08 History mupirocin 2 % topical ointment 1 applic topical TID Unknown History (Centany) tolterodine 4 mg capsule,extended 4 mg PO QDAY 5 Unknown History release 24 hr (Detrol LA) triamcinolone acetonide 0.1 % 1 applic topical QDAY MO N 02/09/25 Unknown History lotion DERMATITIS acetaminophen 650 mg 1,300 mg PO Q12H PRN pain Unknown History tablet,extended release (8 Hour Pain Reliever) diclofenac sodium 1 % topical gel 1 ea topical PRN Unknown History (Arthritis Pain (diclofenac)) fluocinonide 0.05 % topical cream 1 applic topical JAY LY PRN CRACKED 03/07/25 Unknown History FINGERS Allergy/AdvReac Type Severity Reaction Status Date / Time sulfamethoxazole (From Allergy Severe Other Verified 03/07/25 10:33 Bactrim) trimethoprim (From Bactrim) Allergy Severe Other Verified 03/07/25 10:33 bacitracin (From Neosporin Allergy NEEDS Verified 03/07/25 10:33 ([id number])) FOLLOW-UP neomycin (From Neosporin Allergy NEEDS Verified 03/07/25 10:33 ([id number])) FOLLOW-UP Penicillins Allergy NEEDS Verified 03/07/25 10:33 FOLLOW-UP polymyxin B (From Neosporin Allergy NEEDS Verified 03/07/25 10:33 ([id number])) FOLLOW-UP adhesive (adhesives) AdvReac Intermediate Rash Verified 03/07/25 10:33 nabumetone (From Relafen) AdvReac Intermediate unknown Verified 03/07/25 10:33 Surgical History History of total knee replacement (TKR) History of carpal tunnel surgery of left wrist Hx of toe surgery Hx of hysterectomy Social History Smoking Status: Never smoker ROS Constitutional Constitutional: Denies fatigue, fever(s), poor appetite, weight gain or weight loss Gastrointestinal Gastrointestinal: Denies belching, bloating, change in bowel habits, change in stool character, chewing difficulty, coffee ground emesis, constipation, cramping, diarrhea, dyspepsia, dysphagia, earlysatiety, excessive flatus, fecalincontinence, heartburn, hematemesis, hematochezia, hemorrhoids, loose stools, melena, nausea, odynophagia, rectal bleeding, tenesmus, vomiting or weight changes Physical Exam Const alert, oriented x3, no apparent distress and healthy appearing General Appearance: cooperative GI normal to inspection, nondistended, normoactive bowel sounds, soft to palpation,non-tender and non-distended Percussion: normal to percussion Rectal Exam: deferred Assessment & Plan Assessment/Plan (1) Abdominal pain: QUALIFIERS: Abdominal location: generalized Qualified Code(s): R10.84 - Generalized abdominal pain (2) Bleeding per rectum: PLAN: Assessment and Plan Assessment and Plan (1) Bleeding per rectum: Status: Acute Orders: Orders HH, Hemoglobin & Hematocrit 01/31/25 K62.5 - Hemorrhage of anus and rectum Plan KATYA FOX, is a 79 F who presents to the office today for establishment withBGI regarding concerns for blood from her rectum. Despite strong encouragement to have a colonoscopy, she is adamant towait because there's no more blood or bleeding. She is agreeable to having her hgb checked here at [facility] to verify no further blood loss. * blood for H/H * increased dietary fiber, reviewed good sources * increased fluids * discouraged prolonged sitting, including limiting time on toilet to reduce rectal pressure * office FU 03/09/25 0822 Cosigner Signature (if applicable): CC: Dr. Jimmy Shrestha MD; Arsalan Orellana DO~ Signed [facility]07-31-2025 [facility] Medical Records Department [address] [place] [address] History Physical Exam 03/09/25 0823 MR#: [id number] Acct: [id number] Name: NAT FOX Rep #: [id number] : 1945 80 From: Arsalan Orellana DO PCP: Dr. Jimmy Shrestha MD Status:[facility] Location: [place] [address] HPI - General General Date of Admission: 03/09/25 Date of Service: 03/09/25 Chief Complaint: GI bleed HPI Narrative NAT FOX, is a 80 F who presents regarding concerns for blood from her rectum. [...] 6.2.25 by PCP: W-5.9, hgb-14.1, hct-42.6, plt-288. [facility] Medical History Wears glasses Post-menopausal Anxiety Open wound History of steroid therapy Thyroid disease Arthritis Excessive bleeding Back pain Difficulty swallowing History of GI bleed Non-smoker Leg cramps History of pain when walking History of edema Hypertension Hx of lipoma Home Medications ???Medication ???Instructions ???Recorded ???Last Taken ???Type albuterol 90 mcg/actuation aerosol 90 mcg inhalation PRN PRN SOB Unknown History inhaler albuterol sulfate 2.5 mg/3 mL 2.5 mg inhalation Q4-6H PRN Unknown History (0.083 %) solution for nebulization shortness of breath or wheezing amlodipine 5 mg tablet (Norvasc) 5 mg PO QDAY 02/09/25 Unknown Hist ory cephalexin 500 mg capsule 500 mg PO .2xyr for teeth 02/09/25 Unknown History fluticasone propionate 50 1 spray intranasal QDAY PRN Unknown History mcg/actuation nasal allergy symptoms spray,suspension ketotifin eye solution 1 drp EACH EYE PRN PRN EYE 5 Unknown History ITCHYNESS levothyroxine 88 mcg tablet 88 mcg PO QDAY 02/09/25 Unknown Hi story multivitamin with minerals 1 cap PO QDAY 02/09/25 03/02/25 Hi story mupirocin 2 % topical ointment 1 applic topical TID 02/09/25 Unkn own History (Centany) tolterodine 4 mg capsule,extended 4 mg PO QDAY 02/09/25 Unknown His tory release 24 hr (Detrol LA) triamcinolone acetonide 0.1 % 1 applic topical QDAY PRN 02/09/25 Unknown History lotion DERMATITIS acetaminophen 650 mg 1,300 mg PO Q12H PRN pain 03/07/25 Unknown History tablet,extended release (8 Hour Pain Reliever) diclofenac sodium 1 % topical gel 1 ea topical PRN 03/07/25 Unknown History (Arthritis Pain (diclofenac)) fluocinonide 0.05 % topical cream 1 applic topical DAILY PRN CRACKE D 03/07/25 Unknown History FINGERS Allergy/AdvReac Type Severity Reaction Status Date / Time sulfamethoxazole (From Allergy Severe Other Verified 03/07/25 10:33 Bactrim) trimethoprim (From Bactrim) Allergy Severe Other Verified 03/07/25 10:33 bacitracin (From Neosporin Allergy NEEDS Verified 03/07/25 10:33 ([id number])) FOLLOW-UP neomycin (From Neosporin Allergy NEEDS Verified 03/07/25 10:33 ([id number])) FOLLOW-UP Penicillins Allergy NEEDS Verified 03/07/25 10:33 FOLLOW-UP polymyxin B (From Neosporin Allergy NEEDS Verified 03/07/25 10:33 ([id number])) FOLLOW-UP adhesive (adhesives) AdvReac Intermediate Rash Verified 03/07/25 10:33 nabumetone (From Relafen) AdvReac Intermediate unknown Verified 03/07/25 10:33 Surgical History History of total knee replacement (TKR) History of carpal tunnel surgery of left wrist Hx of toe surgery Hx of hysterectomy Social History Smoking Status: Never smoker ROS Constitutional Constitutional: Denies fatigue, fever(s), poor appetite, weight gain or weight loss Gastrointestinal Gastrointestinal: Denies belching, bloating, change in bowel habits, change in stool character, chewing difficulty, coffee ground emesis, constipation, cramping, diarrhea, dyspepsia, dysphagia, early satiety, excessive flatus, fecal incontinence, heartburn, hematemesis, hematochezia, hemorrhoids, loose (more content not included)...[facility] 02-10-2025 Radiology Diagnostic study note [facility] Imaging Services [address] [place] [id number] Abdomen Single View MR#: [id number] Acct: [id number] Name: NAT FOX Rep #: [id number] : 1945 F 79 From: Nemo Lr MD PCP: Dr. Jimmy Shrestha MD Status: [facility] Study:Abdomen Single View Date of Exam: 02/09/25 Exam# [id number] Ordering Dr: Brad Zuleta NP-Gigi PROCEDURE: ABDOMEN SINGLE VIEW 02/09/2025 REASON FOR EXAM: ABDOMINAL PAIN, TENESMUS, BOWEL INCONTINENCE. Right lower quadrant pain TECHNIQUE: ABDOMEN SINGLE VIEW COMPARISON: No FINDINGS: Clear lung bases. No free air. Moderate stool. Nondistended bowel. No concerning calcifications. RAD/Abdomen Single View IMPRESSION: Moderate stool. If there is clinical concern for appendicitis, recommend CT. Reading Location: [facility] CC: SALOMÓN Zuleta; Dr. Jimmy Shrestha MD ~ Regulatory Intern: Signed [facility]07-03-2025 Evaluation note* Diagnosis Onset Date Resolution Status Admit Date Abdominal pain acute February 09, 2025 1:56pm Bleeding per rectum acute February 09, 2025 1:56pm Excessive gas acute February 09, 2 025 1:56pm Abdominal pain acute March 09, 2025 8:02am Bleeding per rectum acute March 09, 2025 8:02am Abdominal pain acute March 1:48pm Ulcerative colitis with rect al bleeding acute March 23 1:48pm Ulcerative colitis with rect al bleeding acute April 17, 2 025 1:22pm Abnormal ECG acute May 1:56pm Hyperlipidemia acute May 242024 1:56pm Ulcerative colitis with rect al bleeding acute May 24 1:56pm Hypertension chronic May 1:56pm [facility] [employer] [facility] Work Phone: 1(943) 657-999606-24-2025 Evaluation note* Diagnosis Onset Date Resolution Status Admit Date Bleeding per rectum acute January 31, 2025 2:01pm [facility] Work Phone: 1(638) 738-311006-24-2025 Evaluation note* Diagnosis Onset Date Resolution Status Admit Date Bleeding per rectum acute January 31, 2025 2:01pm Abdominal pain acute February 09, 2025 1:56pm Bleeding per rectum acute February 09, 2025 1:56pm Excessive gas acute February 09, 2 025 1:56pm [facility] [employer] Work Phone: 1(590) 797-449906-24-2025 Evaluation note* Diagnosis Onset Date Resolution Status Admit Date Bleeding per rectum acute January 31, 2025 2:01pm Abdominal pain acute February 09, 2025 1:56pm Bleeding per rectum acute February 09, 2025 1:56pm Excessive gas acute February 09, 2 025 1:56pm Abdominal pain acute March 09, 2025 8:02am Bleeding per rectum acute March 09, 2025 8:02am [facility] Work Phone: 1(339) 411-682606-24-2025 Evaluation note* Diagnosis Onset Date Resolution Status Admit Date Bleeding per rectum acute January 31, 2025 2:01pm Abdominal pain acute February 09, 2025 1:56pm Bleeding per rectum acute February 09, 2025 1:56pm Excessive gas acute February 09, 2 025 1:56pm Abdominal pain acute March 09, 2025 8:02am Bleeding per rectum acute March 09, 2025 8:02am Abdominal pain acute March 1:48pm Ulcerative colitis with rect al bleeding acute March 23 1:48pm [facility] Work Phone: 1(362) 514-141606-24-2025 Evaluation note* Diagnosis Onset Date Resolution Status Admit Date Bleeding per rectum acute January 31, 2025 2:01pm Abdominal pain acute February 09, 2025 1:56pm Bleeding per rectum acute February 09, 2025 1:56pm Excessive gas acute February 09, 2 025 1:56pm Abdominal pain acute March 09, 2025 8:02am Bleeding per rectum acute March 09, 2025 8:02am Abdominal pain acute March 1:48pm Ulcerative colitis with rectal bleeding acute March 23 1:48pm Ulcerative colitis with rectal bleeding acute April 17, 025 1:22pm [facility] Work Phone: 1(485) 828-691305-30-2025 Note. MICRO - Microbiology PROCEDURE: Culture Wound Aerobic [...] Locations *1: This test was performed at: [facility], [address] [place] [address], [id number] , [facility]12-19-2024 Note. MICRO - Microbiology PROCEDURE: Culture Body Fluid [...] Locations *1: This test was performed at: [address], [facility] , [facility] [id number] Note ORIGINAL EXAMINATION: CT OF THE RIGHT [...] 04/24/2022 1:57:00 PM Ordering Provider: KASEY GARCIA [facility]09-15-2022 Note ORIGINAL EXAMINATION: CT OF THE RIGHT [...] Sign Date: 04/24/2022 1:57:00 PM Ordering Provider: [facility]10-19-2021 Evaluation + Plan note Future Scheduled Tests Laboratory* Complete Metabolic Panel 05/28/21 Radiology* MA Mammo Screening Bilateral w/ Torey 06/03/[address] [facility] Consult note Author Ryley Gutierrez [facility] Note Date/Time March 09, 2025 9:31 am [facility] Medical Records Department [address] [place] [id number] Pre-Anesthesia Evaluation 03/09/25 0926 MR#: [id number] Acct: [id number] Name: NAT FOX Rep #:[id number] : 1945 80 From: Ryley Abbasi PCP: Dr. Jimmy Shrestha MD Status:REG [facility] Race: C Location: [place] [address] ASA Classification* ASA Classification ASA Classification: 2 Assessment & Plan Anesthesia* Anesthesia Assessment Anesthesia Assessment: Discussed sedation and/or anesthesia options, risks, benefits, and alternatives with patient/parents/legal guardian/POA. Questions invited. The patient/parents/legal guardian/POA seems to understand and agrees to proceedwith anesthesia plan. Reviewed the physical assessment, medical history, allergy history and patient home medications list prior to surgery/procedure/anesthetic and documented any changes. Performed airway and anesthesia risk assessments. Anesthesia Type Anesthesia Type: MAC History Source History Obtained from:: Patient and Chart Anesthesia Focused Assessment* Temperature: 97.8 F Pulse Rate: 74 Blood Pressure: 147/73 Respiratory Rate: 16 Pulse Ox: 94 Oxygen Delivery Method: Room Air Airway Assessment Mouth opens: >3 cm Mallampati Score: II Teeth Condition: Intact Neck Range of motion (ROM): Full ROM Labs Anesthesia Preop lab: CBC Hgb 13.8 g/dL (12.0-15.0) 02/06/25 11:02 02/06/25 Hct 42.9 % (37-47) 02/06/25 11:02 02/06/25 CHEMISTRY COAG Pre-Assessment Diagnosis/Proposed Procedure Planned Operative Procedure(s): COLONOSCOPY Anesthesia History Anesthesia History - baller tender: Anesthesia History - baller tender Hx Hospitalization No 03/07/25 10:53 Any Problems With Anesthesia Yes: N&V 03/07/25 10:53 Cholinesterase deficiency No 03/07/25 10:53 You/Your Family Experience No 03/07/25 10:53 fever (hyperthermia) with Relationship Recent Exposure to Contagious No 03/09/25 08:36 Disease Does patient have nerve No 03/07/25 10:53 stimulator Patient instructed to have device shut off --Does patient have Pacemaker No 03/09/25 08:36 or ICD? When Was Last Pacemaker Check QUESTION #4 FULL TEXT: You/Your Family Experience fever (hyperthermia) with Anesthesia Last Oral Intake Last Oral intake: Last Oral Intake NPO since 05:00 03/09/25 08:36 Meds taken in AM with sips of Yes 03/09/25 08:36 water? Meds patient instructed to norvasc 03/09/25 08:36 take am of surgery synthroid PONV PONV - baller tender: PONV - baller tender Female Yes 03/07/25 10:53 HX of Motion Sickness No 03/07/25 10:53 HX of N/V After Surgery No 03/07/25 10:53 Non-Smoker Yes 03/07/25 10:53 Duration of Surgery greater No 03/07/25 10:53 than 60 minutes Number of Risk Factors 2 03/07/25 10:53 PONV Score Moderate Risk 03/07/25 10:53 Height & Weight Height & Weight: Anesthesia: Height & Weight Height 5 ft 9.5 in 03/09/25 08:36 Weight: 104.8 kg 03/09/25 08:36 Body Mass Index (BMI) 33.6 03/09/25 08:36 Respiratory Assessment Respiratory Assessment - baller tender: Respiratory Tract Infection Hx - baller tender Hx Respiratory Tract Infection No 03/07/25 10:53 STOP Sleep Apnea STOP Sleep Apnea - baller tender: STOP Sleep Apnea - baller tender Hx Hypertension Yes: CONTROLLED ON MED 03/07/25 10:53 Hx Sleep Apnea No 03/07/25 10:53 CPAP BIPAP Do you snore loudly (louder No 03/07/25 10:53 than talking or can be heard Do you often feel tired/ No 03/07/25 10:53 fatigued/ sleepy during daytime? Has anyone observed you stop No 03/07/25 10:53 breathing during sleep? STOP Results Negative 03/07/25 10:53 QUESTION #5 FULL TEXT : Do you snore loudly (louder than talking or can be heard through closed doors)? Tobacco Use History Tobacco Use History - baller tender: Tobacco Use History - baller tender Tobacco Use Smoking Status Never smoker 03/07/25 10:53 Hx Tobacco Use No 03/07/25 10:53 Years Smoking Packs Smoked per Day Smoking Cessation Date was within the last 15 years Hx Smoking Cessation Date Hx Smoking Cessation Counseling Hematologic Medial History Hematologic Hx - baller tender: Hematologic Medical Hx - manager of community relations Hx of Blood Transfusion No 03/07/25 10:53 Hx of Transfusion in last 3 No 03/07/25 10:53 Months Date of Last Transfusion (if within last 3 months) Ever experience any problems No 03/07/25 10:53 with transfusion(s)? Specify any problems Hx of Preganancy in last 3 No 03/07/25 10:53 Months Nurse Filling Out Transfusion VCHRISTIN 03/07/25 10:53 & Questions: Date: 03/07/25 03/07/25 10:53 Time: 10:54 03/07/25 10:53 Patient unable to answer at this time (ie. confused, unrespo /Reproduction History /Reproductive History - baller tender: /Reproductive Hx- baller tender Hx Now No 03/07/25 10:53 Gestational Age (in weeks): EDC: Hx Hx Para Hx Section SAB No 03/07/25 10:53 Active Medications Active Medications: Current Medications Generic Name Dose Route Start Last Admin Trade Name Freq PRN Reason Stop Dose Admin Lactated Ringer's 1,000 mls @ 15 mls/hr 03/09/25 08:15 03/09/25 09:10 IV 15 mls/hr .Q48H TEODORA Administration PFSH Medical History Wears glasses Post-menopausal Anxiety Open wound History of steroid therapy Thyroid disease Arthritis Excessive bleeding Back pain Difficulty swallowing History of GI bleed Non-smoker Leg cramps History of pain when walking History of edema Hypertension Hx of lipoma Home Medications ?Medication ?Instructions ?Recorded ?Last Taken ?Type albuterol 90 mcg/actuation aerosol 90 mcg inhalation P RN PRN SOB 02/09/25 Unknown History inhaler albuterol sulfate 2.5 mg/3 mL 2.5 mg inhalation Q4-6H PRN 02/09/25 Unknown History (0.083 %) solution for nebulization shortness of breat h or wheezing amlodipine 5 mg tablet (Norvasc) 5 mg PO QDAY 02/09/25 03/09/25 06:30 History cephalexin 500 mg capsule 500 mg PO .2xyr for teeth Unknown History fluticasone propionate 50 1 spray intranasal QDAY PRN 02/09/25 Unknown History mcg/actuation nasal allergy symptoms spray,suspension ketotifin eye solution 1 drp EACH EYE PRN PRN EYE 0 02/09/25 Unknown History ITCHYNESS levothyroxine 88 mcg tablet 88 mcg PO QDAY 02/09/25 05:00 History multivitamin with minerals 1 cap PO QDAY 02/09/2502/08 History mupirocin 2 % topical ointment 1 applic topical TID Unknown History (Centany) tolterodine 4 mg capsule,extended 4 mg PO QDAY 5 Unknown History release 24 hr (Detrol LA) triamcinolone acetonide 0.1 % 1 applic topical QDAY MO N 02/09/25 Unknown History lotion DERMATITIS acetaminophen 650 mg 1,300 mg PO Q12H PRN pain Unknown History tablet,extended release (8 Hour Pain Reliever) diclofenac sodium 1 % topical gel 1 ea topical PRN Unknown History (Arthritis Pain (diclofenac)) fluocinonide 0.05 % topical cream 1 applic topical JAY LY PRN CRACKED 03/07/25 Unknown History FINGERS Allergy/AdvReac Type Severity Reaction Status Date / Time sulfamethoxazole (From Allergy Severe Other Verified 03/07/25 10:33 Bactrim) trimethoprim (From Bactrim) Allergy Severe Other Verified 03/07/25 10:33 bacitracin (From Neosporin Allergy NEEDS Verified 03/07/25 10:33 ([id number])) FOLLOW-UP neomycin (From Neosporin Allergy NEEDS Verified 03/07/25 10:33 ([id number])) FOLLOW-UP Penicillins Allergy NEEDS Verified 03/07/25 10:33 FOLLOW-UP polymyxin B (From Neosporin Allergy NEEDS Verified 03/07/25 10:33 ([id number])) FOLLOW-UP adhesive (adhesives) AdvReac Intermediate Rash Verified 03/07/25 10:33 nabumetone (From Relafen) AdvReac Intermediate unknown Verified 03/07/25 10:33 Surgical History History of total knee replacement (TKR) History of carpal tunnel surgery of left wrist Hx of toe surgery Hx of hysterectomy Social History Smoking Status: Never smoker Review of Systems (Anesthesia) ROS Narrative System reviewed and no additional complaints, except as documented. 03/09/25930 <Electronically signed by Ryley Gutierrez MD> Date _ Ryley Gutierrez MD Cosigner Signature: Date CC: ~ Signed [facility] Work Phone: Consult note Author Tai Brown [facility] Note Date/Time March 09, 2025 11:0 3am [facility] Medical Records Department [address] [place] [address] Anesthesia Postop Eval I 03/09/25 1016 MR#: [id number] Acct: [id number] Name: NAT FOX Rep #:[id number] : 1945 80 From: [place] NA PCP: Dr. Jimmy Shrestha MD Status:REG [facility] Y Race: C Location: [place] [address] Anesthesia: Postop Eval I Current Vital Signs Temperature: 98.2 F Pulse Rate: 65 Blood Pressure: 103/62 Respiratory Rate: 18 Pulse Ox: 94 Assessment Airway patent: Yes Spontaneous unlabored respirations: Yes nausea: No Vomiting: No Anesthesia Complication: No Fluid Hydration Crystalloid volume administer (ml): 600 Total IV fluid infused: 600 Progress Note Anesthesia document: Postop Eval 1 completed: Yes 03/09/25 1016 <Electronically signed by Tai Brown PROFESSIONAL SECURITY OFFICER> Date _ Tai Brown PROFESSIONAL SECURITY OFFICER Cosigner Signature: Date CC: ~ Signed [facility] Work Phone: Evaluation + Plan note Future Appointments Appointment Date:04/24/2022 01:15:00 PM Scheduled Provider: Location:[facility] Appointment Type:CT Knee w/o Contrast Right Appointment Date:04/25/2022 10:00:00 AM Scheduled Provider:JIMMY SHRESTHA MD Location:[facility] Appointment Type:PC OV Appointment Date:04/30/2022 11:30:00 AM Scheduled Provider: Location:[facility] Appointment Type:PT [facility] Appointment Date:05/02/2022 03:15:00 PM Scheduled Provider: Location:[facility] Appointment Type:PT [facility] Appointment Date:05/05/2022 03:15:00 PM Scheduled Provider: Location:[facility] Appointment Type:PT [facility] Appointment Date:05/07/2022 03:45:00 PM Scheduled Provider: Location:[facility] Appointment Type:[facility] Future Scheduled Tests Laboratory* Complete Metabolic Panel 05/28/21 Radiology* CT Knee w/o Contrast Right 04/24/[address] [facility] Evaluation + Plan note Future Appointments Appointment Date:04/25/2022 10:00:00 AM Scheduled Provider:JIMMY SHRESTHA MD Location:[facility] Appointment Type:PC OV Appointment Date:04/30/2022 11:30:00 AM Scheduled Provider: Location:[facility] Appointment Type:PT Treatment [facility] Appointment Date:05/02/2022 03:15:00 PM Scheduled Provider: Location:[facility] Appointment Type:PT Treatment - [place] Appointment Date:05/05/2022 03:15:00 PM Scheduled Provider: Location:[facility] Appointment Type:PT Treatment [facility] Appointment Date:05/07/2022 03:45:00 PM [facility]uled [facility] - [place] Appointment Date:10/15/2022 09:45:00 AM Scheduled Provider: Location:[facility] Appointment Type:PC Nurse Lab Appointment Date:10/24/2022 10:15:00 AM Scheduled Provider:JIMMY SHRESTHA MD Location:[facility] Appointment Type:PC OV Future Scheduled Tests Laboratory* Complete Metabolic Panel 05/28/[address] [facility] Evaluation + Plan note Future Appointments Appointment Date:05/13/2023 01:30:00 PM Scheduled Provider:JIMMY SHRESTHA MD Location:[facility] Appointment Type:PC OV [facility] Evaluation + Plan note Future Appointments Appointment Date:06/07/2024 01:30:00 PM Scheduled Provider:JIMMY SHRESTHA MD Location:[facility] Appointment Type:PC OV Appointment Date:06/13/2024 10:00:00 AM Scheduled Provider: Location:[facility] Appointment Type:yyNM Inj Bone Three Phase Study Scan Appointment Date:06/13/2024 01:00:00 PM Scheduled Provider: Location:[facility] Appointment Type:yyNM Bone Three Phase Study Scan 2 Future Scheduled Tests Radiology* NM Bone Three Phase Study (Scan 1) 06/13/[address] [facility] Evaluation + Plan note Future Appointments Appointment Date:06/22/2024 07:00:00 PM Scheduled Provider: Location:[facility] Appointment Type: Home Studies Appointment Date:06/28/2024 03:00:00 PM Scheduled Provider:JIMMY SHRESTHA MD Location:[facility] Appointment Type:PC OV Follow Up [facility] Evaluation + Plan note Future Appointments Appointment Date:06/28/2024 03:00:00 PM Scheduled Provider:JIMMY SHRESTHA MD Location:[facility] Appointment Type:PC OV Follow Up [facility] Evaluation + Plan note Future Appointments Appointment Date:01/09/2025 09:00:00 AM Scheduled Provider: Location:[facility] Appointment Type:PC Nurse Lab Appointment Date:01/18/2025 07:00:00 PM Scheduled Provider: Location:[facility] Appointment Type: Home Studies Future Scheduled Tests Laboratory* Thyroid Stimulating Hormone 01/03/25 * Free T4 01/03/25 * Complete Blood Count 01/03/25 * Free T3 01/03/25 * Lipid Profile 01/03/25 * Vitamin D Level 01/03/25 * Complete Metabolic Panel 01/03/25 * N-Terminal proBNP 01/03/[address] [facility] Evaluation + Plan note Future Appointments Appointment Date:01/18/2025 07:00:00 PM Scheduled Provider: Location:[facility] Appointment Type:[facility] Studies [facility] Evaluation note* Diagnosis Onset Date Resolution Status Admit Date Bleeding per rectum acute January 31, 2025 2:01pm Rectal hemorrhage noneactive January 312024 2:01pm [facility] Work Phone: Hospital course Narrative No data available for this section [facility] Hospital Discharge instructions No data available for this section [facility] Progress note No data available for this section [facility] Reason for referral (narrative)No reason for referral [facility] Work Phone: Summary Purpose Family History No Family History Records Found Advance Directives No Advanced Directives Records Found Advance Directive Response Recorded Date/ Time Do you have a Healthcare Power of Finishing Wire Sawyer? No March 07, 2025 10:53am Chief Complaint and Reason for Visit Chief Complaint Admit Date Rectal bleeding January 31, 2025 2:01 pm Reason for Visit Admit Date Bleeding per rectum January 31, 2025 2:01 pm Rectal hemorrhage January 31, 2025 2:01 pm Chief Complaint Admit Date Rectal bleeding January 31, 2025 2:01 pm [facility] February 06, 2025 10:5 7am Reason for Visit Admit Date Bleeding per rectum January 31, 2025 2:01 pm Chief Complaint Admit Date Rectal bleeding January 31, 2025 2:01 pm [facility] February 06, 2025 10:5 7am Sx getting worse February 09, 2025 1:56p m Reason for Visit Admit Date Bleeding per rectum January 31, 2025 2:01 pm Abdominal pain February 09, 2025 1:56p m Bleeding per rectum February 09, 2025 1:56p m Excessive gas February 09, 2025 1:56p m Chief Complaint Admit Date Rectal bleeding January 31, 2025 2:01 pm [facility] February 06, 2025 10:5 7am Sx getting worse February 09, 2025 1:56p m INT XRAY ORDER February 09, 2025 2:45p m STOOL DROPOFF/ EORDERS February 11, 2025 11 :22am Reason for Visit Admit Date Bleeding per rectum January 31, 2025 2:01 pm Abdominal pain February 09, 2025 1:56p m Bleeding per rectum February 09, 2025 1:56p m Excessive gas February 09, 2025 1:56p m Abdominal pain March 09, 2025 8:02 am Bleeding per rectum March 09, 2025 8:02 am Chief Complaint Admit Date Rectal bleeding January 31, 2025 2:01 pm [facility] February 06, 2025 10:5 7am Sx getting worse February 09, 2025 1:56p m INT XRAY ORDER February 09, 2025 2:45p m STOOL DROPOFF/ EORDERS February 11, 2025 11 :22am Test Result March 23, 2025 1: 48pm Reason for Visit Admit Date Bleeding per rectum January 31, 2025 2:01 pm Abdominal pain February 09, 2025 1:56p m Bleeding per rectum February 09, 2025 1:56p m Excessive gas February 09, 2025 1:56p m Abdominal pain March 09, 2025 8:02 am Bleeding per rectum March 09, 2025 8:02 am Abdominal pain March 23, 2025 1: 48pm Ulcerative colitis with rectal bleeding March 23, 2025 1:48pm Chief Complaint Admit Date Rectal bleeding January 31, 2025 2:01 pm [facility] February 06, 2025 10:5 7am Sx getting worse February 09, 2025 1:56p m INT XRAY ORDER February 09, 2025 2:45p m STOOL DROPOFF/ EORDERS February 11, 2025 11 :22am Test Result March 23, 2025 1: 48pm INT LAB ORDERS March 23, 2025 2: 39pm Chief Complaint Admit Date Rectal bleeding January 31, 2025 2:01 pm INT LAB [facility] February 06, 2025 10:5 7am Sx getting worse February 09, 2025 1:56p m INT XRAY ORDER February 09, 2025 2:45p m STOOL DROPOFF/ EORDERS February 11, 2025 11 :22am Test Result March 23, 2025 1: 48pm INT LAB [facility] March 23, 2025 2: 39pm Ulcerative colitis, unspecified with oth er complic April 04, 2025 12:26pm Chief Complaint Admit Date Rectal bleeding January 31, 2025 2:01 pm INT [facility] February 06, 2025 10:5 7am Sx getting worse February 09, 2025 1:56p m INT XRAY ORDER February 09, 2025 2:45p m STOOL DROPOFF/ EORDERS February 11, 2025 11 :22am Test Result March 23, 2025 1: 48pm INT LAB ORDERS March 23, 2025 2: 39pm Ulcerative colitis, unspecified with oth er complic April 04, 2025 12:26pm BLOODY MUCUS April 17, 2025 1:22pm Reason for Visit Admit Date Bleeding per rectum January 31, 2025 2:01 pm Abdominal pain February 09, 2025 1:56p m Bleeding per rectum February 09, 2025 1:56p m Excessive gas February 09, 2025 1:56p m Abdominal pain March 09, 2025 8:02 am Bleeding per rectum March 09, 2025 8:02 am Abdominal pain March 23, 2025 1: 48pm Ulcerative colitis with rectal bleeding March 23, 2025 1:48pm Ulcerative colitis with rectal bleeding April 17, 2025 1:22pm Chief Complaint Admit Date INT LAB ORER February 06, 2025 10:5 7am Sx getting worse February 09, 2025 1:56p m INT XRAY ORDER February 09, 2025 2:45p m STOOL DROPOFF/ EORDERS February 11, 2025 11 :22am Test Result March 23, 2025 1: 48pm INT LAB ORDERS March 23, 2025 2: 39pm Ulcerative colitis, unspecified with oth er complic April 04, 2025 12:26pm PREOP April 04, 2025 12 :38pm BLOODY MUCUS April 17, 2025 1:22pm ABN EKG (FRIEND) May 24, 2025 1 :56pm Reason for Visit Admit Date Abdominal pain February 09, 2025 1:56p m Bleeding per rectum February 09, 2025 1:56p m Excessive gas February 09, 2025 1:56p m Abdominal pain March 09, 2025 8:02 am Bleeding per rectum March 09, 2025 8:02 am Abdominal pain March 23, 2025 1: 48pm Ulcerative colitis with rectal bleeding March 23, 2025 1:48pm Ulcerative colitis with rectal bleeding April 17, 2025 1:22pm Abnormal ECG May 24, 2025 1 :56pm Hyperlipidemia May 24, 2025 1 :56pm Ulcerative colitis with rectal bleeding May 24, 2025 1:56pm Hypertension May 24, 2025 1 :56pm Additional Source Comments Care Team (unrecognized sect ion and content) Care Team Personnel Name: JIMMY SHRESTHA MD Position: P4 Physician - Primary Care Med Service: Active Provider Member Role: Primary Care Physician Address: Address: [address] [place] [address] Care Team Related Persons Name: PATITO FOX Address: Home [address] [place], [place] [id number] [facility] Care Team Personnel Name: JIMMY SHRESTHA MD Position: P4 Physician - Primary Care Med Service: Active Provider Member Role: Primary Care Physician Address: Address: [address] [place] [address]- [place] Care Team Related Persons Name: PATITO FOX Address: Home [id number] [place] [id number] [facility] Care Team Personnel Name: JIMMY SHRESTHA MD Position: P4 Physician - Primary Care Med Service: Active Provider Member Role: Primary Care Physician Address: Address: [address] [place], [place] [id number] [place] [address] Care Team Related Persons Name: PATITO FOX Address: [place] [id number] [place] [phone] [facility] Patient Care team informatio n (unrecognized section and content) Team Status: Active Member Role Status Dates Dr. Jimmy Shrestha MD Family Provider Active Dr. Jimmy Shrestha MD Primary Care Provider Active Team Status: Inactive Member Role Status Dates Dr. Jimmy Shrestha MD Primary Care Provider Active Start: January 31, 2025 End: January 31, 2025 Dr. Jimmy Shrestha MD Referring Provider Active Start: January 31, 2025 End: January 31, 2025 SALOMÓN Pdagett Attending Provider Active S tart: January 31, 2025 End: January 31, 2025 Team Status: Active Member Role/Relationship Status Dates Dr. Jimmy Shrestha MD Family Provider Active Dr. Jimmy Shrestha MD Primary Care Provider Active Team Status: Inactive Member Role/Relationship Status Dates Dr. Jimmy Shrestha MD Primary Care Provider Active Start: January 31, 2025 End: January 31, 2025 Dr. Jimmy Shrestha MD Referring Provider Active Start: January 31, 2025 End: January 31, 2025 SALOMÓN Padgett Attending Provider Active S tart: January 31, 2025 End: January 31, 2025 Team Status: Inactive Member Role/Relationship Status Dates Dr. Jimmy Shrestha MD Primary Care Provider Active Start: February 06, 2025 End: February 06, 2025 Graciela Zuleta , MANAGER SIGN-C Attending Provider Active S tart: February 06, 2025 End: February 06, 2025 Graciela Zuleta , MANAGER SIGN-C Referring Provider Active S tart: February 06, 2025 End: February 06, 2025 Team Status: Active Member Role/Relationship Status Dates Dr. Jimmy Shrestha MD Primary Care Provider Active Team Status: Inactive Member Role/Relationship Status Dates Dr. Jimmy Shrestha MD Primary Care Provider Active Start: February 09, 2025 End: February 09, 2025 Dr. Jimmy Shrestha MD Referring Provider Active Start: February 09, 2025 End: February 09, 2025 Graciela Zuleta , MANAGER SIGN-C Attending Provider Active S tart: February 09, 2025 End: February 09, 2025 Team Status: Inactive Member Role/Relationship Status Dates Dr. Jimmy Shrestha MD Primary Care Provider Active Start: February 09, 2025 End: February 09, 2025 Graciela Zuleta , MANAGER SIGN-C Attending Provider Active S tart: February 09, 2025 End: February 09, 2025 Graciela Zuleta , MANAGER SIGN-C Referring Provider Active S tart: February 09, 2025 End: February 09, 2025 Team Status: Active Member Role/Relationship Status Dates Dr. Jimmy Shrestha MD Primary Care Provider Active Start: February 11, 2025 Graciela Zuleta , MANAGER SIGN-C Attending Provider Active S tart: February 11, 2025 Graciela Zuleta , MANAGER SIGN-C Referring Provider Active S tart: February 11, 2025 Team Status: Inactive Member Role/Relationship Status Dates Dr. Jimmy Shrestha MD Primary Care Provider Active Start: February 11, 2025 End: February 11, 2025 Graciela Zuleta , MANAGER SIGN-C Attending Provider Active S tart: February 11, 2025 End: February 11, 2025 Graciela Zuleta , MANAGER SIGN-C Referring Provider Active S tart: February 11, 2025 End: February 11, 2025 Team Status: Inactive Member Role/Relationship Status Dates Dr. Jimmy Shrestha MD Primary Care Provider Active Start: March 09, 2025 End: March 09, 2025 Dr. Jimmy Shrestha MD Referring Provider Active Start: March 09, 2025 End: March 09, 2025 Dr. Arsalan Orellana DO Attending Provider Active Start: March 09, 2025 End: March 09, 2025 Team Status: Active Member Role/Relationship Status Dates Dr. Jimmy Shrestha MD Primary Care Provider Active Start: March 09, 2025 Dr. Jimmy Shrestha MD Referring Provider Active Start: March 09, 2025 Dr. Arsalan Orellana DO Attending Provider Active Start: March 09, 2025 Dr. Arsalan Orellana DO Other Provider Active St art: March 09, 2025 Team Status: Inactive Member Role/Relationship Status Dates Dr. Jimmy Shrestha MD Primary Care Provider Active Start: March 23, 2025 End: March 23, 2025 Dr. Jimmy Shrestha MD Referring Provider Active Start: March 23, 2025 End: March 23, 2025 Graciela Zuleta MANAGER SIGN-C Attending Provider Active S tart: March 23, 2025 End: March 23, 2025 Team Status: Inactive Member Role/Relationship Status Dates Dr. Jimmy Shrestha MD Primary Care Provider Active Start: March 23, 2025 End: March 23, 2025 Graciela Zuleta MANAGER SIGN-C Attending Provider Active S tart: March 23, 2025 End: March 23, 2025 Graciela Zuleta MANAGER SIGN-C Referring Provider Active S tart: March 23, 2025 End: March 23, 2025 Team Status: Inactive Member Role/Relationship Status Dates Dr. Jimmy Shrestha MD Primary Care Provider Active Start: April 04, 2025 End: April 04, 2025 Graciela Zuleta MANAGER SIGN-C Attending Provider Active S tart: April 04, 2025 End: April 04, 2025 Graciela Zuleta MANAGER SIGN-C Referring Provider Active S tart: April 04, 2025 End: April 04, 2025 Team Status: Inactive Member Role/Relationship Status Dates Dr. Jimmy Shrestha MD Primary Care Provider Active Start: April 17, 2025 End: April 17, 2025 Dr. Jimmy Shrestha MD Referring Provider Active Start: April 17, 2025 End: April 17, 2025 Malissa De La Paz NP-C Attending Provider Active Start: April 17, 2025 End: April 17, 2025 Team Status: Active Member Role/Relationship Status Dates Dr. Jimmy Shrestha MD Primary care physician Active Team Status: Inactive Member Role/Relationship Status Dates Dr. Jimmy Shrestha MD Primary care physician Active Start: February 06, 2025 End: February 06, 2025 Gracielaher Zuleta , MANAGER SIGN-C Attending physician Active Start: February 06, 2025 End: February 06, 2025 Graciela Song , MANAGER SIGN-C Referring Provider Active S tart: February 06, 2025 End: February 06, 2025 Team Status: Inactive Member Role/Relationship Status Dates Dr. Jimmy Shrestha MD Primary care physician Active Start: February 09, 2025 End: February 09, 2025 Dr. Jimmy Shrestha MD Referring Provider Active Start: February 09, 2025 End: February 09, 2025 Gracielaher Zuleta , MANAGER SIGN-C Attending physician Active Start: February 09, 2025 End: February 09, 2025 Team Status: Inactive Member Role/Relationship Status Dates Dr. Jimmy Shrestha MD Primary care physician Active Start: February 09, 2025 End: February 09, 2025 Gracielaher Zuleta , MANAGER SIGN-C Attending physician Active Start: February 09, 2025 End: February 09, 2025 Gracielaher Zuleta , MANAGER SIGN-C Referring Provider Active S tart: February 09, 2025 End: February 09, 2025 Team Status: Inactive Member Role/Relationship Status Dates Dr. Jimmy Shrestha MD Primary care physician Active Start: February 11, 2025 End: February 11, 2025 Gracielaher Zuleta , MANAGER SIGN-C Attending physician Active Start: February 11, 2025 End: February 11, 2025 Gracielaher Zuleta , MANAGER SIGN-C Referring Provider Active S tart: February 11, 2025 End: February 11, 2025 Team Status: Inactive Member Role/Relationship Status Dates Dr. Jimmy Shrestha MD Primary care physician Active Start: March 09, 2025 End: March 09, 2025 Dr. Jimmy Shrestha MD Referring Provider Active Start: March 09, 2025 End: March 09, 2025 Dr. Arsalan Orellana DO Attending physician Active Start: March 09, 2025 End: March 09, 2025 Team Status: Active Member Role/Relationship Status Dates Dr. Jimmy Shrestha MD Primary care physician Active Start: March 09, 2025 Dr. Jimmy Shrestha MD Referring Provider Active Start: March 09, 2025 Dr. Arsalan Orellana DO Attending physician Active Start: March 09, 2025 Dr. Arsalan Orellana DO Nurse Practitioner Active Start: March 09, 2025 Team Status: Inactive Member Role/Relationship Status Dates Dr. Jimmy Shrestha MD Primary care physician Active Start: March 23, 2025 End: March 23, 2025 Dr. Jimmy Shrestha MD Referring Provider Active Start: March 23, 2025 End: March 23, 2025 Graciela Zuleta NP-C Attending physician Active Start: March 23, 2025 End: March 23, 2025 Team Status: Inactive Member Role/Relationship Status Dates Dr. Jimmy Shrestha MD Primary care physician Active Start: March 23, 2025 End: March 23, 2025 Graciela Zuleta MANAGER SIGN-C Attending physician Active Start: March 23, 2025 End: March 23, 2025 Gracielaher Zuleta MANAGER SIGN-C Referring Provider Active S tart: March 23, 2025 End: March 23, 2025 Team Status: Inactive Member Role/Relationship Status Dates Dr. Jimmy Shrestha MD Primary care physician Active Start: April 04, 2025 End: April 04, 2025 Graciela Zuleta MANAGER SIGN-C Attending physician Active Start: April 04, 2025 End: April 04, 2025 Graciela Zuleta MANAGER SIGN-C Referring Provider Active S tart: April 04, 2025 End: April 04, 2025 Team Status: Active Member Role/Relationship Status Dates Dr. Jimmy Shrestha MD Primary care physician Active Start: April 04, 2025 Dr. Jeferson Phipps MD Attending physician Active Start: April 04, 2025 Graciela Zuleta MANAGER SIGN-C Referring Provider Active S tart: April 04, 2025 Team Status: Inactive Member Role/Relationship Status Dates Dr. Jimmy Shrestha MD Primary care physician Active Start: April 17, 2025 End: April 17, 2025 Dr. Jimmy Shrestha MD Referring Provider Active Start: April 17, 2025 End: April 17, 2025 SUMMER PhanC Attending physician Active Start: April 17, 2025 End: April 17, 2025 Team Status: Inactive Member Role/Relationship Status Dates Dr. Jimmy Shrestha MD Primary care physician Active Start: May 24, 2025 End: May 24, 2025 Dr. Jimmy Shrestha MD Referring Provider Active Start: May 24, 2025 End: May 24, 2025 Dr. Mendoza Wheat MD Attending physician Active Start: May 24, 2025 End: May 24, 2025 INFORMATION SOURCE (unrecogn ized section and content) DATE CREATED AUTHOR 05/15/2023 [facility] ([place]) DATE CREATED AUTHOR AUTHOR'S ORGANIZ ATION 08/04/2024 [facility] DATE CREATED AUTHOR AUTHOR'S ORGANIZ ATION 11/19/2024 [facility] DATE CREATED AUTHOR AUTHOR'S ORGANIZ ATION 01/29/2025 [facility] DATE CREATED AUTHOR AUTHOR'S ORGANIZ ATION 06/20/2025 [facility] Goals (unrecognized section and content) Goals may [...] BE BASED ON THE PRIMARY CLINICAL RECORDS. [facility]. provides no warranty or guarantee of the accuracy or completeness of information in this document.
== END | disposition home or self-care (01) ==
LOC: LAB 15:20
PROVIDERS: PCP Family Medicine; Referring Provider Student in an Organized Health Care Education/Training Program; Visit Provider Student in an Organized Health Care Education/Training Program
DX: E03.9 Hypothyroidism, unspecified (principal)
CPT/HCPCS: 36415; 84443; 84481

== ENCOUNTER → 2025-07-25 | Outpatient (CLI) | payer MEDICARE, SELFPAY ==
[2025-07-25 15:09] LABS: Anion Gap 12 (5-15); BUN 17 mg/dL (4-19); BUN/Creat Ratio 22.0 RATIO (10-20); Calcium,Total 10.2 mg/dL (7.6-11.0); Carbon Dioxide 28.6 mmol/L (21.0-32.0); Chloride 101 mmol/L (98-108); Glucose 147 mg/dL (70-99); Potassium 3.3 mmol/L (3.3-5.1)
--- OUTSIDE RECORDS SUMMARY | 2025-07-25 19:50 | XMS RPT_ITS | CCD ---
Author Organization [facility] Care Team Providers Care Roller Name Role Phone JIMMY SHRESTHA MD Primary [...] Provider Dr. Jimmy Shrestha MD Referring Provider [phone] Graciela Jacobson Attending Provider Graciela Jacobson Referring Provider Dr. Arsalan Orellana DO Attending Provider Dr. Arsalan Orellana DO Other Provider Malissa Pitts Attending Provider Dr. Jimmy Shrestha MD Primary Care Physician Song SNOWBOARDER-CGraciela Attending Physician Paulo DOYLE, Dr. Drummond Referring Provider Esteban ERAZO, Dr. Arriaza Attending Physician Dr. Arsalan Orellana DO Nurse Practitioner Moise DOYLE, Dr. Govea Attending Physician [phone] Malissa Pitts Attending Physician Dr. Mendoza Wheat [...] Allergy to substance Unknown (qualifier value) [facility] (11 sources) bacitracin / neomycin / polymyxin b; Translations: [bacitracin/neomyci n/polymyxin B topical] Drug Allergy Unknown (qualifier value) [facility] (20 sources) nabumetone; Translations: [nabumetone] Drug Allergy 02-10-20 headache, unknown [facility] (11 sources) Penicillin; Translations: [penicillin] Drug Allergy Unknown (qualifier value) [facility] (11 sources) Bacitracin Drug Allergy 02-01-20 NEEDS FOLLOW-UP [facility] (11 sources) Neomycin Drug Allergy 02-01-20 NEEDS FOLLOW-UP [facility] (11 sources) Penicillins Allergy to substance 02-01-20 NEEDS FOLLOW-UP [facility] (11 sources) Polymyxin B Drug Allergy 02-01-20 NEEDS FOLLOW-UP [facility] (10 sources) Adhesive agent; Translations: [adhesive] Propensity to adverse reactions 02-10-20 Rash [facility] (6 sources) Sulfamethoxazole Drug Allergy 03-07-20 Other [facility] (6 sources) Trimethoprim Drug Allergy 03-07-20 Other [facility] (1 source) Bacitracin Drug Allergy 06-12-20 [facility] (1 source) nabumetone Drug Allergy 06-12-20 [facility] (1 source) Neomycin Drug Allergy 06-12-20 [facility] (1 source) Penicillins Drug allergy (disorder) 06-12-20 [facility] (1 source) Sulfamethoxazole Drug Allergy 06-12-20 [facility] (1 source) Trimethoprim Drug Allergy 06-12-20 [facility] (1 source) polymyxin B Drug allergy (disorder) 06-12-20 [facility] Medications Current Medications Medication Drug [...] qDay, # 90 tab(s), 3 Refill(s), Pharmacy: [facility], 180, cm, 05/13/25 15:35:00 EDT, Height, [...] bp, # 1 EA, 0 Refill(s), Pharmacy: [id number], Elevated blood pressure reading, 180, cm, 06/07/24 13:23:00 EDT, Height, 106.8, kg, 06/07/24 13:23:00 EDT, Dosing Weight Start Date: 06/23/24 Status: Ordered Quantity: 1.0 Unit: EA Repeat number: 1 Indications: Elevated blood-pressure reading, without diagnosis of hypertension; [place] 3-Bnn-Ycf-Fish Oil (1 source) Start: 05-24-2025 fluocinonide 0.5 mg/ml topical cream (16 sources) Corticosteroid Start: 03-07-2025 Start: 06-07-2024 fluocinonide 0 .05% topical cream See Instructions, to affected area daily, # 30 gram(s), 1 Refill(s), Pharmacy: [facility], Cream, 180, cm, 06/07/24 13:23:00 EDT, Height, 106.8, kg, 06/07/24 13:23:00 EDT, Dosing Weight Start Date: 06/07/24 Status: Ordered Quantity: 30.0 Unit: g Repeat number: 2 Start: 06-07-2024 fluocinonide 0 .05% topical cream See Instructions, to affected area daily, # 30 gram(s), 1 Refill(s), Pharmacy: [facility], Cream, 180, cm, 06/07/24 13:23:00 EDT, Height, 106.8, kg, 06/07/24 13:23:00 EDT, Dosing Weight Start Date: 06/07/24 Status: Ordered Start: 02-05-2024 fluocinonide 0 .05% topical cream See Instructions, to affected area daily, # 30 gram(s), 1 Refill(s), Pharmacy: [facility], Cream, 180, cm, 05/13/23 13:26:00 EDT, Height, 105.8, kg, 05/13/23 13:26:00 EDT, Dosing Weight Start Date: 02/05/24 Status: Ordered Start: 03-11-2022 fluocinonide 0 .05% topical cream See Instructions, to affected area daily, # 60 gram(s), 0 Refill(s), Pharmacy: [id number], Cream, 177, cm, 06/03/21 10:25:00 EDT, Height, [...] qDay, # 90 tab(s), 3 Refill(s), Pharmacy: [facility], 180, cm, 06/07/24 13:23:00 EDT, Height, kg, 06/07/24 13:23:00 EDT, Dosing Weight Start Date: 06/07/24 Stop Date: 06/02/25 Status: Ordered Quantity: 90.0 Unit: tab(s) Repeat number: 4 Start: 05-13-2023 End: 05-07-2024 Synthroid 88 mcg (0.088 mg) oral tablet Dose : 88 mcg = 1 tab(s), Oral, qDay, # 90 tab(s), 3 Refill(s), Pharmacy: [facility], 180, cm, 05/13/23 13:26:00 EDT, Height, kg, 05/13/23 13:26:00 EDT, Dosing Weight Start Date: 05/13/23 Stop Date: 05/07/24 Status: Ordered Start: 06-03-2021 End: 05-01-2023 Synthroid 88 mcg (0.088 mg) oral tablet Dose : 88 mcg = 1 tab(s), Oral, qDay, # 90 tab(s), 3 Refill(s), Pharmacy: [facility], 177, cm, 04/25/22 10:10:00 EDT, [...] day(s), # 20 tab(s), 0 Refill(s), Pharmacy: [facility]acy #[id number], 180, cm, 01/03/25 14:57:00 EDT, [...] Daily, # 90 cap(s), 3 Refill(s), Pharmacy: [facility], 180, cm, 06/28/24 14:52:00 EST, Height, [...] Daily, # 90 cap(s), 3 Refill(s), Pharmacy: [facility], 180, cm, 05/13/23 13:26:00 EDT, Height, kg, 05/13/23 13:26:00 EDT, Dosing Weight Start Date: 05/13/23 Status: Ordered Start: 10-31-2022 Detrol LA 4 mg oral capsule, extended release Dose : 4 mg = 1 cap(s), Oral, Daily, # 90 cap(s), 1 Refill(s), Pharmacy: [facility], 177, cm, 04/25/22 10:10:00 EDT, Height, kg, 04/25/22 10:10:00 EDT, Dosing Weight Start Date: 10/31/22 Status: Ordered Start: 10-08-2021 Detrol LA 4 mg oral capsule, extended release Dose : 4 mg = 1 cap(s), Oral, Daily, # 90 cap(s), 3 Refill(s), Pharmacy: [facility], 177, cm, 06/03/21 10:25:00 EDT, Height, kg, 06/03/21 10:25:00 EDT, Dosing Weight Start Date: 10/08/21 Status: Ordered Start: 04-05-2021 End: 07-04-2021 Detrol LA 4 mg oral capsule, extended release Dose : 4 mg = 1 cap(s), Oral, Daily, # 90 cap(s), 0 Refill(s), Pharmacy: [facility], 177, cm, 02/14/20 9:03:00 EDT, Height, kg, 02/14/20 9:06:00 EDT, Dosing Weight Start Date: 04/05/21 Stop Date: 07/04/21 Status: Ordered triamcinolone acetonide 1 mg /ml topical lotion (15 sources) Corticosteroid Start: 02-09-2025 Start: 06-07-2024 triamcinolone 0.1% topical lotion See Instructions, Topical qDay, # 60 mL, 5 Refill(s), Pharmacy: [facility], 180, cm, 06/07/24 13:23:00 EDT, Height, 106.8, kg, 06/07/24 13:23:00 EDT, Dosing Weight Start Date: 06/07/24 Status: Ordered Quantity: 60.0 Unit: mL Repeat number: 6 Indications: Dermatitis, unspecified; Start: 05-13-2023 triamcinolone 0.1% topical lotion See Instructions, Topical qDay, # 60 mL, 5 Refill(s), Pharmacy: [facility], 180, cm, 05/13/23 13:26:00 EDT, [...] BID, # 50 gram(s), 0 Refill(s), Pharmacy: [facility], Cream, 180, cm, 12/20/24 15:35:00 EDT, Height, 108, kg, 12/20/24 15:35:00 EDT, Dosing Weight Start Date: 12/20/24 Stop Date: 01/03/25 Status: Ordered Quantity: 50.0 Unit: g Repeat number: 1 Start: 06-07-2024 End: 06-21-2024 SSD 1% topical cream Apply 1 kenton, Topical, BID, # 50 gram(s), 0 Refill(s), Pharmacy: [facility], Cream, 180, cm, 06/07/24 13:23:00 EDT, [...] Reference Range Facility Echo Complete 06-19-2025 Echo [facility] [address] [place] [address] Echo Complete 06/19/25 1356 MR#: [id number] Acct: [id number] Name: NAT FOX Rep #: [id number] : 1945 80 From: Riki Benavides MD Attending Dr: Dr. Mendoza Wheat MD Status: G CLI Ordering Dr: Mendoza Wheat MD Date: 06/19/25 Location: [facility] Sex: F C Admitted: Reason For [...] Date Dictated: 06/19/25 1356 Date Transcribed: 06/20/25937 International Manager: Signed Normal [facility] Gastroenterology Visit Repor ton 06-12-2025 Gastroenterology Visit Report [facility] [address] [place] [address] OFFICE VISIT Date of Service: 06/12/25 MR#: [id number] Acct: [id number] Name: ANT FOX Rep #: [id number] : 1945 Provider: Arsalan Orellana DO Age/Sex: 80/F Location: [facility] Status: Signed Intake Vital Signs 03/09/25 08:36 04/07/25 10:34 05/24/25 14:00 Height 5 ft 9.5 in 5 ft 9.5 in 5 ft 9.5 in Intake Visit Reasons: FU Chief Complaint: follow-up Allergies sulfamethoxazole (From Bactrim) Allergy (Severe, Verified 06/12/25 14:29) Other trimethoprim (From Bactrim) Allergy (Severe, Verified 06/12/25 14:29) Other bacitracin (From Neosporin (mge-apx-nyagb)) Allergy (Verified 06/12/25 14:29) NEEDS FOLLOW-UP neomycin (From Neosporin (prm-cyb-fhvct)) Allergy (Verified 06/12/25 14:29) NEEDS FOLLOW-UP Penicillins Allergy (Verified 06/12/25 14:29) NEEDS FOLLOW-UP polymyxin B (From Neosporin (pjy-iqa-rfdvd)) Allergy (Verified 06/12/25 14:29) NEEDS FOLLOW-UP adhesive [...] cell capsule (Adult 50 Plus Probiotic) omega 6-wss-gnh-fish oil 300 1 cap PO QWEEK 05/24/25 [...] sided- ulcerative (more content not included)... Normal [facility] Calprotectin, Stoolon [address] 68 ug/g Normal 0-120 [facility] Comment on above: Result Comment: Conc entration Interpretation Follow-Up < 5 - 50 ug/g Normal None >50 -120 ug/g Borderline Re-evaluate in 4-6 weeks >120 ug/g Abnormal Repeat as clinically indicated Performed at: - [facility] [address] [id number] Paper Grader: Karina Diaz MD, Phone: [phone] Performed By: #### L 2781.4449 #### [facility] [address] [place], [address] Basic Metabolic Profile (BMP )on 06-06-2025 BUN Normal 4-19 [facility] Comment on above: Result Comment: DUPL ICATE ORDER Performed By: #### L 500.2500 #### [facility] [address] [place], [address] BUN/CRE Normal 10-20 [facility] Comment on above: Result Comment: DUPL ICATE ORDER Performed By: #### L 500.2500 #### [facility] [address] [place], [address] Calcium Normal 7.6-11.0 [facility] Comment on above: Result Comment: DUPL ICATE ORDER Performed By: #### L 500.2500 #### [facility] [address] [place], [address] CL Normal 98-108 [facility] Comment on above: Result Comment: DUPL ICATE ORDER Performed By: #### L 500.2500 #### [facility] [address] [place], [address] CO2 Normal 21.0-32.0 [facility] Comment on above: Result Comment: DUPL ICATE ORDER Performed By: #### L 500.2500 #### [facility] [address] [place], [address] CREAT,SERUM Normal 0.70-1.20 [facility] Comment on above: Result Comment: DUPL ICATE ORDER Performed By: #### L 500.2500 #### [facility] [address] [place], [address] eGFR Normal >60 [facility] Comment on above: Result Comment: DUPL ICATE ORDER Performed By: #### L 500.2500 #### [facility] [address] [place], [address] GAP Normal 5-15 [facility] Comment on above: Result Comment: DUPL ICATE ORDER Performed By: #### L 500.2500 #### [facility] [address] [place], [address] GLU Normal 70-99 [facility] Comment on above: Result Comment: DUPL ICATE ORDER Performed By: #### L 500.2500 #### [facility] [address] [place], [address] Potassium Normal 3.3-5.1 [facility] Comment on above: Result Comment: DUPL ICATE ORDER Performed By: #### L 500.2500 #### [facility] [address] [place], [address] Basic Metabolic Profile (BMP) Normal 133-145 [facility] Comment on above: Result Comment: DUPL ICATE ORDER Performed By: #### L 500.2500 #### [facility] [address] [place], [address] CBC W/Diff, Automatedon 10-2 8-2024 Absolute Lymph 1.08 X10 3/uL Normal 0.83-4.51 [facility] Comment on above: Performed By: #### L 100.0100, L501.6710, L500.4050 #### [facility] [address] [place], [address] Absolute Neut 3.9 X10 3/uL Normal 2.0-7.7 [facility] Comment on above: Performed By: #### L 100.0100, L501.6710, L500.4050 #### [facility] [address] [place], [address] Basophils/100 WBC (Bld) 1.0 % Normal 0-1 [facility] Comment on above: Performed By: #### L 100.0100, L501.6710, L500.4050 #### [facility] [address] [place], [address] Eosinophils/100 WBC (Bld) 3.2 % Normal 0-5 [facility] Comment on above: Performed By: #### L 100.0100, L501.6710, L500.4050 #### [facility] [address] [place], [address] Erythrocyte distribution width (RBC) [Ratio] 12.9 % Normal 11.6-14.6 [facility] Comment on above: Performed By: #### L 100.0100, L501.6710, L500.4050 #### [facility] [address] [place], [address] Hematocrit (Bld) [Volume fraction] 42.1 % Normal 37-47 [facility] Comment on above: Performed By: #### L 100.0100, L501.6710, L500.4050 #### [facility] [address] [place], [address] Hemoglobin (Bld) [Mass/Vol] 13.8 g/dL Normal 12.0-15.0 [facility] Comment on above: Performed By: #### L 100.0100, L501.6710, L500.4050 #### [facility] [address] [place], [address] IG% 0.300 Normal 0.0-0.9 [facility] Comment on above: Result Comment: IG% - Immature Granulocytes (promyelocytes, myelocytes and metamyelocytes) > 1% indicates that a LEFT SHIFT is Present. Performed By: #### L 100.0100, L501.6710, L500.4050 #### [facility] [address] [place], [address] Lymphocytes/100 WBC (Bld) 18.2 % Low 19-41 [facility] Comment on above: Performed By: #### L 100.0100, L501.6710, L500.4050 #### [facility] [address] [place], [address] MCH (RBC) [Entitic mass] 29.1 pg Normal 27.0-32.0 [facility] Comment on above: Performed By: #### L 100.0100, L501.6710, L500.4050 #### [facility] [address] [place], [address] MCHC (RBC) [Mass/Vol] 32.8 g/dL Normal 32-36 [facility] Comment on above: Performed By: #### L 100.0100, L501.6710, L500.4050 #### [facility] [address] [place], [address] MCV (RBC) [Entitic vol] 88.6 fL Normal 81-[address] [facility] Comment on above: Performed By: #### L 100.0100, L501.6710, L500.4050 #### [facility] [address] [place], [address] Monocytes/100 WBC (Bld) 12.4 % High 0-[address] [facility] Comment on above: Performed By: #### L 100.0100, L501.6710, L500.4050 #### [facility] [address] [place], [address] Neutrophils/100 WBC (Bld) 64.9 % Normal 47-70 [facility] Comment on above: Performed By: #### L 100.0100, L501.6710, L500.4050 #### [facility] [address] [place], [address] Nucleated RBC (Bld) [#/Vol] 0 10*3/uL Normal 0-5 [facility] Comment on above: Performed By: #### L 100.0100, L501.6710, L500.4050 #### [facility] [address] [place], [address] Platelet mean volume (Bld) [Entitic vol] 10.0 fL Normal 6.2-12.0 [facility] Comment on above: Performed By: #### L 100.0100, L501.6710, L500.4050 #### [facility] [address] [place], [address] Platelets (Bld) [#/Vol] 243 10*3/uL Normal 150-450 [facility] Comment on above: Performed By: #### L 100.0100, L501.6710, L500.4050 #### [facility] [address] [place], [address] RBC (Bld) [#/Vol] 4.75 10*6/uL Normal 4.2-5.4 [facility] Comment on above: Performed By: #### L 100.0100, L501.6710, L500.4050 #### [facility] [address] [place], [address] RDW SD 41.8 fl Normal 35.1-43.9 [facility] Comment on above: Performed By: #### L 100.0100, L501.6710, L500.4050 #### [facility] [address] [place], [address] WBC (Bld) [#/Vol] 6.0 10*3/uL Normal 4.4-11.0 [facility] Comment on above: Performed By: #### L 100.0100, L501.6710, L500.4050 #### [facility] [address] [place], [address] CRPon 06-06-2025 C-REACTIVE PROT 5.51 mg/L High 0.0-3.0 [facility] Comment on above: Order Comment: SHARE CMP RESULTS WITH DOCTOR MENDOZA WHEAT Performed By: #### L 100.0100, L501.6710, L500.4050 ####[facility] [address] [place], [address] Comprehensive Metabolic Prof ilon 06-06-2025 Albumin [Mass/Vol] 4.0 g/dL Normal 3.4-4.8 [facility] Comment on above: Order Comment: SHARE CMP RESULTS WITH DOCTOR MENDOZA WHEAT Performed By: #### L 100.0100, L501.6710, L500.4050 #### [facility] [address] [place], [address] Albumin/Globulin [Mass ratio] 1.4 {ratio} Normal 0.9-2.4 [facility] Comment on above: Order Comment: SHARE CMP RESULTS WITH DOCTOR MENDOZA WHEAT Performed By: #### L 100.0100, L501.6710, L500.4050 #### [facility] [address] [place], [address] ALK PHOS 70 U/L Normal 35-104 [facility] Comment on above: Order Comment: SHARE CMP RESULTS WITH DOCTOR MENDOZA WHEAT Performed By: #### L 100.0100, L501.6710, L500.4050 #### [facility] [address] [place], [address] ALT [Catalytic activity/Vol] 17 U/L Normal <=34 [facility] Comment on above: Order Comment: SHARE CMP RESULTS WITH DOCTOR MENDOZA WHEAT Performed By: #### L 100.0100, L501.6710, L500.4050 #### [facility] [address] [place], [address] AST [Catalytic activity/Vol] 24 U/L Normal <=31 [facility] Comment on above: Order Comment: SHARE CMP RESULTS WITH DOCTOR MENDOZA WHEAT Performed By: #### L 100.0100, L501.6710, L500.4050 #### [facility] [address] [place], [address] Bilirubin [Mass/Vol] 0.28 mg/dL Normal 0.00-1.30 [facility] Comment on above: Order Comment: SHARE CMP RESULTS WITH DOCTOR MENDOZA WHEAT Performed By: #### L 100.0100, L501.6710, L500.4050 #### [facility] [address] [place], [address] BUN/CRE 21.5 RATIO High 10-20 [facility] Comment on above: Order Comment: SHARE CMP RESULTS WITH DOCTOR MENDOZA WHEAT Performed By: #### L 100.0100, L501.6710, L500.4050 #### [facility] [address] [place], [address] Calcium [Mass/Vol] 10.1 mg/dL Normal 7.6-11.0 [facility] Comment on above: Order Comment: SHARE CMP RESULTS WITH DOCTOR MENDOZA WHEAT Performed By: #### L 100.0100, L501.6710, L500.4050 #### [facility] [address] [place], [address] Chloride [Moles/Vol] 103 mmol/L Normal 98-108 [facility] Comment on above: Order Comment: SHARE CMP RESULTS WITH DOCTOR MENDOZA WHEAT Performed By: #### L 100.0100, L501.6710, L500.4050 #### [facility] [address] [place], [address] CO2 [Moles/Vol] 26.0 mmol/L Normal 21.0-32.0 [facility] Comment on above: Order Comment: SHARE CMP RESULTS WITH DOCTOR MENDOZA WHEAT Performed By: #### L 100.0100, L501.6710, L500.4050 #### [facility] [address] [place], [address] Creatinine [Mass/Vol] 0.68 mg/dL Low 0.70-1.20 [facility] Comment on above: Order Comment: SHARE CMP RESULTS WITH DOCTOR MENDOZA WHEAT Performed By: #### L 100.0100, L501.6710, L500.4050 #### [facility] [address] [place], [address] GAP 8 Normal 5-15 [facility] Comment on above: Order Comment: SHARE CMP RESULTS WITH DOCTOR MENDOZA WHEAT Performed By: #### L 100.0100, L501.6710, L500.4050 #### [facility] [address] [place], [address] GFR/1.73 sq M.predicted among non-blacks MDRD (S/P/Bld) [Vol rate/Area] 89 mL/min/{1.73_m2} Normal >60 [facility] Comment on above: Order Comment: SHARE CMP RESULTS WITH DOCTOR MENDOZA WHEAT Result Comment: mL/m in/1.73m2 CKD-EPI Creatinine Equation (2020) Performed By: #### L 100.0100, L501.6710, L500.4050 #### [facility] [address] [place], [address] Globulin (S) [Mass/Vol] 2.9 g/dL Normal 2.2-4.[address] [facility] Comment on above: Order Comment: SHARE CMP RESULTS WITH DOCTOR MENDOZA WHEAT Performed By: #### L 100.0100, L501.6710, L500.4050 #### [facility] [address] [place], [address] Glucose [Mass/Vol] 102 mg/dL High 70-99 [facility] Comment on above: Order Comment: SHARE CMP RESULTS WITH DOCTOR MENDOZA WHEAT Performed By: #### L 100.0100, L501.6710, L500.4050 #### [facility] [address] [place], [address] Potassium [Moles/Vol] 4.3 mmol/L Normal 3.3-5.1 [facility] Comment on above: Order Comment: SHARE CMP RESULTS WITH DOCTOR MENDOZA WHEAT Performed By: #### L 100.0100, L501.6710, L500.4050 #### [facility] [address] [place], [address] Sodium [Moles/Vol] 137 mmol/L Normal 133-145 [facility] Comment on above: Order Comment: SHARE CMP RESULTS WITH DOCTOR MENDOZA WHEAT Performed By: #### L 100.0100, L501.6710, L500.4050 #### [facility] [address] [place], [address] T PROT 6.9 g/dL Normal 5.9-8.4 [facility] Comment on above: Order Comment: SHARE CMP RESULTS WITH DOCTOR MENDOZA WHEAT Performed By: #### L 100.0100, L501.6710, L500.4050 #### [facility] [address] [place], [address] Urea nitrogen [Mass/Vol] 15 mg/dL Normal 4-19 [facility] Comment on above: Order Comment: SHARE CMP RESULTS WITH DOCTOR MENDOZA WHEAT Performed By: #### L 100.0100, L501.6710, L500.4050 #### [facility] [address] [place], [address] Cardiology Visit Reporton Cardiology Visit Report [facility] [address] [place] [address] OFFICE VISIT Date of Service: 05/24/25 MR#: [id number] Acct: [id number] Name: NAT FOX Rep #: [id number] : 1945 Provider: Dr. Mendoza srivastava MD Age/Sex: 80/F Location[place] [facility] [place] Status: Signed HPI HPI History of Present [...] air Intake Visit Reasons: ABN EKG (FRIEND) Board Certified Family Physician Required: No Accompanied by: Self Is patient in pain?: No Allergies sulfamethoxazole (From Bactrim) Allergy (Severe, Verified 05/24/25 14:01) Other trimethoprim (From Bactrim) Allergy (Severe, Verified 05/24/25 14:01) Other bacitracin (From Neosporin (mvm-ulw-pjpma)) Allergy (Verified 05/24/25 14:01) NEEDS FOLLOW-UP neomycin (From Neosporin (hfq-hga-kadlz)) Allergy (Verified 05/24/25 14:01) NEEDS FOLLOW-UP Penicillins Allergy (Verified 05/24/25 14:01) NEEDS FOLLOW-UP polymyxin B (From Neosporin (ncw-kwz-niora)) Allergy (Verified 05/24/25 14:01) NEEDS FOLLOW-UP adhesive [...] mesalamine 800 (more content not included)... Normal [facility] Gastroenterology Visit Repor ton 04-17-2025 Gastroenterology Visit Report [facility] [address] [place] [address] OFFICE VISIT Date of Service: 04/17/25 MR#: [id number] Acct: [id number] Name: NAT FOX Rep #: [id number] : 1945 Provider: SALOMÓN ballard Age/Sex: 80/F Location[place] [facility] [place] Status: Signed Intake Vital Signs 03/09/25 08:36 04/07/25 10:34 04/17/25 13:43 Height 5 ft 9.5 in 5 ft 9.5 in 5 ft 9.5 in Weight: 232 lb 4 oz BMI 33.7 BP 139/73 H Respiration 16 Pulse 66 Temp 97.3 F L Temp Source Temporal Pulse Oximetry (%) 91 Oxygen Delivery Method room air Intake Visit Reasons: BLOODY MUCUS Chief Complaint: follow-up Board Certified Family Physician Required: No Accompanied by: Is patient in pain?: No Allergies sulfamethoxazole (From Bactrim) Allergy (Severe, Verified 04/17/25 13:41) Other trimethoprim (From Bactrim) Allergy (Severe, Verified 04/17/25 13:41) Other bacitracin (From Neosporin (wzc-aet-jfhab)) Allergy (Verified 04/17/25 13:41) NEEDS FOLLOW-UP neomycin (From Neosporin (mun-myd-ttqqb)) Allergy (Verified 04/17/25 13:41) NEEDS FOLLOW-UP Penicillins Allergy (Verified 04/17/25 13:41) NEEDS FOLLOW-UP polymyxin B (From Neosporin (xdv-otv-jumgv)) Allergy (Verified 04/17/25 13:41) NEEDS FOLLOW-UP adhesive [...] Consider Vasile (more content not included)... Normal [facility] Electrocardiogram reportOrde red By: Jeferson Phipps on 04-05-2025 EKG study [facility] Cardiovascular Services [address] [place] [address] 12 Lead EKG 04/04/25 1238 MR#: [id number] Acct: [id number] Name: NAT FOX Rep #:[id number] : [...] Abnormal ECG Confirmed by JEFERSON PHIPPS MD ([id number]), assistant editor CHERI JORGE ([id number]) on 56:17:41 AM Referred By: Graciela Zuleta Confirmed By: JEFERSON PHIPPS MD 04/05/25 0617 Date _ Jeferson Phipps MD CC: SNOWBOARDER-C Graciela Zuleta; Dr. Jimmy Shrestha MD ~ Signed [facility] Other Phone: 12 Lead EKGon 04-04-2025 12 Lead EKG [facility] Cardiovascular Services [address] [place] [address] 12 Lead EKG 04/04/25 1238 MR#: [id number] Acct: [id number] Name: NAT FOX Rep #: [id number] : 1945 80 From: Jeferson Phipps MD Attending Dr: SALOMÓN Padgett Status: REG C LI Ordering Dr: Graciela Zuleta SNOWBOARDERAmandeepC Date: 04/04/25 Location: N Sex: F C [...] Abnormal ECG Confirmed by JEFERSON PHIPPS MD ([id number]), assistant editor CHERI JORGE ([id number]) on 04/05/2025 6:17:41 AM Referred By: Graciela Zuleta Confirmed By: JEFERSON PHIPPS MD 04/05/25 0617 Date Jeferson Phipps MD CC: SALOMÓN Zuleta; Dr. Jimmy Shrestha MD Signed Normal [facility] Quantiferon TB-Gold+on 03-25 QFT MITOGEN JENNIFER > 10.00 Normal . [facility] Comment on above: Performed By: #### L 501.6710, L504.2610, L101.9900, L100.0100, L500.4050, L3400.8000 ####[facility] [address] [place], [address] QFT NIL VALUE 0.02 IU/mL Normal . [facility] Comment on above: Performed By: #### L 501.6710, L504.2610, L101.9900, L100.0100, L500.4050, L3400.8000 ####[facility] [address] [place], [address] QFT TB GOLD+ Comment Normal . [facility] Comment on above: Result Comment: Harry [...] L 501.6710, L504.2610, L101.9900, L100.0100, L500.4050, L3400.8000 ####[facility] [address] [place], [address] QFT TB POS CRIT Negative Normal Negative [facility] Comment on above: Result Comment: No [...] interferon gamma. Chemiluminescence immunoassay methodology Performed at: [address] [id number] Paper Grader: Joni Pimentel PhD, Phone: [phone] Performed By: #### L 501.6710, L504.2610, L101.9900, L100.0100, L500.4050, L3400.8000 ####[facility] [address] [facility] [place], [place], [id number]) QFT TB1+ AG JENNIFER 0.02 IU/mL Normal . [facility] Comment on above: Performed By: #### L 501.6710, L504.2610, L101.9900, L100.0100, L500.4050, L3400.8000 ####[facility] [address] [place], [place], [id number] QFT TB2+ AG JENNIFER 0.01 IU/mL Normal . [facility] Comment on above: Performed By: #### L 501.6710, L504.2610, L101.9900, L100.0100, L500.4050, L3400.8000 ####[facility] [address] [place], [place], [address] Absolute lymphocyte countOrd ered By: Graciela Zuleta on 03-23-2025 Lymphocytes Auto (Unsp spec) [#/Vol] 1.49 10*3/uL 0.83-4.51 [facility] Absolute neutrophil countOrd ered By: Graciela Zuleta on 03-23-2025 Neutrophils (Bld) [#/Vol] 4.2 10*3/uL 2.0-7.7 [facility] Anion gap in Serum or Plasma Ordered By: Graciela Zuleta on 03-23-2025 Anion gap [Moles/Vol] 10 mmol/L 5-15 [facility] Automated lymphocyte count a s percentage of total leukocytesOrdered By: Graciela Zuleta on 03-23-2025 Lymphocytes/100 WBC Auto (Unsp spec) 21.2 % 19- [facility] BUN/creatinine ratioOrdered By: Graciela Zuleta on 03-23-2025 Urea nitrogen/Creatinine [Mass ratio] 22.7 mg/mg High 10-20 [facility] Basophil percentageOrdered B y: Graciela Zuleta on 03-23-2025 Basophils/100 WBC (Bld) 1.0 % 0-1 [facility] Bilirubin, totalOrdered By: Graciela Zuleta on 03-23-2025 Bilirubin [Mass/Vol] 0.28 mg/dL 0.00-1.30 [facility] CBC W/Diff, Automatedon 03-10 Absolute Lymph 1.49 X10 3/uL Normal 0.83-4.51 [facility] Comment on above: Performed By: #### L 501.6710, L504.2610, L101.9900, L100.0100, L500.4050, L3400.8000 ####[facility] [address] [place], [address] Absolute Neut 4.2 X10 3/uL Normal 2.0-7.7 [facility] Comment on above: Performed By: #### L 501.6710, L504.2610, L101.9900, L100.0100, L500.4050, L3400.8000 ####[facility] [address] [place], [address] Basophils/100 WBC (Bld) 1.0 % Normal 0-1 [facility] Comment on above: Performed By: #### L 501.6710, L504.2610, L101.9900, L100.0100, L500.4050, L3400.8000 ####[facility] [address] [place], [address] Eosinophils/100 WBC (Bld) 4.8 % Normal 0-5 [facility] Comment on above: Performed By: #### L 501.6710, L504.2610, L101.9900, L100.0100, L500.4050, L3400.8000 ####[facility] [address] [place], [address] Erythrocyte distribution width (RBC) [Ratio] 13.4 % Normal 11.6-14.6 [facility] Comment on above: Performed By: #### L 501.6710, L504.2610, L101.9900, L100.0100, L500.4050, L3400.8000 ####[facility] [address] [place], [address] Hematocrit (Bld) [Volume fraction] 42.7 % Normal 37-47 [facility] Comment on above: Performed By: #### L 501.6710, L504.2610, L101.9900, L100.0100, L500.4050, L3400.8000 ####[facility] [address] [place], [address] Hemoglobin (Bld) [Mass/Vol] 13.8 g/dL Normal 12.0-15.0 [facility] Comment on above: Performed By: #### L 501.6710, L504.2610, L101.9900, L100.0100, L500.4050, L3400.8000 ####[facility] [address] [place], [address] IG% 0.300 Normal 0.0-0.9 [facility] Comment on above: Result Comment: IG% - Immature Granulocytes (promyelocytes, myelocytes and metamyelocytes) > 1% indicates that a LEFT SHIFT is Present. Performed By: #### L 501.6710, L504.2610, L101.9900, L100.0100, L500.4050, L3400.8000 ####[facility] [address] [place], [address] Lymphocytes/100 WBC (Bld) 21.2 % Normal 19-41 [facility] Comment on above: Performed By: #### L 501.6710, L504.2610, L101.9900, L100.0100, L500.4050, L3400.8000 ####[facility] [address] [place], [address] MCH (RBC) [Entitic mass] 28.9 pg Normal 27.0-32.0 [facility] Comment on above: Performed By: #### L 501.6710, L504.2610, L101.9900, L100.0100, L500.4050, L3400.8000 ####[facility] [address] [place], [address] MCHC (RBC) [Mass/Vol] 32.3 g/dL Normal 32-36 [facility] Comment on above: Performed By: #### L 501.6710, L504.2610, L101.9900, L100.0100, L500.4050, L3400.8000 ####[facility] [address] [place], [address] MCV (RBC) [Entitic vol] 89.5 fL Normal 81-99 [facility] Comment on above: Performed By: #### L 501.6710, L504.2610, L101.9900, L100.0100, L500.4050, L3400.8000 ####[facility] [address] [place], [address] Monocytes/100 WBC (Bld) 13.0 % High 0-10 [facility] Comment on above: Performed By: #### L 501.6710, L504.2610, L101.9900, L100.0100, L500.4050, L3400.8000 ####[facility] [address] [place], [address] Neutrophils/100 WBC (Bld) 59.7 % Normal 47-70 [facility] Comment on above: Performed By: #### L 501.6710, L504.2610, L101.9900, L100.0100, L500.4050, L3400.8000 ####[facility] [address] [place], [address] Nucleated RBC (Bld) [#/Vol] 0 10*3/uL Normal 0-5 [facility] Comment on above: Performed By: #### L 501.6710, L504.2610, L101.9900, L100.0100, L500.4050, L3400.8000 ####[facility] [address] [place], [address] Platelet mean volume (Bld) [Entitic vol] 10.5 fL Normal 6.2-12.0 [facility] Comment on above: Performed By: #### L 501.6710, L504.2610, L101.9900, L100.0100, L500.4050, L3400.8000 ####[facility] [address] [place], [address] Platelets (Bld) [#/Vol] 301 10*3/uL Normal 150-450 [facility] Comment on above: Performed By: #### L 501.6710, L504.2610, L101.9900, L100.0100, L500.4050, L3400.8000 ####[facility] [address] [place], [address] RBC (Bld) [#/Vol] 4.77 10*6/uL Normal 4.2-5.4 [facility] Comment on above: Performed By: #### L 501.6710, L504.2610, L101.9900, L100.0100, L500.4050, L3400.8000 ####[facility] [address] [place], [address] RDW SD 43.9 fl Normal 35.1-43.9 [facility] Comment on above: Performed By: #### L 501.6710, L504.2610, L101.9900, L100.0100, L500.4050, L3400.8000 ####[facility] [address] [place], [address] WBC (Bld) [#/Vol] 7.0 10*3/uL Normal 4.4-11.0 [facility] Comment on above: Performed By: #### L 501.6710, L504.2610, L101.9900, L100.0100, L500.4050, L3400.8000 ####[facility] [address], [address] CRPon 03-23-2025 C-REACTIVE PROT 4.00 mg/L High 0.0-3.0 [facility] Comment on above: Performed By: #### L 501.6710, L504.2610, L101.9900, L100.0100, L500.4050, L3400.8000 ####[facility] [address] [place], [address] Carbon dioxide, total [Moles /volume] in Central venous bloodOrdered By: Graciela Zuleta on 03-23-2025 CO2 [Moles/Vol] 24.8 mmol/L 21.0-32.0 [facility] Chloride assayOrdered By: Brad Zuleta on 03-23-2025 Chloride [Moles/Vol] 104 mmol/L 98-108 [facility] Comprehensive Metabolic Prof ilon 03-23-2025 Albumin [Mass/Vol] 4.1 g/dL Normal 3.4-4.8 [facility] Comment on above: Performed By: #### L 501.6710, L504.2610, L101.9900, L100.0100, L500.4050, L3400.8000 ####[facility] [address] [place], [address] Albumin/Globulin [Mass ratio] 1.4 {ratio} Normal 0.9-2.4 [facility] Comment on above: Performed By: #### L 501.6710, L504.2610, L101.9900, L100.0100, L500.4050, L3400.8000 ####[facility] [address] [place], [address] ALK PHOS 83 U/L Normal 35-104 [facility] Comment on above: Performed By: #### L 501.6710, L504.2610, L101.9900, L100.0100, L500.4050, L3400.8000 ####[facility] [address] [place], [address] ALT [Catalytic activity/Vol] 15 U/L Normal <=34 [facility] Comment on above: Performed By: #### L 501.6710, L504.2610, L101.9900, L100.0100, L500.4050, L3400.8000 ####[facility] [address] [place], [address] AST [Catalytic activity/Vol] 20 U/L Normal <=31 [facility] Comment on above: Performed By: #### L 501.6710, L504.2610, L101.9900, L100.0100, L500.4050, L3400.8000 ####[facility] [address] [place], [address] Bilirubin [Mass/Vol] 0.28 mg/dL Normal 0.00-1.30 [facility] Comment on above: Performed By: #### L 501.6710, L504.2610, L101.9900, L100.0100, L500.4050, L3400.8000 ####[facility] [address] [place], [address] BUN/CRE 22.7 RATIO High 10-20 [facility] Comment on above: Performed By: #### L 501.6710, L504.2610, L101.9900, L100.0100, L500.4050, L3400.8000 ####[facility] [address] [place], [address] Calcium [Mass/Vol] 10.1 mg/dL Normal 7.6-11.0 [facility] Comment on above: Performed By: #### L 501.6710, L504.2610, L101.9900, L100.0100, L500.4050, L3400.8000 ####[facility] [address] [place], [address] Chloride [Moles/Vol] 104 mmol/L Normal 98-108 [facility] Comment on above: Performed By: #### L 501.6710, L504.2610, L101.9900, L100.0100, L500.4050, L3400.8000 ####[facility] [address] [place], [address] CO2 [Moles/Vol] 24.8 mmol/L Normal 21.0-32.0 [facility] Comment on above: Performed By: #### L 501.6710, L504.2610, L101.9900, L100.0100, L500.4050, L3400.8000 ####[facility] [address] [place], [address] Creatinine [Mass/Vol] 0.78 mg/dL Normal 0.70-1.20 [facility] Comment on above: Performed By: #### L 501.6710, L504.2610, L101.9900, L100.0100, L500.4050, L3400.8000 ####[facility] [address] [place], [address] GAP 10 Normal 5-15 [facility] Comment on above: Performed By: #### L 501.6710, L504.2610, L101.9900, L100.0100, L500.4050, L3400.8000 ####[facility] [address] [place], [address] GFR/1.73 sq M.predicted among non-blacks MDRD (S/P/Bld) [Vol rate/Area] 77 mL/min/{1.73_m2} Normal >60 [facility] Comment on above: Result Comment: mL/m in/1.73m2 CKD-EPI Creatinine Equation (2020) Performed By: #### L 501.6710, L504.2610, L101.9900, L100.0100, L500.4050, L3400.8000 ####[facility] [address] [place], [address] Globulin (S) [Mass/Vol] 2.9 g/dL Normal 2.2-4.[address] [facility] Comment on above: Performed By: #### L 501.6710, L504.2610, L101.9900, L100.0100, L500.4050, L3400.8000 ####[facility] [address] [place], [address] Glucose [Mass/Vol] 100 mg/dL High 70-99 [facility] Comment on above: Performed By: #### L 501.6710, L504.2610, L101.9900, L100.0100, L500.4050, L3400.8000 ####[facility] [address] [place], [address] Potassium [Moles/Vol] 4.8 mmol/L Normal 3.3-5.1 [facility] Comment on above: Performed By: #### L 501.6710, L504.2610, L101.9900, L100.0100, L500.4050, L3400.8000 ####[facility] [address] [place], [address] Sodium [Moles/Vol] 139 mmol/L Normal 133-145 [facility] Comment on above: Performed By: #### L 501.6710, L504.2610, L101.9900, L100.0100, L500.4050, L3400.8000 ####[facility] [address] [place], [address] T PROT 7.0 g/dL Normal 5.9-8.4 [facility] Comment on above: Performed By: #### L 501.6710, L504.2610, L101.9900, L100.0100, L500.4050, L3400.8000 ####[facility] [address] [place], [place], [address] Urea nitrogen [Mass/Vol] 18 mg/dL Normal 4-19 [facility] Comment on above: Performed By: #### L 501.6710, L504.2610, L101.9900, L100.0100, L500.4050, L3400.8000 ####[facility] [address] [place], [address] Eosinophil percentageOrdered By: Graciela Zuleta on 03-23-2025 Eosinophils/100 WBC (Bld) 4.8 % 0-5 [facility] Erythrocyte Sed Rateon 03-23 SED RATE 11 mm/hr Normal 0-30 [facility] Comment on above: Performed By: #### L 501.6710, L504.2610, L101.9900, L100.0100, L500.4050, L3400.8000 ####[facility] [address] [place], [address] Erythrocyte distribution wid th ratioOrdered By: Graciela Zuleta on 03-23-2025 Erythrocyte distribution width (RBC) [Ratio] 13.4 % 11.6-14.6 [facility] Erythrocyte distribution wid th standard deviationOrdered By: Graciela Zuleta on 03-23-2025 Erythrocyte distribution width (RBC) [Ratio] 43.9 fl 35.1-43.9 [facility] Erythrocyte sedimentation ra teOrdered By: Graciela Zuleta on 03-23-2025 ESR (Bld) [Velocity] 11 mm/h 0-30 [facility] Gastroenterology Visit Repor ton 03-23-2025 Gastroenterology Visit Report [facility]enterology [address] [place] [address] OFFICE VISIT Date of Service: 03/23/25 MR#: [id number] Acct: [id number] Name: NAT FOX Rep #: [id number] : 1945 Provider: SALOMÓN ortega Age/Sex: 80/F [place] [facility] [place] Status: Signed Intake Vital Signs 01/31/25 14:23 03/09/25 08:36 Height 5 ft 9.5 in 5 ft 9.5 in Intake Visit Reasons: Test Result Allergies sulfamethoxazole (From Bactrim) Allergy (Severe, Verified 03/23/25 13:50) Other trimethoprim (From Bactrim) Allergy (Severe, Verified 03/23/25 13:50) Other bacitracin (From Neosporin (jxh-yyu-yxhne)) Allergy (Verified 03/23/25 13:50) NEEDS FOLLOW-UP neomycin (From Neosporin (xel-pap-jcmze)) Allergy (Verified 03/23/25 13:50) NEEDS FOLLOW-UP Penicillins Allergy (Verified 03/23/25 13:50) NEEDS FOLLOW-UP polymyxin B (From Neosporin (cge-iea-trfdw)) Allergy (Verified 03/23/25 13:50) NEEDS FOLLOW-UP adhesive [...] today for FU. 02.01.25 OV establishment with [facility] regarding concerns for blood from her [...] having diarrhea (more content not included)... Normal [facility] Glomerular filtration rate ( GFR) estimation/1.73 sq m using serum, plasma, or whole bOrdered By: Graciela Zuleta on 03-23-2025 GFR/1.73 sq M.predicted among non-blacks MDRD (S/P/Bld) [Vol rate/Area] 77 mL/min/{1.73_m2} >60 [facility] Comment on above: mL/min/1.73m2 CKD-EP I Creatinine Equation (2020) Hematocrit Auto (Bld) [Volum e fraction]Ordered By: Graciela Zuleta on 03-23-2025 Hematocrit (Bld) [Volume fraction] 42.7 % 37-47 [facility] Hemoglobin measurementOrdere d By: Graciela Zuleta on 03-23-2025 Hemoglobin (Bld) [Mass/Vol] 13.8 g/dL 12.0-15.0 [facility] Immature granulocytes/100 WB C Auto (Bld)Ordered By: Graciela Zuleta on 03-23-2025 Immature granulocytes/100 WBC (Bld) 0.300 % 0.0-0.9 [facility] Comment on above: IG% - Immature Granu locytes (promyelocytes, myelocytes and metamyelocytes) > 1% indicates that a LEFT SHIFT is Present. LDHon 03-23-2025 LDH 170 U/L Normal 84-246 [facility] Comment on above: Order Comment: 1 Performed By: #### L 501.6710, L504.2610, L101.9900, L100.0100, L500.4050, L3400.8000 ####[facility] [address] [place], [place], [id number] Laboratory - Chemistry and C hemistry - challengeOrdered By: Graciela Zuleta on 03-23-2025 AST [Catalytic activity/Vol] 20 U/L <32 [facility] Lactate dehydrogenase (LDH) measurementOrdered By: Graciela Zuleta on 03-23-2025 LDH [Catalytic activity/Vol] 170 U/L 84-246 [facility] MCV (mean corpuscular volume ) determinationOrdered By: Graciela Zuleta on 03-23-2025 MCV (RBC) [Entitic vol] 89.5 fL 81-99 [facility] Mean corpuscular hemoglobin (MCH) determinationOrdered By: Graciela Zuleta on 03-23-2025 MCH (RBC) [Entitic mass] 28.9 pg 27.0-32.0 [facility] Mean corpuscular hemoglobin concentration (MCHC) determinationOrdered By: Graciela Zuleta on 03-23-2025 MCHC (RBC) [Mass/Vol] 32.3 g/dL 32-36 [facility] Mean platelet volume determi nationOrdered By: Graciela Zuleta on 03-23-2025 Platelet mean volume (Bld) [Entitic vol] 10.5 fL 6.2-12.0 [facility] Monocyte percentageOrdered B y: Graciela Zuleta on 03-23-2025 Monocytes/100 WBC (Bld) 13.0 % High 0-10 [facility] Neutrophil percentageOrdered By: Graciela Zuleta on 03-23-2025 Neutrophils/100 WBC (Bld) 59.7 % 47-70 [facility] Nucleated red blood cell per centageOrdered By: Graciela Zuleta on 03-23-2025 Nucleated RBC/100 WBC (Bld) [Ratio] 0 % 0-5 [facility] Platelet countOrdered By: Brad Zuleta on 03-23-2025 Platelets (Bld) [#/Vol] 301 10*3/uL 150-450 [facility] Potassium measurement (mass/ volume)Ordered By: Graciela Zuleta on 03-23-2025 Potassium (Unsp spec) [Mass/Vol] 4.8 mmol/L 3.3-5.1 [facility] Qualitative QuantiFERON-TB g old in tube testOrdered By: Graciela Zuleta on 03-23-2025 M. tuberculosis tuberculin stim IFN-g Ql (Bld) 0.02 IU/mL . [facility] RBC Auto (Bld) [#/Vol]Ordere d By: Graciela Zuleta on 03-23-2025 RBC (Bld) [#/Vol] 4.77 10*6/uL 4.2-5.4 [facility] Serum creatinine measurement (mass/volume)Ordered By: Graciela Zuleta on 03-23-2025 Creatinine [Mass/Vol] 0.78 mg/dL 0.70-1.20 [facility] Serum globulin measurementOr dered By: Graciela Zuleta on 03-23-2025 Globulin (S) [Mass/Vol] 2.9 g/dL 2.2-4.2 [facility] Serum glucose measurement (m ass/volume)Ordered By: Graciela Zuleta on 03-23-2025 Glucose [Mass/Vol] 100 mg/dL High 70-99 [facility] Serum or plasma C reactive p rotein measurement (mass/volume)Ordered By: Graciela Zuleta on 03-23-2025 CRP [Mass/Vol] 4.00 mg/L High 0.0-3.0 [facility] Serum or plasma alanine loya otransferase (ALT) measurementOrdered By: Graciela Zuleta on 03-23-2025 ALT [Catalytic activity/Vol] 15 U/L <35 [facility] Serum or plasma albumin elliot urement (mass/volume)Ordered By: Graciela Zuleta on 03-23-2025 Albumin [Mass/Vol] 4.1 g/dL 3.4-4.8 [facility] Serum or plasma albumin/glob ulin mass ratioOrdered By: Graciela Zuleta on 03-23-2025 Albumin/Globulin [Mass ratio] 1.4 {ratio} 0.9-2.4 [facility] Serum or plasma alkaline roberta sphatase measurementOrdered By: Graciela Zuleta on 03-23-2025 ALP [Catalytic activity/Vol] 83 U/L 35-104 [facility] Serum or plasma calcium elliot urement (mass/volume)Ordered By: Graciela Zuleta on 03-23-2025 Calcium [Mass/Vol] 10.1 mg/dL 7.6-11.0 [facility] Serum or plasma urea nitroge n measurement (mass/volume)Ordered By: Graciela Zuleta on 03-23-2025 Urea nitrogen [Mass/Vol] 18 mg/dL 4-19 [facility] Sodium levelOrdered By: Enrique Zuleta on 03-23-2025 Sodium [Moles/Vol] 139 mmol/L 133-145 [facility] Total proteinOrdered By: Jesi Zuleta on 03-23-2025 Protein [Mass/Vol] 7.0 g/dL 5.9-8.4 [facility] White blood cell (WBC) count Ordered By: Graciela Zuleta on 03-23-2025 WBC (Bld) [#/Vol] 7.0 10*3/uL 4.4-11.0 [facility] CDIFF (PCR)on 03-09-2025 CDIFF Is the patient receiving laxatives? N Above criteria not met but test indicated Y New/unexplained onset of 3 or more stools in past 24 hrs? N STOOL FOR CULTURE AND C-DIFF FROM COLONOSCOPY Pending 027 027 NAP1-B1 Presumptive Negative *for epidemiolologic???use C. Diff PCR Negative- No toxigenic C. Diff Detected Normal [facility] Comment on above: Performed By: #### M 100.6796 #### [facility] Laboratory [address] [place], [address] Clostridium difficile detect ion by polymerase chain reactionOrdered By: Arsalan Orellana on 03-09-2025 C. difficile DNA MARK+probe Ql (Unsp spec) [facility] Colonoscopy Reporton 025 Colonoscopy Report [facility] Medical Records Department [address] [place] [address] Colonoscopy Report MR#: [id number] Acct: [id number] Name: NAT FOX Rep #: [id number] : 1945 80 From: Arsalan Orellana DO PCP: Dr. Jimmy Shrestha MD Status:[facility] Patient Name: Nat Fox Procedure Date: 03/09/2025 [...] the ascendin (more content not included)... Normal [facility] ENTERIC PATHOGEN PANEL STOOL on 03-09-2025 [...] VIBRIO Not Detected Yersinia Not Detected Normal [facility] Comment on above: Performed By: #### M 100.637 #### [facility] Laboratory [address] [facility] [place], [place], [address] MR/OP.PROVATon 03-09-2025 MR/OP.[facility] Medical Records Department [address] [place] [address] Provation Physician Letter MR#: [id number] Acct: [id number] Name: NAT FOX Rep #: [id number] : 1945 80 From: Arsalan Friend DO PCP: Dr. Jimmy Srhestha MD Status:REG [facility] 03/09/2025 Jimmy Shrestha Re : Colonoscopy procedure [...] DO Date Dictated: 03/09/25 0924 Date Transcribed: International Manager: SABIHA Signed [facility] MR/POSTOP.[facility] 03-09-2025 MR/POSTOP.[facility] Medical Records Department [address] [place] [address] Anesthesia Postop Eval I 03/09/25 1016 MR#: [id number] Acct: [id number] Name: NAT FOX Rep #: [id number] : 1945 80 From: Tai Brown CRNA PCP: Dr. Jimmy Shrestha MD Status:REG SDC Y Race: C Location: [place] [address] Anesthesia: Postop Eval I Current Vital Signs Temperature: 98.2 F Pulse Rate: 65 Blood Pressure: 103/62 Respiratory Rate: 18 Pulse Ox: 94 Assessment Airway patent: Yes Spontaneous unlabored respirations: Yes nausea: No Vomiting: No Anesthesia Complication: No Fluid Hydration Crystalloid volume administer (ml): 600 Total IV fluid infused: 600 Progress Note Anesthesia document: Postop Eval 1 completed: Yes 03/09/25 1016 Date Taitomeka BurgosKevin BUSINESS ANALYSIS CONSULTANT Cosigner Signature: Date CC: Signed Normal [facility] MR/[id number] 03-09-2025 [facility] Medical Records Department [address] [place] [address] Anesthesia Postop Eval II 03/09/25 1241 MR#: [id number] Acct: [id number] Name: NAT FOX Rep #: [id number] : 1945 80 From: Ryley Gutierrez MD PCP: Dr. Jimym Shrestha MD Status:[facility] Y Race: C Location: [place] Anesthesia Postop Eval I Sum Postop Eval Completion status Anesthesia document: Postop Eval 1 completed: Yes Anesthesia Postop Eval I Summary Anesthesia Postop Eval I Summary: Anesthesia Postop Eval I: Assessment Summary Airway patent Yes 03/09/25 10:16 BUSINESS ANALYSIS CONSULTANT.TNES Spontaneous unlabored Yes 03/09/25 10:16 BUSINESS ANALYSIS CONSULTANT.TNES respirations Mental status nausea No 03/09/25 10:16 BUSINESS ANALYSIS CONSULTANT.TNES Vomiting No 03/09/25 10:16 BUSINESS ANALYSIS CONSULTANT.TNES Anesthesia Postop Eval I: Fluid Summary Crystalloid volume administer 600 03/09/25 10:16 BUSINESS ANALYSIS CONSULTANT.TNES (ml) Colloids volume administered ( ml) Blood Product volume administered (ml) Total IV fluid infused 600 03/09/25 10:16 BUSINESS ANALYSIS CONSULTANT.TNES Anesthesia Postop Eval I: Summary Notes Anesthesia Complication No 03/09/25 10:16 BUSINESS ANALYSIS CONSULTANT.TNES Anesthesia Complication Comment: Post-operative progress note Anesthesia: Postop Eval II Evaluation Mental status: Awake and Calm Pain Level: 1 nausea: No Vomiting: No Complications Anesthesia Complication: No 03/09/25 1241 Date Ryley Gutierrez MD [facility] Signature: Date CC: Signed Normal [facility] Surgery Specimen Level Mati 03-09-2025 Surgery Specimen Level IV ---- Patient Age/Sex Location Account Attending Physician ---- NAT FOX 80/F EN [id number] Arsalan Orellana, DO ---- Specimen: [id number] Received: 03/09/25-1019 Status: [facility] Num: [id number] Spec Type: COLON BX Subm Dr: Arsalan [...] specimen is totally submitted in one cassette. [facility] 03/09/2025 CPT:97898z8 ---- Patient Age/Sex Location Account Attending Physician ---- GERALDINENAT SOUSAAN 80/F EN [id number] Arsalan DO Esteban ---- Signed (signature on file) Dr. Tamika Sheriff MD 03/13/25 0953 ---- Normal [facility] Comment on above: Performed By: #### Son CARLTON ####[facility] [address] [place], [address] Calprotectin, Stoolon [address] 487 ug/g Abnormal 0-120 [facility] Comment on above: Result Comment: Conc entration Interpretation Follow-Up < 5 - 50 ug/g Normal None >50 -120 ug/g Borderline Re-evaluate in 4-6 weeks >120 ug/g Abnormal Repeat as clinically indicated Performed at: [address] [id number] Paper Grader: Karina Diaz MD, Phone: [phone] Performed By: #### M 100.7954, L7000.0700 ####[facility] [address] [place], [address] Calprotectin stoolOrdered By : Graciela Zuleta on 02-11-2025 Calprotectin stool 487 ug/g High 0-120 [facility] Comment on above: Concentration Interp retation Follow-Up< 5 - 50 ug/g Normal None>50 -120 ug/g Borderline Re-evaluate in 4-6 weeks >120 ug/g Abnormal Repeat as clinically indicatedPerformed at: - [facility] [id number] Director: Karina Diaz MD, Phone: [phone] Stool Occult Blood iFOBon STOB Normal Reference Ran ge = Negative Immunochemical Fecal Occult Blood (iFOBT) method. Hemoccult Stl Ql IA Limitation: Menstrual bleeding, constipation bleeding, bleeding hemorrhoids, and urinary bleeding conditions may interfere with test. Occult Blood A Positive A OCCULT BLOOD POSITIVE Normal [facility] Comment on above: Performed By: #### M 100.7900, L7000.0700 ####[facility] [address] [facility] [place], [place], [id number] Stool gastrointestinal hemog lobin detection by immunologic methodOrdered By: Graciela Zuleta on 02-11-2025 Lower GI hemoglobin IA Ql (Stl) Positive Abnormal [facility] Abdomen Single Viewon 2024 Abdomen Single View [facility] Imaging Services [address] [place], [place] [address] Abdomen Single View MR#: [id number] Acct: [id number] Name: NAT FOX Rep #: [id number] : 1945 F 79 From: Barrington Lr MD PCP: Dr. Jimmy Shrestha MD Status: REG CLI Study: Abdomen Single View Date of Exam: 02/09/25 Exam# [id number] Ordering Dr: Graciela Zuleta SNOWBOARDER-C PROCEDURE: ABDOMEN SINGLE VIEW 02/09/2025 REASON FOR EXAM: ABDOMINAL PAIN, TENESMUS, BOWEL INCONTINENCE. Right lower quadrant pain TECHNIQUE: ABDOMEN SINGLE VIEW COMPARISON: No FINDINGS: Clear lung bases. No free air. Moderate stool. Nondistended bowel. No concerning calcifications. RAD/Abdomen Single View IMPRESSION: Moderate stool. If there is clinical concern for appendicitis, recommend CT. Reading Location: [place] [address] CC: SALOMÓN Zuleta; Dr. Jimmy Shrestha MD International Manager: Signed Normal [facility] Gastroenterology Visit Repor ton 02-09-2025 Gastroenterology Visit Report [facility] Gastroenterology [address] [place] [address] OFFICE VISIT Date of Service: 02/09/25 MR#: [id number] Acct: [id number] Name: NAT FOX Rep #: [id number] : 1945 Provider: SALOMÓN ortega Age/Sex: 79/F Location[place] [facility] Status: Signed Intake Vital Signs 01/31/25 14:23 Height 5 ft 9.5 in Weight: 234 lb BMI 34.0 BP 170/81 H Position Sitting Pulse 72 Pulse Source Monitor Pulse Oximetry (%) 91 Oxygen Delivery Method room air Intake Visit Reasons: Sx getting worse Board Certified Family Physician Required: No Accompanied by: Self Is patient in pain?: Yes (IN KNEES) Allergies bacitracin (From Neosporin (yjo-fmo-igonp)) Allergy (Verified 02/09/25 14:19) NEEDS FOLLOW-UP neomycin (From Neosporin (mio-ohf-vtwfq)) Allergy (Verified 02/09/25 14:19) NEEDS FOLLOW-UP Penicillins Allergy (Verified 02/09/25 14:19) NEEDS FOLLOW-UP polymyxin B (From Neosporin (jnj-dmn-crjcv)) Allergy (Verified 02/09/25 14:19) NEEDS FOLLOW-UP adhesive [...] Has blood in her stool every time. [facility] Social History Smoking Status: Never smoker HPI HPI Details: NAT FOX, is a 79 F who presents to the office today for FU as all of her symptoms are getting worse. 02.01.25 OV establishment with [facility] regarding concerns for blood from her [...] Black,tarry st (more content not included)... Normal [facility] HH, Hemoglobin AND Hematocr iton 02-06-2025 Hematocrit (Bld) [Volume fraction] 42.9 % Normal 37-47 [facility] Comment on above: Performed By: #### L 100.0600 #### [facility] Laboratory [address] [place], [address] Hemoglobin (Bld) [Mass/Vol] 13.8 g/dL Normal 12.0-15.0 [facility] Comment on above: Performed By: #### L 100.0600 #### [facility] Laboratory [address] [place], [address] Hematocrit Auto (Bld) [Volum e fraction]Ordered By: Graciela Zuleta on 02-06-2025 Hematocrit (Bld) [Volume fraction] 42.9 % 37-47 [facility] Hemoglobin measurementOrdere d By: Graciela Zuleta on 02-06-2025 Hemoglobin (Bld) [Mass/Vol] 13.8 g/dL 12.0-15.0 [facility] Gastroenterology Visit Repor ton 01-31-2025 Gastroenterology Visit Report [facility] Gastroenterology [address] [place] [address] OFFICE VISIT Date of Service: 01/31/25 MR#: [id number] Acct: [id number] Name: NAT FOX Rep #: [id number] : 1945 Provider: SALOMÓN ortega Age/Sex: 79/F Location: [facility] Status: Signed Intake Vital Signs 01/31/25 14:23 Height 5 ft 9.5 in Weight: 234 lb BMI 34.0 BP 170/81 H Position Sitting Pulse 72 Pulse Source Monitor Pulse Oximetry (%) 91 Oxygen Delivery Method room air Intake Visit Reasons: Rectal bleeding Allergies bacitracin (From Neosporin (gda-gpv-bsvue)) Allergy (Verified 01/31/25 14:49) NEEDS FOLLOW-UP neomycin (From Neosporin (ifd-dol-mijze)) Allergy (Verified 01/31/25 14:49) NEEDS FOLLOW-UP Penicillins Allergy (Verified 01/31/25 14:49) NEEDS FOLLOW-UP polymyxin B (From Neosporin (rjc-zjt-mkrza)) Allergy (Verified 01/31/25 14:49) NEEDS FOLLOW-UP Have [...] strong encouragement (more content not included)... Normal [facility] .Auto Diffon 01-09-2025 Basophil, Absolute 0.1 10 3/mcL Normal 0.0-0.3 [facility] Comment on above: Performed By: #### F T4, GFR, CMP, ANEU, TSH, VIDH, FERR, ADIFF, LIPID, CBC #### [address] [address] Basophils/100 WBC (Bld) 1.0 % Normal 0.0-2.5 [facility] Comment on above: Performed By: #### F T4, GFR, CMP, ANEU, TSH, VIDH, FERR, ADIFF, LIPID, CBC #### [address] [address] Eosinophil, Absolute 0.3 10 3/mcL Normal 0.0-0.7 [facility] Comment on above: Performed By: #### F T4, GFR, CMP, ANEU, TSH, VIDH, FERR, ADIFF, LIPID, CBC #### [address] [address] Eosinophils/100 WBC (Bld) 4.7 % Normal 0.0-6.0 [facility] Comment on above: Performed By: #### F T4, GFR, CMP, ANEU, TSH, VIDH, FERR, ADIFF, LIPID, CBC #### [address] [address] Lymphocyte, Absolute 1.5 10 3/mcL Normal 0.9-4.3 [facility] Comment on above: Performed By: #### F T4, GFR, CMP, ANEU, TSH, VIDH, FERR, ADIFF, LIPID, CBC #### [address] [address] Lymphocytes/100 WBC (Bld) 26.0 % Normal 20.0-40.0 [facility] Comment on above: Performed By: #### F T4, GFR, CMP, ANEU, TSH, VIDH, FERR, ADIFF, LIPID, CBC #### [address] [address] Monocyte, Absolute 0.6 10 3/mcL Normal 0.1-1.4 [facility] Comment on above: Performed By: #### F T4, GFR, CMP, ANEU, TSH, VIDH, FERR, ADIFF, LIPID, CBC #### [address] [address] Monocytes/100 WBC (Bld) 10.0 % Normal 2.0-13.0 [facility] Comment on above: Performed By: #### F T4, GFR, CMP, ANEU, TSH, VIDH, FERR, ADIFF, LIPID, CBC #### [address] [address] Neutrophils/100 WBC (Bld) 58.3 % Normal 50.0-75.0 [facility] Comment on above: Performed By: #### F T4, GFR, CMP, ANEU, TSH, VIDH, FERR, ADIFF, LIPID, CBC #### [address] [address] .GFRon 01-09-2025 Estimated Glomerular Filtration Rate 66 ml/min/1.73sqm Normal [facility] Comment on above: Result Comment: [...] TSH, VIDH, FERR, ADIFF, LIPID, CBC #### [address] [address] .NEUABSon 01-09-2025 Neutrophil, Absolute 3.4 10 3/mcL Normal 2.3-8.1 [facility] Comment on above: Performed By: #### F T4, GFR, CMP, ANEU, TSH, VIDH, FERR, ADIFF, LIPID, CBC #### [address] [address] CBCon 01-09-2025 Erythrocyte distribution width (RBC) [Ratio] 13.6 % Normal 11.5-15.5 [facility] Comment on above: Performed By: #### F T4, GFR, CMP, ANEU, TSH, VIDH, FERR, ADIFF, LIPID, CBC #### [place] [address] Hematocrit (Bld) [Volume fraction] 42.6 % Normal 34.0-46.0 [facility] Comment on above: Performed By: #### F T4, GFR, CMP, ANEU, TSH, VIDH, FERR, ADIFF, LIPID, CBC #### [place] [address] Hgb 14.1 G/dL Normal 12.0-16.0 [facility] Comment on above: Performed By: #### F T4, GFR, CMP, ANEU, TSH, VIDH, FERR, ADIFF, LIPID, CBC #### [address] [address] MCH (RBC) [Entitic mass] 29.5 pg Normal 27.0-33.0 [facility] Comment on above: Performed By: #### F T4, GFR, CMP, ANEU, TSH, VIDH, FERR, ADIFF, LIPID, CBC #### [address] [address] MCHC 33.2 G/dL Normal 32.0-36.0 [facility] Comment on above: Performed By: #### F T4, GFR, CMP, ANEU, TSH, VIDH, FERR, ADIFF, LIPID, CBC #### [address] [address] MCV (RBC) [Entitic vol] 88.8 fL Normal 80.0-99.0 [facility] Comment on above: Performed By: #### F T4, GFR, CMP, ANEU, TSH, VIDH, FERR, ADIFF, LIPID, CBC #### [address] [address] Platelet 288 10 3/mcL Normal 150-450 [facility] Comment on above: Performed By: #### F T4, GFR, CMP, ANEU, TSH, VIDH, FERR, ADIFF, LIPID, CBC #### [address] [address] Platelet mean volume (Bld) [Entitic vol] 9.0 fL Normal 6.6-10.5 [facility] Comment on above: Performed By: #### F T4, GFR, CMP, ANEU, TSH, VIDH, FERR, ADIFF, LIPID, CBC #### [address] [address] RBC 4.79 10 6/mcL Normal 4.10-5.30 [facility] Comment on above: Performed By: #### F T4, GFR, CMP, ANEU, TSH, VIDH, FERR, ADIFF, LIPID, CBC #### [address] [address] WBC 5.9 10 3/mcL Normal 4.5-10.8 [facility] Comment on above: Performed By: #### F T4, GFR, CMP, ANEU, TSH, VIDH, FERR, ADIFF, LIPID, CBC #### [address] [address] CMPon 01-09-2025 Albumin Level 3.6 G/dL Normal 3.4-4.8 [facility] Comment on above: Performed By: #### F T4, GFR, CMP, ANEU, TSH, VIDH, FERR, ADIFF, LIPID, CBC #### [address] [address] Albumin/Globulin [Mass ratio] 1.0 {ratio} Low 1.1-2.5 [facility] Comment on above: Performed By: #### F T4, GFR, CMP, ANEU, TSH, VIDH, FERR, ADIFF, LIPID, CBC #### [address] [address] ALP [Catalytic activity/Vol] 91 U/L Normal 40-135 [facility] Comment on above: Performed By: #### F T4, GFR, CMP, ANEU, TSH, VIDH, FERR, ADIFF, LIPID, CBC #### [address] [address] ALT [Catalytic activity/Vol] 28 U/L Normal 14-59 [facility] Comment on above: Performed By: #### F T4, GFR, CMP, ANEU, TSH, VIDH, FERR, ADIFF, LIPID, CBC #### [address] [address] AST [Catalytic activity/Vol] 22 U/L Normal 10-40 [facility] Comment on above: Performed By: #### F T4, GFR, CMP, ANEU, TSH, VIDH, FERR, ADIFF, LIPID, CBC #### [address] [address] Bili Total 0.4 mg/dL Normal 0.2-1.0 [facility] Comment on above: Result Comment: Use of this assay is not recommended for patients undergoing treatment with eltrombopag due to the potential for falsely elevated results. Performed By: #### F T4, GFR, CMP, ANEU, TSH, VIDH, FERR, ADIFF, LIPID, CBC #### [address] [address] BUN/Creatinine Ratio 16 ratio Normal 7-27 [facility] Comment on above: Performed By: #### F T4, GFR, CMP, ANEU, TSH, VIDH, FERR, ADIFF, LIPID, CBC #### [address] [address] Calcium [Mass/Vol] 9.4 mg/dL Normal 8.4-10.2 [facility] Comment on above: Performed By: #### F T4, GFR, CMP, ANEU, TSH, VIDH, FERR, ADIFF, LIPID, CBC #### [address] [address] Chloride [Moles/Vol] 105 mmol/L Normal 98-107 [facility] Comment on above: Performed By: #### F T4, GFR, CMP, ANEU, TSH, VIDH, FERR, ADIFF, LIPID, CBC #### [address] [address] CO2 [Moles/Vol] 27 mmol/L Normal 23-31 [facility] Comment on above: Performed By: #### F T4, GFR, CMP, ANEU, TSH, VIDH, FERR, ADIFF, LIPID, CBC #### [address] [address] Creatinine [Mass/Vol] 0.90 mg/dL Normal 0.51-0.95 [facility] Comment on above: Performed By: #### F T4, GFR, CMP, ANEU, TSH, VIDH, FERR, ADIFF, LIPID, CBC #### [address] [address] Electrolyte Balance 6.0 mEq/L Normal 4.0-15.0 [facility] Comment on above: Performed By: #### F T4, GFR, CMP, ANEU, TSH, VIDH, FERR, ADIFF, LIPID, CBC #### [address] [address] Globulin 3.5 G/dL Normal 2.7-4.4 [facility] Comment on above: Performed By: #### F T4, GFR, CMP, ANEU, TSH, VIDH, FERR, ADIFF, LIPID, CBC #### [address] [address] Glucose [Mass/Vol] 96 mg/dL Normal 83-110 [facility] Comment on above: Performed By: #### F T4, GFR, CMP, ANEU, TSH, VIDH, FERR, ADIFF, LIPID, CBC #### [address] [address] Potassium [Moles/Vol] 4.3 mmol/L Normal 3.5-5.1 [facility] Comment on above: Performed By: #### F T4, GFR, CMP, ANEU, TSH, VIDH, FERR, ADIFF, LIPID, CBC #### [address] [address] Sodium [Moles/Vol] 138 mmol/L Normal 136-145 [facility] Comment on above: Performed By: #### F T4, GFR, CMP, ANEU, TSH, VIDH, FERR, ADIFF, LIPID, CBC #### [address] [address] Total Protein 7.1 G/dL Normal 6.4-8.2 [facility] Comment on above: Performed By: #### F T4, GFR, CMP, ANEU, TSH, VIDH, FERR, ADIFF, LIPID, CBC #### [address] [address] Urea nitrogen [Mass/Vol] 14 mg/dL Normal 7-18 [facility] Comment on above: Performed By: #### F T4, GFR, CMP, ANEU, TSH, VIDH, FERR, ADIFF, LIPID, CBC #### [address] [address] FT3on 01-09-2025 Free T3 [Mass/Vol] 2.20 pg/mL Low 2.30-4.00 [facility] Comment on above: Performed By: #### F T4, GFR, CMP, ANEU, TSH, VIDH, FERR, ADIFF, LIPID, CBC #### [address], [place] [address] FT4on 01-09-2025 Free T4 [Mass/Vol] 1.05 ng/dL Normal 0.76-1.46 [facility] Comment on above: Performed By: #### F T4, GFR, CMP, ANEU, TSH, VIDH, FERR, ADIFF, LIPID, CBC #### [place] [address], [place] [address] LABORATORYOrdered By: SYSTEM SYSTEM on 01-09-2025 25-hydroxyvitamin [...] 01-09-2025 Cholesterol [Mass/Vol] 194 mg/dL Normal 0-200 [facility] Comment on above: Result Comment: Chol esterol Reference Interval: Less than 200 Desirable 200-239 Borderline high risk 240 and above High risk Performed By: #### F T4, GFR, CMP, ANEU, TSH, VIDH, FERR, ADIFF, LIPID, CBC #### [address] [address] Cholesterol in HDL [Mass/Vol] 38 mg/dL Low 40-60 [facility] Comment on above: Performed By: #### F T4, GFR, CMP, ANEU, TSH, VIDH, FERR, ADIFF, LIPID, CBC #### [address] [address] Cholesterol in LDL [Mass/Vol] 126 mg/dL Normal 0-130 [facility] Comment on above: Performed By: #### F T4, GFR, CMP, ANEU, TSH, VIDH, FERR, ADIFF, LIPID, CBC #### [address] [address] Triglyceride [Mass/Vol] 149 mg/dL Normal 0-150 [facility] Comment on above: Result Comment: Trig lyceride Reference Interval: Less than 150 Normal 150-199 Borderline high risk 200-499 High risk 500 or higher Very high risk Performed By: #### F T4, GFR, CMP, ANEU, TSH, VIDH, FERR, ADIFF, LIPID, CBC #### [place] [place], [place] [address] PBNPon 01-09-2025 Natriuretic peptide B (Bld) [Mass/Vol] 246 pg/mL Normal 0-450 [facility] Comment on above: Result Comment: NT-p roBNP results of less than 300 pg/mL effectively rules out acute congestive heart failure with 99% negative predictive value. Performed By: #### F T4, GFR, CMP, ANEU, TSH, VIDH, FERR, ADIFF, LIPID, CBC #### [place] [id number] [place], [place] [address] TSHon 01-09-2025 TSH Qn 2.84 m[IU]/L Normal 0.36-3.74 [facility] Comment on above: Performed By: #### F T4, GFR, CMP, ANEU, TSH, VIDH, FERR, ADIFF, LIPID, CBC #### [address] [address] VIDHon 01-09-2025 Vit. D 25-Hydroxy 26.1 ng/mL Normal [facility] Comment on above: Result Comment: Inte rpretive Values Based on Total 25(OH) Vitamin D: Deficient <20 ng/mL Insufficient 20 - <30 ng/mL Sufficient 30-100 ng/mL Performed By: #### F T4, GFR, CMP, ANEU, TSH, VIDH, FERR, ADIFF, LIPID, CBC #### [address] [address] No Panel Informationon 01-03 Culture Wound Aerobe Rare normal skin fl ora present. Sensitivity testing not indicated. [facility] Work Phone: GS No organisms seen. [place] [facility] Work Phone: SYNCTon 12-12-2024 Cells Counted (synovial) 100 Normal [facility] Comment on above: Result Comment: Cell differential is approximate due to debris, degenerated cells, and/or cell clumps seen. Performed By: #### S YNCT #### [address] [address] Lymphocytes/100 WBC (Bld) 19 % [facility] Comment on above: Performed By: #### S YNCT #### [address] [address] Mononuclear Cell % (synovial) 32 % [facility] Comment on above: Performed By: #### S YNCT #### [place] [id number] Synovial Lining Cell (synovial) 49 % [facility] Comment on above: Performed By: #### S YNCT #### [address] [address] Clarity (U) Cloudy [facility] Comment on above: Performed By: #### S YNCT #### [place] [phone] Color (U) Sl. [place] [facility] Comment on above: Performed By: #### S YNCT #### [address] [address] White Blood Cells (synovial) 120 /mm3 Normal 0-199 [facility] Comment on above: Result Comment: Cell count and differential are approximate due to debris and/or cell clumps seen, as well as cellular degeneration. Performed By: #### S YNCT #### [place] [phone] NM BONE THREE PHASE STUDY SC AN [...] 06/14/2024 4:16:11 PM Ordering Provider: TAVO Mo [facility] .Auto Diffon 06-01-2024 Basophil, Absolute 0.0 10 3/mcL Normal 0.0-0.2 [facility] Comment on above: Performed By: #### F T4, GFR, CMP, ANEU, TSH, VIDH, FERR, ADIFF, LIPID, CBC #### [address] [address] Basophils/100 WBC (Bld) 0.8 % Normal 0.0-2.5 [facility] Comment on above: Performed By: #### F T4, GFR, CMP, ANEU, TSH, VIDH, FERR, ADIFF, LIPID, CBC #### [address] [address] Eosinophil, Absolute 0.1 10 3/mcL Normal 0.0-0.7 [facility] Comment on above: Performed By: #### F T4, GFR, CMP, ANEU, TSH, VIDH, FERR, ADIFF, LIPID, CBC #### [address] [address] Eosinophils/100 WBC (Bld) 2.3 % Normal 0.0-7.0 [facility] Comment on above: Performed By: #### F T4, GFR, CMP, ANEU, TSH, VIDH, FERR, ADIFF, LIPID, CBC #### [address] [address] Lymphocyte, Absolute 1.8 10 3/mcL Normal 0.9-4.3 [facility] Comment on above: Performed By: #### F T4, GFR, CMP, ANEU, TSH, VIDH, FERR, ADIFF, LIPID, CBC #### [address] [address] Lymphocytes/100 WBC (Bld) 29.4 % Normal 20.0-40.0 [facility] Comment on above: Performed By: #### F T4, GFR, CMP, ANEU, TSH, VIDH, FERR, ADIFF, LIPID, CBC #### [address] [address] Monocyte, Absolute 0.6 10 3/mcL Normal 0.1-1.4 [facility] Comment on above: Performed By: #### F T4, GFR, CMP, ANEU, TSH, VIDH, FERR, ADIFF, LIPID, CBC #### [address] [address] Monocytes/100 WBC (Bld) 10.1 % Normal 2.0-13.0 [facility] Comment on above: Performed By: #### F T4, GFR, CMP, ANEU, TSH, VIDH, FERR, ADIFF, LIPID, CBC #### [address] [address] Neutrophils/100 WBC (Bld) 57.4 % Normal 50.0-75.0 [facility] Comment on above: Performed By: #### F T4, GFR, CMP, ANEU, TSH, VIDH, FERR, ADIFF, LIPID, CBC #### [address] [address] .GFRon 06-01-2024 GFR 86 ml/min/1.73sqm Normal [facility] Comment on above: Result Comment: [...] TSH, VIDH, FERR, ADIFF, LIPID, CBC #### [address] [address] GFR Non- 71 ml/min/1.73sqm Normal [facility] Comment on above: Result Comment: [...] TSH, VIDH, FERR, ADIFF, LIPID, CBC #### [address] [address] .NEUABSon 06-01-2024 Neutrophil, Absolute 3.5 10 3/mcL Normal 2.3-8.1 [facility] Comment on above: Performed By: #### F T4, GFR, CMP, ANEU, TSH, VIDH, FERR, ADIFF, LIPID, CBC #### [address] [address] CBCon 06-01-2024 Erythrocyte distribution width (RBC) [Ratio] 14.0 % Normal 11.5-15.5 [facility] Comment on above: Performed By: #### F T4, GFR, CMP, ANEU, TSH, VIDH, FERR, ADIFF, LIPID, CBC #### [address] [address] Hematocrit (Bld) [Volume fraction] 43.4 % Normal 34.0-46.0 [facility] Comment on above: Performed By: #### F T4, GFR, CMP, ANEU, TSH, VIDH, FERR, ADIFF, LIPID, CBC #### [address] [address] Hgb 14.4 G/dL Normal 12.0-16.0 [facility] Comment on above: Performed By: #### F T4, GFR, CMP, ANEU, TSH, VIDH, FERR, ADIFF, LIPID, CBC #### [address] [address] MCH (RBC) [Entitic mass] 29.9 pg Normal 27.0-33.0 [facility] Comment on above: Performed By: #### F T4, GFR, CMP, ANEU, TSH, VIDH, FERR, ADIFF, LIPID, CBC #### [address] [address] MCHC 33.1 G/dL Normal 32.0-36.0 [facility] Comment on above: Performed By: #### F T4, GFR, CMP, ANEU, TSH, VIDH, FERR, ADIFF, LIPID, CBC #### [address] [address] MCV (RBC) [Entitic vol] 90.5 fL Normal 80.0-99.0 [facility] Comment on above: Performed By: #### F T4, GFR, CMP, ANEU, TSH, VIDH, FERR, ADIFF, LIPID, CBC #### [address] [address] Platelet 248 10 3/mcL Normal 150-450 [facility] Comment on above: Performed By: #### F T4, GFR, CMP, ANEU, TSH, VIDH, FERR, ADIFF, LIPID, CBC #### [address] [address] Platelet mean volume (Bld) [Entitic vol] 9.3 fL Normal 6.6-10.5 [facility] Comment on above: Performed By: #### F T4, GFR, CMP, ANEU, TSH, VIDH, FERR, ADIFF, LIPID, CBC #### [address] [address] RBC 4.80 10 6/mcL Normal 4.10-5.30 [facility] Comment on above: Performed By: #### F T4, GFR, CMP, ANEU, TSH, VIDH, FERR, ADIFF, LIPID, CBC #### [address] [address] WBC 6.0 10 3/mcL Normal 4.5-10.8 [facility] Comment on above: Performed By: #### F T4, GFR, CMP, ANEU, TSH, VIDH, FERR, ADIFF, LIPID, CBC #### [address] [address] CMPon 06-01-2024 Albumin Level 3.6 G/dL Normal 3.4-4.8 [facility] Comment on above: Performed By: #### F T4, GFR, CMP, ANEU, TSH, VIDH, FERR, ADIFF, LIPID, CBC #### [address] [address] Albumin/Globulin [Mass ratio] 1.2 {ratio} Normal 1.1-2.5 [facility] Comment on above: Performed By: #### F T4, GFR, CMP, ANEU, TSH, VIDH, FERR, ADIFF, LIPID, CBC #### [address] [address] ALP [Catalytic activity/Vol] 84 U/L Normal 40-135 [facility] Comment on above: Performed By: #### F T4, GFR, CMP, ANEU, TSH, VIDH, FERR, ADIFF, LIPID, CBC #### [address] [address] ALT [Catalytic activity/Vol] 29 U/L Normal 14-59 [facility] Comment on above: Performed By: #### F T4, GFR, CMP, ANEU, TSH, VIDH, FERR, ADIFF, LIPID, CBC #### [address] [address] AST [Catalytic activity/Vol] 16 U/L Normal 10-40 [facility] Comment on above: Performed By: #### F T4, GFR, CMP, ANEU, TSH, VIDH, FERR, ADIFF, LIPID, CBC #### [address] [address] Bili Total 0.4 mg/dL Normal 0.2-1.0 [facility] Comment on above: Result Comment: Use of this assay is not recommended for patients undergoing treatment with eltrombopag due to the potential for falsely elevated results. Performed By: #### F T4, GFR, CMP, ANEU, TSH, VIDH, FERR, ADIFF, LIPID, CBC #### [address] [address] BUN/Creatinine Ratio 24 ratio Normal 7-27 [facility] Comment on above: Performed By: #### F T4, GFR, CMP, ANEU, TSH, VIDH, FERR, ADIFF, LIPID, CBC #### [address] [address] Calcium [Mass/Vol] 9.6 mg/dL Normal 8.4-10.2 [facility] Comment on above: Performed By: #### F T4, GFR, CMP, ANEU, TSH, VIDH, FERR, ADIFF, LIPID, CBC #### [address] [address] Chloride [Moles/Vol] 104 mmol/L Normal 98-107 [facility] Comment on above: Performed By: #### F T4, GFR, CMP, ANEU, TSH, VIDH, FERR, ADIFF, LIPID, CBC #### [address] [address] CO2 [Moles/Vol] 29 mmol/L Normal 23-31 [facility] Comment on above: Performed By: #### F T4, GFR, CMP, ANEU, TSH, VIDH, FERR, ADIFF, LIPID, CBC #### [address] [address] Creatinine [Mass/Vol] 0.79 mg/dL Normal 0.55-1.02 [facility] Comment on above: Result Comment: Test ing performed on Siemens Dimension EXL analyzer using a modified kinetic Antonio technique. Performed By: #### F T4, GFR, CMP, ANEU, TSH, VIDH, FERR, ADIFF, LIPID, CBC #### [address] [address] Electrolyte Balance 6.0 mEq/L Normal 4.0-15.0 [facility] Comment on above: Performed By: #### F T4, GFR, CMP, ANEU, TSH, VIDH, FERR, ADIFF, LIPID, CBC #### [address] [address] Globulin 2.9 G/dL Normal [facility] Comment on above: Performed By: #### F T4, GFR, CMP, ANEU, TSH, VIDH, FERR, ADIFF, LIPID, CBC #### [address] [address] Glucose [Mass/Vol] 95 mg/dL Normal 83-110 [facility] Comment on above: Performed By: #### F T4, GFR, CMP, ANEU, TSH, VIDH, FERR, ADIFF, LIPID, CBC #### [address] [address] Potassium [Moles/Vol] 4.3 mmol/L Normal 3.5-5.1 [facility] Comment on above: Performed By: #### F T4, GFR, CMP, ANEU, TSH, VIDH, FERR, ADIFF, LIPID, CBC #### [address] [address] Sodium [Moles/Vol] 139 mmol/L Normal 136-145 [facility] Comment on above: Performed By: #### F T4, GFR, CMP, ANEU, TSH, VIDH, FERR, ADIFF, LIPID, CBC #### [address] [address] Total Protein 6.5 G/dL Normal 6.4-8.2 [facility] Comment on above: Performed By: #### F T4, GFR, CMP, ANEU, TSH, VIDH, FERR, ADIFF, LIPID, CBC #### [address] [address] Urea nitrogen [Mass/Vol] 19 mg/dL High 7-18 [facility] Comment on above: Performed By: #### F T4, GFR, CMP, ANEU, TSH, VIDH, FERR, ADIFF, LIPID, CBC #### [place] [address] [place], [place] [address] Nik 06-01-2024 Ferritin [Mass/Vol] 308.0 ng/mL High 8.0-252.0 [facility] Comment on above: Performed By: #### F T4, GFR, CMP, ANEU, TSH, VIDH, FERR, ADIFF, LIPID, CBC #### [address] [address] FT4on 06-01-2024 Free T4 [Mass/Vol] 0.82 ng/dL Normal 0.76-1.46 [facility] Comment on above: Performed By: #### F T4, GFR, CMP, ANEU, TSH, VIDH, FERR, ADIFF, LIPID, CBC #### [address] [address] LABORATORYOrdered By: SYSTEM SYSTEM on 06-01-2024 25-hydroxyvitamin [...] 06-01-2024 Cholesterol [Mass/Vol] 219 mg/dL High 0-200 [facility] Comment on above: Result Comment: Chol esterol Reference Interval: Less than 200 Desirable 200-239 Borderline high risk 240 and above High risk Performed By: #### F T4, GFR, CMP, ANEU, TSH, VIDH, FERR, ADIFF, LIPID, CBC #### [address] [address] Cholesterol in HDL [Mass/Vol] 45 mg/dL Normal 40-60 [facility] Comment on above: Performed By: #### F T4, GFR, CMP, ANEU, TSH, VIDH, FERR, ADIFF, LIPID, CBC #### [address] [address] Cholesterol in LDL [Mass/Vol] 141 mg/dL High 0-130 [facility] Comment on above: Performed By: #### F T4, GFR, CMP, ANEU, TSH, VIDH, FERR, ADIFF, LIPID, CBC #### [address] [address] Triglyceride [Mass/Vol] 165 mg/dL High 0-150 [facility] Comment on above: Result Comment: Trig lyceride Reference Interval: Less than 150 Normal 150-199 Borderline high risk 200-499 High risk 500 or higher Very high risk Performed By: #### F T4, GFR, CMP, ANEU, TSH, VIDH, FERR, ADIFF, LIPID, CBC #### [address] [address] TSHon 06-01-2024 TSH Qn 2.06 m[IU]/L Normal 0.36-3.74 [facility] Comment on above: Performed By: #### F T4, GFR, CMP, ANEU, TSH, VIDH, FERR, ADIFF, LIPID, CBC #### [address] [address] VIDHon 06-01-2024 Vit. D 25-Hydroxy 27.4 ng/mL Normal [facility] Comment on above: Result Comment: Inte rpretive Values Based on Total 25(OH) Vitamin D: Deficient <20 ng/mL Insufficient 20 - <30 ng/mL Sufficient 30-100 ng/mL Performed By: #### F T4, GFR, CMP, ANEU, TSH, VIDH, FERR, ADIFF, LIPID, CBC #### [place] [address] [place], [place] [address] CRPon 05-16-2024 CRP [Mass/Vol] mg/L Normal 0.0-1.0 [facility] Comment on above: Result Comment: No te - New Reference Range in effect 20 Performed By: #### E SR, CRP #### [address] [address] ESRon 05-16-2024 Erythrocyte Sed Rate 3 mm/hr Normal 0-30 [facility] Comment on above: Performed By: #### E SR, CRP #### [address] [address] .GFRon 05-06-2023 GFR 95 ml/min/1.73sqm Normal [facility] ([place]) Comment on above: Result Comment: GFR Population [...] IPID, VIDH, TSH, FT4, CMP, GFR #### [address] [address] GFR Non- 79 ml/min/1.73sqm Normal [facility] ([place]) Comment on above: Result Comment: GFR Population [...] IPID, VIDH, TSH, FT4, CMP, GFR #### [address] [address] CMPon 05-06-2023 Albumin Level 3.8 G/dL Normal 3.4-4.8 [facility] ([place]) Comment on above: Performed By: #### L IPID, VIDH, TSH, FT4, CMP, GFR #### [address] [address] Albumin/Globulin [Mass ratio] 1.2 {ratio} Normal 1.1-2.5 [facility] ([place]) Comment on above: Performed By: #### L IPID, VIDH, TSH, FT4, CMP, GFR #### [address] [address] ALP [Catalytic activity/Vol] 72 U/L Normal 40-135 [facility] ([place]) Comment on above: Performed By: #### L IPID, VIDH, TSH, FT4, CMP, GFR #### [address] [address] ALT [Catalytic activity/Vol] 25 U/L Normal 14-59 [facility] ([place]) Comment on above: Performed By: #### L IPID, VIDH, TSH, FT4, CMP, GFR #### [address] [address] AST [Catalytic activity/Vol] 20 U/L Normal 10-40 [facility] ([place]) Comment on above: Performed By: #### L IPID, VIDH, TSH, FT4, CMP, GFR #### [address] [address] Bili Total 0.5 mg/dL Normal 0.2-1.0 [facility] ([place]) Comment on above: Result Comment: Use of this assay is not recommended for patients undergoing treatment with eltrombopag due to the potential for falsely elevated results. Performed By: #### L IPID, VIDH, TSH, FT4, CMP, GFR #### [address] [address] BUN/Creatinine Ratio 22 ratio Normal 7-27 [facility] ([place]) Comment on above: Performed By: #### L IPID, VIDH, TSH, FT4, CMP, GFR #### [address] [address] Calcium [Mass/Vol] 9.3 mg/dL Normal 8.4-10.2 [facility] ([place]) Comment on above: Performed By: #### L IPID, VIDH, TSH, FT4, CMP, GFR #### [address] [address] Chloride [Moles/Vol] 103 mmol/L Normal 98-107 [facility] ([place]) Comment on above: Performed By: #### L IPID, VIDH, TSH, FT4, CMP, GFR #### [address] [address] CO2 [Moles/Vol] 28 mmol/L Normal 23-31 [facility] ([place]) Comment on above: Performed By: #### L IPID, VIDH, TSH, FT4, CMP, GFR #### [address] [address] Creatinine [Mass/Vol] 0.72 mg/dL Normal 0.55-1.02 [facility] ([place]) Comment on above: Performed By: #### L IPID, VIDH, TSH, FT4, CMP, GFR #### [address] [address] Electrolyte Balance 7.0 mEq/L Normal 4.0-15.0 [facility] ([place]) Comment on above: Performed By: #### L IPID, VIDH, TSH, FT4, CMP, GFR #### [address] [address] Globulin 3.1 G/dL Normal [facility] ([place]) Comment on above: Performed By: #### L IPID, VIDH, TSH, FT4, CMP, GFR #### [address] [address] Glucose [Mass/Vol] 95 mg/dL Normal 83-110 [facility] ([place]) Comment on above: Performed By: #### L IPID, VIDH, TSH, FT4, CMP, GFR #### [address] [address] Potassium [Moles/Vol] 4.5 mmol/L Normal 3.5-5.1 [facility] ([place]) Comment on above: Performed By: #### L IPID, VIDH, TSH, FT4, CMP, GFR #### [address] [address] Sodium [Moles/Vol] 138 mmol/L Normal 136-145 [facility] ([place]) Comment on above: Performed By: #### L IPID, VIDH, TSH, FT4, CMP, GFR #### [address] [address] Total Protein 6.9 G/dL Normal 6.4-8.2 [facility] ([place]) Comment on above: Performed By: #### L IPID, VIDH, TSH, FT4, CMP, GFR #### [address] [address] Urea nitrogen [Mass/Vol] 16 mg/dL Normal 7-18 [facility] ([place]) Comment on above: Performed By: #### L IPID, VIDH, TSH, FT4, CMP, GFR #### [place] [address] [place], [place] [address] FT4on 05-06-2023 Free T4 [Mass/Vol] 0.99 ng/dL Normal 0.76-1.46 [facility] ([place]) Comment on above: Performed By: #### L IPID, VIDH, TSH, FT4, CMP, GFR #### [place] [address] [place], [place] [address] LABORATORYOrdered By: SYSTEM SYSTEM on 05-06-2023 25-hydroxyvitamin [...] 05-06-2023 Cholesterol [Mass/Vol] 232 mg/dL High 0-200 [facility] ([place]) Comment on above: Result Comment: Chol esterol Reference Interval: Less than 200 Desirable 200-239 Borderline high risk 240 and above High risk Performed By: #### L IPID, VIDH, TSH, FT4, CMP, GFR #### [place] [address] [place], [place] [address] Cholesterol in HDL [Mass/Vol] 38 mg/dL Low 40-60 [facility] ([place]) Comment on above: Performed By: #### L IPID, VIDH, TSH, FT4, CMP, GFR #### [place] [address] Cholesterol in LDL [Mass/Vol] 148 mg/dL High 0-130 [facility] ([place]) Comment on above: Performed By: #### L IPID, VIDH, TSH, FT4, CMP, GFR #### [address] [address] Triglyceride [Mass/Vol] 231 mg/dL High 0-150 [facility] ([place]) Comment on above: Result Comment: Trig lyceride Reference Interval: Less than 150 Normal 150-199 Borderline high risk 200-499 High risk 500 or higher Very high risk Performed By: #### L IPID, VIDH, TSH, FT4, CMP, GFR #### [place] [address] TSHon 05-06-2023 TSH Qn 1.44 m[IU]/L Normal 0.36-3.74 [facility] ([place]) Comment on above: Performed By: #### L IPID, VIDH, TSH, FT4, CMP, GFR #### [place] [address] VIDHon 05-06-2023 Vit. D 25-Hydroxy 25.6 ng/mL Normal [facility] ([place]) Comment on above: Result Comment: Inte rpretive Values Based on Total 25(OH) Vitamin D: Deficient <20 ng/mL Insufficient 20 - <30 ng/mL Sufficient 30-100 ng/mL Performed By: #### L IPID, VIDH, TSH, FT4, CMP, GFR #### [place] [id number] LABORATORYOrdered By: Irina Nation on 04-23-2022 HbA1c [...] cm Dr. Jimmy Shrestha MD Work Phone: [facility] 05-24-2025 14:00-0400 Body mass index (BMI) [Ratio] 33.5 kg/m2 Dr. Jimmy Shrestha MD Work Phone: [facility] 05-24-2025 14:00-0400 Body weight 104.[address] Jimmy Shrestha MD Work Phone: [facility] 05-24-2025 14:00-0400 Diastolic blood pressure 74 mm[Hg] Dr. Jimmy Shrestha MD Work Phone: [facility] 05-24-2025 14:00-0400 Heart rate 79 /min Dr. Jimmy Shrestha MD Work Phone: [facility] 05-24-2025 14:00-0400 Respiratory rate 18 /min Dr. Jimmy Shrestha MD Work Phone: [facility] 05-24-2025 14:00-0400 SaO2% (BldA) [Mass fraction] 91 % Dr. Jimmy Shrestha MD Work Phone: [facility] 05-24-2025 14:00-0400 Systolic blood pressure 160 mm[Hg] Dr. Jimmy Shrestha MD Work Phone: [facility] 04-17-2025 13:43-0400 Body height 176.[address] Jimmy Shrestha MD Work Phone: [facility] 04-17-2025 13:43-0400 Body mass index (BMI) [Ratio] 33.7 kg/m2 Dr. Jimmy Shrestha MD Work Phone: [facility] 04-17-2025 13:43-0400 Body temperature 97.3 [degF] Dr. Jimmy Shrestha MD Work Phone: [facility] 04-17-2025 13:43-0400 Body weight 105.[address] Jimmy Shrestha MD Work Phone: [facility] 04-17-2025 13:43-0400 Diastolic blood pressure 73 mm[Hg] Dr. Jimmy Shrestha MD Work Phone: [facility] 04-17-2025 13:43-0400 Heart rate 66 /min Dr. Jimmy Shrestha MD Work Phone: [facility] 04-17-2025 13:43-0400 Respiratory rate 16 /min Dr. Jimmy Shrestha MD Work Phone: [facility] 04-17-2025 13:43-0400 SaO2% (BldA) [Mass fraction] 91 % Dr. Jimmy Shrestha MD Work Phone: [facility] 04-17-2025 13:43-0400 Systolic blood pressure 139 mm[Hg] Dr. Jimmy Shrestha MD Work Phone: [facility] 03-09-2025 10:18-0400 Body temperature 97.9 [degF] Dr. Jimmy Shrestha MD Work Phone: [facility] 03-09-2025 10:18-0400 Diastolic blood pressure 90 mm[Hg] Dr. Jimmy Shrestha MD Work Phone: [facility] 03-09-2025 10:18-0400 Heart rate 64 /min Dr. Jimmy Shrestha MD Work Phone: [facility] 03-09-2025 10:18-0400 Respiratory rate 16 /min Dr. Jimmy Shrestha MD Work Phone: [facility] 03-09-2025 10:18-0400 SaO2% (BldA) [Mass fraction] 97 % Dr. Jimmy Shrestha MD Work Phone: [facility] 03-09-2025 10:18-0400 Systolic blood pressure 112 mm[Hg] Dr. Jimmy Shrestha MD Work Phone: [facility] 03-09-2025 08:36-0400 Body height 176.[address] Jimmy Shrestha MD Work Phone: [facility] 03-09-2025 08:36-0400 Body mass index (BMI) [Ratio] 33.6 kg/m2 Dr. Jimmy Shrestha MD Work Phone: [facility] 03-09-2025 08:36-0400 Body weight 104.[address] Jimmy Shrestha MD Work Phone: [facility] 01-31-2025 14:23-0400 Body height 176.[address] Jimmy Shrestha MD Work Phone: [facility] 01-31-2025 14:23-0400 Body mass index (BMI) [Ratio] 34 kg/m2 Dr. Jimmy Shrestha MD Work Phone: [facility] 01-31-2025 14:23-0400 Body weight 106.[address] Jimmy Shrestha MD Work Phone: [facility] 01-31-2025 14:23-0400 Diastolic blood pressure 81 mm[Hg] Dr. Jimmy Shrestha MD Work Phone: [facility] 01-31-2025 14:23-0400 Heart rate 72 /min Dr. Jimmy Shrestha MD Work Phone: [facility] 01-31-2025 14:23-0400 SaO2% (BldA) [Mass fraction] 91 % Dr. Jimmy Shrestha MD Work Phone: [facility] 01-31-2025 14:23-0400 Systolic blood pressure 170 mm[Hg] Dr. Jimmy Shrestha MD Work Phone: [facility] Encounters Encounter Date Encounter Type Care Provider Facility Start: 06-19-2025 ambulatory Jimmy Paulo Facility: [facility] Start: 06-12-2025 End: 06-12-2025 ambulatory Jimmy Shrestha Facility:[facility] Start: 06-06-2025 ambulatory Malissa Valentin ty:[facility] Start: 05-24-2025 End: 05-24-[address] Mendoza Wheat MD -[facility] Work Phone: Start: 05-24-2025 End: 05-24-[address] Jimmy Shrestha MD Work Phone: -[facility] Start: 04-17-2025 End: 04-17-2025 Patient encounter procedure Malissa LORENZANA -[facility] Work Phone: Start: 04-17-2025 End: 04-17-[address] Jimmy Shrestha MD Work Phone: -[facility] Start: 04-04-2025 Non-patient / Non-visit Dr. Jeferson Phipps MD -[facility] Work Phone: Start: 04-04-2025 End: 04-04-[address] Jimmy Shrestha MD Work Phone: -Pulmonary Services/Neurology Start: 04-04-2025 End: 04-04-2025 Patient encounter procedure Graciela LORENZANA -Pulmonary Services/Neurology Work Phone: Start: 04-04-2025 End: 04-04-2025 ambulatory Jimmy Shrestha Facility:[facility] Start: 03-23-2025 End: 03-23-2025 Patient encounter procedure Graciela LORENZANA -[facility] Work Phone: Start: 03-23-2025 End: 03-23-[address] Jimmy Shrestha MD Work Phone: -[facility] Start: 03-23-2025 End: 03-23-2025 ambulatory Jimmy Shrestha Facility:[facility] Start: 03-09-2025 Non-patient / Non-visit Arsalan Orellana DO -[facility] Start: 03-09-2025 End: 03-09-2025 Admission to same day surgery center Arsalanjaymie Orellana DO -Endoscopy Work Phone: Start: 03-09-2025 End: 03-09-[address] Jimmy Shrestha MD Work Phone: -Endoscopy Start: 02-11-2025 End: 02-11-[address] Jimmy Shrestha MD Work Phone: -Laboratory Start: 02-11-2025 End: 02-11-2025 Patient encounter procedure Graciela Zuleta NP-C -Laboratory Work Phone: Start: 02-11-2025 End: 02-11-2025 ambulatory Jimmy Shrestha Facility:[facility] Start: 02-09-2025 End: 02-09-2025 Patient encounter procedure Graciela Zuleta NP-C -[facility] Work Phone: Start: 02-09-2025 End: 02-09-[address] Jimmy Shrestha MD Work Phone: -[facility] Start: 02-09-2025 End: 02-09-2025 ambulatory Jimmy Shrestha Facility:[facility] Start: 02-06-2025 End: 02-06-[address] Jimmy Shrestha MD Work Phone: -Laboratory Start: 02-06-2025 End: 02-06-2025 Patient encounter procedure Graciela Zuleta NP-C -Laboratory Work Phone: Start: 02-06-2025 End: 02-06-2025 ambulatory Jimmy Shrestha Facility:[facility] Start: 01-31-2025 End: 01-31-2025 Patient encounter procedure Graciela WHEELERC -[facility] Work Phone: Start: 01-31-2025 End: 01-31-[address] Jimmy Shrestha MD Work Phone: [facility] Work Phone: Start: 01-18-2025 End: 01-18-2025 ambulatory JIMMY SHRESTHA MD Facility[facility] Start: 01-18-2025 End: 01-18-2025 Patient encounter procedure JIMMY SHRESTHA MD [facility] Start: 01-09-2025 End: 01-13-2025 ambulatory JIMMY SHRESTHA MD Facility[facility] Start: 01-09-2025 End: 01-13-2025 Outreach Lab JIMMY SHRESTHA MD [facility] Start: 01-03-2025 End: 01-07-2025 ambulatory JIMMY SHRESTHA MD Facility:[facility] Start: 01-03-2025 End: 01-07-2025 Outreach Lab JIMMY SHRESTHA MD [facility] Start: 10-19-2024 End: 11-17-2024 ambulatory JIMMY SHRESTHA MD Facility:A Start: 08-16-2024 ambulatory JIMMY SHRESTHA MD Faci lity:[facility] Start: 07-21-2024 End: 07-25-2024 ambulatory JIMMY SHRESTHA MD Facility:A Start: 06-22-2024 End: 06-22-2024 ambulatory JIMMY SHRESTHA MD Facility:[facility] Start: 06-22-2024 End: 06-22-2024 Patient encounter procedure JIMMY SHRESTHA MD [facility] Start: 06-13-2024 End: 06-13-2024 ambulatory TAVO VAZQUEZ MD Facility:[facility] Start: 06-13-2024 End: 06-13-2024 Patient encounter procedure TAVO VAZQUEZ MD [facility] Start: 06-01-2024 End: 06-05-2024 ambulatory JIMMY SHRESTHA MD Facility:[facility] Start: 06-01-2024 End: 06-05-2024 Encounter for general adult medical examination without abnormal findings JIMMY SHRESTHA MD Facility:[facility] Start: 06-01-2024 End: 06-05-2024 Outreach Lab JIMMY SHRESTHA MD [facility] Start: 05-16-2024 End: 05-16-2024 ambulatory TAVO VAZQUEZ MD Facility:A Start: 05-06-2023 End: 05-11-2023 ambulatory JIMMY SHRESTHA MD Facility:[facility] Start: 05-06-2023 End: 05-10-2023 Outreach Lab JIMMY SHRESTHA MD [facility] Start: 05-21-2022 End: 07-02-[address] KASEY GARCIA MD Facility:A Start: 04-24-2022 End: 04-24-[address] KASEY GARCIA MD [facility] Start: 04-23-2022 End: 04-23-2022 Patient encounter procedure JIMMY SHRESTHA MD [facility] Start: 05-30-2021 End: 06-03-2021 Outreach Lab JIMMY SHRESTHA MD [facility] Procedures Date Procedure Procedure Detail Performing [...] the productionof interferon gamma. Chemiluminescence immunoassaymethodologyPerformed at: [place] [id number] Director: Joni Pimentel PhD, Phone: [phone] Start: 03-09-[address] Conor [...] Activity Detail Author Start: 06-05-2025 Protein measurement [facility] Start: 03-23-2025 [facility] Start: 03-09-2025 Clostridioides difficile (PCR) Clostridioides difficile (PCR) [facility] Start: 03-09-2025 Colonoscopy w/biopsy single/multiple COLONOSCOPY AND BIOPSY [facility] Start: 03-09-2025 Enteric Bacteriology Enteric Bacteriology [facility] Start: 03-09-2025 Patient discharge [facility] Basic metabolic 2008 panel with ionized calcium - Serum or Plasma [facility] C reactive protein [Mass/volume] in Serum or Plasma [facility] C reactive protein [Mass/volume] in Serum or Plasma [facility] CBC W Auto Different ial panel - Blood [facility] CBC W Auto Different ial panel - Blood [facility] Clostridioides diffi cile DNA [Presence] in Unspecified specimen by MARK with probe detection [facility] metabo lic 1999 panel - Serum or Plasma [facility] metabo lic 1999 panel - Serum or Plasma [facility] Electrocardiographic procedure [facility] Erythrocyte sedimentation rate [facility] Hepatitis B virus co re Ab [Presence] in Serum [facility] Hepatitis B virus [place] rface Ab [Presence] in Serum [facility] In-vitro immunologic test [facility] Lactate dehydrogenas e measurement [facility] Nucleic acid assay [facility] Protein measurement [facility] Protein measurement [facility] US Heart [facility] XR Abdomen Single view [facility] Immunizations Immunization Date Immunization Notes Care Provider Fa [facility] 05-25-2024 influenza virus vacc ine, unspecified formulation JIMMY SHRESTHA MD [facility] 06-23-2023 SARS-CoV-2 (COVID-19 ) [id number] JIMMY SHRESTHA MD [facility] 06-15-2023 influenza virus vacc ine, unspecified formulation JIMMY SHRESTHA MD [facility] 06-18-2022 influenza virus vacc ine, unspecified formulation JIMMY SHRESTHA MD [facility] 12-19-2021 SARS-CoV-2 mRNA (zeowqnulczq-qftd-akeggc e) vaccine JIMMY SHRESTHA MD [facility] 06-24-2021 influenza virus vacc ine, unspecified formulation JIMMY SHRESTHA MD [facility] 05-23-2021 SARS-CoV-2 mRNA (tozinameran) vaccine JIMMY SHRESTHA MD [facility] 11-01-2020 SARS-CoV-2 mRNA (tozinameran) vaccine JIMMY SHRESTHA MD [facility] 10-11-2020 SARS-CoV-2 mRNA (tozinameran) vaccine JIMMY SHRESTHA MD [facility] Comment on above: Result Comment: 2020: [id number] 05-23-2020 influenza virus vacc ine, unspecified formulation JIMMY SHRESTHA MD [facility] 05-11-2019 influenza virus vacc ine, unspecified formulation JIMMY SHRESTHA MD [facility] 05-31-2018 influenza virus vacc ine, unspecified formulation JIMMY SHRESTHA MD [facility] 05-25-2017 influenza virus vacc ine, unspecified formulation JIMMY SHRESTHA MD [facility] 05-12-2016 influenza virus vacc ine, unspecified formulation JIMMY SHRESTHA MD [facility] 05-15-2015 influenza virus vacc ine, unspecified formulation JIMMY SHRESTHA MD [facility] 05-20-2013 influenza virus vacc ine, unspecified formulation JIMMY SHRESTHA MD [facility] 05-15-2012 influenza virus vacc ine, unspecified formulation JIMMY SHRESTHA MD [facility] 12-29-2011 pneumococcal polysaccharide vaccine, 23 valent JIMMY SHRESTHA MD [facility] 12-10-2011 tetanus toxoid, redu china diphtheria toxoid, and acellular pertussis vaccine, adsorbed JIMMY SHRESTHA MD [facility] Payers Date Payer Category Payer Self-pay 2023 Private Health Insurance [id number] 2022 Private Health Insurance [id number] 1945 Unknown [id number] 2.16.8 40.1.122696.3.579.2 1945 Unknown [id number] 2.16.8 40.1.031987.3.579.2 1945 Unknown [id number] 2.16.8 40.1.707684.3.579.2 1945 Unknown [id number] 2.16.8 40.1.920140.3.579.2 1945 Unknown [id number] 2.16.8 40.1.347805.3.579.2 1945 Unknown [id number] 2.16.8 40.1.346612.3.579.2 1945 Unknown [id number] 2.16. 840.1.767282.3.579.2 1945 Unknown [id number] 2.16. 840.1.327672.3.579.2 1945 Unknown [id number] 2.16.8 40.1.465887.3.579.2 1945 Unknown [id number] 2.16.8 40.1.805026.3.579.2 1945 Unknown [id number] 2.16.8 40.1.635353.3.579.2.627 1945 Unknown [id number] 2.16.8 40.1.750402.3.579.2.627 1945 Unknown [id number] 2.16.8 40.1.356770.3.579.2.627 Medicare [id number] Unknown [id number] 2.16.8 40.1.062726.3.579.2.462 Unknown [id number] 2.16.8 40.1.432821.3.579.2.462 Unknown [id number] 2.16.8 40.1.234417.3.579.2.462 Unknown [id number] 2.16.8 40.1.623031.3.579.2.462 Unknown [id number] 2.16.8 40.1.176302.3.579.2.462 Unknown [id number] 2.16.8 40.1.957496.3.579.2.462 Unknown [id number] 2.16.8 40.1.550147.3.579.2.462 Unknown [id number] 2.16.8 40.1.471666.3.579.2.462 Unknown [id number] 2.16.8 40.1.929410.3.579.2.462 Unknown [id number] 2.16.8 40.1.572331.3.579.2.462 Unknown [id number] 2.16.8 40.1.464594.3.579.2.462 Unknown [id number] 2.16.8 40.1.205181.3.579.2.462 Unknown [id number] 2.16.8 40.1.696242.3.579.2.462 Unknown [id number] 2.16.8 40.1.193436.3.579.2.462 Unknown [id number] 2.16.8 40.1.640124.3.579.2.462 Unknown [id number] 2.16.8 40.1.979101.3.579.2.462 Unknown [id number] 2.16.8 40.1.138946.3.579.2.462 Social History Date Type Detail Facility Start: 01-31-2020 End: 04-18-2025 Never smoked tobacco (finding) [facility] Start: 1945 Sex Assigned At Female [facility] Sexual Orientation [facility] Start: 02-02-2019 Sex Female (finding) [facility] Tobacco smoking stat us NCIS Unknown if ever smoked [facility] Work Phone: Not [facility] Goals Date Patient Goal Desired Activity /State Mental Status Date Assessment Result Facility 03-09-2025 Cognitive function Level Of Cons ciousness Follows Commands;Drowsy [facility] Work Phone: 03-09-2025 Cognitive function Voice/Name [facility] Work Phone: Clinical Notes 05-28-2021 to 05-24-2025 Note Date & Type Note Facility 05-24-2025 Progress note [facility] 05-24-2025 Progress note Note Date/Time May 24, 2025 2:56pm [facility] [address] [place] [address] OFFICE VISIT Date of Service: 05/24/25 MR#: [id number] Acct: [id number] Name: NAT FOX Rep #: [id number] : 1945 Provider: Dr. 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) Board Certified Family Physician Required: No Accompanied by: Self Is patient in pain?: No Allergies sulfamethoxazole (From Bactrim) Allergy (Severe, Verified 05/24/25 14:01) Other trimethoprim (From Bactrim) Allergy (Severe, Verified 05/24/25 14:01) Other bacitracin (From Neosporin (yvp-zkf-jwmgx)) Allergy (Verified 05/24/25 14:01) NEEDS FOLLOW-UP neomycin (From Neosporin (knp-dyz-sdvcj)) Allergy (Verified 05/24/25 14:01) NEEDS FOLLOW-UP Penicillins Allergy (Verified 05/24/25 14:01) NEEDS FOLLOW-UP polymyxin B (From Neosporin (jgn-dvk-rohka)) Allergy (Verified 05/24/25 14:01) NEEDS FOLLOW-UP adhesive [...] acetonide 0.1 % 1 applic topical QDAY MS N 02/09/25 05/24/25 History lotion DERMATITIS acetaminophen [...] cell capsule (Adult 50 Plus Probiotic) omega 0-tfs-ajb-fish oil 300 1 cap PO QWEEK 05/24/25 [...] Additional Comments: This note was generated with [employer] dictation software. It may contain incorrect words, [...] fallen in the past year?: Yes 05/24/25 5869 <Electronically signed by Mendoza crooks MD> Date _ Mendoza Wheat MD Cosigner Signature: Date (if applicable) CC: Dr. Jimmy Shrestha MD; DO Stuart [facility] Work Phone: 1(120) 270-370807-31-2025 Consult note [facility] Medical Records Department [address] [place] [address] Anesthesia Postop Eval I 03/09/25 1016 MR#: [id number] Acct: [id number] Name: NAT FOX Rep #:[id number] : 1945 80 From: Tai MORENO PCP: Dr. Jimmy Shrestha MD Status:REG [facility] Y Race: C Location: [place] [address] Anesthesia: Postop Eval I Current Vital Signs Temperature: 98.2 F Pulse Rate: 65 Blood Pressure: 103/62 Respiratory Rate: 18 Pulse Ox: 94 Assessment Airway patent: Yes Spontaneous unlabored respirations: Yes nausea: No Vomiting: No Anesthesia Complication: No Fluid Hydration Crystalloid volume administer (ml): 600 Total IV fluid infused: 600 Progress Note Anesthesia document: Postop Eval 1 completed: Yes 03/09/25 1016 BUSINESS ANALYSIS CONSULTANT> Date _ Tai Burgosbitt BUSINESS ANALYSIS CONSULTANT Cosigner Signature: Date CC: ~ Signed [facility]07-31-2025 History and physical note Author Arsalan Orellana [facility] Note Date/Time March 09, 2025 8:27 am [facility] Medical Records Department [address] [place] [address] History & Physical Exam 03/09/25 0823 MR#: [id number] Acct: [id number] Name: NAT FOX Rep #:[id number] : 1945 80 From: Arsalan Orellana DO PCP: Dr. Jimmy Shrestha MD Status:REG [facility] Location: AC16-1 HPI - General General Date [...] acetonide 0.1 % 1 applic topical QDAY MS N 02/09/25 Unknown History lotion DERMATITIS acetaminophen [...] (From Neosporin Allergy NEEDS Verified 03/07/25 10:33 (qad-onm-ajdzy)) FOLLOW-UP neomycin (From Neosporin Allergy NEEDS Verified 03/07/25 10:33 (tch-rus-cfkav)) FOLLOW-UP Penicillins Allergy NEEDS Verified 03/07/25 10:33 FOLLOW-UP polymyxin B (From Neosporin Allergy NEEDS Verified 03/07/25 10:33 (tli-hjn-qnmlr)) FOLLOW-UP adhesive (adhesives) AdvReac Intermediate Rash Verified [...] to having her hgb checked here at [facility] to verify no further blood loss. * blood for H/H * increased dietary fiber, reviewed good sources * increased fluids * discouraged prolonged sitting, including limiting time on toilet to reduce rectal pressure * office FU 03/09/25 0860 <Electronically signed by Arsalan Orellana DO> Cosigner Signature (if applicable): CC: Dr. Jimmy Shrestha MD; Arsalan Orellana DO~ Signed [facility] Work Phone: 1(763) 774-945807-31-2025 Procedure note [facility] Medical Records Department [address] [place] [id number] Colonoscopy Report MR#: [id number] Acct: [id number] Name: NAT FOX Rep #:[id number] : 1945 80 From: Arsalan Orellana DO PCP: Dr. Jimmy Shrestha MD Status:REG [facility] Patient Name: Nat Fox Procedure Date: 03/09/2025 [...] to age. Procedure Code(s): --- Professional --- 07607, Colonoscopy, flexible; with biopsy, single or multiple CPT copyright 2021 [employer]. All rights reserved. The codes documented in this report are preliminary and upon director targeted marketing review may be revised to meet current compliance requirements. Arsalan Orellana DO 03/09/2025 10:14:21 AM This report has been signed electronically. Number of Addenda: 0 Note Initiated On: 03/09/2025 9:24 AM 03/09/25 1014 Date _ Arsalan Orellana DO Cosigner Signature: Date (if indicated) CC: Dr. Jimmy Shrestha MD; Arsalan Orellana DO ~ Date Dictated: 03/09/25923 Date Transcribed: International Manager: RF Signed [facility]07-31-2025 Procedure note [facility] Medical Records Department [address] [place] [address] Provation Physician Letter MR#: [id number] Acct: [id number] Name: NAT FOX Rep #:[id number] : 1945 80 From: Arsalan Orellana DO PCP: Dr. Jimmy Shrestha MD Status:REG [facility] 03/09/2025 Jimmy Shrestha Re : Colonoscopy procedure [...] DO ~ Date Dictated: 03/09/25923 Date Transcribed: International Manager: RF Signed [facility]07-31-2025 Consult note [facility] Medical Records Department [address] [place] [address] Pre-Anesthesia Evaluation 03/09/25925 MR#: [id number] Acct: [id number] Name: NAT FOX Rep #:[id number] : 1945 80 From: Ryley Abbasi PCP: Dr. Jimmy Shrestha MD Status:REG [facility] Y Race: C Location: [place] [address] ASA Classification* ASA Classification ASA Classification: 2 [...] Procedure(s): COLONOSCOPY Anesthesia History Anesthesia History - wire bender: Anesthesia History - wire bender Hx Hospitalization No 03/07/25 10:53 Any Problems [...] am of surgery synthroid PONV PONV - wire bender: PONV - wire bender Female Yes 03/07/25 10:53 HX of Motion [...] 03/09/25 08:36 Respiratory Assessment Respiratory Assessment - wire bender: Respiratory Tract Infection Hx - wire bender Hx Respiratory Tract Infection No 03/07/25 10:53 STOP Sleep Apnea STOP Sleep Apnea - wire bender: STOP Sleep Apnea - wire bender Hx Hypertension Yes: CONTROLLED ON MED 03/07/25 [...] Tobacco Use History Tobacco Use History - wire bender: Tobacco Use History - wire bender Tobacco Use Smoking Status Never smoker 03/07/25 10:53 Hx Tobacco Use No 03/07/25 10:53 Years Smoking Packs Smoked per Day Smoking Cessation Date was within the last 15 years Hx Smoking Cessation Date Hx Smoking Cessation Counseling Hematologic Medial History Hematologic Hx - wire bender: Hematologic 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 Hx of Blood Transfusion No 03/07/25 10:53 [...] confused, unrespo /Reproduction History /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 Hx Now No 03/07/25 10:53 Gestational Age (in weeks): EDC: Hx Hx Para Hx Section SAB No 03/07/25 10:53 Active Medications Active Medications: Current Medications Generic Name Dose Route Start Last Admin Trade Name Jose PRN Reason Stop Dose Admin Lactated Ringer's 1,000 mls @ 15 mls/hr 03/09/25 08:15 03/09/25 09:10 IV 15 mls/hr .Q48H TEODORA Administration [facility] Medical History Wears glasses Post-menopausal Anxiety Open [...] acetonide 0.1 % 1 applic topical QDAY MS N 02/09/25 Unknown History lotion DERMATITIS acetaminophen [...] (From Neosporin Allergy NEEDS Verified 03/07/25 10:33 (eau-taf-xrjjg)) FOLLOW-UP neomycin (From Neosporin Allergy NEEDS Verified 03/07/25 10:33 (xmr-xmb-lczun)) FOLLOW-UP Penicillins Allergy NEEDS Verified 03/07/25 10:33 FOLLOW-UP polymyxin B (From Neosporin Allergy NEEDS Verified 03/07/25 10:33 ([id number])) FOLLOW-UP adhesive (adhesives) AdvReac Intermediate Rash Verified [...] MD Cosigner Signature: Date CC: ~ Signed [facility]07-31-2025 History and physical note [facility] Medical Records Department [address] [place] [address] History & Physical Exam 03/09/25822 MR#: [id number] Acct: [id number] Name: NAT FOX Rep #:[id number] : 1945 80 From: Arsalan Orellana DO PCP: Dr. Jimmy Shrestha MD Status:[facility] Location: [place] [address] HPI - General General Date of Admission: [...] 6.2.25 by PCP: W-5.9, hgb-14.1, hct-42.6, plt-288. [facility] Medical History Wears glasses Post-menopausal Anxiety [...] acetonide 0.1 % 1 applic topical QDAY MS N 02/09/25 Unknown History lotion DERMATITIS acetaminophen [...] (From Neosporin Allergy NEEDS Verified 03/07/25 10:33 (eat-aeu-ngjjr)) FOLLOW-UP neomycin (From Neosporin Allergy NEEDS Verified 03/07/25 10:33 (hfx-wnv-ztewb)) FOLLOW-UP Penicillins Allergy NEEDS Verified 03/07/25 10:33 FOLLOW-UP polymyxin B (From Neosporin Allergy NEEDS Verified 03/07/25 10:33 (kkj-zex-ejnpg)) FOLLOW-UP adhesive (adhesives) AdvReac Intermediate Rash Verified [...] to having her hgb checked here at [facility] to verify no further blood loss. * blood for H/H * increased dietary fiber, reviewed good sources * increased fluids * discouraged prolonged sitting, including limiting time on toilet to reduce rectal pressure * office FU 03/09/25 0836 Cosigner Signature (if applicable): CC: Dr. Jimmy Shrestha MD; Arsalan Orellana DO~ Signed [facility]07-31-2025 [facility] Medical Records Department [address] [place] [address] History Physical Exam 03/09/25 0823 MR#: [id number] Acct: [id number] Name: NAT FOX Rep #: [id number] : 1945 80 From: Arsalan Orellana DO PCP: Dr. Jimmy Shrestha MD Status:[facility] Location: [place] [address] HPI - General General Date of Admission: [...] 6.2.25 by PCP: W-5.9, hgb-14.1, hct-42.6, plt-288. [facility] Medical History Wears glasses Post-menopausal Anxiety Open [...] (From Neosporin Allergy NEEDS Verified 03/07/25 10:33 (hdv-oss-ksmql)) FOLLOW-UP neomycin (From Neosporin Allergy NEEDS Verified 03/07/25 10:33 (qgs-obx-tkzct)) FOLLOW-UP Penicillins Allergy NEEDS Verified 03/07/25 10:33 FOLLOW-UP polymyxin B (From Neosporin Allergy NEEDS Verified 03/07/25 10:33 (eib-lni-kfpxm)) FOLLOW-UP adhesive (adhesives) AdvReac Intermediate Rash Verified [...] hematemesis, hematochezia, hemorrhoids, loose (more content not included)...[facility] 02-10-2025 Radiology Diagnostic study note [facility] Imaging Services [address] [place] [address] [id number] Abdomen Single View MR#: [id number] Acct: [id number] Name: NAT FOX Rep #: [id number] : 1945 F 79 From: Nemo Lr MD PCP: Dr. Jimmy Shrestha MD Status: [facility] CL Study:Abdomen Single View Date of Exam: 02/09/25 Exam# [id number] Ordering Dr: Brad Zuleta NP-Gigi PROCEDURE: ABDOMEN SINGLE VIEW 02/09/2025 REASON FOR EXAM: ABDOMINAL PAIN, TENESMUS, BOWEL INCONTINENCE. Right lower quadrant pain TECHNIQUE: ABDOMEN SINGLE VIEW COMPARISON: No FINDINGS: Clear lung bases. No free air. Moderate stool. Nondistended bowel. No concerning calcifications. RAD/Abdomen Single View IMPRESSION: Moderate stool. If there is clinical concern for appendicitis, recommend CT. Reading Location: [facility]-LR-2 CC: SALOMÓN Zuleta; Dr. Jimmy Shrestha MD ~ International Manager: Signed [facility]07-03-2025 Evaluation note* Diagnosis Onset Date Resolution [...] May 24 1:56pm Hypertension chronic May 1:56pm [facility] Work Phone: 1(988) 721-806706-24-2025 Evaluation note* Diagnosis Onset Date Resolution Status Admit Date Bleeding per rectum acute January 31, 2025 2:01pm [facility] Work Phone: 1(180) 633-525906-24-2025 Evaluation note* Diagnosis Onset Date Resolution Status Admit Date Bleeding per rectum acute January 31, 2025 2:01pm Abdominal pain acute February 09, 2025 1:56pm Bleeding per rectum acute February 09, 2025 1:56pm Excessive gas acute February 09, 2 025 1:56pm [facility] Work Phone: 1(870) 253-348706-24-2025 Evaluation note* Diagnosis Onset Date Resolution Status Admit Date Bleeding per rectum acute January 31, 2025 2:01pm Abdominal pain acute February 09, 2025 1:56pm Bleeding per rectum acute February 09, 2025 1:56pm Excessive gas acute February 09, 2 025 1:56pm Abdominal pain acute March 09, 2025 8:02am Bleeding per rectum acute March 09, 2025 8:02am [facility] Work Phone: 1(732) 957-998006-24-2025 Evaluation note* Diagnosis Onset Date Resolution Status [...] rect al bleeding acute March 23 1:48pm [facility] Work Phone: 1(850) 826-878906-24-2025 Evaluation note* Diagnosis Onset Date Resolution Status [...] rectal bleeding acute April 17, 025 1:22pm [facility] Work Phone: 1(143) 191-684805-30-2025 Note. MICRO - Microbiology PROCEDURE: Culture Wound [...] Locations *1: This test was performed at: [facility], [address] [place] [address], [id number]- , [facility]12-19-2024 Note. MICRO - Microbiology PROCEDURE: Culture [...] Locations *1: This test was performed at: [address], [facility] , [facility] [id number] Note ORIGINAL EXAMINATION: CT OF THE RIGHT [...] By: Moustapha Harper DO Electronically signed By Moustpaha Harper DO Dictated Date: 04/24/2022 1:52:36 PM Prelim Date: 04/24/2022 1:57:00 PM Sign Date: 04/24/2022 1:57:00 PM Ordering Provider: KASEY GARCIA [facility]09-15-2022 Note ORIGINAL EXAMINATION: CT OF THE [...] Sign Date: 04/24/2022 1:57:00 PM Ordering Provider: [facility]10-19-2021 Evaluation + Plan note Future Scheduled Tests Laboratory* Complete Metabolic Panel 05/28/21 Radiology* MA Mammo Screening Bilateral w/ Torey 06/03/21 [facility] Consult note Author Ryley Gutierrez [facility] Note Date/Time March 09, 2025 9:31 am [facility] Medical Records Department [address] [place] [address] Pre-Anesthesia Evaluation 03/09/25 0926 MR#: [id number] Acct: [id number] Name: NAT FOX Rep #:[id number] : 1945 80 From: Ryley Abbasi PCP: Dr. Jimmy Shrestha MD Status:REG [facility] Y Race: C Location: [place] [address] ASA Classification* ASA Classification ASA Classification: 2 [...] Procedure(s): COLONOSCOPY Anesthesia History Anesthesia History - wire bender: Anesthesia History - wire bender Hx Hospitalization No 03/07/25 10:53 Any Problems [...] am of surgery synthroid PONV PONV - wire bender: PONV - wire bender Female Yes 03/07/25 10:53 HX of Motion [...] 03/09/25 08:36 Respiratory Assessment Respiratory Assessment - wire bender: Respiratory Tract Infection Hx - wire bender Hx Respiratory Tract Infection No 03/07/25 10:53 STOP Sleep Apnea STOP Sleep Apnea - wire bender: STOP Sleep Apnea - wire bender Hx Hypertension Yes: CONTROLLED ON MED 03/07/25 [...] Tobacco Use History Tobacco Use History - wire bender: Tobacco Use History - wire bender Tobacco Use Smoking Status Never smoker 03/07/25 10:53 Hx Tobacco Use No 03/07/25 10:53 Years Smoking Packs Smoked per Day Smoking Cessation Date was within the last 15 years Hx Smoking Cessation Date Hx Smoking Cessation Counseling Hematologic Medial History Hematologic Hx - wire bender: Hematologic 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 Hx of Blood Transfusion No 03/07/25 10:53 [...] confused, unrespo /Reproduction History /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 Hx Now No 03/07/25 10:53 Gestational Age [...] acetonide 0.1 % 1 applic topical QDAY MS N 02/09/25 Unknown History lotion DERMATITIS acetaminophen [...] (From Neosporin Allergy NEEDS Verified 03/07/25 10:33 (gpd-mhy-fgrza)) FOLLOW-UP neomycin (From Neosporin Allergy NEEDS Verified 03/07/25 10:33 (qtu-dob-nlzub)) FOLLOW-UP Penicillins Allergy NEEDS Verified 03/07/25 10:33 FOLLOW-UP polymyxin B (From Neosporin Allergy NEEDS Verified 03/07/25 10:33 (yce-phm-eguab)) FOLLOW-UP adhesive (adhesives) AdvReac Intermediate Rash Verified [...] MD Cosigner Signature: Date CC: ~ Signed [facility] Work Phone: Consult note Author Tai Brown [facility] Note Date/Time March 09, 2025 11:0 3am [facility] Medical Records Department [address] [place] [address] Anesthesia Postop Eval I 03/09/25 1016 MR#: [id number] Acct: [id number] Name: NAT FOX Rep #:[id number] : 1945 80 From: Tai [place] NA PCP: Dr. Jimmy Shrestha MD Status:REG [facility] Y Race: C Location: [place] [address] Anesthesia: Postop Eval I Current Vital Signs [...] 03/09/25 1016 <Electronically signed by Tai Brown BUSINESS ANALYSIS CONSULTANT> Date _ Tai Brown BUSINESS ANALYSIS CONSULTANT Cosigner Signature: Date CC: ~ Signed [facility] Work Phone: Evaluation + Plan note Future Appointments Appointment Date:04/24/2022 01:15:00 PM Scheduled Provider: Location:[facility] Appointment Type:CT Knee w/o Contrast Right Appointment Date:04/25/2022 10:00:00 AM Scheduled Provider:JIMMY SHRESTHA MD Location:[facility] Appointment Type:PC OV Appointment Date:04/30/2022 11:30:00 AM Scheduled Provider: Location:[facility] Appointment Type:PT [facility] Appointment Date:05/02/2022 03:15:00 PM Scheduled Provider: Location:[facility] Appointment Type:PT [facility] Appointment Date:05/05/2022 03:15:00 PM Scheduled Provider: Location:[facility] Appointment Type:PT [facility] Appointment Date:05/07/2022 03:45:00 PM Scheduled Provider: Location:[facility] Appointment Type:[facility] Future Scheduled Tests Laboratory* Complete Metabolic Panel 05/28/21 Radiology* CT Knee w/o Contrast Right 04/24/22 [facility] Evaluation + Plan note Future Appointments Appointment Date:04/25/2022 10:00:00 AM Scheduled Provider:JIMMY SHRESTHA MD Location:[facility] Appointment Type:PC OV Appointment Date:04/30/2022 11:30:00 AM Scheduled Provider: Location:[facility] Appointment Type:PT Treatment [facility] Appointment Date:05/02/2022 03:15:00 PM Scheduled Provider: Location:[facility] Appointment Type:PT Treatment - [place] Appointment Date:05/05/2022 03:15:00 PM Scheduled Provider: Location:[facility] Appointment Type:PT Treatment [facility] Appointment Date:05/07/2022 03:45:00 PM [facility]uled [facility] - [place] Appointment Date:10/15/2022 09:45:00 AM Scheduled Provider: Location:[facility] Appointment Type:PC Nurse Lab Appointment Date:10/24/2022 10:15:00 AM Scheduled Provider:JIMMY SHRESTHA MD Location:[facility] Appointment Type:PC OV Future Scheduled Tests Laboratory* Complete Metabolic Panel 05/28/21 [facility] Evaluation + Plan note Future Appointments Appointment Date:05/13/2023 01:30:00 PM Scheduled Provider:JIMMY SHRESTHA MD Location:[facility] Appointment Type:PC OV [facility] Evaluation + Plan note Future Appointments Appointment Date:06/07/2024 01:30:00 PM Scheduled Provider:JIMMY SHRESTHA MD Location:[facility] Appointment Type:PC OV Appointment Date:06/13/2024 10:00:00 AM Scheduled Provider: Location:[facility] Appointment Type:yyNM Inj Bone Three Phase Study Scan Appointment Date:06/13/2024 01:00:00 PM Scheduled Provider: Location:[facility] Appointment Type:yyNM Bone Three Phase Study Scan 2 Future Scheduled Tests Radiology* NM Bone Three Phase Study (Scan 1) 06/13/24 [facility] Evaluation + Plan note Future Appointments Appointment Date:06/22/2024 07:00:00 PM Scheduled Provider: Location:[facility] Appointment Type: Home Studies Appointment Date:06/28/2024 03:00:00 PM Scheduled Provider:JIMMY SHRESTHA MD Location:[facility] Appointment Type:PC OV Follow Up [facility] Evaluation + Plan note Future Appointments Appointment Date:06/28/2024 03:00:00 PM Scheduled Provider:JIMMY SHRESTHA MD Location:[facility] Appointment Type:PC OV Follow Up [facility] Evaluation + Plan note Future Appointments [...] Panel 01/03/25 * N-Terminal proBNP 01/03/25 [facility] Evaluation + Plan note Future Appointments Appointment Date:01/18/2025 07:00:00 PM Scheduled Provider: Location:S Appointment Type:[facility] Studies [facility] Evaluation note* Diagnosis Onset Date Resolution Status Admit Date Bleeding per rectum acute January 31, 2025 2:01pm Rectal hemorrhage noneactive January 312024 2:01pm [facility] Work Phone: Hospital course Narrative No data available for this section [facility] Hospital Discharge instructions No data available for this section [facility] Progress note No data available for this section [facility] Reason for referral (narrative)No reason for referral [facility] Work Phone: Summary Purpose Family History No Family History Records Found Advance Directives No Advanced Directives Records Found Advance Directive Response Recorded Date/ Time Do you have a Healthcare Power of Order Builder? No March 07, 2025 10:53am Chief Complaint [...] Member Role: Primary Care Physician Address: Address: [address] [place] [address] Care Team Related Persons Name: PATITO FOX Address: Home [address] [place], [place] [id number] [facility] Care Team Personnel Name: JIMMY SHRESTHA MD Position: P4 Physician - Primary Care Med Service: Active Provider Member Role: Primary Care Physician Address: Address: [address] [place] [address]- [place] Care Team Related Persons Name: PATITO FOX Address: Home [id number] [place] [phone] [facility] Care Team Personnel Name: JIMMY SHRESTHA MD Position: P4 Physician - Primary Care Med Service: Active Provider Member Role: Primary Care Physician Address: Address: [address] [place], [place] [id number] [place] [address] Care Team Related Persons Name: PATITO FOX Address: [place] [id number] [place] [phone] [facility] Patient Care team informatio n (unrecognized [...] End: February 06, 2025 Graciela Zuleta , SNOWBOARDER-C Attending Provider Active S tart: February 06, 2025 End: February 06, 2025 Graciela Zuleta , SNOWBOARDER-C Referring Provider Active S tart: February 06, 2025 End: February 06, 2025 Team Status: Active Member Role/Relationship Status Dates Dr. Jmimy Shrestha MD Primary Care Provider Active Team Status: Inactive Member Role/Relationship Status Dates Dr. Jimmy Shrestha MD Primary Care Provider Active Start: February 09, 2025 End: February 09, 2025 Dr. Jimmy Shrestha MD Referring Provider Active Start: February 09, 2025 End: February 09, 2025 Graciela Zuleta , SNOWBOARDER-C Attending Provider Active S tart: February 09, 2025 End: February 09, 2025 Team Status: Inactive Member Role/Relationship Status Dates Dr. Jimmy Shrestha MD Primary Care Provider Active Start: February 09, 2025 End: February 09, 2025 Graciela Zuleta , SNOWBOARDER-C Attending Provider Active S tart: February 09, 2025 End: February 09, 2025 Graciela Zuleta , SNOWBOARDER-C Referring Provider Active S tart: February 09, 2025 End: February 09, 2025 Team Status: Active Member Role/Relationship Status Dates Dr. Jimmy Shrestha MD Primary Care Provider Active Start: February 11, 2025 Graciela Zuleta , SNOWBOARDER-C Attending Provider Active S tart: February 11, 2025 Graciela Zuleta , SNOWBOARDER-C Referring Provider Active S tart: February 11, 2025 Team Status: Inactive Member Role/Relationship Status Dates Dr. Jimmy Shrestha MD Primary Care Provider Active Start: February 11, 2025 End: February 11, 2025 Graciela Zuleta , SNOWBOARDER-C Attending Provider Active S tart: February 11, 2025 End: February 11, 2025 Graciela Zuleta , SNOWBOARDER-C Referring Provider Active S tart: February 11, [...] 2025 End: March 23, 2025 Graciela Zuleta SNOWBOARDER-C Attending Provider Active S tart: March 23, 2025 End: March 23, 2025 Team Status: Inactive Member Role/Relationship Status Dates Dr. Jimmy Shrestha MD Primary Care Provider Active Start: March 23, 2025 End: March 23, 2025 Graciela Zuleta SNOWBOARDER-C Attending Provider Active S tart: March 23, 2025 End: March 23, 2025 Graciela Zuleta SNOWBOARDER-C Referring Provider Active S tart: March 23, 2025 End: March 23, 2025 Team Status: Inactive Member Role/Relationship Status Dates Dr. Jimmy Shrestha MD Primary Care Provider Active Start: April 04, 2025 End: April 04, 2025 Graciela Zuleta SNOWBOARDER-C Attending Provider Active S tart: April 04, 2025 End: April 04, 2025 Graciela Zuleta SNOWBOARDER-C Referring Provider Active S tart: April 04, [...] End: February 06, 2025 Gracielaher Zuleta , SNOWBOARDER-C Attending physician Active Start: February 06, 2025 End: February 06, 2025 Graciela Song , SNOWBOARDER-C Referring Provider Active S tart: February 06, 2025 End: February 06, 2025 Team Status: Inactive Member Role/Relationship Status Dates Dr. Jimmy Shrestha MD Primary care physician Active Start: February 09, 2025 End: February 09, 2025 Dr. Jimmy Shrestha MD Referring Provider Active Start: February 09, 2025 End: February 09, 2025 Gracielaher Zuleta , SNOWBOARDER-C Attending physician Active Start: February 09, 2025 End: February 09, 2025 Team Status: Inactive Member Role/Relationship Status Dates Dr. Jimmy Shrestha MD Primary care physician Active Start: February 09, 2025 End: February 09, 2025 Gracielaher Zuleta , SNOWBOARDER-C Attending physician Active Start: February 09, 2025 End: February 09, 2025 Gracielaher Zuleta , SNOWBOARDER-C Referring Provider Active S tart: February 09, 2025 End: February 09, 2025 Team Status: Inactive Member Role/Relationship Status Dates Dr. Jimmy Shrestha MD Primary care physician Active Start: February 11, 2025 End: February 11, 2025 Gracielaher Zuleta , SNOWBOARDER-C Attending physician Active Start: February 11, 2025 End: February 11, 2025 Gracielaher Zuleta , SNOWBOARDER-C Referring Provider Active S tart: February 11, [...] 2025 End: March 23, 2025 Graciela Zuleta SNOWBOARDER-C Attending physician Active Start: March 23, 2025 End: March 23, 2025 Gracielaher Zuleta SNOWBOARDER-C Referring Provider Active S tart: March 23, 2025 End: March 23, 2025 Team Status: Inactive Member Role/Relationship Status Dates Dr. Jimmy Shrestha MD Primary care physician Active Start: April 04, 2025 End: April 04, 2025 Graciela Zuleta SNOWBOARDER-C Attending physician Active Start: April 04, 2025 End: April 04, 2025 Graciela Zuleta SNOWBOARDER-C Referring Provider Active S tart: April 04, 2025 End: April 04, 2025 Team Status: Active Member Role/Relationship Status Dates Dr. Jimmy Shrestha MD Primary care physician Active Start: April 04, 2025 Dr. Jeferson Phipps MD Attending physician Active Start: April 04, 2025 Graciela Zuleta SNOWBOARDER-C Referring Provider Active S tart: April 04, [...] section and content) DATE CREATED AUTHOR 05/15/2023 [facility] ([place]) DATE CREATED AUTHOR AUTHOR'S ORGANIZ ATION 08/04/2024 [facility] DATE CREATED AUTHOR AUTHOR'S ORGANIZ ATION 11/19/[address] [facility] DATE CREATED AUTHOR AUTHOR'S ORGANIZ ATION 01/29/2025 [facility] DATE CREATED AUTHOR AUTHOR'S ORGANIZ ATION 06/20/2025 [facility] Goals (unrecognized section and content) Goals [...] BE BASED ON THE PRIMARY CLINICAL RECORDS. [facility]. provides no warranty or guarantee of the accuracy or completeness of information in this document.
== END | disposition home or self-care (01) ==
LOC: LAB 13:28
PROVIDERS: PCP Family Medicine; Referring Provider Student in an Organized Health Care Education/Training Program; Visit Provider Student in an Organized Health Care Education/Training Program
DX: I10 Essential (primary) hypertension (principal)
CPT/HCPCS: 36415; 80048